=== PATIENT | female | born 1950 | race Caucasian/White ===

== ENCOUNTER 2023-12-13 11:21 | Outpatient (RCR) | payer MEDICARE, BC, SELFPAY ==
--- NOTE | 2023-12-13 11:28 | PC.NURSE ---
1100 Arrival w/c with spouse. alert oriented, assisted to bed. 1110 attempted straight cath per Ilya Rn without success.
--- NOTE | 2023-12-13 12:11 | PC.NURSE ---
1140 straight cathed per Letha RN, returned clear yellow urine. UA sent to lab as ordered, asssisted patient to clean self, redress, assisted to w/c and to car.
[2023-12-13 12:55] LABS: Bilirubin Urine NEGATIVE (NEGATIVE); Blood Urine NEGATIVE (NEGATIVE); Clarity Urine CLEAR (CLEAR); Color Urine YELLOW (YELLOW); Glucose Urine UA NEGATIVE (NEGATIVE); Ketones Urine NEGATIVE (NEGATIVE); Leukocyte Esterase Urine NEGATIVE (NEGATIVE); Nitrite Urine NEGATIVE (NEGATIVE); Protein Urine TRACE mg/dL (NEG/TRACE); Specific Gravity Urine 1.015 (1.005-1.025); Urobilinogen Urine 0.2 EU/dL (0.2-1.0); pH Urine 7.5 (5.0-9.0)
[2023-12-13 12:59] LABS: Urine Microscopic Indicated NO
== END 2024-01-01 23:59 | disposition home or self-care (01) ==
LOC: INF 11:21
PROVIDERS: PCP Family Medicine; Visit Provider Personal Emergency Response Attendant
DX: N30.00 Acute cystitis without hematuria (principal)
CPT/HCPCS: 81003

== ENCOUNTER 2024-01-05 17:30 | Outpatient (REF) | payer MEDICARE, BC, SELFPAY ==
--- OUTSIDE RECORDS SUMMARY | 2024-01-05 17:44 | XMS_ITS | CCD ---
Author Organization [facility] Team Providers Care Winter Intern Name Role Phone PHYSICIAN, DEFAULT Unavailable Unavailable PHYSICIAN, DEFAULT Unavailable Unavailable DEFDARCI, DR POLANCO Admitting Unavailable DEFRANCE, DR POLANCO Attending Unavailable DEFRANCE, DR POLANCO Primary Care Unavailable DEFRANCE, DR POLANCO Consulting Unavailable None, No PCP Unavailable Unavailable Amanda Jung Unavailable Unavailable Sherri Broderick Unavailable Demond Wilhelm Unavailable Unavailable Cevasrandi, Dr. Jerry Barrera Referring U navanaable Davie, Dr. Sherri Moreno Primary Care Diandra ilDuyen Cam Admitting Unavailable Duyen Lubin Attending Unavailable Cevasco, Dr. Jerry Barrera Referring U navailable Duyen Lubin Attending Unavailable Honda, Dr. Paris Wolf Attending Unavailabl e Duyen Lubin Referring Unavailable DefSherri bejarano MD Primary Care Provider Unavailable Primary Care Provider UnavailKANDACE Au Referring Unavailable KAVURI, SUMAN C Attending Unavailable SELF, SELF Referring Unavailable KAVURI, SUMAN C Attending Unavailable ROCIO OGDEN Referring Unavailable KAVURI, SUMAN C Attending Unavailable Sherri Broderick MD Primary Care Provider Sherri Broderick MD Primary Care Provider [phone] Sherri Broderick MD Primary Care Juan Diego Kauffman PA-C, Kandace Dorsey Attending Elva Kauffman PA-C, Kandace Dorsey Attending Sherri Lynch MD Primary Care Juan Diego Kauffman PA-C, Kandace Dorsey Attending Sherri Lynch MD Primary Care Sukhdeep Elizalde MD Admitting Unavailable Sukhdeep Dooley MD Attending Unavailable Sherri Broderick MD Primary Care Juan Diego Broderick MD, [facility] Juan Diego Tineo MD, Suman Attending Unavailable Defrance , [facility] Diandrai shari Kauffman PA-C, Kandace Dorsey Attending Unav ailable Michael FULTON, Knadace Dorsey Attending Unav ailable Defdarci BARRIOS, [facility] Juan Diego Kauffman PA-C, Kandace Dorsey Attending Unav ailable Davie BARRIOS, [facility] Pennyvai shari Kauffman PA-C, Kandace Dorsey Attending Unav ailable Davie BARRIOS, [facility] Diandrai shari Broderick MD, [facility] Juan Diego Kauffman PA-C, Kandace Dorsey Attending Unav ailable Davie BARRIOS, [facility] Juan Diego Kauffman PA-C, Kandace Dorsey Attending Elva GARNICA JR., ROCAEL Lucas Attending Unavailkeri GARNICA JR., ROCAEL Lucas Attending Unavaila MATHEW Gibson Attending Unavailable QUINN CHAVEZ Attending Unavailable MATHEW WARREN Referring Unavailable JR. ABDELRAHMAN, ROCAEL Lucas Attending Unavaila AMBER Pringle Attending Unavailable DEFSHERRI BEJARANO Referring Unavailable DEFRANCE, SHERRI Sanders Primary Care Unavailable DEFRANCESHERRI Attending Unavailable DEFRANCESHERRI Referring Unavailable DEFRANCE, SHERRI Sanders Primary Care Unavailable DEFRANCESHERRI Attending Unavailable DEFRANCESHERRI Referring Unavailable DEFRANCE, SHERRI Sanders Primary Care Unavailable DEFRANCESHERRI Attending Unavailable DEFRANCESHERRI Referring Unavailable DEFRANCE, SHERRI Sanders Primary Care Unavailable DEFRANCESHERRI Referring Unavailable DEFRANCE, SHERRI Sanders Primary Care Unavailable KATT MICHAEL Attending Unavailable DEFRANCESHERRI Referring Unavailable DEFRANCESHERRI Primary Care Unavailable DEFRANCE, SHERRI Sanders Referring Unavailable DEFRANCE, SHERRI Sanders Primary Care Unavailable MARTI GASTON Admitting Unavailable MARTI GASTON Attending Unavailable MARTI GASTON Referring Unavailable DEFRANCE, SHERRI Sanders Primary Care Unavailable MARTI GASTON Attending Unavailable MARTI GASTON Referring Unavailable DEFRANCE, SHERRI Sanders Primary Care Unavailable BASSEM MALCOLM Attending Unavailable DEFRANCE, SHERRI Sanders Primary Care Unavailable DEFRANCE, SHERRI Sanders Referring Unavailable DEFRANCE, SHERRI Sanders Primary Care Unavailable ROCAEL GARNICA JR Referring Unavailabl e DEFRANCE, SHERRI T Primary Care Unavailable DEFRANCE, SHERRI T Referring Unavailable DEFRANCE, SHERRI T Primary Care Unavailable DEFRANCE, SHERRI T Referring Unavailable DEFRANCE, SHERRI T Primary Care Unavailable DEFRANCE, SEHRRI T Referring Unavailable DEFRANCE, SHERRI T Primary Care Unavailable DEFRANCE, SHERRI T Referring Unavailable DEFRANCE, SHERRI T Primary Care Unavailable THRASHERLB RICO Attending Unavailable THRASHER, LB Freire Referring Unavailable DEFRANCE, SHERRI T Primary Care Unavailable KATT MICHAEL Attending Unavailable DEFRANCE, SHERRI T Referring Unavailable DEFRANCE, SHERRI T Primary Care Unavailable THRASHERLB RICO Admitting Unavailable THRASHERLB RICO Attending Unavailable DEFRANCE, SHERRI T Referring Unavailable DEFRANCE, SHERRI T Primary Care Unavailable DEFRANCE, SHERRI T Referring Unavailable DEFRANCE, SHERRI T Primary Care Unavailable BRIT GIBSON Attending Unavailable DEFRANCE, SHERRI T Primary Care Unavailable DEFRANCE, SHERRI T Referring Unavailable DEFRANCE, SHERRI T Primary Care Unavailable DEFRANCE, SHERRI T Referring Unavailable DEFRANCE, SHERRI T Primary Care Unavailable DEFRANCE, SHERRI T Referring Unavailable DEFRANCE, SHERRI Sanders Primary Care Unavailable ROCAEL GARNICA JR Referring Unavailabl e DEFRANCE, SHERRI Sanders Primary Care Unavailable ROCAEL GARNICA JR Referring Unavailabl e DEFRANCE, SHERRI Sanders Primary Care Unavailable ROCAEL GARNICA JR Referring Unavailabl e DEFRANCE, SHERRI Sanders Primary Care Unavailable DEFRANCE, SHERRI T Referring Unavailable DEFRANCE, SHERRI T Primary Care Unavailable MATIAS LAUREANO Attending Unavailable DEFRANCE, SHERRI T Referring Unavailable DEFRANCE, SHERRI T Primary Care Unavailable LB THRASHER Admitting Unavailable LB THRASHER Attending Unavailable DEFRANCE, SHERRI T Referring Unavailable DEFRANCE, SHERRI Sanders Primary Care Unavailable DIVINA NG Referring Unavailable DEFRANCE, SHERRI T Primary Care Unavailable DEFRANCE, SHERRI T Referring Unavailable DEFRANCE, SHERRI T Primary Care Unavailable ROCAEL GARNICA JR Referring Unavailabl e DEFRANCE, SHERRI T Primary Care Unavailable LB THRASHER Admitting Unavailable LB THRASHER Attending Unavailable DEFRANCE, SHERRI T Referring Unavailable DEFRANCE, SHERRI T Primary Care Unavailable DEFRANCE, SHERRI T Referring Unavailable DEFRANCE, SHERRI T Primary Care Unavailable DEFRANCE, SHERRI T Referring Unavailable DEFRANCE, SHERRI T Primary Care Unavailable ROCAEL GARNICA JR Admitting Unavailabl e ROCAEL GARNICA JR Attending Unavailabl e DEFRANCE, SHERRI Sanders Primary Care Unavailable [facility] nsulting Unavailable DEFRANCE, SHERRI T Referring Unavailable DEFRANCE, SHERRI T Primary Care Unavailable DIVINA NG Referring Unavailable DEFRANCE, SHERRI T Primary Care Unavailable DEFRANCE, SHERRI T Referring Unavailable DEFRANCE, SHERRI T Primary Care Unavailable KATT MICHAEL Attending Unavailable DEFRANCE, SHERRI T Referring Unavailable DEFRANCE, SHERRI T Primary Care Unavailable DEFRANCE, SHERRI T Referring Unavailable DEFRANCE, SHERRI T Primary Care Unavailable DIVINA NG Referring Unavailable DEFRANCE, SHERRI T Primary Care Unavailable FIGUEROA PERALES Attending Unavailable DEFRANCE, SHERRI T Referring Unavailable DEFRANCE, SHERRI T Primary Care Unavailable DEFRANCE, SHERRI T Referring Unavailable DEFRANCE, SHERRI T Primary Care Unavailable DEFRANCE, SHERRI T Referring Unavailable DEFRANCE, SHERRI T Primary Care Unavailable Allergies Allergy Classification Reported Allergen(s) Allergy Type Date of Onset Reaction(s) Facility (20 sources) latanoprost / netarsudil; Translations: [Rocklatan SOLN] Drug Allergy 05-19-19 23 Other (See Comments) [facility] (2 sources) No Alert Propensity to adverse reactions to drug 09-02-19 Dept[facility]at[facility] (20 sources) brimonidine / brinzolamide; Translations: [BRINZOLAMIDE-BABAK MONIDINE] Drug Allergy 09-24-19 17 Itchy Eyes, Redness, Itching, Unknown [facility] (20 sources) HYDROmorphone; Translations: [HYDROMORPHONE] Drug Allergy 12-16-19 23 Hives, Nausea and Vomiting [facility] (20 sources) Meperidine; Translations: [MEPERIDINE] Drug Allergy 05-23-19 22 Nausea and Vomiting, GI intolerance [facility] (20 sources) Morphine; Translations: [morphine] Drug Allergy 05-23-19 22 Nausea and Vomiting, GI intolerance [facility] (6 sources) Netarsudil-Latano prost; Translations: [NETARSUDIL-LATAN OPROST] Propensity to adverse reactions to drug 05-19-19 23 Itching, Redness, Angioedema (swelling), Unknown [facility] (20 sources) DULoxetine; Translations: [DULOXETINE] Drug Allergy 03-31-20 23 Nausea And Vomiting [facility] (20 sources) tiZANidine; Translations: [TIZANIDINE] Drug Allergy 03-31-20 23 Nausea And Vomiting [facility] (1 source) amLODIPine Drug Allergy 07-23-19 [address] [facility] (1 source) HYDROmorphone Drug Allergy 12-24-19 [address] [facility] (1 source) Acetaminophen / HYDROcodone; Translations: [hydrocodone-acet aminophen] Drug Allergy [facility] (1 source) brimonidine / brinzolamide; Translations: [Simbrinza] Drug Allergy [facility] (1 source) HYDROmorphone; Translations: [Dilaudid] Drug Allergy [facility] (1 source) Meperidine; Translations: [Demerol] Drug Allergy [facility] (1 source) Rocklatan; Translations: [Rocklatan] Propensity to adverse reactions to drug (disorder) [facility] (1 source) nickel; Translations: [NICKEL] Drug Allergy 12-28-19 [facility] Medications Current Medications Medication Drug Class(es) Dates Sig (Normalized) Sig (Original) 8 hr acetaminophen 650 mg extended release oral tablet (17 sources) acetaminophen (TYLENOL ARTHRITIS) 650 mg 8 hr tablet Take 1 tablet (650 mg total) by mouth. 2 tabs bid 0 Active albuterol 0.83 mg/ml inhalation solution (20 sources) beta2-Adrenergic Agonist Start: 02-15-2023 albuterol (PROVENTIL,VENTOLIN) nebulizer solution 2.5 mg Start: 08-19-2022 take 2 puff(s) by in halation every six hours as needed for wheezing albuterol (PROVENTIL HFA;VENTOLIN HFA) 90 mcg/actuation inhaler Indications: Bronchitis Inhale 2 puffs every 6 (six) hours as needed for wheezing. 18 g 1 08/19/2022 Active take 1 puff(s) by in halation every six hours as needed Albuterol 108 (90 Base) MCG/ACT Aero Soln inhaler Inhale 1 puff every 6 hours as needed for Shortness of Breath. 0 Active ascorbic acid 1000 mg oral tablet (18 sources) Vitamin C take 1 tablet by luis armando th in the morning ascorbic acid, vitamin C, (VITAMIN C) 1000 mg tablet Take 1 tablet (1,000 mg total) by mouth in the morning. 0 Active calcium carbonate 1500 mg oral tablet (19 sources) take 1 tablet by luis armando th in the morning, then take 1 tablet by mouth at mealtime calcium carbonate (OS-NETTA) 600 mg (1,500 mg) tablet Take 1 tablet (600 mg total) by mouth in the morning and 1 tablet (600 mg total) in the evening. Take with meals. 0 Active calcium carbonat e (Calcium 600) 600 MG tablet Calcium 600 0 Active carvedilol 12.5 mg oral tablet (20 sources) alpha-Adrenergic Kimo, beta-Adrenergic Kimo Start: 01-01-2023 End: 06-03-2023 take 1 tablet by mouth in the morning, then take 1 tablet by mouth at mealtime carvediloL (COREG) 12.5 mg tablet Take 1 tablet (12.5 mg total) by mouth in the morning and 1 tablet (12.5 mg total) in the evening. Take with meals. 90 tablet 3 06/03/2023 Active Carvedilol TABS Quantity: 0 Refills: 0 Ordered: 25-Aug-2022 DO Active Docusate (18 sources) take 1 capsule by mouth twice daily as needed docusate sodium (COLACE ORAL) Take 1 capsule by mouth 2 (two) times a day as needed. 0 Active dorzolamide 20 mg/ml ophthalmic solution (18 sources) Carbonic Anhydrase Inhibitor Start: 2 take 1 drop(s) into the eye(s) once daily dorzolamide (TRUSOPT) 2 % ophthalmic solution INSTILL 1 DROP IN BOTH EYES ONCE DAILY (MID-DAY) 0 08/13/2021 Active dorzolamide 20 mg/ml / timolol 5 mg/ml ophthalmic solution (20 sources) Carbonic Anhydrase Inhibitor, beta-Adrenergic Kimo Start: 7 dorzolamide-timolol (COSOPT) 22.3-6.8 mg/mL ophthalmic solution Start: 07-24-2016 take 1 drop(s) into the eye(s) twice daily dorzolamide-timolol (COSOPT) 22.3-6.8 mg/mL ophthalmic solution INSTILL 1 DROP IN BOTH EYES TWICE DAILY DIRECTED 3 07/24/2016 Active take 1 drop(s) into the eye(s) twice daily Dorzolamide HCl-Timolol Mal PF 22.3-6.8 MG/ML solution dorzolamide-timolol (PF) 2 %-0.5 % eye drops in a dropperette INSTILL 1 DROP INTO AFFECTED EYE(S) BY OPHTHALMIC ROUTE 2 TIMES PER DAY 0 Active Dorzolamide HCl- Timolol Mal 22.3-6.8 MG/ML Ophthalmic Solution Quantity: 0 Refills: 0 Ordered: 25-Aug-2022 DO Active DORZOLAMIDE HCL-TIMOLOL MAL OP (1 source) DORZOLAMIDE HCL- TIMOLOL MAL OP Dorzolamide-Timolol 0 Active fluticasone / salmeterol (19 sources) Corticosteroid, beta2-Adrenergi c Agonist Start: 01-29-20 take 1 puff(s) by mouth in the morning fluticasone propion-salmeteroL (ADVAIR) 250-50 mcg/dose DISKUS INHALE 1 PUFF BY MOUTH IN THE MORNING then INHALE 1 PUFF BY MOUTH BEFORE bedtime 60 each 5 01/28/2023 Active take 1 puff(s) by mo uth in the morning Fluticasone-Salmeterol 250-50 MCG/ACT ae rosol powder INHALE 1 PUFF BY MOUTH IN THE MORNING then INHALE 1 PUFF BY MOUTH BEFORE bedtime 0 Active furosemide 40 mg oral tablet (20 sources) Loop Diuretic Start: 05-19-2022 take 1 tablet by mouth twice daily before mealtime furosemide (LASIX) 40 mg tablet Indications: Acute on chronic diastolic congestive heart failure ([facility]) Take 1 tablet (40 mg total) by mouth 2 (two) times a day before meals. 60 tablet 11 05/19/2022 Active take 1 tablet by mouth once andres y furOSEmide 40 MG tablet Take 1 tablet by mouth daily. 0 Active glimepiride 4 mg oral tablet (20 sources) Sulfonylurea Start: 07-02-2023 take 1 tablet by mouth in the morning, then take 1 tablet by mouth before mealtime glimepiride (AMARYL) 4 mg tablet Indications: Type 2 diabetes mellitus with stage 3 chronic kidney disease, without long-term current use of insulin, unspecified whether stage 3a or 3b CKD ([facility]) Take 1 tablet (4 mg total) by mouth in the morning and 1 tablet (4 mg total) in the evening. Take before meals. 60 tablet 11 07/02/2023 Active Start: 06-23-2023 glimepiride (A MARYL) 2 mg tablet Indications: Type 2 diabetes mellitus with stage 3 chronic kidney disease, without long-term current use of insulin, unspecified whether stage 3a or 3b CKD ([facility]) Take 2 Tablets (4mg) before breakfast, and take 1 Tablet (2mg) before dinner 90 tablet 1 06/23/2023 Active Start: 05-25-2023 End: 06-23-2023 take 1 tablet by mouth once daily before breakfast glimepiride (AMARYL) 4 mg tablet TAKE 1 TABLET BY MOUTH EVERY MORNING before BREAKFAST 90 tablet 3 05/25/2023 06/23/2023 Discontinued (Dose adjustment) Start: 03-10-2023 End: 06-03-2023 glimepiride (AMARYL) 2 mg ta blet Indications: Type 2 diabetes mellitus with stage 3 chronic kidney disease, without long-term current use of insulin, unspecified whether stage 3a or 3b CKD ([facility]) Take 2 tablets (4 mg total) by mouth every morning before breakfast. 0 05/21/2023 06/03/2023 Discontinued (Duplicate Listing) Start: 08-19-2022 take 2 tablets by mo uth before mealtime glimepiride (Amaryl) 4 MG tablet Take 8 mg by mouth in the morning. Take before meals. 0 08/19/2022 Active Glimepiride TABS Quantity: 0 Refills: 0 Ordered: 25-Aug-2022 DO Active latanoprost 0.05 mg/ml / netarsudil 0.2 mg/ml ophthalmic solution (1 source) Prostaglandin Analog, Rho Kinase Inhibitor Start: 03-16-2022 take 1 drop(s) into the eye(s) at bedtime Rocklatan 0.02-0.005 % solution instill 1 (ONE) DROP IN BOTH EYES AT BEDTIME 0 03/16/2022 Active metFORMIN hydrochloride 500 mg oral tablet (20 sources) Biguanide Start: 06-16-2022 End: 07-05-2023 take 1 tablet by mouth twice daily metFORMIN (GLUCOPHAGE) 500 mg tablet TAKE 1 TABLET BY MOUTH TWICE DAILY 180 tablet 1 07/05/2023 Active take 1 tablet by luis armando th every twenty-four hours metFORMIN HCl ER 500 MG Oral Tablet Extended Release 24 Hour Quantity: 0 Refills: 0 Ordered: 25-Aug-2022 DO Active Multiple Vitamins-Minerals (Multivitamin Women 50+) tablet (1 source) Multiple Vitamins-Minerals (Multivitamin Women 50+) tablet as directed Orally 0 Active multivit-min/iron/folic /lutein (ULTIMATE WOMEN'S COMPLETE 50+ ORAL) (18 sources) take 1 tablet by mouth once in the morning multivit-min/iron/folic /lutein (ULTIMATE WOMEN'S COMPLETE 50+ ORAL) Take 1 tablet by mouth in the morning. 0 Active pantoprazole 40 mg delayed release oral tablet (17 sources) Proton Pump Inhibitor Start: 2023 take 1 tablet by mouth in the morning pantoprazole (PROTONIX) 40 mg EC tablet Take 1 tablet (40 mg total) by mouth in the morning. 30 tablet 5 05/21/2023 Active microencapsulated potassium chloride 20 meq extended release oral tablet (20 sources) Start: 2022 End: 2023 take 1 tablet by mouth in the morning potassium chloride (KLOR-CON M 20) 20 MEQ CR tablet Take 1 tablet (20 mEq total) by mouth in the morning. 30 tablet 5 07/06/2023 Active prednisoLONE acetate 10 mg/ml ophthalmic suspension (1 source) Corticosteroid take 1 drop(s) into the eye(s) three times daily prednisoLONE acetate (Pred-Forte) 1 % ophthalmic suspension prednisolone acetate 1 % eye drops,suspension INSTILL 1 DROP IN THE LEFT EYE THREE TIMES DAILY 0 Active pregabalin 100 mg oral capsule (20 sources) Start: 2023 take 1 capsule by mouth in the morning, then take 1 capsule by mouth at bedtime pregabalin (LYRICA) 100 mg capsule Indications: Spinal stenosis of lumbar region with neurogenic claudication , Lumbosacral spondylosis without myelopathy Take 1 capsule (100 mg total) by mouth in the morning and 1 capsule (100 mg total) before bedtime. 60 capsule 1 07/19/2023 Active Start: 05-28-2023 End: 07-14-2023 take 1 capsule by mouth in the morning, then take 1 capsule by mouth at bedtime pregabalin (LYRICA) 100 mg capsule Indications: Spinal stenosis of lumbar region with neurogenic claudication , Lumbosacral spondylosis without myelopathy Take 1 capsule (100 mg total) by mouth in the morning and 1 capsule (100 mg total) before bedtime. 60 capsule 1 05/28/2023 07/14/2023 Discontinued (Reorder) Start: 05-28-2023 take 1 capsule by mo uth in the morning, then take 1 capsule by mouth at bedtime pregabalin (LYRICA) 100 mg capsule Indications: Spinal stenosis of lumbar region with neurogenic claudication , Lumbosacral spondylosis without myelopathy Take 1 capsule (100 mg total) by mouth in the morning and 1 capsule (100 mg total) before bedtime. 60 capsule 1 05/28/2023 Active Start: 04-28-2023 End: 05-26-2023 take 1 capsule by mouth in the morning, then take 1 capsule by mouth at bedtime pregabalin (LYRICA) 75 mg capsule Indications: Spinal stenosis of lumbar region with neurogenic claudication , Lumbosacral spondylosis without myelopathy Take 1 capsule (75 mg total) by mouth in the morning and 1 capsule (75 mg total) before bedtime. 60 capsule 0 04/28/2023 05/26/2023 Discontinued (Reorder) Start: 04-13-2023 End: 04-28-2023 take 1 capsule by mouth in the morning, then take 1 capsule by mouth at bedtime pregabalin (LYRICA) 50 mg capsule Indications: Spinal stenosis of lumbar region with neurogenic claudication , Lumbosacral spondylosis without myelopathy Take 1 capsule (50 mg total) by mouth in the morning and 1 capsule (50 mg total) before bedtime. 60 capsule 1 04/13/2023 04/28/2023 Discontinued Start: 03-31-2023 take 1 capsule by mo uth twice daily pregabalin 25 MG capsule Take 1 capsule by mouth Twice daily. 0 03/31/2023 Active take 2 capsules by m outh in the morning pregabalin (Lyrica) 50 MG capsule Take 100 mg by mouth in the morning and 100 mg before bedtime. 0 Active rosuvastatin calcium 10 mg oral tablet (20 sources) HMG-CoA Reductase Inhibitor Start: 09-22-2022 End: 06-03-2023 take 1 tablet by mouth once daily rosuvastatin (CRESTOR) 10 mg tablet TAKE 1 TABLET BY MOUTH NIGHTLY 90 tablet 3 06/03/2023 Active Crestor 10 MG Or al Tablet Quantity: 0 Refills: 0 Ordered: 25-Aug-2022 DO Active 0.25 mg, 0.5 mg dose 1.5 ml semaglutide 1.34 mg/ml pen injector (1 source) semaglutide (Oze mpic) 2 MG/1.5ML solution pen-injector Inject 1 mg under the skin TAKES ON SUNDAYS 0 Active semaglutide (OZEMPIC) 2 mg/dose (8 mg/3 mL) pen injector (3 sources) Start: 4 semaglutide (OZEMPIC) 2 mg/dose (8 mg/3 mL) pen injector Indications: Type 2 diabetes mellitus with stage 3 chronic kidney disease, without long-term current use of insulin, unspecified whether stage 3a or 3b CKD ([facility]) Inject 2 mg under the skin once a week. 3 mL 5 07/14/2023 Active senna-docusate (Kellie-Colace) 4.3-25 mg half tablet (1 source) senna-docusate (Kellie-Colace) 4.3-25 mg half tablet Take 1 capsule by mouth 2 (two) times a day as needed. 0 Active travoprost 0.04 mg/ml ophthalmic solution (18 sources) Prostaglandin Analog Start: 7 take 0.004 drop(s) into the eye(s) once daily TRAVATAN Z 0.004 % drops Indications: open angle glaucoma Administer 1 drop to both eyes nightly Indications: wide-angle glaucoma. 3 08/28/2016 Active Completed/Discontinued Medications Medication Drug Class(es) Dates Sig (Normalized) Sig (Original) Advair Diskus 250-50 MCG/DOSE MISC (2 sources) Advair Diskus 250-50 MCG/DOSE MISC Quantity: 0 Refills: 0 Ordered: 25-Aug-2022 DO Active aspirin 81 mg chewable tablet (4 sources) Platelet Aggregation Inhibitor, Nonsteroidal Anti-inflammatory Drug Start: 12-06-2020 End: 05-21-2023 aspirin 81 mg chewable tablet Chew 1 tablet (81 mg total) and swallow nightly. 0 12/06/2020 05/21/2023 Discontinued (Alternate therapy) ASPIRIN 81 PO As pir-81 0 Active losartan potassium 100 mg oral tablet (2 sources) Angiotensin 2 Receptor Kimo Losartan Potassium 1 00 MG Oral Tablet Quantity: 0 Refills: 0 Ordered: 25-Aug-2022 DO Active semaglutide (OZEMPIC) 0.25 mg or 0.5 mg (2 mg/3 mL) pen injector (5 sources) Start: 04-06-2023 End: 05-26-2023 semaglutide (OZEMPIC) 0.25 mg or 0.5 mg (2 mg/3 mL) pen injector Indications: Type 2 diabetes mellitus with stage 3 chronic kidney disease, without long-term current use of insulin, unspecified whether stage 3a or 3b CKD ([facility] Inject 0.5 mg under the skin once a week. 9 mL 1 04/06/2023 05/26/2023 Discontinued (Dose adjustment) Start: 04-06-2023 semaglutide (O ZEMPIC) 0.25 mg or 0.5 mg (2 mg/3 mL) pen injector Indications: Type 2 diabetes mellitus with stage 3 chronic kidney disease, without long-term current use of insulin, unspecified whether stage 3a or 3b CKD ([facility]) Inject 0.5 mg under the skin once a week. 9 mL 1 04/06/2023 Active semaglutide (OZEMPIC) 1 mg/d ose (4 mg/3 mL) pen injector (12 sources) Start: 05-26-2023 End: 07-14-2023 semaglutide (OZEMPIC) 1 mg/d ose (4 mg/3 mL) pen injector Indications: Type 2 diabetes mellitus with stage 3 chronic kidney disease, without long-term current use of insulin, unspecified whether stage 3a or 3b CKD ([facility]) Inject 1 mg under the skin every 7 days. 3 mL 1 05/26/2023 07/14/2023 Discontinued (Dose adjustment) Start: 05-26-2023 semaglutide (O ZEMPIC) 1 mg/dose (4 mg/3 mL) pen injector Indications: Type 2 diabetes mellitus with stage 3 chronic kidney disease, without long-term current use of insulin, unspecified whether stage 3a or 3b CKD ([facility]) Inject 1 mg under the skin every 7 days. 3 mL 1 05/26/2023 Active Problems Active Problems Problem Classification Problem Date Documented Date Episodic/Chronic Asthma (1 source) Uncomplicated asthma; Translations: [Unspecified asthma, uncomplicated] 09-23-2022 Chronic Chronic kidney disease (20 sources) Chronic kidney disease stage 3B ; Translations: [Stage 3b chronic kidney disease] Onset: 05-19-2022 05-19-2022 Chronic Chronic kidney disease (4 sources) Chronic kidney disease; Translations: [Chronic kidney disease, stage 3 unspecified] Onset: 05-19-2022 Congestive heart failure; nonhypertensive (20 sources) Acute on chronic diastolic heart failure; Translations: [Acute on chronic diastolic (congestive) heart failure] Onset: 05-19-2022 09-21-2022 Chronic Coronary atherosclerosis and other heart disease (2 sources) Coronary arteriosclerosis; Translations: [Atherosclerotic heart disease of inupiat coronary artery without angina pectoris] Onset: 12-03-2023 06-03-2023 Chronic Deficiency and other anemia (2 sources) Other iron deficiency anemias; Translations: [Other iron deficiency anemias] Onset: 12-21-2023 Episodic Deficiency and other anemia (2 sources) Anemia, unspecified; Translations: [Anemia, unspecified] Onset: 07-02-2023 Episodic Diabetes mellitus with complications (20 sources) Type 2 diabetes mellitus; Translations: [Type 2 diabetes mellitus with diabetic chronic kidney disease] Onset: 12-20-2017 06-15-2022 Chronic Diabetes mellitus without complication (3 sources) Type 2 diabetes mellitus without complication; Translations: [Type 2 diabetes mellitus without complications] Onset: 05-12-2023 09-23-2022 Chronic Diverticulosis and diverticulitis (1 source) Diverticulosis of intestine, part unspecified, without perforation or abscess without bleeding; Translations: [Diverticulosis of intestine, part unspecified, without perforation or abscess without bleeding] Onset: 07-19-2023 Chronic Esophageal disorders (2 sources) Gastroesophageal reflux disease; Translations: [Gastro-esophageal reflux disease without esophagitis] Onset: 07-19-2023 07-02-2023 Chronic Essential hypertension (20 sources) Essential hypertension; Translations: [Essential (primary) hypertension] Onset: 03-15-2017 09-23-2022 Chronic Genitourinary symptoms and ill-defined conditions (18 sources) Urinary incontinence; Translations: [Unspecified urinary incontinence] Onset: 07-08-2021 07-08-2021 Chronic Genitourinary symptoms and ill-defined conditions (2 sources) Personal history of urinary (tract) infections; Translations: [Frequency of micturition] Onset: 12-01-2023 Episodic Glaucoma (18 sources) Glaucoma; Translations: [Unspecified glaucoma] Onset: 12-20-2017 05-05-2018 Chronic Heart valve disorders (19 sources) Non-rheumatic mitral regurgitation ; Translations: [Nonrheumatic mitral (valve) insufficiency] Onset: 04-19-2017 11-05-2020 Chronic Melanomas of skin (5 sources) Malignant melanoma of upper arm; Translations: [Malignant melanoma of skin of upper limb, including shoulder] Onset: 09-22-2022 09-07-2022 Chronic Nutritional deficiencies (2 sources) Vitamin D deficiency, unspecified; Translations: [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] Onset: 05-20-2023 Chronic Osteoarthritis (20 sources) Osteoarthritis of right knee joint; Translations: [Unilateral primary osteoarthritis, right knee] Onset: 01-21-2022 02-18-2022 Chronic Other aftercare (1 source) Long-term current use of aspirin; Translations: [skilled nursing (current) use of aspirin] 09-23-2022 Episodic Other aftercare (1 source) Long-term current use of oral hypoglycemic medication; Translations: [skilled nursing (current) use of oral hypoglycemic drugs] 09-23-2022 Episodic Other connective tissue disease (1 source) Presence of right artificial knee joint; Translations: [Presence of right artificial knee joint] Onset: 12-28-2023 Chronic Other connective tissue disease (1 source) History of lumbar fusion; Translations: [Arthrodesis status] 03-23-2023 Episodic Other connective tissue disease (2 sources) Arthrodesis status; Translations: [Arthrodesis status] Onset: 03-23-2023 Episodic Other fractures (1 source) Closed fracture of pelvis; Translations: [Fracture of unspecified parts of lumbosacral spine and pelvis, initial encounter for closed fracture] 03-23-2023 Episodic Other fractures (2 sources) Fracture of unspecified parts of lumbosacral spine and pelvis, initial encounter for closed fracture; Translations: [Fracture of unspecified parts of lumbosacral spine and pelvis, initial encounter for closed fracture] Onset: 03-23-2023 Episodic Other lower respiratory disease (1 source) Dyspnea; Translations: [Shortness of breath] 06-03-2023 Episodic Other lower respiratory disease (1 source) Cough Onset: 11-10-2023 Episodic Other non-traumatic joint disorders (1 source) Pain in elbow Onset: 11-10-2023 Episodic Other nutritional; endocrine; and metabolic disorders (1 source) Obesity; Translations: [Obesity, unspecified] 09-23-2022 Chronic Other nutritional; endocrine; and metabolic disorders (20 sources) Body mass index 30+ - obesity; Translations: [Body mass index (BMI) 39.0-39.9, adult] Onset: 11-05-2020 09-23-2022 Chronic Other nutritional; endocrine; and metabolic disorders (3 sources) Obese class II; Translations: [Obesity, unspecified] Onset: 03-23-2023 03-23-2023 Chronic Other nutritional; endocrine; and metabolic disorders (20 sources) Severe obesity; Translations: [Morbid (severe) obesity due to excess calories] Onset: 11-22-2017 Resolved: 11-05-2020 11-29-2020 Chronic Other nutritional; endocrine; and metabolic disorders (1 source) Body mass index (BMI) 40.0-44.9, adult; Translations: [Body mass index (BMI) 40.0-44.9, adult] Onset: 11-10-2023 Chronic Other nutritional; endocrine; and metabolic disorders (2 sources) Obesity, unspecified; Translations: [Obesity, unspecified] Onset: 11-05-2020 Chronic Residual codes; unclassified (2 sources) No current problems or disability; Translations: [Other specified conditions influencing health status] Onset: 09-01-2022 Episodic Residual codes; unclassified (1 source) History of operative procedure on lumbosacral spinal structure; Translations: [Other specified postprocedural states] 04-08-2023 Episodic Residual codes; unclassified (2 sources) Other specified postprocedural states; Translations: [Other specified postprocedural states] Onset: 04-07-2023 Episodic Spondylosis; intervertebral disc disorders; other back problems (20 sources) Other intervertebral disc degeneration, lumbar region; Translations: [Lumbosacral spondylosis without myelopathy] Onset: 03-29-2017 Chronic Unclassified (2 sources) CONTACT W/AND (SUSP) EXPOS COVID-19; Translations: [CONTACT W/AND (SUSP) EXPOS COVID-19] Onset: 09-09-2020 Unclassified (1 source) Low back pain, unspecified; Translations: [Low back pain, unspecified] Onset: 03-23-2023 Unclassified (2 sources) Pre-op Exam Onset: 12-03-2023 Unclassified (1 source) Routine Check up Onset: 11-10-2023 Unclassified (1 source) Outpatient Infusion Onset: 12-27-2023 Unclassified (1 source) MTM Follow-up Visit Onset: 06-23-2023 Unclassified (1 source) Med Refill Onset: 06-03-2023 Viral infection (1 source) COVID-19; Translations: [COVID-19] Onset: 09-09-2020 Past or Other Problems Problem Classification Problem Date Documented Da te Episodic/Chronic Abdominal hernia (1 source) Diaphragmatic hernia without obstruction or gangrene; Translations: [Diaphragmatic hernia without obstruction or gangrene] Onset: 07-19-2023 Episodic Acute and unspecified renal failure (19 sources) Acute injury of kidney; Translations: [Acute kidney failure, unspecified] Onset: 05-19-2022 05-19-2022 Episodic Calculus of urinary tract (18 sources) Kidney stone; Translations: [Calculus of kidney] Onset: 09-29-2016 07-21-2022 Episodic Deficiency and other anemia (3 sources) Anemia; Translations: [Anemia, unspecified] Onset: 07-19-2023 05-21-2023 Episodic Mood disorders (18 sources) Mood disorders Onset: 02-11-2023 Resolved: 05-12-2023 02-11-2023 Nonspecific chest pain (18 sources) Chest pain; Translations: [Other chest pain] Onset: 03-18-2017 03-18-2017 Episodic Other gastrointestinal disorders (1 source) Dysphagia, oropharyngeal phase; Translations: [Dysphagia, oropharyngeal phase] Onset: 05-19-2023 Episodic Other lower respiratory disease (18 sources) Dyspnea on exertion; Translations: [Shortness of breath] Onset: 03-18-2017 Resolved: 11-05-2020 11-05-2020 Episodic Other lower respiratory disease (1 source) Shortness of breath; Translations: [Shortness of breath] Onset: 06-03-2023 Episodic Other screening for suspected conditions (not mental disorders or infectious disease) (18 sources) History of adenomatous polyp of colon; Translations: [Encounter for screening for malignant neoplasm of colon] Onset: 12-26-2018 12-26-2018 Episodic Residual codes; unclassified (18 sources) Edema; Translations: [Edema, unspecified] Onset: 07-22-2020 07-22-2020 Episodic Spondylosis; intervertebral disc disorders; other back problems (20 sources) Low back pain; Translations: [Lumbar back pain] Onset: 05-19-2017 03-23-2023 Episodic Unclassified (1 source) CONTACT W/AND (SUSP) EXPOS COVID-19; Translations: [CONTACT W/AND (SUSP) EXPOS COVID-19] Onset: 09-02-2020 Unclassified (1 source) Low back pain, unspecified; Translations: [Low back pain, unspecified] Onset: 03-23-2023 Unclassified (18 sources) Onset: 12-06-2020 12-06-2020 Viral infection (18 sources) COVID-19; Translations: [Pneumonia due to other virus not elsewhere classified] Onset: 09-08-2020 09-08-2020 Episodic Results Test Name Value Interpretation Reference Range Facility BASIC METABOLIC PANLon 12-28 Anion gap [Moles/Vol] 7 mmol/L Normal 5-15 [facility] Comment on above: Performed By: #### C CYNTHIA, MARVEL, 10090-3, 2777-1, [facility], 2731-8, 18739-2 #### [facility] ([id number]) [address], [address] [place] [address] Calcium [Mass/Vol] 8.2 mg/dL Low 8.5-10.5 [facility] Comment on above: Performed By: #### C BC, BMP, 37408-9, 2777-1, [facility], 2731-8, 89073-5 #### [facility] ([id number]) [address], [address] [place] [address] Chloride [Moles/Vol] 108 mmol/L Normal 98-109 [facility] Comment on above: Performed By: #### C BC, BMP, 99869-1, 2777-1, [facility], 2731-8, 19695-3 #### [facility] ([id number]) [address], [address] [place] [address] CO2 [Moles/Vol] 25 mmol/L Normal 22-32 [facility] Comment on above: Performed By: #### C BC, BMP, 89338-3, 2777-1, UPCR, 2731-8, 78220-1 #### [facility] ([id number]) [address], [address] [place] [address] Creatinine [Mass/Vol] 1.22 mg/dL High 0.40-1.00 [facility] Comment on above: Result Comment: METH OD TRACEABLE TO IDMS STANDARD Performed By: #### C BC, BMP, 53273-0, 2777-1, UPCR, 2731-8, 60746-9 #### [facility] ([id number]) [address], [address] [place] [address] GFR/1.73 sq M.predicted among non-blacks MDRD (S/P/Bld) [Vol rate/Area] 47 mL/min/{1.73_m2} Low >59 [facility] Comment on above: Result Comment: Reported eGFR is based on the CKD-EPI 2020 equation that does not use a race coefficient. Performed By: #### C BC, BMP, 38998-4, 2777-1, UPCR, 2731-8, 45520-2 #### [facility] ([id number]) [address], [address] [place] [address] Glucose [Mass/Vol] 146 mg/dL High 65-99 [facility] Comment on above: Performed By: #### C BC, BMP, 95912-4, 2777-1, UPCR, 2731-8, 16072-8 #### [facility] ([id number]) [address], [address] [place] [address] Potassium [Moles/Vol] 4.0 mmol/L Normal 3.5-5.0 [facility] Comment on above: Performed By: #### C BC, BMP, 88247-2, 2777-1, UPCR, 2731-8, 69848-0 #### [facility] ([id number]) [address], [address] [place] [address] Sodium [Moles/Vol] 140 mmol/L Normal 134-146 [facility] Comment on above: Performed By: #### C BC, BMP, 77008-7, 2777-1, UPCR, 2731-8, 55115-7 #### [facility] ([id number]) [address], [address] [place] [address] Urea nitrogen [Mass/Vol] 21 mg/dL Normal 5-27 [facility] Comment on above: Performed By: #### C BC, BMP, 84765-2, 2777-1, UPCR, 2731-8, 15280-5 #### [facility] ([id number]) [address], [address] [place] [address] HGB AND HCTon 12-29-2023 Hematocrit (Bld) [Volume fraction] 27.2 % Low 35-47 [facility] Comment on above: Performed By: #### C BC, BMP, 56146-5, 2777-1, UPCR, 2731-8, 61726-7 #### [facility] ([id number]) [address], [address] [place] [address] Hemoglobin (Bld) [Mass/Vol] 8.7 g/dL Low 11.7-15.5 [facility] Comment on above: Performed By: #### C BC, BMP, 77791-7, 2777-1, UPCR, 2731-8, 02386-1 #### [facility] ([id number]) [address], [address] [place] [address] MAGNESIUMon 12-29-2023 Magnesium [Mass/Vol] 1.7 mg/dL Low 1.8-2.6 [facility] Comment on above: Performed By: #### C BC, BMP, 15684-2, 7-1, UPCR, 2731-8, 56114-0 #### [facility] ([id number]) [address], [address] [place] [address] Glucose Glucometer (BldC) [M ass/Vol]on 12-28-2023 Glucose [Mass/Vol] 278 mg/dL High 65-99 [facility] HGB AND HCTon 12-28-2023 Hematocrit (Bld) [Volume fraction] 33.7 % Low 35-47 [facility] Comment on above: Performed By: #### C CYNTHIA, BMP, 85326-3, 2776-1, UPCR, 2731-8, 88755-2 #### [facility] ([id number]) [address], [address] [place] [address] Hemoglobin (Bld) [Mass/Vol] 10.6 g/dL Low 11.7-15.5 [facility] Comment on above: Performed By: #### Lance MARIE, BMP, 12386-9, 7-1, UPCR, 2731-8, 24171-1 #### [facility] ([id number]) [address], [address] [place] [address] Hematocrit (Bld) [Volume fraction] 33.8 % Low 35-47 [facility] Comment on above: Performed By: #### Lance BC, BMP, 03335-5, 2776-, UPCR, 2731-8, 32846-0 #### [facility] ([id number]) [address], [address] [place] [address] Hemoglobin (Bld) [Mass/Vol] 10.8 g/dL Low 11.7-15.5 [facility] Comment on above: Performed By: #### C BC, BMP, 96818-8, 2777-1, UPCR, 2731-8, 72768-5 #### [facility] ([id number]) [address], [address] [place] [address] XR KNEE RT 1 OR 2 VWSon 12-02 XR KNEE RT 1 OR 2 VWS XR KNEE RT 1 OR 2 VWS XR KNEE RT 1 OR 2 VWS HISTORY: Knee replacement. COMPARISON: None. IMPRESSION: 1. New prosthesis without fracture or complication. Joint effusion, soft tissue gas. Finalized by Marco Ventura MD on 12/28/2023 11:45 AM Normal [facility] BASIC METABOLIC PANLon 12-20 Anion gap [Moles/Vol] 12 mmol/L Normal 5-15 [facility] Comment on above: Performed By: #### Lance MARIE, BMP, 17038-1, 7-1, UPCR, 2731-8, 93560-6 #### [facility] ([id number]) [address], [address] [place] [address] Calcium [Mass/Vol] 9.7 mg/dL Normal 8.5-10.5 [facility] Comment on above: Performed By: #### Lance MARIE, BMP, 46038-9, 7-1, UPCR, 2731-8, 36016-7 #### [facility] ([id number]) [address], [address] [place] [address] Chloride [Moles/Vol] 108 mmol/L Normal 98-109 [facility] Comment on above: Performed By: #### Lance BC, BMP, 41138-2, 2777-1, UPCR, 2731-8, 96695-5 #### [facility] ([id number]) [address], [address] [place] [address] CO2 [Moles/Vol] 23 mmol/L Normal 22-32 [facility] Comment on above: Performed By: #### C BC, BMP, 98627-7, 2777-1, UPCR, 2731-8, 54072-1 #### [facility] ([id number]) [address], [address] [place] [address] Creatinine [Mass/Vol] 1.28 mg/dL High 0.40-1.00 [facility] Comment on above: Result Comment: METH OD TRACEABLE TO IDMS STANDARD Performed By: #### C BC, BMP, 01956-5, 2777-1, UPCR, 2731-8, 43722-8 #### [facility] ([id number]) [address], [address] [place] [address] GFR/1.73 sq M.predicted among non-blacks MDRD (S/P/Bld) [Vol rate/Area] 44 mL/min/{1.73_m2} Low >59 [facility] Comment on above: Result Comment: Reported eGFR is based on the CKD-EPI 2020 equation that does not use a race coefficient. Performed By: #### C BC, BMP, 84434-6, 2777-1, UPCR, 2731-8, 91722-5 #### [facility] ([id number]) [address], [address] [place] [address] Glucose [Mass/Vol] 131 mg/dL High 65-99 [facility] Comment on above: Performed By: #### C BC, BMP, 45316-4, 2777-1, UPCR, 2731-8, 51806-8 #### [facility] ([id number]) [address], [address] [place] [address] Potassium [Moles/Vol] 4.7 mmol/L Normal 3.5-5.0 [facility] Comment on above: Performed By: #### C BC, BMP, 78598-0, 2777-1, UPCR, 2731-8, 52474-9 #### [facility] ([id number]) [address], [address] [place] [address] Sodium [Moles/Vol] 143 mmol/L Normal 134-146 [facility] Comment on above: Performed By: #### C BC, BMP, 59163-2, 2776-, UPCR, 2731-8, 05536-8 #### [facility] ([id number]) [address], [facility] [address] [place] [address] Urea nitrogen [Mass/Vol] 30 mg/dL High 5-27 [facility] Comment on above: Performed By: #### C BC, BMP, 77579-9, 2776-, UPCR, 2731-8, 07730-7 #### [facility] ([id number]) [address] [address] [place] [address] CBC AND AUTO DIFFon 12-21-19 24 Anisocytosis Ql (Bld) 2+ Abnormal NONE [facility] Comment on above: Performed By: #### C BC, BMP, , 2776-, UPCR, 273-8, 77308-1 #### [facility] ([id number]) [address] [address] [place] [address] Eosinophils (Bld) [#/Vol] 0.3 10*3/uL Normal 0.0-0.4 [facility] Comment on above: Performed By: #### Lance BC, BMP, , 2776-05, UPCR, 273-8, 97213-2 #### [facility] ([id number]) [address] [address] [place] [address] Eosinophils/100 WBC (Bld) 2.9 % Normal [facility] Comment on above: Performed By: #### C BC, BMP, 10460-6, 2776-, UPCR, 2731-8, 65859-0 #### [facility] ([id number]) [address] [address] [place] [address] Erythrocyte distribution width (RBC) [Ratio] 24.1 % High 11.5-15.0 [facility] Comment on above: Performed By: #### C BC, BMP, 22827-2, 2776-, UPCR, 2731-8, 22876-7 #### [facility] ([id number]) [address], [address] [place] [address] Hematocrit (Bld) [Volume fraction] 27.8 % Low 35-47 [facility] Comment on above: Performed By: #### C BC, BMP, 54986-3, 7-, UPCR, 2731-8, 51657-0 #### [facility] ([id number]) [address], [address] [place] [address] Hemoglobin (Bld) [Mass/Vol] 8.6 g/dL Low 11.7-15.5 [facility] Comment on above: Performed By: #### C BC, BMP, 48304-0, 2776-, UPCR, 2731-8, 87438-5 #### [facility] ([id number]) [address], [address] [place] [address] HYPOCHROMIA 1+ Abnormal NONE [facility] Comment on above: Performed By: #### C BC, BMP, 83669-4, 2776-, UPCR, 2731-8, 97015-1 #### [facility] ([id number]) [address], [address] [place] [address] Lymphocytes (Bld) [#/Vol] 0.9 10*3/uL Low 1.0-3.5 [facility] Comment on above: Performed By: #### C BC, BMP, 47634-3, 2776-, UPCR, 2731-8, 67346-9 #### [facility] ([id number]) [address], [address] [place] [address] Lymphocytes/100 WBC (Bld) 8.6 % Normal [facility] Comment on above: Performed By: #### C BC, BMP, 74521-4, 2776-, UPCR, 273-8, 81003-6 #### [facility] ([id number]) [address], [address] [place] [address] MCH (RBC) [Entitic mass] 23.4 pg Low 27-34 [facility] Comment on above: Performed By: #### C BC, BMP, 76904-2, 2776-, UPCR, 273-8, 97571-1 #### [facility] ([id number]) [address], [address] [place] [address] MCHC (RBC) [Mass/Vol] 31.1 g/dL Low 32-36 [facility] Comment on above: Performed By: #### C BC, BMP, 39199-7, 2776-, UPCR, 2730-8, 69171-1 #### [facility] ([id number]) [address], [address] [place] [address] MCV (RBC) [Entitic vol] 75 fL Low 80-100 [facility] Comment on above: Performed By: #### Lance BC, BMP, 18874-8, 2776-, UPCR, 273-8, 16772-0 #### [facility] ([id number]) [address], [address] [place] [address] Monocytes (Bld) [#/Vol] 0.8 10*3/uL Normal 0-0.9 [facility] Comment on above: Performed By: #### C BC, BMP, 93659-2, 2776-, UPCR, 273-8, 91505-8 #### [facility] ([id number]) [address], [address] [place] [address] Monocytes/100 WBC (Bld) 7.6 % Normal [facility] Comment on above: Performed By: #### C BC, BMP, 09680-9, 2777-1, UPCR, 2731-8, 13062-0 #### [facility] ([id number]) [address], [address] [place] [address] Neutrophils (Bld) [#/Vol] 8.3 10*3/uL High 1.5-6.6 [facility] Comment on above: Performed By: #### C BC, BMP, 19465-3, 2777-1, UPCR, 2731-8, 60325-2 #### [facility] ([id number]) [address], [address] [place] [address] OVALOCYTE 1+ Abnormal NONE [facility] Comment on above: Performed By: #### C BC, BMP, 44898-9, 2777-1, UPCR, 2731-8, 03141-3 #### [facility] ([id number]) [address], [address] [place] [address] Platelet mean volume (Bld) [Entitic vol] 7.6 fL Normal 7-12 [facility] Comment on above: Performed By: #### C BC, BMP, 87935-3, 2777-1, UPCR, 2731-8, 32012-7 #### [facility] ([id number]) [address], [address] [place] [address] Platelets (Bld) [#/Vol] 257 10*3/uL Normal 150-450 [facility] Comment on above: Performed By: #### C BC, BMP, 90503-1, 2777-1, UPCR, 2731-8, 08528-0 #### [facility] ([id number]) [address], [address] [place] [address] POLYCHROMASIA 1+ Abnormal NONE [facility] Comment on above: Performed By: #### C BC, BMP, 42737-5, 2777-1, UPCR, 2731-8, 32524-2 #### [facility] ([id number]) [address], [address] [place] [address] RBC COUNT 3.69 X10E12/L Low 3.80-5.20 [facility] Comment on above: Performed By: #### C BC, BMP, 76021-8, 2777-1, UPCR, 2731-8, 82484-8 #### [facility] ([id number]) [address], [address] [place] [address] SEG NEUTROPHIL 80.9 % Normal [facility] Comment on above: Performed By: #### C BC, BMP, 01502-5, 2777-1, UPCR, 2731-8, 12200-7 #### [facility] ([id number]) [address], [address] [place] [address] WBC (Bld) [#/Vol] 10.3 10*3/uL Normal 4.0-11.0 [facility] Comment on above: Performed By: #### C BC, BMP, 55608-8, 7-1, UPCR, 2731-8, 10859-0 #### [facility] ([id number]) [address], [address] [place] [address] IRON PROFILEon 12-21-2023 Iron [Mass/Vol] 27 ug/dL Low 50-170 [facility] Comment on above: Performed By: #### C BC, BMP, 40244-0, 2777-1, UPCR, 2731-8, 58649-2 #### [facility] ([id number]) [address], [address] [place] [address] IRON BINDING 483 ug/dL High 250-425 [facility] Comment on above: Performed By: #### C BC, BMP, 15453-3, 2777-1, UPCR, 2731-8, 64849-3 #### [facility] ([id number]) [address], [address] [place] [address] IRON SATURATION 6 % SATURATION Low 15-50 [facility] Comment on above: Performed By: #### C BC, BMP, 35685-6, 2776-, UPCR, 2731-8, 12595-1 #### [facility] ([id number]) [address], [address] [place] [address] MAGNESIUMon 12-21-2023 Magnesium [Mass/Vol] 2.0 mg/dL Normal 1.8-2.6 [facility] Comment on above: Performed By: #### C BC, BMP, , 2776-, UPCR, 273-8, 43937-1 #### [facility] ([id number]) [address] [address] [place] [address] PHOSPHORUSon 12-21-2023 Phosphate [Mass/Vol] 3.1 mg/dL Normal 2.4-4.9 [facility] Comment on above: Performed By: #### Lance BC, BMP, , 2776-, UPCR, 2731-8, 47612-6 #### [facility] ([id number]) [address], [address] [place] [address] PROTEIN CREAT RATIOon 2023 RANDOM URINE PROTEIN 290 mg/L High <120 [facility] Comment on above: Performed By: #### Lance BC, BMP, , 2776-, UPCR, 2731-8, 65603-9 #### [facility] ([id number]) [address], [address] [place] [address] U/PRO/COLOR ROOM ATTENDANT RATIO CALC 0.28 High <0.2 [facility] Comment on above: Result Comment: Neph rotic Syndrome is associated with ratios >3.5 Performed By: #### Lance BC, BMP, 73647-3, 2776-, UPCR, 2731-8, 64577-2 #### [facility] ([id number]) [address], [address] [place] [address] URINE CREATININE,RDM 102.80 mg/dL Normal [facility] Comment on above: Performed By: #### C BC, BMP, 77725-6, 2777-1, UPCR, 2731-8, 77391-9 #### [facility] ([id number]) [address], [address] [place] [address] PROTIME AND INRon 12-21-2023 INR Coag (PPP) [Relative time] 1.0 {INR} Normal 0.8-1.1 [facility] Comment on above: Performed By: #### C BC, BMP, 96297-7, 2777-1, UPCR, 2730-8, 27204-9 #### [facility] ([id number]) [address], [address] [place] [address] PT Coag (PPP) [Time] 11.9 s Normal 9.8-13.2 [facility] Comment on above: Performed By: #### C BC, BMP, 55800-5, 2777-1, UPCR, 273-8, 11120-6 #### [facility] ([id number]) [address], [address] [place] [address] Parathyrin.intact [Mass/Vol] on 12-21-2023 PTH INTACT 35 pg/mL Normal 12-88 [facility] Comment on above: Performed By: #### C BC, BMP, 94126-0, 2777-1, UPCR, 2731-8, 62446-8 #### [facility] ([id number]) [address], [address] [place] [address] URINALYSISon 12-21-2023 Bilirubin Ql (U) Negative Normal NEG [facility] Comment on above: Performed By: #### C BC, BMP, 91196-6, 2777-1, UPCR, 2731-8, 45257-4 #### [facility] ([id number]) [address], [address] [place] [address] BLOOD/HGB Negative Normal NEG [facility] Comment on above: Performed By: #### C BC, BMP, 05285-9, 2777-1, UPCR, 2731-8, 76310-1 #### [facility] ([id number]) [address], [address] [place] [address] Color (U) YELLOW Normal YELLOW [facility] Comment on above: Performed By: #### C BC, BMP, 91098-5, 2777-1, UPCR, 2731-8, 42850-3 #### [facility] ([id number]) [address], [address] [place] [address] Glucose Ql (U) Negative Normal NEG [facility] Comment on above: Performed By: #### C BC, BMP, 99938-2, 2777-1, UPCR, 2731-8, 64610-4 #### [facility] ([id number]) [address], [address] [place] [address] Ketones Ql (U) Negative Normal NEG [facility] Comment on above: Performed By: #### Lance BC, BMP, 81279-4, 2777-1, UPCR, 2731-8, 78480-5 #### [facility] ([id number]) [address], [address] [place] [address] Leukocyte esterase Test strip Ql (U) Large Abnormal NEG [facility] Comment on above: Performed By: #### C BC, BMP, 94898-4, 2777-1, UPCR, 2731-8, 53707-6 #### [facility] ([id number]) [address], [address] [place] [address] MUCOUS PRESENT Abnormal NONE [facility] Comment on above: Performed By: #### C BC, BMP, 20193-8, 2777-1, UPCR, 2731-8, 79308-1 #### [facility] ([id number]) [address], [address] [place] [address] Nitrite Ql (U) Negative Normal NEG [facility] Comment on above: Performed By: #### Lance BC, BMP, 20462-0, 2777-1, UPCR, 2731-8, 08669-2 #### [facility] ([id number]) [address], [address] [place] [address] pH (U) 6.0 [pH] Normal 5.0-8.5 [facility] Comment on above: Performed By: #### Lance BC, BMP, 19561-8, 2777-1, UPCR, 2731-8, 07409-9 #### [facility] ([id number]) [address], [address] [place] [address] Protein Ql (U) 30 mg/dL Abnormal NEG [facility] Comment on above: Performed By: #### Lance MARIE, BMP, 83706-3, 2777-1, UPCR, 2731-8, 11685-1 #### [facility] ([id number]) [address], [address] [place] [address] R.B.CELLS 1 /hpf Normal 0-5 [facility] Comment on above: Performed By: #### Lance BC, BMP, 74415-6, 2777-1, UPCR, 2731-8, 46096-5 #### [facility] ([id number]) [address] [address] [place] [address] Specific gravity (U) [Rel density] 1.024 Normal 1.003-1.035 [facility] Comment on above: Performed By: #### Lance BC, BMP, 95352-7, 2777-1, UPCR, 2731-8, 31816-4 #### [facility] ([id number]) [address], [address] [place] [address] SQUAMOUS EPITHELIUM 4 /hpf Normal 0-5 [facility] Comment on above: Performed By: #### C BC, BMP, 39804-7, 2777-1, UPCR, 2731-8, 74708-9 #### [facility] ([id number]) [address], [address] [place] [address] TURBIDITY CLEAR Normal CLEAR [facility] Comment on above: Performed By: #### C BC, BMP, 86522-4, 2777-1, UPCR, 2731-8, 04179-1 #### [facility] ([id number]) [address], [address] [place] [address] Urobilinogen (U) [Mass/Vol] mg/dL Normal <1.1 [facility] Comment on above: Performed By: #### C BC, BMP, 49918-3, 2777-1, UPCR, 2731-8, 27789-6 #### [facility] ([id number]) [address], [address] [place] [address] W.B.CELLS 35 /hpf High 0-5 [facility] Comment on above: Performed By: #### Lance BC, BMP, 95591-4, 2777-1, UPCR, 2731-8, 79768-3 #### [facility] ([id number]) [address], [address] [place] [address] Vitamin D+Metabolites [Mass/ Vol]on 12-21-2023 VITAMIN D 25 HYD TOT 62.5 ng/mL Normal 30-100 [facility] Comment on above: Result Comment: Vitamin D status 25 [place] Vitamin D Deficiency <20 ng/mL Insufficiency 20-29 ng/mL Sufficiency 30-100 ng/mL Toxicity >100 ng/mL NOTE: A pediatric reference range has not been established by the websphere commerce developer of this kit. The [employer] recommends a Vitamin D level of = or >20ng/mL in infants and children. Performed By: #### C MARVEL MARIE, 89563-8, 7-1, UP, 2731-8, 39321-5 #### [facility] ([id number]) [address], [address] [place] [address] XR BONE LENGTH STUDYon 12-01 XR BONE LENGTH STUDY XR BONE LENGTH STUD Y History: [Bilateral leg length study] [Radiographs of the lower extremity demonstrate that the hip joints are unremarkable for age. Degenerative changes of the medial and lateral joint compartments of both knees are present. There is a small amount of lateral translation of both tibia with respect of both femora. Degenerative changes of the tibiotalar joints are more prominent on the right. The top of the right femoral head on the standing view is 0.2 cm higher than the corresponding distance on the left. The distance from the top of the femoral head to the midportion of the tibiotalar joints is the same bilaterally. This line intersects the midportion of the right medial femoral condyle] and the medial aspect of the left medial femoral condyle. There has been L4, L5, and S1 fusion. Degenerative changes are present within the remainder of the lumbar spine that are not adequately evaluated on these lower extremity radiographs Impression: [No signal difficult limb length discrepancy on standing radiographs of lower extremities. Degenerative changes are most marked in both knees and the right tibiotalar joint.] Finalized by Jaxson Sterling MD on 12/02/2023 4:27 PM Normal [facility] URINALYSISon 12-01-2023 Bilirubin Ql (U) Negative Normal NEG [facility] Comment on above: Performed By: #### C MARVEL MARIE, 88925-6, 7-1, UP, 2731-8, 21113-6 #### [facility] ([id number]) [address], [address] [place] [address] BLOOD/HGB Negative Normal NEG [facility] Comment on above: Performed By: #### C BC, BMP, 30405-8, 2777-1, UPCR, 2731-8, 81707-6 #### [facility] ([id number]) [address], [address] [place] [address] Color (U) ORANGE Abnormal YELLOW [facility] Comment on above: Performed By: #### C BC, BMP, 63677-8, 2777-1, UPCR, 2731-8, 84570-1 #### [facility] ([id number]) [address], [address] [place] [address] Glucose Ql (U) Negative Normal NEG [facility] Comment on above: Performed By: #### C BC, BMP, 46577-0, 2777-1, UPCR, 2731-8, 94026-7 #### [facility] ([id number]) [address], [address] [place] [address] Ketones Ql (U) Negative Normal NEG [facility] Comment on above: Performed By: #### C BC, BMP, 13952-7, 2777-1, UPCR, 2731-8, 08709-8 #### [facility] ([id number]) [address], [address] [place] [address] Leukocyte esterase Test strip Ql (U) Large Abnormal NEG [facility] Comment on above: Performed By: #### C BC, BMP, 57179-2, 2777-1, UPCR, 2731-8, 41740-6 #### [facility] ([id number]) [address], [address] [place] [address] MUCOUS PRESENT Abnormal NONE [facility] Comment on above: Performed By: #### C BC, BMP, 84231-6, 2777-1, UPCR, 2731-8, 43881-2 #### [facility] ([id number]) [address], [address] [place] [address] Nitrite Ql (U) Negative Normal NEG [facility] Comment on above: Performed By: #### C CYNTHIA, BMP, 83807-3, 2777-1, UPCR, 2731-8, 45406-5 #### [facility] ([id number]) [address], [address] [place] [address] pH (U) 8.0 [pH] Normal 5.0-8.5 [facility] Comment on above: Performed By: #### Lance MARIE, BMP, 25489-3, 2777-1, UPCR, 2731-8, 42255-2 #### [facility] ([id number]) [address], [facility] [address] [place] [address] Protein Ql (U) 50 mg/dL Abnormal NEG [facility] Comment on above: Performed By: #### Lance MARIE, BMP, 67233-5, 7-1, UPCR, 2731-8, 38548-3 #### [facility] ([id number]) [address] [address] [place] [address] R.B.CELLS 2 /hpf Normal 0-5 [facility] Comment on above: Performed By: #### Lance MARIE, BMP, 78608-6, 7-1, UPCR, 2731-8, 63064-3 #### [facility] ([id number]) [address], [address] [place] [address] Specific gravity (U) [Rel density] 1.021 Normal 1.003-1.035 [facility] Comment on above: Performed By: #### Lance BC, BMP, 00987-4, 2777-1, UPCR, 2731-8, 36997-0 #### [facility] ([id number]) [address], [address] [place] [address] SQUAMOUS EPITHELIUM 14 /hpf High 0-5 [facility] Comment on above: Performed By: #### C BC, BMP, 07123-9, 2777-1, UPCR, 2731-8, 65901-1 #### [facility] ([id number]) [address], [address] [place] [address] TRANSITIONAL EPITH 3 /hpf High 0 [facility] Comment on above: Performed By: #### C BC, BMP, 59156-9, 2777-1, UPCR, 2731-8, 75571-7 #### [facility] ([id number]) [address], [address] [place] [address] TURBIDITY HAZY Abnormal CLEAR [facility] Comment on above: Performed By: #### C BC, BMP, 89311-1, 2777-1, UPCR, 2731-8, 48046-6 #### [facility] ([id number]) [address], [address] [place] [address] Urinalysis dipstick W Reflex Microscopic panel (U) URINE RECEIVED WITHOUT PRESERVATIVE-DELAYS IN TRANSPORT MAY AFFECT RESULTS.INTERPRET WITH CAUTION AND CLINICAL CORRELATION IS RECOMMENDED. Normal [facility] Comment on above: Performed By: #### C BC, BMP, 44319-9, 2777-1, UPCR, 2731-8, 94381-8 #### [facility] ([id number]) [address], [address] [place] [address] Urobilinogen (U) [Mass/Vol] mg/dL Normal <1.1 [facility] Comment on above: Performed By: #### C BC, BMP, 55831-5, 2777-1, UPCR, 2731-8, 63315-3 #### [facility] ([id number]) [address], [address] [place] [address] W.B.CELLS 417 /hpf High 0-5 [facility] Comment on above: Performed By: #### C BC, BMP, 19460-2, 2777-1, UPCR, 2731-8, 17228-9 #### [facility] ([id number]) [address], [address] [place] [address] WBC CLUMPS MANY Abnormal NONE [facility] Comment on above: Performed By: #### C CYNTHIA, BMP, 73277-7, 2777-1, UPCR, 2731-8, 54762-2 #### [facility] ([id number]) [address], [address] [place] [address] URINE CULTUREon 12-01-2023 Bacteria identified Cx Nom (U) CULTURE RESULTS >100,000 ORGANISMS/mL ESCHERICHIA COLI [ S = SUSCEPTIBLE R = RESISTANT I = INTERMEDIATE S-DO = Susceptible-dose dependent NS = Non-suscceptible NO = No Interpretation ] Organism: ESCHERICHIA COLI Antibiotic Interpretation JEREMÍAS Status AMPICILLIN R >=32 F AMP/SULBACTAM I 16/8 F CEFAZOLIN S <=4 F CEFTRIAXONE S <=0.25 F CIPROFLOXACIN S <=0.25 F GENTAMICIN R >=16 F LEVOFLOXACIN S <=0.12 F NITROFURANTOIN S <=16 F PIPERACIL/TAZOBACTAM S <=4 F TOBRAMYCIN R 8 F TRIMETH/SULFAMETHOXAZOLE R >=16/304 F Resistant [facility] Comment on above: Performed By: #### C CYNTHIA, BMP, 42831-4, 7-1, UPCR, 2731-8, 91124-9 #### [facility] ([id number]) [address], [address] [place] [address] XR CHEST 2 VWSon 12-01-2023 XR CHEST 2 VWS XR CHEST 2 VWS PA and lateral chest: HISTORY: Preoperative exam. Anesthesia clearance. 2 views of the chest are obtained. Cardiac and mediastinal contours are within normal limits. Lungs are clear. There is no vascular congestion or effusion. No pneumothorax. Osseous structures appear intact. IMPRESSION: No acute findings. Finalized by Drake Levy MD on 12/01/2023 3:45 PM Normal [facility] CBC AND AUTO DIFFon 11-15-19 24 ABSOLUTE BASOPHIL 0.1 X10E9/L Normal 0.0-0.2 [facility] Comment on above: Performed By: #### C BC, BMP, 62792-2, 7-, UPCR, 2731-8, 98168-6 #### [facility] ([id number]) [address], [address] [place] [address] ABSOLUTE NEUTROPHIL 4.7 X10E9/L Normal 1.5-6.6 [facility] Comment on above: Performed By: #### C BC, BMP, 63414-2, 2776-, UPCR, 2731-8, 45836-1 #### [facility] ([id number]) [address], [address] [place] [address] Basophils/100 WBC (Bld) 0.8 % Normal [facility] Comment on above: Performed By: #### C BC, BMP, 54677-1, 2776-, UPCR, 2730-8, 74188-2 #### [facility] ([id number]) [address], [address] [place] [address] Eosinophils (Bld) [#/Vol] 0.5 10*3/uL High 0.0-0.4 [facility] Comment on above: Performed By: #### C BC, BMP, 60105-7, 2776-, UPCR, 273-8, 34797-7 #### [facility] ([id number]) [address], [address] [place] [address] Eosinophils/100 WBC (Bld) 6.1 % Normal [facility] Comment on above: Performed By: #### C BC, BMP, 29093-7, 2776-, UPCR, 273-8, 65587-6 #### [facility] ([id number]) [address], [address] [place] [address] Erythrocyte distribution width (RBC) [Ratio] 20.3 % High 11.5-15.0 [facility] Comment on above: Performed By: #### C BC, BMP, 01067-1, 2776-, UPCR, 2731-8, 48967-8 #### [facility] ([id number]) [address], [address] [place] [address] Hematocrit (Bld) [Volume fraction] 26.2 % Low 35-47 [facility] Comment on above: Performed By: #### C BC, BMP, 30002-1, 2776-, UPCR, 2731-8, 03491-5 #### [facility] ([id number]) [address], [address] [place] [address] Hemoglobin (Bld) [Mass/Vol] 8.0 g/dL Low 11.7-15.5 [facility] Comment on above: Performed By: #### C BC, BMP, 53358-3, 2776-, UPCR, 273-, 63796-4 #### [facility] ([id number]) [address], [address] [place] [address] Lymphocytes (Bld) [#/Vol] 1.6 10*3/uL Normal 1.0-3.5 [facility] Comment on above: Performed By: #### C BC, BMP, 11501-3, 2776-, UPCR, 2731-8, 56937-0 #### [facility] ([id number]) [address], [address] [place] [address] Lymphocytes/100 WBC (Bld) 20.8 % Normal [facility] Comment on above: Performed By: #### C BC, BMP, 23523-3, 2776-, UPCR, 2731-8, 43722-3 #### [facility] ([id number]) [address], [address] [place] [address] MCH (RBC) [Entitic mass] 22.2 pg Low 27-34 [facility] Comment on above: Performed By: #### C BC, BMP, 20566-1, 2777-1, UPCR, 2731-8, 71825-0 #### [facility] ([id number]) [address], [address] [place] [address] MCHC (RBC) [Mass/Vol] 30.5 g/dL Low 32-36 [facility] Comment on above: Performed By: #### C BC, BMP, 93184-0, 2777-1, UPCR, 2731-8, 21593-2 #### [facility] ([id number]) [address], [address] [place] [address] MCV (RBC) [Entitic vol] 73 fL Low 80-100 [facility] Comment on above: Performed By: #### C BC, BMP, 42531-1, 2777-1, UPCR, 2731-8, 99084-8 #### [facility] ([id number]) [address], [address] [place] [address] Monocytes (Bld) [#/Vol] 0.7 10*3/uL Normal 0-0.9 [facility] Comment on above: Performed By: #### C BC, BMP, 61952-5, 2777-1, UPCR, 2731-8, 58701-8 #### [facility] ([id number]) [address], [address] [place] [address] Monocytes/100 WBC (Bld) 9.7 % Normal [facility] Comment on above: Performed By: #### C BC, BMP, 38079-3, 2777-1, UPCR, 2731-8, 28545-4 #### [facility] ([id number]) [address], [address] [place] [address] Neutrophils/100 WBC (Bld) 62.6 % Normal [facility] Comment on above: Performed By: #### C BC, BMP, 23553-7, 2777-1, UPCR, 2731-8, 53460-1 #### [facility] ([id number]) [address], [facility] [address] [place] [address] Platelet mean volume (Bld) [Entitic vol] 7.5 fL Normal 7-12 [facility] Comment on above: Performed By: #### C BC, BMP, 17742-6, 2777-1, UPCR, 2731-8, 35847-0 #### [facility] ([id number]) [address], [facility] [address] [place] [address] Platelets (Bld) [#/Vol] 270 10*3/uL Normal 150-450 [facility] Comment on above: Performed By: #### C BC, BMP, 18103-5, 2776-1, UPCR, 2731-8, 84313-5 #### [facility] ([id number]) [address] [address] [place] [address] RBC COUNT 3.59 X10E12/L Low 3.80-5.20 [facility] Comment on above: Performed By: #### C BC, BMP, 73439-8, 2776-1, UPCR, 2731-8, 53920-1 #### [facility] ([id number]) [address] [address] [place] [address] WBC (Bld) [#/Vol] 7.5 10*3/uL Normal 4.0-11.0 [facility] Comment on above: Performed By: #### C BC, BMP, 58595-0, 2777-1, UPCR, 2731-8, 45102-4 #### [facility] ([id number]) [address], [facility] [address] [place] [address] COMPREHENSIVE METABOLIC PANE Jagdish 11-15-2023 Albumin [Mass/Vol] 3.7 g/dL Normal 3.2-5.3 [facility] Comment on above: Performed By: #### C BC, BMP, 54366-6, 2777-1, UPCR, 2731-8, 29957-3 #### [facility] ([id number]) [address], [address] [place] [address] ALP [Catalytic activity/Vol] 78 U/L Normal 39-130 [facility] Comment on above: Performed By: #### C BC, BMP, 33427-6, 2777-1, UPCR, 2731-8, 13887-4 #### [facility] ([id number]) [address], [address] [place] [address] ALT [Catalytic activity/Vol] 15 U/L Normal 0-31 [facility] Comment on above: Performed By: #### C BC, BMP, 15556-9, 2777-1, UPCR, 2731-8, 55102-7 #### [facility] ([id number]) [address], [address] [place] [address] Anion gap [Moles/Vol] 9 mmol/L Normal 5-15 [facility] Comment on above: Performed By: #### C BC, BMP, 51970-6, 2777-1, UPCR, 2731-8, 25660-1 #### [facility] ([id number]) [address], [address] [place] [address] AST [Catalytic activity/Vol] 17 U/L Normal 0-41 [facility] Comment on above: Performed By: #### C BC, BMP, 41479-4, 2777-1, UPCR, 2731-8, 44712-2 #### [facility] ([id number]) [address], [address] [place] [address] Bilirubin [Mass/Vol] 0.3 mg/dL Normal 0.3-1.2 [facility] Comment on above: Performed By: #### C BC, BMP, 43531-5, 2777-1, UPCR, 2731-8, 17977-0 #### [facility] ([id number]) [address], [address] [place] [address] Calcium [Mass/Vol] 9.6 mg/dL Normal 8.5-10.5 [facility] Comment on above: Performed By: #### Lance BC, BMP, 02762-8, 2777-1, UPCR, 2731-8, 16177-4 #### [facility] ([id number]) [address], [address] [place] [address] Chloride [Moles/Vol] 105 mmol/L Normal 98-109 [facility] Comment on above: Performed By: #### Lance BC, BMP, 40430-8, 2777-1, UPCR, 2731-8, 69670-0 #### [facility] ([id number]) [address], [address] [place] [address] CO2 [Moles/Vol] 29 mmol/L Normal 22-32 [facility] Comment on above: Performed By: #### C BC, BMP, 07602-9, 2777-1, UPCR, 2731-8, 84795-0 #### [facility] ([id number]) [address], [address] [place] [address] Creatinine [Mass/Vol] 1.25 mg/dL High 0.40-1.00 [facility] Comment on above: Result Comment: METH OD TRACEABLE TO IDMS STANDARD Performed By: #### Lance BC, BMP, 62474-3, 2777-1, UPCR, 2731-8, 59298-2 #### [facility] ([id number]) [address] [place] [address] GFR/1.73 sq M.predicted among non-blacks MDRD (S/P/Bld) [Vol rate/Area] 45 mL/min/{1.73_m2} Low >59 [facility] Comment on above: Result Comment: Reported eGFR is based on the CKD-EPI 2020 equation that does not use a race coefficient. Performed By: #### C BC, BMP, 61328-8, 2777-1, UPCR, 2731-8, 29463-3 #### [facility] ([id number]) [address], [address] [place] [address] Glucose [Mass/Vol] 140 mg/dL High 65-99 [facility] Comment on above: Performed By: #### C BC, BMP, 91838-0, 7-1, UPCR, 2731-8, 77901-5 #### [facility] ([id number]) [address], [address] [place] [address] Potassium [Moles/Vol] 4.3 mmol/L Normal 3.5-5.0 [facility] Comment on above: Performed By: #### C BC, BMP, 48864-0, 7-1, UPCR, 2731-8, 49004-0 #### [facility] ([id number]) [address], [address] [place] [address] Protein [Mass/Vol] 6.2 g/dL Normal 6.0-8.0 [facility] Comment on above: Performed By: #### C BC, BMP, 45742-0, 2776-1, UPCR, 2731-8, 80171-2 #### [facility] ([id number]) [address], [address] [place] [address] Sodium [Moles/Vol] 143 mmol/L Normal 134-146 [facility] Comment on above: Performed By: #### C BC, BMP, 74717-4, 2777-1, UPCR, 2731-8, 78979-3 #### [facility] ([id number]) [address], [address] [place] [address] Urea nitrogen [Mass/Vol] 22 mg/dL Normal 5-27 [facility] Comment on above: Performed By: #### C BC, BMP, 01768-0, 2777-1, UPCR, 2731-8, 00834-6 #### [facility] ([id number]) [address], [address] [place] [address] HGB A1C (GLYCO-HGB)on 2023 Glucose [Mass/Vol] 157 mg/dL Normal [facility] Comment on above: Performed By: #### H A1C, UPCR, CMP, 20905-6, 81651-4, 2777-1, THYR, 2731-8, 35015-5, CBCA ####[facility] ([id number])[address], [address] [place] [address] HbA1c (Bld) [Mass fraction] 7.1 % High 4.4-5.6 [facility] Comment on above: Result Comment: NOTE ADA Guidelines Result HgbA1c Normal : less than 5.7 % Prediabetes : 5.7 % to 6.4 % Diabetes : > 6.4 % Use with caution in patients with abnormal hemoglobin variants as the half-life of red blood cells and in vivo glycation rates are affected. Performed By: #### H A1C, UPCR, CMP, 27537-7, 42536-3, 2777-1, THYR, 2731-8, 27631-8, CBCA ####[facility] ([id number])[address], [address], [place] [address] Lipid 1996 panelon 4 Cholesterol [Mass/Vol] 124 mg/dL Low 150-200 [facility] Comment on above: Performed By: #### C BC, BMP, 88741-8, 2777-1, UPCR, 2731-8, 13489-9 #### [facility] ([id number]) [address], [address] [place] [address] Cholesterol in HDL [Mass/Vol] 50 mg/dL Normal >39 [facility] Comment on above: Result Comment: HDL <40 mg/dL - High Risk HDL > or = 40mg/dL- Desirable HDL >60 mg/dL - Negative Risk Performed By: ###Keya Lucas BC, BMP, 92801-9, 2777-1, UPCR, 2731-8, 85714-4 #### [facility] ([id number]) [address], [address] [place] [address] Cholesterol in LDL [Mass/Vol] 46 mg/dL Normal <130 [facility] Comment on above: Result Comment: LDL <100 mg/dL - Desirable LDL >160 mg/dL - High Risk Performed By: #### Lance BC, BMP, 53457-2, 2777-1, UPCR, 2731-8, 09457-6 #### [facility] ([id number]) [address], [address] [place] [address] Cholesterol in VLDL [Mass/Vol] 28 mg/dL Normal 0-30 [facility] Comment on above: Performed By: ###Keya Lucas BC, BMP, 10243-6, 2777-1, UPCR, 2731-8, 22006-2 #### [facility] ([id number]) [address], [address] [place] [address] CHOLESTEROL:HDL 2.5 Normal 1.0-5.0 [facility] Comment on above: Performed By: #### Lance BC, BMP, 62286-4, 2777-1, UPCR, 2731-8, 40187-0 #### [facility] ([id number]) [address], [address] [place] [address] Triglyceride [Mass/Vol] 139 mg/dL Normal 27-150 [facility] Comment on above: Performed By: #### C BC, BMP, 91592-2, 2777-1, UPCR, 2731-8, 99202-8 #### [facility] ([id number]) [address], [address] [place] [address] MAGNESIUMon 11-15-2023 Magnesium [Mass/Vol] 1.9 mg/dL Normal 1.8-2.6 [facility] Comment on above: Performed By: #### C BC, BMP, 44333-5, 2777-1, UPCR, 2731-8, 12998-8 #### [facility] ([id number]) [address], [address] [place] [address] MICROALBUMIN - ALBUMIN:CREAT ININE URINE RATIOon 11-15-2023 ALB/CREAT RATIO 130.8 mg/g creat High 0.0-30.0 [facility] Comment on above: Performed By: #### Lance BC, BMP, 35144-8, 2777-1, UPCR, 2731-8, 75589-9 #### [facility] ([id number]) [address], [address] [place] [address] Albumin DL <= 20 mg/L (U) [Mass/Vol] 11.0 mg/dL High 0.0-1.9 [facility] Comment on above: Performed By: #### Lance BC, BMP, 20078-1, 2777-1, UPCR, 2731-8, 83218-6 #### [facility] ([id number]) [address], [address] [place] [address] URINE CREAT 84.13 mg/dL Normal [facility] Comment on above: Performed By: #### Lance BC, BMP, 59283-7, 2777-1, UPCR, 2731-8, 71984-5 #### [facility] ([id number]) [address], [address] [place] [address] PHOSPHORUSon 11-15-2023 Phosphate [Mass/Vol] 3.2 mg/dL Normal 2.4-4.9 [facility] Comment on above: Performed By: #### C BC, BMP, 50508-6, 2777-1, UPCR, 2731-8, 69316-1 #### [facility] ([id number]) [address], [address] [place] [address] PROTEIN CREAT RATIOon 2023 RANDOM URINE PROTEIN 510 mg/L High <120 [facility] Comment on above: Performed By: #### C BC, BMP, 74189-4, 2777-1, UPCR, 2731-8, 98597-3 #### [facility] ([id number]) [address], [address] [place] [address] U/PRO/COLOR ROOM ATTENDANT RATIO CALC 0.61 High <0.2 [facility] Comment on above: Result Comment: Neph rotic Syndrome is associated with ratios >3.5 Performed By: #### C BC, BMP, 31114-3, 2777-1, UPCR, 2731-8, 89064-4 #### [facility] ([id number]) [address], [address] [place] [address] URINE CREATININE,RDM 82.94 mg/dL Normal [facility] Comment on above: Performed By: #### C BC, BMP, 44761-9, 2777-1, UPCR, 2731-8, 81013-4 #### [facility] ([id number]) [address], [address] [place] [address] Parathyrin.intact [Mass/Vol] on 11-15-2023 PTH INTACT 47 pg/mL Normal 12-88 [facility] Comment on above: Performed By: #### C BC, BMP, 29040-6, 2777-1, UPCR, 2731-8, 14046-5 #### [facility] ([id number]) [address], [address] [place] [address] THYROID PROFILEon 11-15-2023 Free T4 [Mass/Vol] 0.87 ng/dL Normal 0.61-1.60 [facility] Comment on above: Performed By: #### C BC, BMP, 42757-0, 2777-1, UPCR, 2731-8, 36310-3 #### [facility] ([id number]) [address], [address] [place] [address] TSH 4.22 uIU/mL Normal 0.49-4.67 [facility] Comment on above: Performed By: #### C BC, BMP, 03835-7, 2777-1, UPCR, 2731-8, 11682-2 #### [facility] ([id number]) [address], [address] [place] [address] URINALYSISon 11-15-2023 Bilirubin Ql (U) Negative Normal NEG [facility] Comment on above: Performed By: #### Lance BC, BMP, 78169-0, 2777-1, UPCR, 2731-8, 95764-6 #### [facility] ([id number]) [address], [address] [place] [address] BLOOD/HGB Negative Normal NEG [facility] Comment on above: Performed By: #### Lance BC, BMP, 60014-6, 2777-1, UPCR, 2731-8, 20981-9 #### [facility] ([id number]) [address], [address] [place] [address] Color (U) YELLOW Normal YELLOW [facility] Comment on above: Performed By: #### C BC, BMP, 52775-6, 2777-1, UPCR, 2731-8, 67747-5 #### [facility] ([id number]) [address], [address] [place] [address] Glucose Ql (U) Negative Normal NEG [facility] Comment on above: Performed By: #### C BC, BMP, 05345-9, 2777-1, UPCR, 2731-8, 74282-2 #### [facility] ([id number]) [address], [address] [place] [address] Ketones Ql (U) Negative Normal NEG [facility] Comment on above: Performed By: #### C BC, BMP, 01203-8, 2777-1, UPCR, 2731-8, 13738-1 #### [facility] ([id number]) [address], [address] [place] [address] Leukocyte esterase Test strip Ql (U) Large Abnormal NEG [facility] Comment on above: Performed By: #### C BC, BMP, 66974-3, 2777-1, UPCR, 2731-8, 34909-3 #### [facility] ([id number]) [address], [address] [place] [address] Nitrite Ql (U) Negative Normal NEG [facility] Comment on above: Performed By: #### C BC, BMP, 90990-3, 2777-1, UPCR, 2731-8, 07043-0 #### [facility] ([id number]) [address], [address] [place] [address] pH (U) 8.0 [pH] Normal 5.0-8.5 [facility] Comment on above: Performed By: #### C BC, BMP, 73178-5, 2777-1, UPCR, 2731-8, 77121-3 #### [facility] ([id number]) [address], [address] [place] [address] Protein Ql (U) 50 mg/dL Abnormal NEG [facility] Comment on above: Performed By: #### C BC, BMP, 84546-6, 2777-1, UPCR, 2731-8, 46991-8 #### [facility] ([id number]) [address] [address] [place] [address] R.B.CELLS 6 /hpf High 0-5 [facility] Comment on above: Performed By: #### C BC, BMP, 36361-3, 2777-1, UPCR, 2731-8, 75972-0 #### [facility] ([id number]) [address], [address] [place] [address] Specific gravity (U) [Rel density] 1.020 Normal 1.003-1.035 [facility] Comment on above: Performed By: #### Lance BC, BMP, 10412-6, 7-1, UPCR, 2731-8, 93909-3 #### [facility] ([id number]) [address] [address] [place] [address] SQUAMOUS EPITHELIUM 8 /hpf High 0-5 [facility] Comment on above: Performed By: #### Lance BC, BMP, 26372-0, 7-1, UPCR, 2731-8, 68744-9 #### [facility] ([id number]) [address] [address] [place] [address] TURBIDITY HAZY Abnormal CLEAR [facility] Comment on above: Performed By: #### Lance BC, BMP, 30615-8, 7-1, UPCR, 2731-8, 60320-4 #### [facility] ([id number]) [address] [address] [place] [address] Urobilinogen (U) [Mass/Vol] mg/dL Normal <1.1 [facility] Comment on above: Performed By: #### Lance BC, BMP, 13485-6, 2777-1, UPCR, 2731-8, 60680-4 #### [facility] ([id number]) [address] [address] [place] [address] W.B.CELLS 597 /hpf High 0-5 [facility] Comment on above: Performed By: #### C BC, BMP, , 2776-, [facility], 2731-8, 77226-3 #### [facility] ([id number]) [address], [address] [place] [address] WBC CLUMPS FEW Abnormal NONE [facility] Comment on above: Performed By: #### C BC, [facility], , 2776-, [facility], 2731-8, 09794-2 #### [facility] ([id number]) [address], [address] [place] [address] Vitamin D+Metabolites [Mass/ Vol]on 11-15-2023 VITAMIN D 25 HYD TOT 60.4 ng/mL Normal 30-100 [facility] Comment on above: Result Comment: Vitamin D status 25 [place] Vitamin D Deficiency <20 ng/mL Insufficiency 20-29 ng/mL Sufficiency 30-100 ng/mL Toxicity >100 ng/mL NOTE: A pediatric reference range has not been established by the websphere commerce developer of this kit. The [place] [employer] recommends a Vitamin D level of = or >20ng/mL in infants and children. Performed By: #### C BC, [facility], , 2776-05, [facility], 2730-8, 99471-8 #### [facility] ([id number]) [address], [address] [place] [address] HGB A1C (GLYCO-HGB)on 2023 Glucose [Mass/Vol] 163 mg/dL Normal [facility] HbA1c (Bld) [Mass fraction] 7.3 % High 4.4-5.6 [facility] Comment on above: Result Comment: NOTE ADA Guidelines Result HgbA1c Normal : less than 5.7 % Prediabetes : 5.7 % to 6.4 % Diabetes : > 6.4 % Use with caution in patients with abnormal hemoglobin variants as the half-life of red blood cells and in vivo glycation rates are affected. H PYLORI SCREENon 07-19-2023 H. pylori Org specific cx Ql (Edin fld) Negative Normal NEG [facility] Comment on above: Performed By: #### 4 4015-6 ####[facility] ([id number])[address] [place] [address], [address] [place] [address] Surgical Pathologyon [address] [facility] Comment on above: Result Comment: [facility] [address] [place] [address] Surgical Pathology Consultation Patient Name:TESSA SYED:1950 (Age: 73)Gender:FTaken:07/19/2023eported:07/22/2023hysician(s):Marti Gaston D.O. ([phone])Copy To: Rec. #:[id number]: #[id number] Final Pathologic Diagnosis 1. Antrum BX : Gastric mucosa with no significant pathologic findings. Comment: There is no morphologic evidence of Helicobacter pylori on H&E sections. 2. 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 Comment: There is no evidence of dysplasia. Report Electronically Signed Out pss/07/22/2023jeff Kirk MD Interpretation performed at [facility], [address] [place] [address], License number: [id number]. Clinical History Anemia. Gross Description 1. Received in formalin labeledYAHAIRA antrum BX are 2 pale-conklin delicate soft tissue bits, 0.3 and 0.4 cm in greatest dimension. The specimens are filtered and submitted in a single cassette. (1, ns, [id number], m7) TB 2. Received in formalin labeled, YAHAIRA, proximal esophagus BX are 5 pale-conklin delicate, focally edematous soft tissue fragments, 0.2 to 0.3 cm in greatest dimension. The specimens are filtered and submitted in a single cassette. (1, ns, [id number], m7) TB tgb/07/19/2023O Specimen(s) Received 1: Antrum biopsy 2: Proximal esophageal biopsy Fee Codes(s): 1; 11863 2; 29728 Neurosurgery Office/Clinic N oteon 07-09-2023 Neurosurgery Office/Clinic Note Chief Complaint 3 month back follow up History of Present Illness Patient is a pleasant 73-year-old female with a history of type 2 diabetes with neuropathy (HgbA1c 8.1 05/2023), HTN, renal disease, near morbid obesity (BMI: 39), osteopenia (DEXA 08/2022 with T score -1.8), coexisting advanced bilateral knee arthropathy (following with orthopedics: Dr. Garnica in [place]), L4-S1 instrumented posterior spinal fusion performed 08/[address] Cruz, and coexisting sacroiliac dysfunction that has up to this point, been managed with conservative treatment, who presents to the outpatient neurosurgical clinic today accompanied by her , for follow up and clinical monitoring on behalf of complaints of exacerbated low back pain. Patient is status post L4-S1 instrumented posterior spinal fusion performed 08/[address] Cruz secondary to an acute cauda equina syndrome attributed to advanced degenerative disease with an unstable spondylolisthesis at L4-5. Patient's postoperative course was complicated by sacral insufficiency fractures. Despite this, patient did well postoperatively with resolution in her preoperative pain syndrome and no significant or chronic ongoing complaints. She returned to a moderate geriatric lifestyle without significant difficulty. Patient states that she continued to do well until the onset of her pain complaints approximately 18 months ago following a trip over a bag that did not result in a fall, but brian her low back. She also experienced another exacerbation in pain beginning of December 2022 after a second mechanical ground level fall which resulted in inpatient stay at [facility] for control of intractable pain. Patient has described diffuse midline and bilateral lumbosacral pain that spreads into the bilateral sacroiliac and gluteal regions diffusely. She states her pain is constant, but that it is predictably worsened with standing/walking and mechanical use with components of improvement when seated at rest. Patient denies radicular pain into the inguinal folds or lower extremities. She denies numbness or paresthesias in the lower extremities. Patient denies motor weakness in the lower extremities, bowel/bladder incontinence, or saddle paresthesias. Patient denies significant thoracic pain. She denies radicular pain into the chest wall/thorax. She denies numbness or paresthesias in the chest wall/thorax. Work up includes: MRIs thoracic and lumbosacral spine 12/01/22: L4-1 instrumented posterior spinal fusion with good surgical decompression; prominently exaggerated lumbar lordosis; end-stage degenerative changes at the thoracolumbar junction with a suggestion of at least partial ankylosing at T 12 L1; retrolisthesis at L2-3; multisegmental adjacent segment disease with overall moderate L3-4 central stenosis and moderate bilateral L3-[address] thoracolumbar spine 12/01/2022: Solid L4-S1 arthrodesis with suggestion of spontaneous ankylosing at T11-12 and T12-L1; advanced degenerative changes including vacuum disc/vacuum facet phenomenon from L1-L4; degenerative changes noted throughout the sacroiliac joints bilaterally Flexion/extension films lumbosacral spine 11/26/2021: Fishmouthing L2-3 in extension with stable retrolisthesis L1 2 X-ray sacroiliac joint 11/26/2021: Moderate degenerative changes of the SI joints bilaterally Scoliosis x-ray 11/26/2021: Minimal disruption in sagittal balance MRI pelvis 04/01/2023: No fractures; suggestion of possible partial tear right gluteus medius tendon insertion and partial tear bilateral hamstring insertion along with bilateral trochanteric bursitis DEXA [place] [facility] 08/2022 osteopenia with T score -1.8 Based on symptoms and imaging work up, there has been felt to be no immediate operative requirement. It has been theorized that a significant portion of her pain may be attributed to SI dysfunction and/or lumbar facet mediated pain and that ultimately, if additional surgical requirement was required, it would demand consideration of thoracolumbar arthrodesis with pelvic fixation via tertiary level center such as [facility]. A trial of conservative management has been recommended. Given the refractory nature of her pain, since time of last office visit, patient has obtained a consult at [facility] with Dr. Tineo/team. Formal consult notes from 03/23/2023 and 04/07/2023 are reviewed with formal recommendations for continuation of conservative management such as repeat L3-4 MAGED's while participating in modalities to promote weight loss and improve BMI prior to any surgical intervention. Patient's pain has been refractory to ongoing physical therapy modalities performed through [facility]. She has established with pain management and underwent bilateral SI injections 04/03/2022 followed by L3-4 MAGED 04/17/2022. Patient reports the SI injections provided no benefit even transiently. She does report an estimated 50% improvement in pain for a period of several weeks following the L3-4 MAGED with subsequent sym (more content not included)... Normal [facility] Provider Letteron 07-09-2023 Provider Letter (Inserted Image. Penny ble to display) Sherri Broderick MD [address] [place] [address] Re: Tessa Syed Date of Visit: 07/09/2023 Dear Sherri Broderick, Thank you for allowing me to contribute to the care of your patient, Tessa Syed. Attached is my office note and you will find my assessment and recommendations from our encounter today. Please do not hesitate to contact me with any questions or concerns. Sincerely, Kandace Kauffman PA-C [facility] [address] [address] The following document(s) were included in the letter: July 09, 2023 09:40:52 EST - (07/09/2023) Neurosurgery Office Visit Note Normal [facility] POCT EKGon 06-03-2023 [facility] FECAL OCCULT BLOODon 024 Hemoglobin.gastrointe stinal Ql (Stl) Negative Normal NEG [facility] Comment on above: Performed By: #### 2 335-8 ####[facility] ([id number])[address] [place] [address], [address] [place] [address] Cobalamin (Vitamin B12) [Mas s/Vol]on 05-27-2023 [facility] Erythropoietin (EPO) Qnon ERYTHROPOIETIN EPO 85.5 mIU/mL High 2.6-18.5 [facility] Comment on above: Result Comment: NOTE Test analyzed by the [employer] DxI method. Test Performed By: [facility] [address] [place] [address] Supervisor Quality Control: El Leos III, M.D. CLIA #[id number] Performed By: #### 1 5061-5 ####[facility] ([id number])[address] [place] [address] Folateon 05-27-2023 Folate [Mass/Vol] ng/mL 5.8 - PINF ng/mL [facility] Comment on above: NEW REFERENCE RANGE Folate [Mass/Vol]on 05-27-19 [facility] FOLIC ACID >25.0 Normal >5.8 [facility] Comment on above: Result Comment: NEW REFERENCE RANGE Performed By: #### F EPR, 2283-12, 2132-01 ####[facility] ([id number])[address], [address] [place] [address] IRON PROFILEon 05-27-2023 Iron [Mass/Vol] 32 ug/dL Low 50-170 [facility] Comment on above: Performed By: #### F EPR, 2283-12, 2132-01 ####[facility] ([id number])[address], [place] [address] IRON BINDING 511 ug/dL High 250-425 [facility] Comment on above: Performed By: #### F EPR, 2283-12, 2132-01 ####[facility] ([id number])[address], [address] [place] [address] IRON SATURATION 6 % SATURATION Low 15-50 [facility] Comment on above: Performed By: #### F EPR, 2283-12, 2132-01 ####[facility] ([id number])[address], [place] [address] Iron and TIBCon 05-27-2023 Interpretation and review of laboratory results Abnormal [facility] Iron [Mass/Vol] 32 ug/dL Low 50 - 170 ug/dL [facility] Iron binding capacity [Mass/Vol] 511 ug/dL High 250 - 425 ug/dL [facility] Iron saturation [Mass fraction] 6 Low [facility] VITAMIN B12on 05-27-2023 Cobalamin (Vitamin B12) [Mass/Vol] 293 pg/mL Normal 180-914 [facility] Comment on above: Performed By: #### F EPR, 4-8, 2132-01 ####[facility] ([id number])[address], [place] [address] Vitamin B12on 05-27-2023 Cobalamin (Vitamin B12) [Mass/Vol] 293 pg/mL 180 - 914 pg/mL [facility] BASIC METABOLIC PANLon 05-20 Anion gap [Moles/Vol] 9 mmol/L Normal 5-15 [facility] Comment on above: Performed By: #### C BC, BMP, , 2776-, UPCR, 2731-8, 84586-2 #### [facility] ([id number]) [address], [address] [place] [address] Calcium [Mass/Vol] 9.7 mg/dL Normal 8.5-10.5 [facility] Comment on above: Performed By: #### C BC, BMP, , 2776-, UPCR, 2731-8, 54411-6 #### [facility] ([id number]) [address], [address] [place] [address] Chloride [Moles/Vol] 110 mmol/L High 98-109 [facility] Comment on above: Performed By: #### C BC, BMP, , 2776-, U[facility], 2731-8, 93632-1 #### [facility] ([id number]) [address] [place] [address] CO2 [Moles/Vol] 25 mmol/L Normal 22-32 [facility] Comment on above: Performed By: #### C BC, BMP, 93152-8, 2777-1, UPCR, 2731-8, 78740-5 #### [facility] ([id number]) [address], [address] [place] [address] Creatinine [Mass/Vol] 1.15 mg/dL High 0.40-1.00 [facility] Comment on above: Result Comment: METH OD TRACEABLE TO IDMS STANDARD Performed By: #### C BC, BMP, 52583-2, 2777-1, UPCR, 2731-8, 04746-5 #### [facility] ([id number]) [address], [address] [place] [address] GFR/1.73 sq M.predicted among non-blacks MDRD (S/P/Bld) [Vol rate/Area] 50 mL/min/{1.73_m2} Low >59 [facility] Comment on above: Result Comment: Reported eGFR is based on the CKD-EPI 2020 equation that does not use a race coefficient. Performed By: #### C BC, BMP, 65238-5, 2777-1, UPCR, 2731-8, 28118-7 #### [facility] ([id number]) [address] [place] [address] Glucose [Mass/Vol] 114 mg/dL High 65-99 [facility] Comment on above: Performed By: #### C BC, BMP, 51357-5, 2777-1, UPCR, 2731-8, 67964-2 #### [facility] ([id number]) [address] [place] [address] Potassium [Moles/Vol] 4.4 mmol/L Normal 3.5-5.0 [facility] Comment on above: Performed By: #### C BC, BMP, 93824-4, 2777-1, UPCR, 2731-8, 14377-6 #### [facility] ([id number]) [address], [address] [place] [address] Sodium [Moles/Vol] 144 mmol/L Normal 134-146 [facility] Comment on above: Performed By: #### C BC, BMP, 11519-5, 2777-1, UPCR, 2731-8, 46188-6 #### [facility] ([id number]) [address], [address] [place] [address] Urea nitrogen [Mass/Vol] 25 mg/dL Normal 5-27 [facility] Comment on above: Performed By: #### C BC, BMP, 62345-4, 2777-1, UPCR, 2731-8, 97521-6 #### [facility] ([id number]) [address], [address] [place] [address] COMPLETE BLOOD COUNTon 05-20 Erythrocyte distribution width (RBC) [Ratio] 17.3 % High 11.5-15.0 [facility] Comment on above: Performed By: #### C BC, BMP, 08012-2, 2777-1, UPCR, 2731-8, 64449-3 #### [facility] ([id number]) [address], [address] [place] [address] Hematocrit (Bld) [Volume fraction] 26.1 % Low 35-47 [facility] Comment on above: Performed By: #### C BC, BMP, 95849-4, 2777-1, UPCR, 2731-8, 42321-3 #### [facility] ([id number]) [address], [address] [place] [address] Hemoglobin (Bld) [Mass/Vol] 8.0 g/dL Low 11.7-15.5 [facility] Comment on above: Performed By: #### C BC, BMP, 42955-4, 2776-1, UPCR, 2731-8, 05284-5 #### [facility] ([id number]) [address], [address] [place] [address] MCH (RBC) [Entitic mass] 26.0 pg Low 27-34 [facility] Comment on above: Performed By: #### C BC, BMP, 60364-4, 2776-, UPCR, 2731-8, 56014-8 #### [facility] ([id number]) [address], [address] [place] [address] MCHC (RBC) [Mass/Vol] 30.8 g/dL Low 32-36 [facility] Comment on above: Performed By: #### C BC, BMP, 37650-0, 2776-1, UPCR, 273-8, 89744-0 #### [facility] ([id number]) [address], [address] [place] [address] MCV (RBC) [Entitic vol] 85 fL Normal 80-100 [facility] Comment on above: Performed By: #### C BC, BMP, 37414-6, 2776-, UPCR, 2731-8, 64751-4 #### [facility] ([id number]) [address], [address] [place] [address] Platelet mean volume (Bld) [Entitic vol] 7.1 fL Normal 7-12 [facility] Comment on above: Performed By: #### C BC, BMP, 05911-9, 7-, UPCR, 2731-8, 26676-5 #### [facility] ([id number]) [address], [address] [place] [address] Platelets (Bld) [#/Vol] 293 10*3/uL Normal 150-450 [facility] Comment on above: Performed By: #### C BC, BMP, 47283-6, 7-1, UPCR, 2731-8, 31422-7 #### [facility] ([id number]) [address] [address] [place] [address] RBC COUNT 3.08 X10E12/L Low 3.80-5.20 [facility] Comment on above: Performed By: #### C BC, BMP, 56985-2, 7-1, UPCR, 2731-8, 27906-0 #### [facility] ([id number]) [address], [facility] [address] [place] [address] WBC (Bld) [#/Vol] 8.1 10*3/uL Normal 4.0-11.0 [facility] Comment on above: Performed By: #### C BC, BMP, 76457-8, 7-1, UPCR, 2731-8, 66741-2 #### [facility] ([id number]) [address], [facility] [address] [place] [address] HGB A1C (GLYCO-HGB)on 2023 Glucose [Mass/Vol] 186 mg/dL Normal [facility] Comment on above: Performed By: #### C BC, BMP, 73485-2, 2776-1, UPCR, 2731-8, 34428-8 #### [facility] ([id number]) [address] [address] HbA1c (Bld) [Mass fraction] 8.1 % High 4.4-5.6 [facility] Comment on above: Result Comment: NOTE ADA Guidelines Result HgbA1c Normal : less than 5.7 % Prediabetes : 5.7 % to 6.4 % Diabetes : > 6.4 % Use with caution in patients with abnormal hemoglobin variants as the half-life of red blood cells and in vivo glycation rates are affected. Performed By: #### C BC, BMP, 99812-2, 2777-1, UPCR, 2731-8, 99373-7 #### [facility] ([id number]) [address], [address] [place] [address] MAGNESIUMon 05-20-2023 Magnesium [Mass/Vol] 2.0 mg/dL Normal 1.8-2.6 [facility] Comment on above: Performed By: #### C BC, BMP, 41684-5, 2777-1, UPCR, 2731-8, 97928-2 #### [facility] ([id number]) [address], [address] [place] [address] PHOSPHORUSon 05-20-2023 Phosphate [Mass/Vol] 4.4 mg/dL Normal 2.4-4.9 [facility] Comment on above: Performed By: #### C BC, BMP, 33248-1, 7-1, UPCR, 273-8, 41249-5 #### [facility] ([id number]) [address], [address] [place] [address] PROTEIN CREAT RATIOon 2023 RANDOM URINE PROTEIN 380 mg/L High <120 [facility] Comment on above: Performed By: #### C BC, BMP, 16187-8, 7-1, UPCR, 2731-8, 89921-5 #### [facility] ([id number]) [address], [address] [place] [address] U/PRO/COLOR ROOM ATTENDANT RATIO CALC 0.41 High <0.2 [facility] Comment on above: Result Comment: Neph rotic Syndrome is associated with ratios >3.5 Performed By: #### C BC, BMP, 92329-4, 2777-1, UPCR, 2731-8, 15292-8 #### [facility] ([id number]) [address], [address] [place] [address] URINE CREATININE,RDM 92.20 mg/dL Normal [facility] Comment on above: Performed By: #### C BC, BMP, 46992-6, 2777-1, UPCR, 2731-8, 84149-5 #### [facility] ([id number]) [address] [facility] [address], [address] [place] [address] Parathyrin.intact [Mass/Vol] on 05-20-2023 PTH INTACT 25 pg/mL Normal 12-88 [facility] Comment on above: Performed By: #### C BC, BMP, 39737-5, 2777-1, UPCR, 2731-8, 96627-1 #### [facility] ([id number]) [address], [address] [place] [address] URINALYSISon 05-20-2023 Bilirubin Ql (U) Negative Normal NEG [facility] BLOOD/HGB Negative Normal NEG [facility] Color (U) YELLOW Normal YELLOW [facility] Glucose Ql (U) Negative Normal NEG [facility] Ketones Ql (U) Negative Normal NEG [facility] Leukocyte esterase Test strip Ql (U) Large Abnormal NEG [facility] MUCOUS PRESENT Abnormal NONE [facility] Nitrite Ql (U) Positive Abnormal NEG [facility] pH (U) 7.0 [pH] Normal 5.0-8.5 [facility] Protein Ql (U) 30 mg/dL Abnormal NEG [facility] R.B.CELLS 5 /hpf Normal 0-5 [facility] Specific gravity (U) [Rel density] 1.018 Normal 1.003-1.035 [facility] SQUAMOUS EPITHELIUM 2 /hpf Normal 0-5 [facility] TURBIDITY HAZY Abnormal CLEAR [facility] Urobilinogen (U) [Mass/Vol] mg/dL Normal <1.1 [facility] W.B.CELLS 124 /hpf High 0-5 [facility] Vitamin D+Metabolites [Mass/ Vol]on 05-20-2023 VITAMIN D 25 HYD TOT 52.0 ng/mL Normal 30-100 [facility] Comment on above: Result Comment: Vitamin D status 25 [place] Vitamin D Deficiency <20 ng/mL Insufficiency 20-29 ng/mL Sufficiency 30-100 ng/mL Toxicity >100 ng/mL NOTE: A pediatric reference range has not been established by the websphere commerce developer of this kit. The [employer] [employer] recommends a Vitamin D level of = or >20ng/mL in infants and children. Performed By: #### C , [facility], 96509-8, 2777-1, UPCR, 2731-8, 30762-1 #### [facility] ([id number]) [address] [place] [address] [address] [place] [address] FL SWALLOW MOTILITY FUNCTION on 05-19-2023 FL SWALLOW MOTILITY FUNCTION FL SWALLOW MOTILITY FUNCTION CLINICAL INFORMATION: Difficulty swallowing. Oropharyngeal dysphagia TECHNIQUE/PROCEDURE: Speech pathologist was present for the duration of the procedure. Various consistencies of barium containing substances were provided with lateral view. Reference air kerma: 1.7 mGy IMPRESSION: 1. No evidence of aspiration. Single episode of trace penetration with thin consistency. 2. For further details and diet recommendations please refer to speech pathology report. Finalized by Dennis Azul MD on 05/19/2023 10:02 AM Normal [facility] Glucose Glucometer (BldC) [M ass/Vol]on 05-07-2023 Glucose [Mass/Vol] 190 mg/dL High 65-99 [facility] Neurosurgery Office/Clinic N oteon 04-09-2023 Neurosurgery Office/Clinic Note Chief Complaint 3 mth follow up-PT MRI History of Present Illness Patient is a pleasant 72-year-old female with a history of type 2 diabetes with neuropathy (HgbA1c 9.7 12/01/22), HTN, renal disease, near morbid obesity (BMI: 38), osteopenia (DEXA 08/2022 with T score -1.8), coexisting advanced bilateral knee arthropathy (following with orthopedics: Dr. Garnica in [place]), L4-S1 instrumented posterior spinal fusion performed 08/[address] Cruz, and coexisting sacroiliac dysfunction that has up to this point, been managed with conservative treatment, who presents to the outpatient neurosurgical clinic today accompanied by her , for follow up on behalf of complaints of exacerbated low back pain. Patient is status post L4-S1 instrumented posterior spinal fusion performed 08/[address] Cruz secondary to an acute cauda equina syndrome attributed to advanced degenerative disease with an unstable spondylolisthesis at L4-5. Patient's postoperative course was complicated by sacral insufficiency fractures. Despite this, patient did well postoperatively with resolution in her preoperative pain syndrome and no significant or chronic ongoing complaints. She returned to a moderate geriatric lifestyle without significant difficulty. Patient states that she continued to do well until the onset of her pain complaints approximately 15 months ago following a trip over a bag that did not result in a fall, but brian her low back. She also experienced another exacerbation in pain beginning of December 2022 after a second mechanical ground level fall which resulted in inpatient stay at [facility] for control of intractable pain. Patient has described diffuse midline and bilateral lumbosacral pain that spreads into the bilateral sacroiliac and gluteal regions diffusely. She states her pain is constant, but that it is predictably worsened with standing/walking and mechanical use with components of improvement when seated at rest. Patient denies radicular pain into the inguinal folds or lower extremities. She denies numbness or paresthesias in the lower extremities. Patient denies motor weakness in the lower extremities, bowel/bladder incontinence, or saddle paresthesias. Patient denies significant thoracic pain. She denies radicular pain into the chest wall/thorax. She denies numbness or paresthesias in the chest wall/thorax. Work up includes: MRIs thoracic and lumbosacral spine 12/01/22: L4-1 instrumented posterior spinal fusion with good surgical decompression; prominently exaggerated lumbar lordosis; end-stage degenerative changes at the thoracolumbar junction with a suggestion of at least partial ankylosing at T 12 L1; retrolisthesis at L2-3; multisegmental adjacent segment disease with overall moderate L3-4 central stenosis and moderate bilateral L3-[address] thoracolumbar spine 12/01/2022: Solid L4-S1 arthrodesis with suggestion of spontaneous ankylosing at T11-12 and T12-L1; advanced degenerative changes including vacuum disc/vacuum facet phenomenon from L1-L4; degenerative changes noted throughout the sacroiliac joints bilaterally Flexion/extension films lumbosacral spine 11/26/2021: Fishmouthing L2-3 in extension with stable retrolisthesis L1 2 X-ray sacroiliac joint 11/26/2021: Moderate degenerative changes of the SI joints bilaterally Scoliosis x-ray 11/26/2021: Minimal disruption in sagittal balance MRI pelvis 04/01/2023: No fractures; suggestion of possible partial tear right gluteus medius tendon insertion and partial tear bilateral hamstring insertion along with bilateral trochanteric bursitis DEXA [place] [facility] 08/2022 osteopenia with T score -1.8 Based on symptoms and imaging work up, there has been felt to be no immediate operative requirement. It has been theorized that a significant portion of her pain may be attributed to SI dysfunction and/or lumbar facet mediated pain and that ultimately, if additional surgical requirement was required, it would demand consideration of thoracolumbar arthrodesis with pelvic fixation via tertiary level center such as [facility]. A trial of conservative management has been recommended. Given the refractory nature of her pain, since time of last office visit, patient has obtained a consult at [facility] with Dr. Tineo/team. Formal consult notes from 03/23/2023 and 04/07/2023 are reviewed with formal recommendations for continuation of conservative management such as repeat L3-4 MAGED's while participating in modalities to promote weight loss and improve BMI prior to any surgical intervention. Patient's pain has been refractory to ongoing physical therapy modalities performed through [facility]. She has established with pain management and underwent bilateral SI injections 04/03/2022 followed by L3-4 MAGED 04/17/2022. Patient reports the SI injections provided no benefit even transiently. She does report an estimated 50% improvement in pain for a period of several weeks following the L3-4 MAGED with subsequent symptom return. Recently, (more content not included)... Normal [facility] Provider Letteron 04-09-2023 Provider Letter (Inserted Image. Penny ble to display) Sherri Broderick MD [address] [place] [address] Re: Tessa Syed Date of Visit: 04/09/2023 Dear Sherri Broderick, Thank you for allowing me to contribute to the care of your patient, Tessa Syed. Attached is my office note and you will find my assessment and recommendations from our encounter today. Please do not hesitate to contact me with any questions or concerns. Sincerely, Kandace Kauffman PA-C [facility] [address] [place] [address] The following document(s) were included in the letter: April 09, 2023 09:50:20 EST - (04/09/2023) Neurosurgery Office Visit Note Normal [facility] MRI Pelvis w/o Contraston MRI Pelvis w/o Contrast EXAM: MRI Pelvis w/o Contrast HISTORY: The patient is a 72-year-old female. Fracture of unspecified parts of lumbosacral spine and pelvis, initial encounter for closed fracture COMPARISON: CT scan of the pelvis from 02/16/2023. TECHNIQUE: Coronal T1, STIR; axial T1, STIR; sagittal STIR. FINDINGS: No abnormal bone marrow signal or edema is seen within either proximal femur or elsewhere throughout the bony pelvis to indicate the presence of a fracture, stress fracture, bone contusion, or avascular necrosis. There is focal edema within the left pectineus muscle, at its origin at the left pubic body, seen on coronal image 6 and axial image 36. The appearance is that of a focal strain of the origin of the pectineus muscle. There is not a complete rupture or retraction of the pectineus muscle. There is a partial tear of the right gluteus medius tendon at its insertion into the superoposterior facet of the right greater trochanter, seen on sagittal image 5. There is not a complete rupture or retraction of the gluteus muscle or tendon. There are partial tears of the origin of the hamstring tendons bilaterally, seen on coronal image 20 and axial image 44. There is not a complete rupture or retraction of the hamstring muscles or tendons. There are thin focal fluid collections within the soft tissues lateral to both greater trochanters, slightly larger on the right, consistent with bilateral greater trochanteric bursitis. There is a physiologic amount of fluid within both hip joints. No other abnormal fluid collections are seen. IMPRESSION: 1. No fractures or bone marrow edema. 2. Strain of the origin of the left pectineus muscle. 3. Partial tear of the insertion of the right gluteus medius tendon. 4. Partial tears of the origin of the hamstring tendons bilaterally. 5. Bilateral greater trochanteric bursitis. Final Dictated by: Donald Danielson MD Dictated DT/TM: 04/04/2023 0:48 am Signed by: Donald Danielson MD Signed (Electronic Signature): 04/04/2023 0:58 am (If Report Is Signed, Electronically Signed in Other Vendor System) Normal [facility] Comment on above: Order Comment: lawrence JOY, to get order to us XR SPINE LUMBOSACRAL 5 VIEWS on 03-23-2023 XR SPINE LUMBOSACRAL 5 VIEWS EXAM: 4 view lumbar spine with flexion-extension VIEWS, 03/23/2023 13:34 PM COMPARISON: No priors available for comparison. CLINICAL INDICATIONS: PAIN RELEVANT CLINICAL HISTORY: M54.50:Lumbar back pain AP,LAT,FLEX,EXT 4 VIEWS; FINDINGS: 4 images obtained. There are 5 lumbar vertebral bodies identified. There has been a prior posterior fusion from L4 to S1 with paired spinal rods and interpedicular screws in place. A disc spacer is noted at L4-5. No compression deformities. There is multilevel disc disease, osteophyte formation and facet disease. There is retrolisthesis of L1 on L2 and L2 on L3 stable in flexion and extension On the lateral view there is an accentuated lordotic curve. IMPRESSION: Prior posterior fusion from L4 to S1 with intact hardware Multilevel disc disease and osteophyte formation Retrolisthesis of L1 on L2 and L2 on L3 stable in flexion and extension Normal [facility] XR Spine Lumbar and Sacrum 5 Viewson 03-23-2023 IMPRESSION: Prior posterior fusion from L4 to S1 with intact hardware Multilevel disc disease and osteophyte formation Retrolisthesis of L1 on L2 and L2 on L3 stable in flexion and extension OLOGY EXAM: 4 view lumbar spine with flexion-extension VIEWS, 03/23/2023 13:34 PM COMPARISON: No priors available for comparison. CLINICAL INDICATIONS: PAIN RELEVANT CLINICAL HISTORY: M54.50:Lumbar back pain AP,LAT,FLEX,EXT 4 VIEWS; FINDINGS: 4 images obtained. There are 5 lumbar vertebral bodies identified. There has been a prior posterior fusion from L4 to S1 with paired spinal rods and interpedicular screws in place. A disc spacer is noted at L4-5. No compression deformities. There is multilevel disc disease, osteophyte formation and facet disease. There is retrolisthesis of L1 on L2 and L2 on L3 stable in flexion and extension On the lateral view there is an accentuated lordotic curve. RADIOLOGY Imelda Mercado D O - 03/23/2023 EXAM: 4 view lumbar spine with flexion-extension VIEWS, 03/23/2023 13:34 PM COMPARISON: No priors available for comparison. CLINICAL INDICATIONS: PAIN RELEVANT CLINICAL HISTORY: M54.50:Lumbar back pain AP,LAT,FLEX,EXT 4 VIEWS; FINDINGS: 4 images obtained. There are 5 lumbar vertebral bodies identified. There has been a prior posterior fusion from L4 to S1 with paired spinal rods and interpedicular screws in place. A disc spacer is noted at L4-5. No compression deformities. There is multilevel disc disease, osteophyte formation and facet disease. There is retrolisthesis of L1 on L2 and L2 on L3 stable in flexion and extension On the lateral view there is an accentuated lordotic curve. IMPRESSION IMPRESSION: Prior posterior fusion from L4 to S1 with intact hardware Multilevel disc disease and osteophyte formation Retrolisthesis of L1 on L2 and L2 on L3 stable in flexion and extension [facility] Radiology Study observation (narrative) [facility] XR Spine Lumbar and Sacrum 5 ViewsOrdered By: Imelda Mercado on 03-23-2023 [facility] Work Phone: XR Sacrum/Coccyx Minimum 2 V iewson 02-16-2023 XR Sacrum/Coccyx Minimum 2 Views EXAM: XR Sacrum/Coccyx Minimum 2 Views HISTORY: Other (please specify), sacral pain COMPARISON: 11/26/2021 TECHNIQUE: 5 views FINDINGS: There is stable partial ankylosis of the right sacroiliac joint. There is no erosive change. There is degenerative change of both sacroiliac joints There is no sacral or coccygeal fracture. There is no presacral soft tissue mass. There are postoperative changes related to lower lumbosacral fusion. 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 Final Dictated by: America Wilson MD Dictated DT/TM: 02/16/2023 4:22 pm Signed by: America Wilson MD Signed (Electronic Signature): 02/16/2023 4:26 pm (If Report Is Signed, Electronically Signed in Other Vendor System) [facility] Comment on above: Order Comment: good elect orderpmanns 02/13/23 Neurosurgery Office/Clinic N dandy 01-08-2023 Neurosurgery Office/Clinic Note Chief Complaint follow up back History of Present Illness Patient is a pleasant 72-year-old female with a history of type 2 diabetes with neuropathy (HgbA1c 9.7 12/01/22), HTN, renal disease, near morbid obesity (BMI: 39), osteopenia (DEXA 08/2022 with T score -1.8), coexisting advanced bilateral knee arthropathy (following with orthopedics: Dr. Garnica in [place]), L4-S1 instrumented posterior spinal fusion performed 08/[address] Cruz, and coexisting sacroiliac dysfunction that has up to this point, been managed with conservative treatment, who presents to the outpatient neurosurgical clinic today accompanied by her , for follow up on behalf of complaints of exacerbated low back pain. Patient is status post L4-S1 instrumented posterior spinal fusion performed 08/[address] Cruz secondary to an acute cauda equina syndrome attributed to advanced degenerative disease with an unstable spondylolisthesis at L4-5. Patient's postoperative course was complicated by sacral insufficiency fractures. Despite this, patient did well postoperatively with resolution in her preoperative pain syndrome and no significant or chronic ongoing complaints. She returned to a moderate geriatric lifestyle without significant difficulty. Patient states that she continued to do well until the onset of her pain complaints approximately 15 months ago following a trip over a bag that did not result in a fall, but brian her low back. She also experienced another exacerbation in pain beginning of December 2022 after a second mechanical ground level fall which resulted in inpatient stay at [facility] for control of intractable pain. Patient has described diffuse midline and bilateral lumbosacral pain that spreads into the bilateral sacroiliac and gluteal regions diffusely. She states her pain is constant, but that it is predictably worsened with standing/walking and mechanical use with components of improvement when seated at rest. Patient denies radicular pain into the inguinal folds or lower extremities. She denies numbness or paresthesias in the lower extremities. Patient denies motor weakness in the lower extremities, bowel/bladder incontinence, or saddle paresthesias. Patient denies significant thoracic pain. She denies radicular pain into the chest wall/thorax. She denies numbness or paresthesias in the chest wall/thorax. Work up includes: MRIs thoracic and lumbosacral spine 12/01/22: L4-1 instrumented posterior spinal fusion with good surgical decompression; prominently exaggerated lumbar lordosis; end-stage degenerative changes at the thoracolumbar junction with a suggestion of at least partial ankylosing at T 12 L1; retrolisthesis at L2-3; multisegmental adjacent segment disease with overall moderate L3-4 central stenosis and moderate bilateral L3-[address] thoracolumbar spine 12/01/2022: Solid L4-S1 arthrodesis with suggestion of spontaneous ankylosing at T11-12 and T12-L1; advanced degenerative changes including vacuum disc/vacuum facet phenomenon from L1-L4; degenerative changes noted throughout the sacroiliac joints bilaterally Flexion/extension films lumbosacral spine 11/26/2021: Fishmouthing L2-3 in extension with stable retrolisthesis L1 2 X-ray sacroiliac joint 11/26/2021: Moderate degenerative changes of the SI joints bilaterally Scoliosis x-ray 11/26/2021: Minimal disruption in sagittal balance DEXA [place] [facility] 08/2022 osteopenia with T score -1.8 Based on symptoms and imaging work up, there has been felt to be no immediate operative requirement. It has been theorized that a significant portion of her pain may be attributed to SI dysfunction and/or lumbar facet mediated pain and that ultimately, if additional surgical requirement was required, it would demand consideration of thoracolumbar arthrodesis with pelvic fixation via tertiary level center such as [facility]. A trial of conservative management has been recommended. Patient's pain was refractory to a course of physical therapy which seem to aggravate symptoms. She has established with pain management and underwent bilateral SI injections 04/03/2022 followed by L3-4 MAGED 04/17/2022. Patient reports the SI injections provided no benefit even transiently. She does report an estimated 50% improvement in pain for a period of several weeks following the L3-4 MAGED with subsequent symptom return. Since time of last office visit, patient underwent mid lumbar RFAs 10/2022. Patient reports that initially following the RFA's, she experienced dramatic improvement in pain. Unfortunately, following her more recent fall, she has had components of exacerbated pain that has yet to resolve, but she does feel is slowly improving. Patient is participating in a course of physical therapy through [facility] with some benefit. Patient currently rates her pain at mid to high VAS range on a standard pain scale. She states it interrupts her sleep periodically, as well as activity level and function. Physical Exam Vitals & Measurement (more content not included)... Normal [facility] Provider Letteron 01-08-2023 Provider Letter (Inserted Image. Penny ble to display) Sherri Broderick MD [address] [place] [address] Re: eTssa Syed Date of Visit: 01/08/2023 Dear Sherri Broderick, Thank you for allowing me to contribute to the care of your patient, Tessa Syed. Attached is my office note and you will find my assessment and recommendations from our encounter today. Please do not hesitate to contact me with any questions or concerns. Sincerely, Kandace Kauffman PA-C [facility] [address] [address] The following document(s) were included in the letter: January 08, 2023 08:32:32 EDT - (01/08/2023) Neurosurgery Office Visit Note Normal [facility] .eGFRon 12-04-2022 Estimated GFR 40 mL/min/1.73m? Low >=60 [facility] Comment on above: Result Comment: [facility] have implemented the eGFR calculation approach that does not have a coefficient for race and that conforms to the NKF-ASN Task Force Recommendations. Stages of Chronic Kidney Disease GFR Stage 3a Mild to moderate loss of kidney function 59 to 45 Stage 3b Moderate to severe loss of kidney function 44 to 33 Stage 4 Severe loss of kidney function 29 to 15 Stage 5 Kidney failure Less than 15 GFR calculated using the CKD-Epi Creatinine Equation (2020): eGFR = 142 X min(SCr/?, 1)? X max(SCr /?, 1)-1.200 X 0.9938Age X 1.012 [if female] Abbreviations/Units: eGFR (estimated glomerular filtration rate) = mL/min/1.73 m2 SCr (standardized serum creatinine) = mg/dL ? = 0.7 (females) or 0.9 (males) ? = -0.241 (females) or -0.302 (males) min = indicates the minimum of SCr/? or 1 max = indicates the maximum of SCr/? or 1 Age = years Performed By: #### E GFR #### [address] [address] Basic Metabolic Profileon Anion gap [Moles/Vol] 9 mmol/L Normal 7-17 [facility] Comment on above: Performed By: #### C [id number] #### [address] [address] Calcium [Mass/Vol] 8.5 mg/dL Normal 8.5-10.3 [facility] Comment on above: Performed By: #### C [id number] #### [address] [address] Chloride [Moles/Vol] 108 mmol/L Normal 98-110 [facility] Comment on above: Performed By: #### C [id number] #### [address] [address] CO2 [Moles/Vol] 26 mmol/L Normal 22-32 [facility] Comment on above: Performed By: #### C [id number] #### [address] [address] Creatinine [Mass/Vol] 1.40 mg/dL High 0.44-1.03 [facility] Comment on above: Performed By: #### C [id number] #### [address] [address] Glucose [Mass/Vol] 183 mg/dL High 70-99 [facility] Comment on above: Performed By: #### C [id number] #### [address] [address] Potassium [Moles/Vol] 3.7 mmol/L Normal 3.4-4.8 [facility] Comment on above: Performed By: #### C [id number] #### [address] [address] Sodium [Moles/Vol] 139 mmol/L Normal 133-142 [facility] Comment on above: Performed By: #### C [id number] #### [address] [address] Urea nitrogen [Mass/Vol] 39 mg/dL High 8-26 [facility] Comment on above: Performed By: #### C [id number] #### [address] [address] Urea nitrogen/Creatinine [Mass ratio] 27.9 mg/mg High 10.0-20.0 [facility] Comment on above: Performed By: #### C [id number] #### [address] [address] C Urineon 12-04-2022 C Urine Order added by Jillian michaud rule. Final >100,000 cfu/ml Enterobacter aerogenes isolated and 50-100,000 cfu/ml Proteus mirabilis isolated ORGANISM Entaer Promir SUSCEPTIBILITY ORGANISM ID: 1 ANTIBIOTIC INTERPRETATION JEREMÍAS STATUS POS Enterobacter aerogenes Amikacin S <=2 V Cefazolin R V Ciprofloxacin S <=0.25 V Ceftriaxone S <=1 V Nitrofurantoin S 32 V Cefepime S <=1 V Cefoxitin R V Gentamicin S <=1 V Meropenem S <=0.25 V Levofloxacin S <=0.12 V Tobramycin S <=1 V Trimethoprim/Sulfa S <=20 V Ceftazidime S <=1 V SUSCEPTIBILITY ORGANISM ID: 2 ANTIBIOTIC INTERPRETATION JEREMÍAS STATUS POS Proteus mirabilis Amikacin S <=2 V Ampicillin S <=2 V Ampicillin/Sulbactam S <=2 V Cefazolin S <=4 V Ciprofloxacin S <=0.25 V Ceftriaxone S <=1 V Nitrofurantoin R V Cefepime S <=1 V Cefoxitin S <=4 V Gentamicin S <=1 V Meropenem S <=0.25 V Levofloxacin S <=0.12 V Tobramycin S <=1 V Piperacillin/Tazobactam S <=4 V Trimethoprim/Sulfa S <=20 V Ceftazidime S <=1 V Normal [facility] Comment on above: Performed By: #### C [id number] #### [place] [address] CBC w/ Diffon 12-04-2022 Erythrocyte distribution width (RBC) [Ratio] 17.7 % High 11.6-14.8 [facility] Comment on above: Performed By: #### C [id number] #### [place] [id number] Hematocrit (Bld) [Volume fraction] 28.5 % Low 36.0-46.0 [facility] Comment on above: Performed By: #### C [id number] #### [place] [id number] Hemoglobin (Bld) [Mass/Vol] 9.4 g/dL Low 12.0-16.0 [facility] Comment on above: Performed By: #### C [id number] #### [address] [address] MCH (RBC) [Entitic mass] 28.2 pg Normal 27.0-35.0 [facility] Comment on above: Performed By: #### C [id number] #### [place] [address] MCHC 33.1 % Normal 31.0-37.0 [facility] Comment on above: Performed By: #### C [id number] #### [place] [id number] MCV (RBC) [Entitic vol] 85.2 fL Normal 80.0-100.0 [facility] Comment on above: Performed By: #### C [id number] #### [place] [id number] Platelet 244 x10*3/mcL Normal 150-450 [facility] Comment on above: Performed By: #### C [id number] #### [address] [address] Platelet mean volume (Bld) [Entitic vol] 6.7 fL Normal 6.7-10.6 [facility] Comment on above: Performed By: #### C [id number] #### [address] [address] RBC 3.34 x10*6/mcL Low 3.80-5.20 [facility] Comment on above: Performed By: #### C D:[id number] #### [address] [address] WBC 7.5 x10*3/mcL Normal 4.5-11.0 [facility] Comment on above: Performed By: #### C [id number] #### [address] [address] COV19 Rapidon 12-04-2022 LAB ONLY Result Called? No Normal [facility] Comment on above: Performed By: #### E GFR #### [place] [address] [place] [address] Reason for Rapid Test Dischrg to LTC Normal [facility] Comment on above: Performed By: #### E GFR #### [address] [address] SARS-CoV-2 (COVID-19) RNA YNES+probe Ql (Unsp spec) Negative Normal Negative [facility] Comment on above: Result Comment: The 2019 novel coronavirus SARS-CoV-2 target nucleic acids are not detected. This test is for the detection of SARS-CoV-2 RNA. Positive results are indicative of active infection with SARS-CoV-2. Positive results do not rule out bacterial infection or co-infection with other viruses. Negative results should be treated as presumptive and, if inconsistent with clinical signs and symptoms or necessary for patient management, should be tested with an alternative molecular assay.Negative results do not preclude SARS-CoV-2 infection and should not be used as the sole basis for treatment or other patient management decisions. Clinical correlation with patient history and other diagnostic information is necessary to determine patient infection status. ADDITIONAL INFORMATION: Testing was performed using the ID NOW COVID-19 test by [employer], which has received Emergency Use Authorization (EUA) by the U.S. Food and Drug Administration. The [place] ID NOW COVID-19 test performs best when patients are tested within the first 7 days of symptom onset. Results should be interpreted with caution for asymptomatic patients or those tested outside the 7 day target. Refer to CDC guidelines for further testing algorithms. Fact sheets for this Emergency Use Authorization (EUA) assay can be found at the following links: Fact Sheet for HealthCare Providers: https://www.fda.gov/media/119012/download Fact Sheet for Patients: https://www.fda.gov/media/966632/download Performed By: #### E GFR #### [address] [address] Diff Autoon 12-04-2022 Baso Absolute 0.0 x10*3/mcL Normal 0.0-0.2 [facility] Comment on above: Performed By: #### C [id number] #### [address] [address] Basophils/100 WBC (Bld) 0.5 % Normal 0.0-1.5 [facility] Comment on above: Performed By: #### C D:[id number] #### [address] [address] Eos Absolute 0.1 x10*3/mcL Normal 0.0-0.4 [facility] Comment on above: Performed By: #### C [id number] #### [address] [address] Eosinophils/100 WBC (Bld) 1.9 % Normal 0.0-5.4 [facility] Comment on above: Performed By: #### C [id number] #### [address] [address] Lymph Absolute 1.7 x10*3/mcL Normal 1.0-4.8 [facility] Comment on above: Performed By: #### C [id number] #### [address] [address] Lymphocytes/100 WBC (Bld) 22.7 % Low 27.2-40.8 [facility] Comment on above: Performed By: #### C [id number] #### [address] [address] Cuming Absolute 0.6 x10*3/mcL Normal 0.1-1.1 [facility] Comment on above: Performed By: #### C D:[id number] #### [address] [address] Monocytes/100 WBC (Bld) 8.3 % Normal 3.7-11.9 [facility] Comment on above: Performed By: #### C [id number] #### [place] [id number] Neutro Absolute 5.0 x10*3/mcL Normal 1.8-7.7 [facility] Comment on above: Performed By: #### C D:[id number] #### [place] [id number] Neutro Auto 66.6 % Normal 47.2-70.8 [facility] Comment on above: Performed By: #### C [id number] #### [address] [address] Inpatient Clinical Summaryon 12-04-2022 Inpatient Clinical Summary [address] [address] [place] [address] Clinical Summary Person Information Name: Tessa Syed Age: 72 Years : 1950 Sex: Female PCP: Sherri Broderick MD Marital Status: PCP: [id number] Race: White Ethnicity: Not or Language: Salvadorean Visit Id: Visit Reason: Back pain; fall Speciality: Acuity: 3 Enc Type: Inpatient Med Service: Emergency Medicine Arrival: 12/01/2022 11:21:22 Discharge: Dispo Type: Address: [address] [place], [place] [address] [address] Diagnosis: 1:Fall; 2:Lumbar pain; 3:Intractable pain; 5:Asthma; 6:Diabetes; 7:HTN - Hypertension; 8:Obesity (BMI 30.0-34.9); 9:Syncope Discharged To: Home Treatments: Devices/Equipment: Professional Skilled Services: Special Services and Community Resources: Mode of Discharge Transportation: Discharge Orders Allergies Simbrinza (Itching) Dilaudid (Hives) Rocklatan (Itching) morphine (Vomiting) Demerol (Vomiting) hydrocodone-acetaminophen (Vomiting) Functional Status: Sensory Deficits: None History of Falls: None Mobility Assistance Prior to Admission: ADLs: Moderate assistance Gait: Unable to assess Ambulation Assist: Assistive Device: Gait belt, Walker Special Orthopedic Devices: Current Level of Assistance for Self-Care/Mobility: Cognitive Status: Orientation: Orientation Assessment Oriented x 4 Level of Consciousness: Alert Characteristics of Speech: Clear Aspiration Risk: None Affect/Behavior: Calm, Cooperative Laboratory or Other Results This Visit (last charted value for your 12/01/2022 visit) Hematology 12/04/2022 5:40 AM WBC: 7.5 x10 RBC: 3.34 x10 Neutro Auto: 66.6 % -- Normal range between ( 47.2 and 70.8 ) Lymph Auto: 22.7 % -- Normal range between ( 27.2 and 40.8 ) Cuming Auto: 8.3 % -- Normal range between ( 3.7 and 11.9 ) Eos Auto: 1.9 % -- Normal range between ( 0.0 and 5.4 ) Basophil Auto: 0.5 % -- Normal range between ( 0.0 and 1.5 ) Baso Absolute: 0.0 x10 MCV: 85.2 fL -- Normal range between ( 80.0 and 100.0 ) MCHC: 33.1 % -- Normal range between ( 31.0 and 37.0 ) Lymph Absolute: 1.7 x10 Hct: 28.5 % -- Normal range between ( 36.0 and 46.0 ) Cuming Absolute: 0.6 x10 MCH: 28.2 pg -- Normal range between ( 27.0 and 35.0 ) Neutro Absolute: 5.0 x10 Hgb: 9.4 g/dL -- Normal range between ( 12.0 and 16.0 ) Mean Platelet Volume: 6.7 fL -- Normal range between ( 6.7 and 10.6 ) Platelet: 244 x10 Eos Absolute: 0.1 x10 RDW: 17.7 % -- Normal range between ( 11.6 and 14.8 ) Urinalysis 12/02/2022 1:14 AM UA Color: Light-Yellow UA Urobilinogen: Normal mg/dL UA Bili: Negative UA Ketones: 20 mg/dL UA Leukocyte Esterase: 250 UA Nitrite: 2+ UA Glucose: >1000 mg/dL UA Bacteria: Present /HPF UA Protein: 20 mg/dL UA Blood: Negative UA Spec Grav: 1.021 -- Normal range between ( 1.003 and 1.035 ) UA pH: 6.0 UA Clarity: Clear UA Source: Catheter UA Mucus: Present /LPF UA WBC Quant: 100 /HPF -- Normal range between ( 0 and 5 ) UA RBC Quant: 1 /HPF -- Normal range between ( 0 and 5 ) UA Squepi Cells Quant: 1 /HPF -- Normal range between ( 0 and 29 ) Chemistry 12/04/2022 5:40 AM Creatinine Lvl: 1.40 mg/dL -- Normal range between ( 0.44 and 1.03 ) BUN: 39 mg/dL -- Normal range between ( 8 and 26 ) Glucose Lvl: 183 mg/dL -- Normal range between ( 70 and 99 ) Potassium Lvl: 3.7 mmol/L -- Normal range between ( 3.4 and 4.8 ) Sodium Lvl: 139 mmol/L -- Normal range between ( 133 and 142 ) Calcium Lvl: 8.5 mg/dL -- Normal range between ( 8.5 and 10.3 ) Chloride: 108 mmol/L -- Normal range between ( 98 and 110 ) CO2: 26 mmol/L -- Normal range between ( 22 and 32 ) Anion Gap: 9 -- Normal range between ( 7 and 17 ) Estimated GFR: 40 mL/min/1.73m? BUN Crea Ratio: 27.9 -- Normal range between ( 10.0 and 20.0 ) 12/01/2022 7:02 PM AST: 22 IU/L -- Normal range between ( 15 and 41 ) ALT: 25 IU/L -- Normal range between ( 14 and 54 ) Hgb A1c: 9.7 % A1c -- Normal range between ( 4.0 and 5.6 ) Albumin Lvl: 3.6 g/dL -- Normal range between ( 3.2 and 4.9 ) Total Protein: 6.7 g/dL -- Normal range between ( 6.5 and 8.1 ) Magnesium Lvl: 2.1 mg/dL -- Normal range between ( 1.7 and 2.4 ) Bili Total: 0.9 mg/dL -- Normal range between ( 0.3 and 1.2 ) Alk Phos: 59 IU/L -- Normal range between ( 32 and 91 ) eAvg Glucose: 232 mg/dL -- Normal range between ( 68 and 114 ) AG Ratio: 1.2 -- Normal range between ( 1.1 and 2.2 ) Microbiology 12/02/2022 1:14 AM Culture Urine: POS Molecular 12/04/2022 11:20 AM SARS-CoV-2 RNA Detection: Negative POC Testing 12/04/2022 7:24 AM POC Gluc Random: 164 mg/dL -- Normal range between ( 70 and 99 ) Computed Tomography 12/01/2022 12:[address] Spine Thoracic Lumbar w/o Contrast: CT Spine Thoracic Lumbar w/o Contrast Diagnostic Rad (more content not included)... Normal [facility] POC Glucose Randomon 023 Glucose [Mass/Vol] 329 mg/dL High 70-99 [facility] Comment on above: Performed By: #### C [id number] #### [address] [address] Glucose [Mass/Vol] 164 mg/dL High 70-99 [facility] Comment on above: Performed By: #### E GFR #### [address] [address] Glucose [Mass/Vol] 179 mg/dL High 70-99 [facility] Comment on above: Performed By: #### C [id number] #### [address] [address] Glucose [Mass/Vol] 261 mg/dL High 70-99 [facility] Comment on above: Performed By: #### C D:[id number] #### [address] [address] .eGFRon 12-03-2022 Estimated GFR 30 mL/min/1.73m? Low >=60 [facility] Comment on above: Order Comment: Order added by Discern rule Result Comment: [facility] have implemented the eGFR calculation approach that does not have a coefficient for race and that conforms to the NKF-ASN Task Force Recommendations. Stages of Chronic Kidney Disease GFR Stage 3a Mild to moderate loss of kidney function 59 to 45 Stage 3b Moderate to severe loss of kidney function 44 to 33 Stage 4 Severe loss of kidney function 29 to 15 Stage 5 Kidney failure Less than 15 GFR calculated using the CKD-Epi Creatinine Equation (2020): eGFR = 142 X min(SCr/?, 1)? X max(SCr /?, 1)-1.200 X 0.9938Age X 1.012 [if female] Abbreviations/Units: eGFR (estimated glomerular filtration rate) = mL/min/1.73 m2 SCr (standardized serum creatinine) = mg/dL ? = 0.7 (females) or 0.9 (males) ? = -0.241 (females) or -0.302 (males) min = indicates the minimum of SCr/? or 1 max = indicates the maximum of SCr/? or 1 Age = years Performed By: #### E GFR #### [address] [address] Basic Metabolic Profileon Anion gap [Moles/Vol] 15 mmol/L Normal 7-17 [facility] Comment on above: Performed By: #### E GFR #### [address] [address] Calcium [Mass/Vol] 8.6 mg/dL Normal 8.5-10.3 [facility] Comment on above: Performed By: #### E GFR #### [address] [address] Chloride [Moles/Vol] 102 mmol/L Normal 98-110 [facility] Comment on above: Performed By: #### E GFR #### [address] [address] CO2 [Moles/Vol] 23 mmol/L Normal 22-32 [facility] Comment on above: Performed By: #### E GFR #### [address] [address] Creatinine [Mass/Vol] 1.79 mg/dL High 0.44-1.03 [facility] Comment on above: Performed By: #### E GFR #### [address] [address] Glucose [Mass/Vol] 403 mg/dL Critically abnormal 70-99 [facility] Comment on above: Result Comment: Test completion time: 1312 Called date and time: 12/03/2022 13:13:52 EDT Result called to and read back by: Chino Liu RN, 6th (First, Last, Title, Location) Performed By: #### E GFR #### [address] [address] Potassium [Moles/Vol] 3.7 mmol/L Normal 3.4-4.8 [facility] Comment on above: Performed By: #### E GFR #### [address] [address] Sodium [Moles/Vol] 136 mmol/L Normal 133-142 [facility] Comment on above: Performed By: #### E GFR #### [address] [address] Urea nitrogen [Mass/Vol] 40 mg/dL High 8- [facility] Comment on above: Performed By: #### E GFR #### [address] [address] Urea nitrogen/Creatinine [Mass ratio] 22.3 mg/mg High 10.0-20.0 [facility] Comment on above: Performed By: #### E GFR #### [address] [address] CBC w/ Diffon 12-03-2022 Erythrocyte distribution width (RBC) [Ratio] 17.8 % High 11.6-14.8 [facility] Comment on above: Performed By: #### C BC #### [address] [address] Hematocrit (Bld) [Volume fraction] 30.6 % Low 36.0-46.0 [facility] Comment on above: Performed By: #### C BC #### [address] [address] Hemoglobin (Bld) [Mass/Vol] 10.1 g/dL Low 12.0-16.0 [facility] Comment on above: Performed By: #### C BC #### [address] [address] MCH (RBC) [Entitic mass] 28.0 pg Normal 27.0-35.0 [facility] Comment on above: Performed By: #### C BC #### [address] [address] MCHC 32.9 % Normal 31.0-37.0 [facility] Comment on above: Performed By: #### C BC #### [address] [address] MCV (RBC) [Entitic vol] 85.0 fL Normal 80.0-100.0 [facility] Comment on above: Performed By: #### C BC #### [address] [address] Platelet 283 x10*3/mcL Normal 150-450 [facility] Comment on above: Performed By: #### C BC #### [address] [address] Platelet mean volume (Bld) [Entitic vol] 6.7 fL Normal 6.7-10.6 [facility] Comment on above: Performed By: #### C BC #### [address] [address] RBC 3.60 x10*6/mcL Low 3.80-5.20 [facility] Comment on above: Performed By: #### C BC #### [address] [address] WBC 9.9 x10*3/mcL Normal 4.5-11.0 [facility] Comment on above: Performed By: #### C BC #### [address] [address] Diff Autoon 12-03-2022 Baso Absolute 0.1 x10*3/mcL Normal 0.0-0.2 [facility] Comment on above: Performed By: #### E GFR #### [address] [address] Basophils/100 WBC (Bld) 0.8 % Normal 0.0-1.5 [facility] Comment on above: Performed By: #### E GFR #### [address] [address] Eos Absolute 0.1 x10*3/mcL Normal 0.0-0.4 [facility] Comment on above: Performed By: #### E GFR #### [address] [address] Eosinophils/100 WBC (Bld) 0.5 % Normal 0.0-5.4 [facility] Comment on above: Performed By: #### E GFR #### [address] [address] Lymph Absolute 1.6 x10*3/mcL Normal 1.0-4.8 [facility] Comment on above: Performed By: #### E GFR #### [address] [address] Lymphocytes/100 WBC (Bld) 15.8 % Low 27.2-40.8 [facility] Comment on above: Performed By: #### E GFR #### [address] [address] Cuming Absolute 0.5 x10*3/mcL Normal 0.1-1.1 [facility] Comment on above: Performed By: #### E GFR #### [address] [address] Monocytes/100 WBC (Bld) 4.7 % Normal 3.7-11.9 [facility] Comment on above: Performed By: #### E GFR #### [address] [address] Neutro Absolute 7.8 x10*3/mcL High 1.8-7.7 [facility] Comment on above: Performed By: #### E GFR #### [address] [address] Neutro Auto 78.2 % High 47.2-70.8 [facility] Comment on above: Performed By: #### E GFR #### [address] [place] [address] POC Glucose Randomon 023 Glucose [Mass/Vol] 380 mg/dL High 70-99 [facility] Comment on above: Performed By: #### E GFR #### [address] [place] [address] Glucose [Mass/Vol] 146 mg/dL High 70-99 [facility] Comment on above: Performed By: #### C [id number] #### [address] [place] [address] Glucose [Mass/Vol] 360 mg/dL High 70-99 [facility] Comment on above: Performed By: #### C [id number] #### [address] [place] [address] Glucose [Mass/Vol] 159 mg/dL High 70-99 [facility] Comment on above: Performed By: #### C [id number] #### [address] [place] [address] Glucose [Mass/Vol] 97 mg/dL Normal 70-99 [facility] Comment on above: Performed By: #### C OMP #### [address] [place] [address] Glucose [Mass/Vol] 76 mg/dL Normal 70-99 [facility] Comment on above: Performed By: #### C [id number] #### [address] [place] [address] Glucose [Mass/Vol] 180 mg/dL High 70-99 [facility] Comment on above: Performed By: #### C OMP #### [address] [place] [address] Glucose [Mass/Vol] 323 mg/dL High 70-99 [facility] Comment on above: Result Comment: Prov ider notified Performed By: #### E GFR #### [address] [address] .UA Microscp Aon 12-02-2022 UA Bacteria Present Abnormal Absent [facility] Comment on above: Performed By: #### . Urinalysis Microscopic Auto #### [address] [address] UA Mucus Present Abnormal Absent [facility] Comment on above: Performed By: #### . Urinalysis Microscopic Auto #### [place] [id number] UA RBC Quant 1 /HPF Normal 0-5 [facility] Comment on above: Performed By: #### . Urinalysis Microscopic Auto #### [place] [id number] UA Squepi Cells Quant 1 /HPF Normal 0-29 [facility] Comment on above: Performed By: #### . Urinalysis Microscopic Auto #### [place] [id number] UA WBC Quant 100 /HPF High 0-5 [facility] Comment on above: Performed By: #### . Urinalysis Microscopic Auto #### [place] [id number] Hgb A1con 12-02-2022 Glucose [Mass/Vol] 232 mg/dL High 68-114 [facility] Comment on above: Result Comment: Math ematical Calc approx. The mean gluc equivalency of A1c Performed By: #### E GFR #### [place] [address] Hgb A1c 9.7 % A1c High 4.0-5.6 [facility] Comment on above: Result Comment: Refe rence Range: 4.0 - 5.6 % Normal 5.7 - 6.4 % Pre-Diabetes > 6.5 % Diabetes Performed By: #### E GFR #### [place] [address] Magnesiumon 12-02-2022 Magnesium [Mass/Vol] 2.1 mg/dL Normal 1.7-2.4 [facility] Comment on above: Performed By: #### C OMP #### [facility] [address] [place] [address] Neurosurgery Progress Noteon 12-02-2022 Neurosurgery Progress Note Objective Vitals & Measurements T: 36.5 ?C (Oral) HR: 66 (Peripheral) RR: 16 BP: 143/72 SpO2: 97% HT: 155 cm WT: 77.7 kg BMI: 32.05 Additional Vitals No qualifying data available. Lab Results Labs (Last four charted values) WBC H 12.6 (DEC 01) Hgb L 10.2 (DEC 01) Hct L 31.5 (DEC 01) Plt 298 (DEC 01) Na 139 (DEC 01) K 4.2 (DEC 01) CO2 24 (DEC 01) Cl 104 (DEC 01) Cr H 1.41 (DEC 01) BUN H 33 (DEC 01) Mg 2.1 (DEC 01) Microbiology - Current Encounter No qualifying data available. Diagnostic Results Diagnostic Radiology XR Hip 2 Views Bilateral w/Pelvis 12/01/22 19:09:16 IMPRESSION: No radiographically evident fractures. Mild degenerative changes of both hips. Lower lumbar spine fusion hardware. Pelvic and bilateral hip radiograph is otherwise unremarkable. Signed By: Jayesh Burns MD Computed Tomography CT Spine Thoracic Lumbar w/o Contrast 12/01/22 13:38:51 IMPRESSION: No definite acute fracture is seen. Fusion changes seen in the lower lumbar spine. Multilevel degenerative disc disease. Marked demineralization. Degenerative disc disease noted in the upper lumbar spine overall similar. No definite thoracic spine fracture. If there is persistent severe pain, consider further evaluation with MRI to evaluate for subtle marrow edema given limitations due to osteopenia Signed By: Rebel Pedroza MD Magnetic Resonance Imaging MRI Spine Lumbar w/o Contrast 12/01/22 18:10:53 IMPRESSION: No acute process in the lumbar spine. Laminectomies and lumbar fusion at L4-L5 and L5-S1. At the adjacent L3-L4, severe central spinal stenosis secondary to posterior discovertebral complex, severe bilateral facet hypertrophy and ligamentum flavum thickening is unchanged. Signed By: Alexys Darnell MD MRI Spine Thoracic w/o Contrast 12/01/22 18:18:38 IMPRESSION: No acute fracture in the thoracic spine. Mild edema in the posterior paraspinal muscles in the upper thoracic spine is likely sequela of recent injury. Signed By: Alexys Darnell MD Medications Inpatient Advair Diskus 250 mcg-50 mcg inhalation powder, 1 puffs, Inhale, BID albuterol 90 mcg/inh inhalation aerosol, 180 mcg= 2 puffs, Inhale, q6hr, PRN aspirin, 81 mg, Oral, Daily Benadryl, 25 mg= 0.5 mL, IV Push, t1wd-Oigwzzti Times, PRN carvedilol, 25 mg, Oral, BID Colace, 100 mg, Oral, Daily, PRN Dextrose 10% in Water IV Piggyback, 125 mL, IV Piggyback, As Indicated, PRN dorzolamide 2% ophthalmic solution, 1 drops, Eye-Both, Daily dorzolamide-timolol 2.23%-0.68% ophthalmic solution, 1 drops, Eye-Both, BID furosemide, 20 mg, Oral, BID glucagon, 1 mg, Subcutaneous, As Indicated, PRN hydrocodone-acetaminophen 5 mg-325 mg oral tablet, 1 tabs, Oral, q4hr, PRN insulin aspart, see comments, Subcutaneous, ACHS Keflex, 250 mg, Oral, q8hr Lidoderm 5% topical film, 1 patches, Topical, Daily Lovenox, 30 mg= 0.3 mL, Subcutaneous, q24hr MiraLax, 17 g= 1 EA, Oral, Daily, PRN morphine, 2 mg= 1 mL, IV Push, q2hr, PRN Muscle Rub, 1 abdifatah, Topical, QID naloxone, 0.4 mg= 1 mL, IV Push, q2min, PRN Normal Saline Flush 0.9% injectable solution, 10 mL, IV Push, As Indicated, PRN Normal Saline Flush 0.9% injectable solution, 10 mL, IV Push, BID ondansetron, 4 mg= 2 mL, IV Push, q4hr, PRN rosuvastatin, 10 mg, Oral, qPM Tylenol, 650 mg, Oral, a3bg-Thdoyvsg Times Xalatan 0.005% ophthalmic solution, 1 drops, Eye-Both, HS (at bedtime) Assessment/Plan 1. Fall 2. Lumbar pain 3. Intractable pain 4. Back pain (Complaint of) 5. Asthma 6. Diabetes 7. HTN - Hypertension 8. Obesity (BMI 30.0-34.9) 9. Syncope Subjective: 72-year-old female known to this surgeon as he conducted L4-S1 arthrodesis with instrumentation 5 years ago for cauda equina syndrome. This was complicated by sacral insufficiency fracture treated conservatively. 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 She recently underwent bilateral lumbar radiofrequency ablations of medial branch and had significant benefit. The patient was well until yesterday morning when she sat up at bedside in preparation of mobilizing and upon standing, became profoundly dizzy and then suffered what sounds like syncopal episode. She awoke to find her walker on top of her and severe low back pain. She subsequently was brought to [facility] emergency room and had imaging of her spine including CT scan of thoracic and lumbar spine as well as MRI of thoracic and lumbar spine. Patient's predominant complaint Is that of low back pain from the lower thoracic region to the sacrum. No radiation of pain into the lower extremity. Denies any bowel or bladder incontinence or saddle paresthesias. No radiation of pain into the lower extremities. Denies any paresthesias or numbness in upper or lower extremities. No headache. Had nausea and vomiting after receipt of Dilaudid as well as hives. The patient notes comfort (more content not included)... Normal [facility] POC Glucose Randomon 023 Glucose [Mass/Vol] 275 mg/dL High 70-99 [facility] Comment on above: Performed By: #### C [id number] #### [facility] [address] [place] [address] Glucose [Mass/Vol] 302 mg/dL High 70-99 [facility] Comment on above: Performed By: #### E GFR #### [address] [address] Provider Letteron 12-02-2022 Provider Letter (Inserted Image. Penny ble to display) Sherri Broderick MD [address] [place] [address] Re: Tessa Yahaira Date of Visit: 12/01/2022 Dear Sherri Broderick MD, Let me know if you have any questions or concerns. Sincerely, PAULO Rosas MD Providers: The following document(s) were included in the letter: December 02, 2022 13:11:37 EDT - (12/02/2022) Neurosurgery Progress Note Normal [facility] UA w Culture if Indon 2022 Color (U) Light-Yellow Normal [facility] Comment on above: Performed By: #### C [id number] #### [address] [address] Glucose (U) [Mass/Vol] mg/dL Abnormal Negative [facility] Comment on above: Performed By: #### C [id number] #### [address] [address] Ketones Ql (U) 20 mg/dL Abnormal Negative [facility] Comment on above: Performed By: #### C [id number] #### [address] [address] UA Blood Negative Normal Negative [facility] Comment on above: Performed By: #### C [id number] #### [address] [address] UA Clarity Clear Normal [facility] Comment on above: Performed By: #### C [id number] #### [address] [address] UA Leukocyte Esterase 250 Abnormal Negative [facility] Comment on above: Performed By: #### C [id number] #### [address] [address] UA Nitrite 2+ Abnormal Negative [facility] Comment on above: Performed By: #### C [id number] #### [address] [address] UA pH 6.0 Normal 4.5 - 7.8 [facility] Comment on above: Performed By: #### C [id number] #### [address] [address] UA Protein 20 mg/dL Normal Negative [facility] Comment on above: Performed By: #### C [id number] #### [address] [address] UA Source Catheter Normal [facility] Comment on above: Performed By: #### C [id number] #### [address] [address] UA Spec Grav 1.021 Normal 1.003-1.035 [facility] Comment on above: Performed By: #### C [id number] #### [address] [address] UA Urobilinogen Normal Normal 0.2 - 1.0 [facility] Comment on above: Performed By: #### C [id number] #### [address] [address] Urobilinogen (U) [Mass/Vol] Negative Normal Negative [facility] Comment on above: Performed By: #### C [id number] #### [address] [address] VL Carotid Duplex Bilateralo n 12-02-2022 VL Carotid Duplex Bilateral Preliminary Technologist Report A bilateral carotid duplex exam was performed. Please see below for information. The left ICA was noted to be tortuous. Stamping Machine Operator: José Miguel Wadsworth RVT Radiologist Report BILATERAL CAROTID DUPLEX ULTRASOUND STUDY CLINICAL INFORMATION: Syncope. COMPARISON: No relevant prior. TECHNIQUE: Color flow and padilla-scale imaging of the carotid and vertebral arteries with doppler spectral analysis. Brachial systolic pressures were not obtained. FINDINGS: LEFT CAROTID AND VERTEBRAL: CCA 79.43 cm/s BULB 61.17 cm/s ECA 116.13 cm/s ICA Prox 145.44 cm/s Dist 111.57 cm/s VERT 52.54 cm/s Antegrade Estimated Stenosis by Velocity Criteria in the ICA = <50% ICA/CCA Ratio = 1.8 RIGHT CAROTID AND VERTEBRAL: CCA 79.72 cm/s BULB 73.64 cm/s ECA 123.72 cm/s ICA Prox 77.11 cm/s Dist 69.37 cm/s VERT 44.63 cm/s Antegrade Estimated Stenosis by Velocity Criteria in the ICA = <50% ICA/CCA Ratio = 1.0 Impression: 1. No evidence of hemodynamically significant stenosis by velocity criteria. 2. Antegrade flow in the vertebral arteries. Final Signed by: Chacorta Nova MD Signed (Electronic Signature): 12.02.2022 3:38 pm Transcribed by: José Miguel Wadsworth Transcribed DT/TM: 12.02.2022 3:04 (If Report is Signed, Electronically Signed in Other Vendor System) Normal [facility] .eGFRon 12-01-2022 Estimated GFR 39 mL/min/1.73m? Low >=60 [facility] Comment on above: Result Comment: [facility] have implemented the eGFR calculation approach that does not have a coefficient for race and that conforms to the NKF-ASN Task Force Recommendations. Stages of Chronic Kidney Disease GFR Stage 3a Mild to moderate loss of kidney function 59 to 45 Stage 3b Moderate to severe loss of kidney function 44 to 33 Stage 4 Severe loss of kidney function 29 to 15 Stage 5 Kidney failure Less than 15 GFR calculated using the CKD-Epi Creatinine Equation (2020): eGFR = 142 X min(SCr/?, 1)? X max(SCr /?, 1)-1.200 X 0.9938Age X 1.012 [if female] Abbreviations/Units: eGFR (estimated glomerular filtration rate) = mL/min/1.73 m2 SCr (standardized serum creatinine) = mg/dL ? = 0.7 (females) or 0.9 (males) ? = -0.241 (females) or -0.302 (males) min = indicates the minimum of SCr/? or 1 max = indicates the maximum of SCr/? or 1 Age = years Performed By: #### C [id number] #### [address] [address] CBC w/ Diffon 12-01-2022 Erythrocyte distribution width (RBC) [Ratio] 17.3 % High 11.6-14.8 [facility] Comment on above: Performed By: #### C BC #### [address] [address] Hematocrit (Bld) [Volume fraction] 31.5 % Low 36.0-46.0 [facility] Comment on above: Performed By: #### C BC #### [address] [address] Hemoglobin (Bld) [Mass/Vol] 10.2 g/dL Low 12.0-16.0 [facility] Comment on above: Performed By: #### C BC #### [address] [address] MCH (RBC) [Entitic mass] 27.4 pg Normal 27.0-35.0 [facility] Comment on above: Performed By: #### C BC #### [address] [address] MCHC 32.3 % Normal 31.0-37.0 [facility] Comment on above: Performed By: #### C BC #### [address] [address] MCV (RBC) [Entitic vol] 84.7 fL Normal 80.0-100.0 [facility] Comment on above: Performed By: #### C BC #### [address] [address] Platelet 298 x10*3/mcL Normal 150-450 [facility] Comment on above: Performed By: #### C BC #### [address] [address] Platelet mean volume (Bld) [Entitic vol] 6.6 fL Low 6.7-10.6 [facility] Comment on above: Performed By: #### C BC #### [address] [place] [address] RBC 3.72 x10*6/mcL Low 3.80-5.20 [facility] Comment on above: Performed By: #### C BC #### [address] [place] [address] WBC 12.6 x10*3/mcL High 4.5-11.0 [facility] Comment on above: Performed By: #### C BC #### [address] [address] CMPon 12-01-2022 Albumin [Mass/Vol] 3.6 g/dL Normal 3.2-4.9 [facility] Comment on above: Performed By: #### C OMP #### [address] [address] Albumin/Globulin [Mass ratio] 1.2 {ratio} Normal 1.1-2.2 [facility] Comment on above: Performed By: #### C OMP #### [address] [place] [address] Alk Phos 59 IU/L Normal 32-91 [facility] Comment on above: Performed By: #### C OMP #### [address] [place] [address] ALT [Catalytic activity/Vol] 25 U/L Normal 14-54 [facility] Comment on above: Performed By: #### C OMP #### [address] [place] [address] Anion gap [Moles/Vol] 15 mmol/L Normal 7-17 [facility] Comment on above: Performed By: #### C OMP #### [address] [address] AST [Catalytic activity/Vol] 22 U/L Normal 15-41 [facility] Comment on above: Performed By: #### C OMP #### [address] [address] Bili Total 0.9 mg/dL Normal 0.3-1.2 [facility] Comment on above: Performed By: #### C OMP #### [address] [address] Calcium [Mass/Vol] 10.2 mg/dL Normal 8.5-10.3 [facility] Comment on above: Performed By: #### C OMP #### [address] [address] Chloride [Moles/Vol] 104 mmol/L Normal 98-110 [facility] Comment on above: Performed By: #### C OMP #### [address] [address] CO2 [Moles/Vol] 24 mmol/L Normal 22-32 [facility] Comment on above: Performed By: #### C OMP #### [address] [address] Creatinine [Mass/Vol] 1.41 mg/dL High 0.44-1.03 [facility] Comment on above: Performed By: #### C OMP #### [address] [address] Glucose [Mass/Vol] 233 mg/dL High 70-99 [facility] Comment on above: Performed By: #### C OMP #### [address] [address] Potassium [Moles/Vol] 4.2 mmol/L Normal 3.4-4.8 [facility] Comment on above: Performed By: #### C OMP #### [address] [address] Protein [Mass/Vol] 6.7 g/dL Normal 6.5-8.1 [facility] Comment on above: Performed By: #### C OMP #### [address] [address] Sodium [Moles/Vol] 139 mmol/L Normal 133-142 [facility] Comment on above: Performed By: #### C OMP #### [address] [place] [address] Urea nitrogen [Mass/Vol] 33 mg/dL High 8-26 [facility] Comment on above: Performed By: #### C OMP #### [facility] [address] [place] [address] Urea nitrogen/Creatinine [Mass ratio] 23.4 mg/mg High 10.0-20.0 [facility] Comment on above: Performed By: #### C OMP #### [facility] [address] [place] [address] CT Spine Thoracic Lumbar w/o Contraston 12-01-2022 CT Spine Thoracic Lumbar w/o Contrast EXAMINATION: CT Spine Thoracic Lumbar w/o Contrast HISTORY: Other (please specify), Low back pain, trauma COMPARISON: 07/11/2022 TECHNIQUE: Dose reduction techniques were achieved by using automated exposure control and/or adjustment of mA and/or kV according to patient size and/or use of iterative reconstruction technique. FINDINGS: Imaging of the thoracic and lumbar spine shows fusion of L4-S1 with intact instrumentation. Marked demineralization is seen Evaluation of the retroperitoneum shows robust vascular calcification. Stable right renal cyst. Stable left renal cyst also stable but not well interrogated. Diffuse idiopathic skeletal hyperostosis is seen. No compression deformity seen in the thoracic spine. Please note demineralization does limit sensitivity for subtle compression deformities. Enlarged main pulmonary artery compatible with pulmonary hypertension. Mild bibasilar atelectasis. Robust degenerative changes seen at L1-L2 and L2-L3. IMPRESSION: No definite acute fracture is seen. Fusion changes seen in the lower lumbar spine. Multilevel degenerative disc disease. Marked demineralization. Degenerative disc disease noted in the upper lumbar spine overall similar. No definite thoracic spine fracture. If there is persistent severe pain, consider further evaluation with MRI to evaluate for subtle marrow edema given limitations due to osteopenia Radiation Dose Estimate: CTDI(mGy):0.742156 / / / kVp:120.040305 / mAs:0.817570 / / / DLP(mGy-cm):5.357137Tmij Part: CTDI(mGy):0.789236 / / / kVp:120.390868 / mAs:0.632301 / / / DLP(mGy-cm):6.692809Nfej Part: CTDI(mGy):28.665490 / / / kVp:120.509787 / mAs:294.045057 / / / DLP(mGy-cm):785.288336Bdb y Part: CTDI(mGy):31.101492 / / / kVp:140.360586 / mAs:218.408416 / / / DLP(mGy-cm):817.459845Jav y Part: Final Dictated by: Rebel Pedroza MD Dictated DT/TM: 12.01.2022 1:14 pm Signed by: Rebel Pedroza MD Signed (Electronic Signature): 12.01.2022 1:38 pm (If Report Is Signed, Electronically Signed in Other Vendor System) Normal [facility] Diff Autoon 12-01-2022 Baso Absolute 0.0 x10*3/mcL Normal 0.0-0.2 [facility] Comment on above: Performed By: #### E GFR #### [address] [address] Basophils/100 WBC (Bld) 0.2 % Normal 0.0-1.5 [facility] Comment on above: Performed By: #### E GFR #### [address] [address] Eos Absolute 0.0 x10*3/mcL Normal 0.0-0.4 [facility] Comment on above: Performed By: #### E GFR #### [address] [address] Eosinophils/100 WBC (Bld) 0.2 % Normal 0.0-5.4 [facility] Comment on above: Performed By: #### E GFR #### [address] [address] Lymph Absolute 0.9 x10*3/mcL Low 1.0-4.8 [facility] Comment on above: Performed By: #### E GFR #### [address] [address] Lymphocytes/100 WBC (Bld) 7.2 % Low 27.2-40.8 [facility] Comment on above: Performed By: #### E GFR #### [address] [address] Cuming Absolute 0.1 x10*3/mcL Normal 0.1-1.1 [facility] Comment on above: Performed By: #### E GFR #### [address] [address] Monocytes/100 WBC (Bld) 1.0 % Low 3.7-11.9 [facility] Comment on above: Performed By: #### E GFR #### [address] [address] Neutro Absolute 11.5 x10*3/mcL High 1.8-7.7 [facility] Comment on above: Performed By: #### E GFR #### [address] [address] Neutro Auto 91.4 % High 47.2-70.8 [facility] Comment on above: Performed By: #### E GFR #### [address] [address] ED Clinical Summaryon 2022 ED Clinical Summary (Inserted Image. Penny ble to display) [address] [address] ED Clinical Summary Person Information Name: Tessa Syed [facility] Age: 72 Years : 1950 Sex: Female PCP: Sherri Broderick MD Marital Status: Race: White Ethnicity: Not or Language: Salvadorean Visit Reason: Back pain; fall Acuity: 3 Enc Type: Observation Med Service: Emergency Medicine Arrival: 12/01/2022 11:21:22 Discharge: LOS: 000 09:58 Checkin: 12/01/2022 11:21:22 Checkout: 12/01/2022 21:19:44 Dispo Type: Address: [address] [place] [address] [facility] [address] Provider Notes: History of Present Illness Patient is a 72-year-old female presenting to the emergency department for low back pain after an injury.? Patient states she fell on her back this morning when getting out of bed. ?She went to sit up and felt dizzy, she said the next thing she knew she was lying on the ground on her back with her walker on top of her. ?It was a witnessed event. ?Patient did not lose consciousness. ?She states she did not hit her head. ?She is in 20 out of 10 pain?in her mid to low back.? She is a patient of Dr. Boyds?she had?lumbar?spinal fusion performed in 2018.? She now follows with pain management and recently had?nerve ablations done within the last 2 weeks.? Patient has not lost any bowel or bladder function.? Patient is not experiencing any headache, fevers, shortness of breath, chest pain, nausea, vomiting, abdominal pain, urinary stool changes. Review of Systems As reviewed in the HPI. All other systems reviewed are negative or normal. Physical Exam CONSTITUTIONAL: [well appearing in no acute distress] SKIN: [Warm, dry, and intact without rash] EYES: [extraocular movements are grossly intact, clear conjunctiva] HENT: [Normocephalic, atraumatic, moist mucus membranes] NECK: [no obvious swelling, normal range of motion] PULMONARY: [normal chest rise and fall, no respiratory distress or stridor] CARDIOVASCULAR: [regular rate, distal extremities are warm and well perfused] GASTROINSTESTINAL: [nondistended, non-tender] GENITOURINARY: [deferred] NEUROLOGIC: [normal speech, moves all extremities] MUSCULOSKELETAL: [ tenderness over the?spinous process.? She does have an old scar that appears to be well-healed. ?There is no weakness of the bilateral lower extremities, her strength is full. ?She is neurovascular intact distally bilaterally. ?No red flags. ] PSYCHIATRIC: [normal mood and affect] Diagnosis: 1:Fall; 2:Lumbar pain; 3:Intractable pain; 5:Asthma; 6:Diabetes; 7:HTN - Hypertension; 8:Obesity (BMI 30.0-34.9) Problems No Problems Documented Smoking Status: Smoking Status Never (less than 100 in lifetime) Functional Status: Sensory Deficits: History of Falls: Mobility Assistance Prior to Admission: ADLs: Current Level of Assistance for Self-Care/Mobility: Cognitive Status: Allergies Simbrinza (Itching) Dilaudid (Hives) Laboratory or Other Results This Visit (last charted value for your 12/01/2022 visit) Hematology 12/01/2022 7:02 PM WBC: 12.6 x10 RBC: 3.72 x10 Neutro Auto: 91.4 % -- Normal range between ( 47.2 and 70.8 ) Lymph Auto: 7.2 % -- Normal range between ( 27.2 and 40.8 ) Cuming Auto: 1.0 % -- Normal range between ( 3.7 and 11.9 ) Eos Auto: 0.2 % -- Normal range between ( 0.0 and 5.4 ) Basophil Auto: 0.2 % -- Normal range between ( 0.0 and 1.5 ) Baso Absolute: 0.0 x10 MCV: 84.7 fL -- Normal range between ( 80.0 and 100.0 ) MCHC: 32.3 % -- Normal range between ( 31.0 and 37.0 ) Lymph Absolute: 0.9 x10 Hct: 31.5 % -- Normal range between ( 36.0 and 46.0 ) Cuming Absolute: 0.1 x10 MCH: 27.4 pg -- Normal range between ( 27.0 and 35.0 ) Neutro Absolute: 11.5 x10 Hgb: 10.2 g/dL -- Normal range between ( 12.0 and 16.0 ) Mean Platelet Volume: 6.6 fL -- Normal range between ( 6.7 and 10.6 ) Platelet: 298 x10 Eos Absolute: 0.0 x10 RDW: 17.3 % -- Normal range between ( 11.6 and 14.8 ) Chemistry 12/01/2022 7:02 PM Creatinine Lvl: 1.41 mg/dL -- Normal range between ( 0.44 and 1.03 ) BUN: 33 mg/dL -- Normal range between ( 8 and 26 ) Glucose Lvl: 233 mg/dL -- Normal range between ( 70 and 99 ) Potassium Lvl: 4.2 mmol/L -- Normal range between ( 3.4 and 4.8 ) AST: 22 IU/L -- Normal range between ( 15 and 41 ) ALT: 25 IU/L -- Normal range between ( 14 and 54 ) Sodium Lvl: 139 mmol/L -- Normal range between ( 133 and 142 ) Calcium Lvl: 10.2 mg/dL -- Normal range between ( 8.5 and 10.3 ) Albumin Lvl: 3.6 g/dL -- Normal range between ( 3.2 and 4.9 ) Total Protein: 6.7 g/dL -- Normal range between ( 6.5 and 8.1 ) Bili Total: 0.9 mg/dL -- Normal range between ( 0.3 and 1.2 ) Alk Phos: 59 IU/L -- Normal range between ( 32 and 91 ) Chloride: 104 mmol/L -- Normal range between ( 98 and 110 ) CO2: 24 mmol/L -- Normal range between ( 22 and 32 ) Anion Gap: (more content not included)... Normal [facility] ED Note-Nursingon 12-01-2022 ED Note-Nursing this RN went into pt room to administer zofran. pt had new hive like rash on chest. pt's reported that it appeared after pt received Dilaudid. This RN updated [place] CASANOVA regarding pt change. see new orders. Electronically signed by Mirza Messina 12/01/22 13:20 EDT Normal [facility] ED Note-Physicianon 12-02-19 ED Note-Physician Chief Complaint patient presents to ED after a fall at 0600 this morning; patient landed on back and is having 10/10 pain; did not hit head; no LOC; is on a baby aspirin; pt of dr cruz History of Present Illness Patient is a 72-year-old female presenting to the emergency department for low back pain after an injury. Patient states she fell on her back this morning when getting out of bed. She went to sit up and felt dizzy, she said the next thing she knew she was lying on the ground on her back with her walker on top of her. It was a witnessed event. Patient did not lose consciousness. She states she did not hit her head. She is in 20 out of 10 pain in her mid to low back. She is a patient of Dr. Cruz's she had lumbar spinal fusion performed in 2018. She now follows with pain management and recently had nerve ablations done within the last 2 weeks. Patient has not lost any bowel or bladder function. Patient is not experiencing any headache, fevers, shortness of breath, chest pain, nausea, vomiting, abdominal pain, urinary stool changes. Review of Systems As reviewed in the HPI. All other systems reviewed are negative or normal. Physical Exam CONSTITUTIONAL: [well appearing in no acute distress] SKIN: [Warm, dry, and intact without rash] EYES: [extraocular movements are grossly intact, clear conjunctiva] HENT: [Normocephalic, atraumatic, moist mucus membranes] NECK: [no obvious swelling, normal range of motion] PULMONARY: [normal chest rise and fall, no respiratory distress or stridor] CARDIOVASCULAR: [regular rate, distal extremities are warm and well perfused] GASTROINSTESTINAL: [nondistended, non-tender] GENITOURINARY: [deferred] NEUROLOGIC: [normal speech, moves all extremities] MUSCULOSKELETAL: [tenderness over the spinous process. She does have an old scar that appears to be well-healed. There is no weakness of the bilateral lower extremities, her strength is full. She is neurovascular intact distally bilaterally. No red flags.] PSYCHIATRIC: [normal mood and affect] Vitals & Measurements T: 36.4 ?C (Oral) HR: 75 (Peripheral) RR: 16 BP: 182/95 SpO2: 97% WT: 80 kg (Dosing) Additional Vitals No qualifying data available. Procedure No qualifying data available. ASA Documentation Medical Decision Making This report has been created using voice recognition software. It may contain minor errors which are inherent in voice recognition technology. Patient Presentation: Patient is a 72-year-old female presenting to the emergency department for low back pain after an injury. Patient states she fell on her back this morning when getting out of bed. She went to sit up and felt dizzy, she said the next thing she knew she was lying on the ground on her back with her walker on top of her. It was a witnessed event. Patient did not lose consciousness. She states she did not hit her head. She is in 20 out of 10 pain in her mid to low back. She is a patient of Dr. Cruz's she had lumbar spinal fusion performed in 2018. She now follows with pain management and recently had nerve ablations done within the last 2 weeks. Patient has not lost any bowel or bladder function. Patient is not experiencing any headache, fevers, shortness of breath, chest pain, nausea, vomiting, abdominal pain, urinary stool changes Initial MDM: Patient is a 72-year-old female presenting to the emergency department for low back pain after an injury. Patient is crying on initial examination, she is rolling around the bed. She is mildly hypertensive. Patient states she is having mid to low back pain that she rates at 10 out of 10 sharp constant stabbing. There is tenderness over the spinous process. She does have an old scar that appears to be well-healed. There is no weakness of the bilateral lower extremities, her strength is full. She is neurovascular intact distally bilaterally. No red flags. Given the patient's symptoms and previous surgical history, a CT of the thoracic and lumbar spine will be obtained to rule out any abnormalities. Differential Diagnosis: Sprain, strain, fracture, contusion, spondylolisthesis Data and analysis: ? Patients chart reviewed historically as needed ? Independent Historian: present and providing some history. ? CT: No definite acute fracture is seen. Fusion changes seen in the lower lumbar spine. Multilevel degenerative disc disease. Marked demineralization. Degenerative disc disease noted in the upper lumbar spine overall similar. No definite thoracic spine fracture. If there is persistent severe pain, consider further evaluation with MRI to evaluate for subtle marrow edema given limitations due to osteopenia ? US: ? MRI: No acute fracture in the thoracic spine.Mild edema in the posterior paraspinal muscles in the upper thoracic spine is likely sequela of recent injury. No acute process in the lumbar spine. Laminectomies and lumbar fusion at L4-L5 and L5-S1. At the adjacent L3-L4, severe central spinal stenosis secondary to p (more content not included)... Normal [facility] MRI Spine Lumbar w/o Contras ton 12-01-2022 MRI Spine Lumbar w/o Contrast EXAM: MRI Spine Lumbar w/o Contrast HISTORY: Patient fell with back pain. COMPARISON: 12/29/2021 MRI of the lumbar spine and CT lumbar spine on 07/11/2022. TECHNIQUE: Multiplanar multisequence images of the lumbar spine were obtained without contrast demonstration. FINDINGS: Fusion of T12 and L1 vertebral bodies without instrumentation is unchanged. Mild posterior endplate spur at T12-L1. At L1-L2, mild posterior discovertebral complex and mild bilateral facet hypertrophy are unchanged. At L2-L3, mild posterior discovertebral complex and and mild bilateral facet arthropathy are unchanged. Mild to moderate stenosis of the left neural foramen secondary to posterior discovertebral complex and facet hypertrophy is unchanged. At L3-L4, posterior disc discovertebral complex, severe bilateral facet hypertrophy and ligamentum flavum thickening result in severe central spinal stenosis without interval change. The AP dimension of thecal sac measures about 6 mm. Interbody fusion at L4-L5 with placement of a disc spacer, laminectomies at L4-L5 and L5-S1 and posterolateral fusion from L4 to S1 with bilateral pedicle screws and connecting rods are again demonstrated. No central spinal stenosis or neural foraminal stenosis at the fusion levels. A small fluid collection in the laminectomy defect without mass effect on the thecal sac is unchanged. No evidence of an acute fracture in the lumbar spine. No malignant neoplastic infiltration. The conus medullaris has normal morphology. Atrophy of the posterior paraspinal muscles caudal to L4-L5 is again demonstrated. The visualized retroperitoneum shows no adenopathy. IMPRESSION: No acute process in the lumbar spine. Laminectomies and lumbar fusion at L4-L5 and L5-S1. At the adjacent L3-L4, severe central spinal stenosis secondary to posterior discovertebral complex, severe bilateral facet hypertrophy and ligamentum flavum thickening is unchanged. Final Dictated by: Alexys Darnell MD Dictated DT/TM: 12/01/2022 5:56 pm Signed by: Alexys Darnell MD Signed (Electronic Signature): 12/01/2022 6:10 pm (If Report Is Signed, Electronically Signed in Other Vendor System) Normal [facility] MRI Spine Thoracic w/o Contr keith 12-01-2022 MRI Spine Thoracic w/o Contrast EXAM: MRI Spine Thoracic w/o Contrast HISTORY: Patient fell with mid and low back pain. COMPARISON: CT of the thoracic spine on 12/01/2022. TECHNIQUE: Multiplanar multisequence images of the thoracic spine were obtained without contrast demonstration. FINDINGS: Decreased disc height and mild posterior discovertebral complexes without central spinal stenosis throughout the thoracic spine. No evidence of an acute fracture. Type I endplate marrow signal changes at T2-T3.. Fusion of T12 and L1 vertebral bodies without instrumentation is present. No malignant neoplastic infiltration. The spinal cord has normal morphology and signal intensity. Mild edema in the posterior paraspinal muscles in the upper thoracic spine. IMPRESSION: No acute fracture in the thoracic spine. Mild edema in the posterior paraspinal muscles in the upper thoracic spine is likely sequela of recent injury. Final Dictated by: Alexys Darnell MD Dictated DT/TM: 12/01/2022 6:10 pm Signed by: Alexys Darnell MD Signed (Electronic Signature): 12/01/2022 6:18 pm (If Report Is Signed, Electronically Signed in Other Vendor System) Normal [facility] POC Glucose Randomon 023 Glucose [Mass/Vol] 321 mg/dL High 70-99 [facility] Comment on above: Performed By: #### C OMP #### [place] [address] XR Hip 2 Views Bilateral w/P elvison 12-01-2022 XR Hip 2 Views Bilateral w/Pelvis Exam: Radiographs: XR Hip 2 Views Bilateral w/Pelvis Reason for exam: Injury, Comparison: None IMPRESSION: No radiographically evident fractures. Mild degenerative changes of both hips. Lower lumbar spine fusion hardware. Pelvic and bilateral hip radiograph is otherwise unremarkable. Final Dictated by: Jayesh Burns MD Dictated DT/TM: 12/01/2022 7:08 pm Signed by: Jayesh Burns MD Signed (Electronic Signature): 12/01/2022 7:09 pm (If Report Is Signed, Electronically Signed in Other Vendor System) Normal [facility] Neurosurgery Office/Clinic N oteon 10-27-2022 Neurosurgery Office/Clinic Note Chief Complaint Patient is being seen for a back follow up. History of Present Illness Patient is a pleasant 72-year-old female with a history of type 2 diabetes with neuropathy, HTN, renal disease, near morbid obesity (BMI: 39), osteopenia (DEXA 08/2022 with T score -1.8), coexisting advanced bilateral knee arthropathy (following with orthopedics: Dr. Garnica in [place]), L4-S1 instrumented posterior spinal fusion performed 08/[address] Cruz, and coexisting sacroiliac dysfunction that has up to this point, been managed with conservative treatment, who presents to the outpatient neurosurgical clinic today accompanied by her , for follow up on behalf of complaints of exacerbated low back pain. Patient is status post L4-S1 instrumented posterior spinal fusion performed 08/[address] Cruz secondary to an acute cauda equina syndrome attributed to advanced degenerative disease with an unstable spondylolisthesis at L4-5. Patient's postoperative course was complicated by sacral insufficiency fractures. Despite this, patient did well postoperatively with resolution in her preoperative pain syndrome and no significant or chronic ongoing complaints. She returned to a moderate geriatric lifestyle without significant difficulty. Patient states that she continued to do well until the onset of her pain complaints approximately 1 year ago following a trip over a bag that did not result in a fall, but brian her low back. Patient has described diffuse midline and bilateral lumbosacral pain that spreads into the bilateral sacroiliac and gluteal regions diffusely. She states her pain is constant, but that it is predictably worsened with standing/walking and mechanical use with components of improvement when seated at rest. Patient denies radicular pain into the inguinal folds or lower extremities. She denies numbness or paresthesias in the lower extremities. Patient denies motor weakness in the lower extremities, bowel/bladder incontinence, or saddle paresthesias. Patient denies significant thoracic pain. She denies radicular pain into the chest wall/thorax. She denies numbness or paresthesias in the chest wall/thorax. Work up includes: MRI lumbosacral spine 12/29/2021: L4-1 instrumented posterior spinal fusion with good surgical decompression; prominently exaggerated lumbar lordosis; end-stage degenerative changes at the thoracolumbar junction with a suggestion of at least partial ankylosing at T 12 L1; retrolisthesis at L2-3; multisegmental adjacent segment disease with overall moderate L3-4 central stenosis and moderate bilateral L3-[address] lumbosacral spine 07/11/2022: Solid L4-S1 arthrodesis with suggestion of spontaneous ankylosing at T11-12 and T12-L1; advanced degenerative changes including vacuum disc/vacuum facet phenomenon from L1-L4; degenerative changes noted throughout the sacroiliac joints bilaterally Flexion/extension films lumbosacral spine 11/26/2021: Fishmouthing L2-3 in extension with stable retrolisthesis L1 2 X-ray sacroiliac joint 11/26/2021: Moderate degenerative changes of the SI joints bilaterally Scoliosis x-ray 11/26/2021: Minimal disruption in sagittal balance DEXA [place] [facility] 08/2022 osteopenia with T score -1.8 Based on symptoms and imaging work up, there has been felt to be no immediate operative requirement. It has been theorized that a significant portion of her pain may be attributed to SI dysfunction and/or lumbar facet mediated pain. A trial of conservative management has been recommended. Patient's pain was refractory to a course of physical therapy which seem to aggravate symptoms. She has established with pain management and underwent bilateral SI injections 04/03/2022 followed by L3-4 MAGED 04/17/2022. Patient reports the SI injections provided no benefit even transiently. She does report an estimated 50% improvement in pain for a period of several weeks following the L3-4 MAGED with subsequent symptom return. Since time of last office visit, patient underwent mid lumbar DMR's 06/19/2022 and 08/14/22 following which she reports dramatic improvement in pain such that she was highly satisfied with her status for approximately 6 weeks with each set of DMRs. She has experienced subsequent symptom return and is scheduled for follow up with pain management to proceed with RFAs. Patient currently rates her pain at 8/10 on a standard pain scale. She states it interrupts her sleep periodically, as well as activity level and function. Physical Exam Vitals & Measurements HR: 90 (Peripheral) BP: 156/80 HT: 143 cm WT: 80.7 kg WT: 80.7 kg (Dosing) BMI: 39.46 Additional Vitals BP Position/Location: Sitting, Right arm General: [Alert and oriented, well nourished, no acute distress]. Eye: [normal conjunctiva, no scleral icterus]. HENT: [normocephalic, atraumatic, oral mucosa pink and moist, dentition intact]. Neck: [Supple]. Pulmonary: [non-labored respiration]. Cardiovascular: [no edema, strong pulses with rapid capilla (more content not included)... Normal [facility] Provider Letteron 10-27-2022 Provider Letter (Inserted Image. Penny ble to display) Sherri Broderick MD [address] [place] [address] Re: Tessa Syed Date of Visit: 10/27/2022 Dear Sherri Broderick, Thank you for allowing me to contribute to the care of your patient, Tessa Syed. Attached is my office note and you will find my assessment and recommendations from our encounter today. Please do not hesitate to contact me with any questions or concerns. Sincerely, Kandaec Kauffman PA-C [facility] [address] [address] The following document(s) were included in the letter: October 27, 2022 14:20:21 EDT - (10/27/2022) Neurosurgery Office Visit Note Normal [facility] Clinic Note - Intakeon 09-22 Clinic Note - Intake Patient Visit Information: Visit TypeFollow Up Visit Source of Informationpatient Accompanied byspouse Admission Information: Admission Since Last VisitNo Vital Signs: Temp (degrees C)36.6 degrees C Temperatureskin Heart Rate (beats/min)71 beats per minute Respiration (breaths/min)18 breath per minute BP Systolic (mm Hg)129 mmHg BP Diastolic (mm Hg)81 mmHg BP Mean (mm Hg)97 mmHg Height in cm144.6 centimeter(s) Heightstanding Weight in kg80.4 kilogram(s) Weightstanding BMI (kg/m2)38.4 kg/M2 BSA (m2)1.79 M2 SpO2 (%)94 % SpO2 Patient Onroom air Pain Screening: Patient States Painno (0) Health Screening: Colonoscopy [id number] Mammography Resultsseptember 2021 Allergies: Rocklatan: Drug, Itching, Active Simbrinza: Drug, Itching, Active Outpatient Medication Profile: * Patient Currently Takes Medications as of 07-Sep-2022 10:14 documented in Structured Notes traMADol 50 mg oral tablet: 1 tab(s) orally every 8 hours as needed for severe pain only, Start Date: 07-Sep-2022 dorzolamide ophthalmic: 1 drop(s) to each affected eye once a day both eyes for glaucoma rosuvastatin 10 mg oral tablet: 1 tab(s) orally once a day carvedilol 25 mg oral tablet: 1 tab(s) orally 2 times a day - aware to take on day of procedure glimepiride 4 mg oral tablet: 2 tab(s) orally once a day = 8mg metFORMIN 500 mg oral tablet: 1 tab(s) orally 2 times a day Advair Diskus 250 mcg-50 mcg inhalation powder: 1 puff(s) inhaled 2 times a day furosemide 40 mg oral tablet: 1 tab(s) orally 2 times a day potassium chloride 20 mEq oral tablet, extended release: 1 tab(s) orally once a day Aspir 81 oral delayed release tablet: 1 tab(s) orally once a day Multiple Vitamins oral tablet: 1 tab(s) orally once a day albuterol 90 mcg/inh inhalation aerosol: 2 puff(s) inhaled every 6 hours, As Needed dorzolamide-timolol 2%-0.5% ophthalmic solution: 1 drop(s) to each eye 2 times a day Travatan Z 0.004% ophthalmic solution: 1 drop(s) to each affected eye once a day (in the evening) Notification: NotificationsAnnual Screens Due Dates Advanced Directives: Aug 28, 2023 Family Violence: Aug 28, 2023 Depression (Due every 6 months for ONC only; all others use Annual date): Feb 24, 2023 Substance Use - Alcohol: Aug 28, 2023 Substance Use - Drugs: Aug 28, 2023 Nutrition: Aug 28, 2023 Learning: Aug 28, 2023 Travel History: COVID-19 Screening Completedno exposure or symptoms Travel or ExposureNO travel to International locations in the past 30 days Falls: Have you fallen in the last 6 monthsno Do you have a fear of fallingno Do you feel you need assistanceno Is the patient using an assistive deviceno Not a falls riskimplement environmental risk factors interventions Spiritual/Procedural: Spiritual/cultural/religi ous practices important for us to knowno Alcohol, prescription or recreational drugs taken this AM for non medical reasonsno Oncology Nutrition: Intake past month, compared to normal intake(0) unchanged Problems keeping me from eating past 2 weeks (0) no problem eating In the past month, my activity/functioning rating is(0) normal with no limitations Score 6 or > notify clinician0 Electronic Signatures: Brenda Lees (PCNA) (Signed 22-Sep-2022 10:23) Authored: Patient Visit Information, Vital Signs, Health Screening, Allergies, Outpatient Medication Profile, Notification, Travel History, Falls, Spiritual/Procedural, Oncology Nutrition Last Updated: 22-Sep-2022 10:23 by Brenda Lees (PCNA) Normal [facility] DERMATOPATHOLOGY RESULTSon 0 09-22-2022 Pathology Report Name TESSA SYED Pathologist: PARIS JANG MD Date of Procedure: 09/07/2022 Date Received: 09/08/2022 Date Reported 09/22/2022 Submitting Physician: DUYEN LUBIN MD Location: [facility] Other External # FINAL DIAGNOSIS A. NODE, LEFT AXILLARY LYMPH NODE #1 - 129, BIOPSY: BENIGN LYMPH NODE. B. SKIN, WIDE EXCISION POSTERIOR LEFT UPPER ARM, EXCISION: CHANGES CONSISTENT WITH PREVIOUS PROCEDURE, INKED MARGINS FREE IN PLANES OF SECTIONS EXAMINED WITHOUT RESIDUAL ATYPICAL MELANOCYTIC NEOPLASM SEEN. C. NODE, LEFT AXILLARY LYMPH NODE #2 - 29, BIOPSY: BENIGN LYMPH NODE. D. NODE, LEFT AXILLARY LYMPH NODE #3, BIOPSY: BENIGN LYMPH NODE. E. NODE, LEFT AXILLARY LYMPH NODE #4 - 113, BIOPSY BENIGN LYMPH NODE. Electronically Signed Out by PARIS JANG M.D. Note One or more of the reagents used to perform assays on this specimen MAY have contained components considered to be analyte specific reagents (ASR's). ASR's have not been cleared or approved by the U.S. Food and Drug Administration. These assays were developed and their performance characteristics determined by the Department of Pathology at [facility]. The FDA does not require this test to go through premarket FDA review. This test is used for clinical purposes. It should not be regarded as investigational or for research. This laboratory is certified under the Clinical Laboratory Improvement Amendments (CLIA) as qualified to perform high complexity clinical laboratory testing. The assays were performed with appropriate positive and negative controls which stained appropriately. Electronically Signed Out By PARIS JANG MD/KSH By the signature on this report, the individual or group listed as making the Final Interpretation/Diagnosis certifies that they have reviewed this case. Diagnostic interpretation performed at [facility] [address] [id number], [facility] [place] [address] Microscopic Description: A. Microscopic examination reveals a lymph node with normal architecture. No melanoma is seen on H and E staining. Melan-A, SOX-10, and HMB45 stains are unremarkable. All control slides stain appropriately. B. Microscopic examination reveals a specimen that extends into the subcutaneous fat. An area with horizontally oriented collagen and vertically oriented vessels is present. A step section was performed. C. Microscopic examination reveals a lymph node with normal architecture. No melanoma is seen on H and E staining. Melan-A, SOX-10, and HMB45 stains are unremarkable. All control slides stain appropriately. D. Microscopic examination reveals a lymph node with normal architecture. No melanoma is seen on H and E staining. Melan-A, SOX-10, and HMB45 stains are unremarkable. All control slides stain appropriately. E. Microscopic examination reveals a lymph node with normal architecture. No melanoma is seen on H and E staining. Melan-A, SOX-10, and HMB45 stains are unremarkable. All control slides stain appropriately. Clinical History: A: Lymph node #1. 124 Out -1105 in formalin 1117. Biopsy. B: Short stitch superior, long stitch lateral out 1151 in formalin 1156. Excision. C: Lymph node #2. 29 out 1113, formalin 1120. Biopsy. D: Lymph node #3. out 1124 in formalin 1127. Biopsy. E: Lymph node #4. 113 out 1131 in formalin 1135. Biopsy. (Hospital Outpatient) Specimens Submitted As: A: NODE, LEFT AXILLARY LYMPH NODE #1 - 129 B: SKIN, WIDE EXCISION POSTERIOR LEFT UPPER ARM C: NODE, LEFT AXILLARY LYMPH NODE #2 - 29 D: NODE, LEFT AXILLARY LYMPH NODE #3 E: NODE, LEFT AXILLARY LYMPH NODE #4 - 113 Gross Description: A: Received in formalin is a conklin-yellow irregular shaped piece of tissue measuring [id number]. The specimen is embedded in toto in two blocks. B: Received in formalin is a conklin ellipse of skin measuring [id number], oriented by the surgeon with short stitch on the superior margin (arbitrarily defined as 12 o'clock for the purpose of gross description) and a long stitch on the lateral margin at 9 o'clock. The specimen is inked black along the margin from 6 to 12 o'clock and blue along the 12 to 6 o'clock margin. The skin is serially sectioned and submitted in toto in blocks 1-12. Block 1 is at 12 o'clock. C: Received in (more content not included)... [facility] Electrocardiogram 12 LeadOrd ered By: Marti Garcia on 09-08-2022 Atrial Rate 70 BPM [facility] Work Phone: P Villard 24 degrees [facility] Work Phone: [phone] P Offset 195 ms [facility] Work Phone: [phone] P Onset 140 ms [facility] Work Phone: [phone] Interval 166 ms [facility] Work Phone: [phone] Q Onset 223 ms [facility] Work Phone: [phone] QRS Count 12 beats [facility] Work Phone: [phone] QRS Duration 138 ms [facility] Work Phone: [phone] QT Interval 448 ms [facility] Work Phone: [phone] QTC Calculation(Bazett) 483 [facility] Work Phone: [phone] QTC Fredericia 471 [facility] Work Phone: [phone] R Villard -10 degrees [facility] Work Phone: [phone] T Villard -2 degrees [facility] Work Phone: [phone] T Offset 447 ms [facility] Work Phone: [phone] Ventricular Rate 70 BPM [facility] Work Phone: [phone] [facility] Work Phone: [phone] Electrocardiogram 12 [place] 09-08-2022 Sinus rhythm with premature atrial complexes Right bundle branch block Minimal voltage criteria for LVH, may be normal variant Abnormal ECG No previous ECGs available Confirmed by Marti Garcia ([id number]) on 09/08/2022 7:24:25 AM Marti Almendarez D O - 09/08/2022 Sinus rhythm with premature atrial complexes Right bundle branch block Minimal voltage criteria for LVH, may be normal variant Abnormal ECG No previous ECGs available Confirmed by Marti Garcia ([id number]) on 09/08/2022 7:24:25 AM [facility] Work Phone: Dermatopathologyon 3 Dermatopathology Name TESSA SYED Pathologist: PARIS JANG MD Date of Procedure: 09/07/2022 Date Received: 09/08/2022 Date Reported 09/22/2022 Submitting Physician: DUYEN LUBIN MD Location: [facility] Other External # FINAL DIAGNOSIS A. NODE, LEFT AXILLARY LYMPH NODE #1 - 129, BIOPSY: BENIGN LYMPH NODE. B. SKIN, WIDE EXCISION POSTERIOR LEFT UPPER ARM, EXCISION: CHANGES CONSISTENT WITH PREVIOUS PROCEDURE, INKED MARGINS FREE IN PLANES OF SECTIONS EXAMINED WITHOUT RESIDUAL ATYPICAL MELANOCYTIC NEOPLASM SEEN. C. NODE, LEFT AXILLARY LYMPH NODE #2 - 29, BIOPSY: BENIGN LYMPH NODE. D. NODE, LEFT AXILLARY LYMPH NODE #3, BIOPSY: BENIGN LYMPH NODE. E. NODE, LEFT AXILLARY LYMPH NODE #4 - 113, BIOPSY BENIGN LYMPH NODE. Electronically Signed Out by PARIS JANG M.D. Note One or more of the reagents used to perform assays on this specimen MAY have contained components considered to be analyte specific reagents (ASR's). ASR's have not been cleared or approved by the U.S. Food and Drug Administration. These assays were developed and their performance characteristics determined by the Department of Pathology at [facility]. The FDA does not require this test to go through premarket FDA review. This test is used for clinical purposes. It should not be regarded as investigational or for research. This laboratory is certified under the Clinical Laboratory Improvement Amendments (CLIA) as qualified to perform high complexity clinical laboratory testing. The assays were performed with appropriate positive and negative controls which stained appropriately. Electronically Signed Out By PARIS JANG MD/[facility] By the signature on this report, the individual or group listed as making the Final Interpretation/Diagnosis certifies that they have reviewed this case. Diagnostic interpretation performed at [facility] [id number] [place], [place] [address], [place] [id number] Microscopic Description: A. Microscopic examination reveals a lymph node with normal architecture. No melanoma is seen on H and E staining. Melan-A, SOX-10, and HMB45 stains are unremarkable. All control slides stain appropriately. B. Microscopic examination reveals a specimen that extends into the subcutaneous fat. An area with horizontally oriented collagen and vertically oriented vessels is present. A step section was performed. C. Microscopic examination reveals a lymph node with normal architecture. No melanoma is seen on H and E staining. Melan-A, SOX-10, and HMB45 stains are unremarkable. All control slides stain appropriately. D. Microscopic examination reveals a lymph node with normal architecture. No melanoma is seen on H and E staining. Melan-A, SOX-10, and HMB45 stains are unremarkable. All control slides stain appropriately. E. Microscopic examination reveals a lymph node with normal architecture. No melanoma is seen on H and E staining. Melan-A, SOX-10, and HMB45 stains are unremarkable. All control slides stain appropriately. Clinical History: A: Lymph node #1. 124 Out -1105 in formalin 1117. Biopsy. B: Short stitch superior, long stitch lateral out 1151 in formalin 1156. Excision. C: Lymph node #2. 29 out 1113, formalin 1120. Biopsy. D: Lymph node #3. out 1124 in formalin 1127. Biopsy. E: Lymph node #4. 113 out 1131 in formalin 1135. Biopsy. (Hospital Outpatient) Specimens Submitted As: A: NODE, LEFT AXILLARY LYMPH NODE #1 - 129 B: SKIN, WIDE EXCISION POSTERIOR LEFT UPPER ARM C: NODE, LEFT AXILLARY LYMPH NODE #2 - 29 D: NODE, LEFT AXILLARY LYMPH NODE #3 E: NODE, LEFT AXILLARY LYMPH NODE #4 - 113 Gross Description: A: Received in formalin is a conklin-yellow irregular shaped piece of tissue measuring [id number]. The specimen is embedded in toto in two blocks. B: Received in formalin is a conklin ellipse of skin measuring [id number], oriented by the surgeon with short stitch on the superior margin (arbitrarily defined as 12 o'clock for the purpose of gross description) and a long stitch on the lateral margin at 9 o'clock. The specimen is inked black along the margin from 6 to 12 o'clock and blue along the 12 to 6 o'clock margin. The skin is serially sectioned and submitted in toto in blocks 1-12. Block 1 is at 12 o'clock. C: Received in formalin is a conklin-yellow irregular shaped piece of tissue measuring [id number]. The specimen is embedded in toto in two blocks. D: Received in formalin is a conklin-yellow irregular shaped piece of tissue measuring [id number]. The specimen is embedded in toto. E: Received in formalin is a conklin-yellow irregular shaped piece of tissue measuring 4b0y8zy. The specimen is embedded in toto. ink/09/08/2022 [facility] Dermatopathology Laboratory [place] [id number] [place] [address] 310 Normal [facility] Comment on above: Performed By: #### D #### Dermatopathology Electrocardiogram 12 Leadon 09-07-2022 Electrocardiogram 12 Lead Ventricular Rate 70 Atrial Rate 70 P-R Interval 166 QRS Duration 138 Q-T Interval 448 QTC Calculation(Bazett) 483 P Villard 24 R Villard -10 T Villard -2 QRS Count 12 Q Onset 223 P Onset 140 P Offset 195 T Offset 447 QTC Fredericia 471 Diagnosis Class Abnormal Diagnosis Sinus rhythm with premature atrial complexes Right bundle branch block Minimal voltage criteria for LVH, may be normal variant Abnormal ECG No previous ECGs available Confirmed by Marti Garcia ([id number]) on 09/08/2022 7:24:25 AM Normal [facility] Glucose Test strip manual (B ld) [Mass/Vol]on 09-07-2022 Glucose [Mass/Vol] 201 mg/dL High 74 - 99 mg/dL [facility] Interpretation and review of laboratory results Abnormal [facility] - Chemistry and C hemistry - challengeon 09-07-2022 Glucose [Mass/Vol] 201 mg/dL above high threshold 74 - 99 QZ-Pgqektn-T [facility] Work Phone: NM Lymph Glandon 09-07-2022 NM Lymph node Views Normal MG-Ellis rgery-S [facility] Work Phone: NM Lymphatic vessels Views W radionuclide intra lymphaticon 09-07-2022 1. No definite evide nce of sentinel lymph node activity was observed after 2 hours. 2. Radiotracer deposition in the left elbow are the injection sites. I personally reviewed the images/study and I agree with the findings as stated. This study was interpreted at [place], [place]. [facility] Interpreted By: RIGO REAL MD and GABBY CHAUDHARI MD Patient Name: TESSA SYED STUDY: LYMPH GLAND; 09/07/2022 9:44 am INDICATION: Melanoma C43.62: Malignant melanoma of left upper arm. COMPARISON: None. ACCESSION NUMBER(S): [id number] ORDERING CLINICIAN: DUYEN LUBIN TECHNIQUE: DIVISION OF NUCLEAR MEDICINE RADIONUCLIDE SENTINEL LYMPH NODE LYMPHOSCINTIGRAPHY A total of 1.12 millicuries of Tc-99m tilmanocept (Lymphoseek) was injected intradermally in a circumferential pattern surrounding the patient's left upper arm melanoma biopsy site. Immediate dynamic images were obtained followed by multiple static images in multiple projections. FINDINGS: Immediate dynamic images reveal tracer deposition in the left elbow. No definite evidence of sentinel lymph node activity was observed after 2 hours. [facility] Rigo Real MD - 09/07/2022 Interpreted By: RIGO REAL MD and GABBY CHAUDHARI MD Patient Name: TESSA SYED STUDY: LYMPH GLAND; 09/07/2022 9:44 am INDICATION: Melanoma C43.62: Malignant melanoma of left upper arm. COMPARISON: None. ACCESSION NUMBER(S): [id number] ORDERING CLINICIAN: DUYEN LUBIN TECHNIQUE: DIVISION OF NUCLEAR MEDICINE RADIONUCLIDE SENTINEL LYMPH NODE LYMPHOSCINTIGRAPHY A total of 1.12 millicuries of Tc-99m tilmanocept (Lymphoseek) was injected intradermally in a circumferential pattern surrounding the patient's left upper arm melanoma biopsy site. Immediate dynamic images were obtained followed by multiple static images in multiple projections. FINDINGS: Immediate dynamic images reveal tracer deposition in the left elbow. No definite evidence of sentinel lymph node activity was observed after 2 hours. IMPRESSION: 1. No definite evidence of sentinel lymph node activity was observed after 2 hours. 2. Radiotracer deposition in the left elbow are the injection sites. I personally reviewed the images/study and I agree with the findings as stated. This study was interpreted at [facility], [place], [place]. [facility] Work Phone: Radiology Study observation (narrative) [facility] Work Phone: NM Lymphatic vessels Views W radionuclide intra lymphaticOrdered By: Rigo Real on 09-07-2022 [facility] Work Phone: No Panel Informationon 09-07 [email or web address] ?[email or web address]&Date =12-05-2022&Time=06%3a42% 3a55%3a00&TestType=ECG&Si te=11&OutputType=PDF&Ext= PDF EY-Hplwoel-T [facility] Work Phone: [phone] Sinus rhythm with premature atrial complexes EI-Hjmtebo-Q [facility] Work Phone: 1 51 Abnormal LT-Dtujspe-J [facility] Work Phone: [phone] NY-Sgomrja-D [facility] Work Phone: [phone] US-Lpsxbdb-O [facility] Work Phone: [phone] 1 HN-Xcttioq-A [facility] Work Phone: [phone] 1 GH-Cjhrrny-F [facility] Work Phone: [phone] 1 UN-Tvjbpma-E [facility] Work Phone: [phone] 1 ZP-Pekdbzr-N [facility] Work Phone: 1 51 -2 1 QI-Rpnomqo-B [facility] Work Phone: 1 51 -10 1 KE-Qwykzju-M [facility] Work Phone: 1 [phone] 1 AP-Ldokluw-U [facility] Work Phone: [phone] SI-Gecypdv-Y [facility] Work Phone: [phone] 1 IX-Vvipajt-Z [facility] Work Phone: [phone] 1 BL-Uuhfdyo-F [facility] Work Phone: [phone] 1 PU-Gprhyqv-R [facility] Work Phone: [phone] 1 YT-Toeagyu-L [facility] Work Phone: Office Visiton 08-25-2022 Follow-up visit Diagnoses/Problems Malignant melanoma of left upper arm (172.6) (C43.62) Patient Discussion/Summary Mrs Syed is a 72 yoF with a newly diagnosed 1.5mm melanoma of her posterior left upper arm. It is perhaps a touch thicker with a focally positive deep margin but WLE with 1cm margin should be sufficient. We discussed WLE with [facility] and she understands and would like to proceed. We will look for the soonest OR time at [place] and contact her sales solutions representative at [facility] for preop clearance. Greater than 60 minutes were spent reviewing this case with the patient and other providers. Duyen Lubin MD non emergency services ambulance driver Division of Surgical Oncology [email or web address] Chief Complaint melanoma History of Present IllnessTessa is a 72 yoF who presents to our [facility] clinic today with her , referred by Dorian Stearns for melanoma. The patient had a lesion she noted on her posterior left upper arm and sought a biopsy that came back as 1.5mm melanoma without ulceration with a focally positive deep margin. All other systems have been reviewed and are negative except as noted in the HPI. PMH is significant for DM not on insulin, asthma, HLD, HTN. PSH is significant for spine surgeries, knee issues. I personally reviewed all necessary laboratory results, pathology reports, and radiologic images for this patient. Allergies latan VERONICA Recorded By: Rose Nation; 08/25/2022 11:48:41 AM Current Meds Medication NameInstruction Advair Diskus 250-50 MCG/DOSE MISC Carvedilol TABS Crestor 10 MG Oral Tablet Dorzolamide HCl-Timolol Mal 22.3-6.8 MG/ML Ophthalmic Solution Glimepiride TABS Losartan Potassium 100 MG Oral Tablet metFORMIN HCl ER 500 MG Oral Tablet Extended Release 24 Hour Vitals Vital Signs Recorded: 25Aug2022 11:48AM Zecpnuplfjx57.5 F Heart Rate73 Pvharuuegxo25 Kfkhjyqk508 Lmsvopzbv24 Height4 ft 8 in Loafta033 lb BMI Rrkcwskgna57.01 kg/m2 BSA Calculated1.67 Tobacco Useb) No Falls Screening (Age 18+)a) No falls within the last year O2 Wyanadilyk94 Physical Exam General: no acute distress, well-nourished, wheelchair Eyes: intact EOM, no scleral icterus ENT: hearing intact, no drainage Respiratory: symmetric chest rise, no cough Cardiovascular: intact distal pulses, no pitting edema Abdominal: soft, nontender, nondistended Musculoskeletal: no deformities, intact strength Integumentary: warm, dry, no lymphadenopathy, healing biopsy site Neuro: no focal deficits, sensation intact Psych: normal mood and affect Results/Data Mvubfumwrnbqrzuh39Avu9019 12:00Duyen Mckenzie Test NameResultFlagReference Dermatopathology(Report) Name: YAHAIRA TESSA NunezNadir Pathologist: REMEDIOS MARTINEZ MD Date of Procedure: 08/17/2022 Date Received: 08/17/2022 Date Reported 08/20/2022 Submitting Physician: DUYEN LUBIN MD Location: [facility] Copy To/Referring/Attending: MD REMEDIOS ELDRIDGE FINAL DIAGNOSIS 4 SLIDES, [facility], #[id number] (BX: 07/30/2022): SKIN, LEFT PROXIMAL POSTERIOR UPPER ARM, SHAVE BIOPSY: SEVERELY ATYPICAL COMPOUND MELANOCYTIC PROLIFERATION, CONCERNING FOR NEVOID MALIGNANT MELANOMA, EXTENDING TO A DEPTH OF AT LEAST 1.5 MM, (SEE COMMENT): Comment: The quadrisected shave biopsy specimen reveals a broad atypical compound melanocytic proliferation. The junctional component is poorly nested, with areas of increased single-unit melanocytes and pagetoid scatter of melanocytes. The dermal component is in sheets and small nests composed of mild to moderately atypical melanocytes that show some tendency to disperse, however there are areas with minimal maturation towards the base. There is minimal underlying solar elastosis. The received immunostains for p16, PRAME, and SOX-10 were reviewed. P16 appears to be predominantly retained in a cytoplasmic pattern, with minimal nuclear retention of the dermal component. PRAME is diffusely positive in the junctional and dermal components. SOX-10 is diffusely positive and highlights pagetoid scatter. The depth is significantly increased on the immunostained slides as a more significant dermal component is cut into on those slides, and the Breslow thickness will be measured on the SOX-10 slide. The specimen is focally transected at the deep margin. See synoptic summary below. Electronically Signed Out by REMEDIOS MARTINEZ MD. CANCER SUMMARY REPORT A. 4 SLIDES, [facility], #[id number] (BX: 07/30/2022): SPECIMEN Procedure: Biopsy, shave Specimen Laterality: Left TUMOR Tumor Site: Skin of upper limb and shoulder: Left proximal posterior upper arm Histologic Type: Nevoid melanoma Maximum Tumor (Breslow) Thickness (Millimeters): At least: 1.5 mm Focally transected on the deep margin. Ulceration: Not identified Anatomic (Paco) Level: IV (melanoma invades reticular dermis) Mitotic Rate: None identified Microsatellite(s): Cannot be determined: Sha (more content not included)... Normal [employer] Tobacco Screening.on 023 Fall risk assessment a) [facility] the [facility] use status [facility] b) No [facility] Work Phone: Dermatopathologyon 3 Dermatopathology Name: TESSA SYEDNadir Pathologist: REMEDIOS MARTINEZ MD Date of Procedure: 08/17/2022 Date Received: 08/17/2022 Date Reported 08/20/2022 Submitting Physician: DUYEN LUBIN MD Location: [facility] Copy To/Referring/Attending: MD REMEDIOS ELDRIDGE FINAL DIAGNOSIS 4 SLIDES, [facility], #[id number] (BX: 07/30/2022): SKIN, LEFT PROXIMAL POSTERIOR UPPER ARM, SHAVE BIOPSY: SEVERELY ATYPICAL COMPOUND MELANOCYTIC PROLIFERATION, CONCERNING FOR NEVOID MALIGNANT MELANOMA, EXTENDING TO A DEPTH OF AT LEAST 1.5 MM, (SEE COMMENT): Comment: The quadrisected shave biopsy specimen reveals a broad atypical compound melanocytic proliferation. The junctional component is poorly nested, with areas of increased single-unit melanocytes and pagetoid scatter of melanocytes. The dermal component is in sheets and small nests composed of mild to moderately atypical melanocytes that show some tendency to disperse, however there are areas with minimal maturation towards the base. There is minimal underlying solar elastosis. The received immunostains for p16, PRAME, and SOX-10 were reviewed. P16 appears to be predominantly retained in a cytoplasmic pattern, with minimal nuclear retention of the dermal component. PRAME is diffusely positive in the junctional and dermal components. SOX-10 is diffusely positive and highlights pagetoid scatter. The depth is significantly increased on the immunostained slides as a more significant dermal component is cut into on those slides, and the Breslow thickness will be measured on the SOX-10 slide. The specimen is focally transected at the deep margin. See synoptic summary below. Electronically Signed Out by REMEDIOS MARTINZE MD. CANCER SUMMARY REPORT A. 4 SLIDES, [facility], #[id number] (BX: 07/30/2022): SPECIMEN Procedure: Biopsy, shave Specimen Laterality: Left TUMOR Tumor Site: Skin of upper limb and shoulder: Left proximal posterior upper arm Histologic Type: Nevoid melanoma Maximum Tumor (Breslow) Thickness (Millimeters): At least: 1.5 mm Focally transected on the deep margin. Ulceration: Not identified Anatomic (Paco) Level: IV (melanoma invades reticular dermis) Mitotic Rate: None identified Microsatellite(s): Cannot be determined: Shave specimen Lymphovascular Invasion: Not identified Neurotropism: Not identified Tumor-Infiltrating Lymphocytes: Not identified Tumor Regression: Not identified MARGINS Margin Status for Invasive Melanoma: Invasive melanoma present at margin Margin(s) Involved by Invasive Melanoma: Deep: Focally extends to deep margin. Margin Status for Melanoma in situ: All margins negative for melanoma in situ Distance from Melanoma in Situ to Closest Peripheral Margin: Less than: 0.3 mm PATHOLOGIC STAGE CLASSIFICATION (pTNM, AJCC 8th Edition) Reporting of pT categories is based on information available to the pathologist at the time the report is issued. As per the AJCC (Chapter 1, 8th Ed.) it is the managing physician?s responsibility to establish the final pathologic stage based upon all pertinent information, including but potentially not limited to this pathology report. pT Category: pT2a ADDITIONAL TESTING Vp Of Product Blocks: Tumor Block: Dermatopathology Laboratory [facility], Original case [id number]. Electronically Signed Out By REMEDIOS MARTINEZ MD/RENANR Diagnostic interpretation performed at [facility] Dermatopath Lab [id number], [facility] [place] [address] Microscopic Description: Microscopic examination performed. 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 Slide/Block Description 4 SLIDES, [id number]. Keep Slides: N Slides Returned: N Personal Consult: N Normal [facility] Comment on above: Performed By: #### D #### Dermatopathology No Panel Informationon 08-17 [facility] Work Phone: Neurosurgery Office/Clinic N oteon 08-04-2022 Neurosurgery Office/Clinic Note Chief Complaint Patient is being seen for a back follow up. History of Present Illness Patient is a pleasant 72-year-old female with a history of type 2 diabetes with neuropathy, HTN, renal disease, near morbid obesity (BMI: 38), coexisting advanced bilateral knee arthropathy (following with orthopedics: Dr. Garnica in [place]), L4-S1 instrumented posterior spinal fusion performed 08/[address] Cruz, and coexisting sacroiliac dysfunction that has up to this point, been managed with conservative treatment, who presents to the outpatient neurosurgical clinic today accompanied by her , for follow up and imaging review on behalf of complaints of exacerbated low back pain. Patient is status post L4-S1 instrumented posterior spinal fusion performed 08/[address] Cruz secondary to an acute cauda equina syndrome attributed to advanced degenerative disease with an unstable spondylolisthesis at L4-5. Patient's postoperative course was complicated by sacral insufficiency fractures. Despite this, patient did well postoperatively with resolution in her preoperative pain syndrome and no significant or chronic ongoing complaints. She returned to a moderate geriatric lifestyle without significant difficulty. Patient states that she continued to do well until the onset of her pain complaints approximately 8-9 months ago following a trip over a bag that did not result in a fall, but brian her low back. Patient has described diffuse midline and bilateral lumbosacral pain that spreads into the bilateral sacroiliac and gluteal regions diffusely. She states her pain is constant, but that it is predictably worsened with standing/walking and mechanical use with components of improvement when seated at rest. Patient denies radicular pain into the inguinal folds or lower extremities. She denies numbness or paresthesias in the lower extremities. Patient denies motor weakness in the lower extremities, bowel/bladder incontinence, or saddle paresthesias. Patient denies significant thoracic pain. She denies radicular pain into the chest wall/thorax. She denies numbness or paresthesias in the chest wall/thorax. Work up includes: MRI lumbosacral spine 12/29/2021: L4-1 instrumented posterior spinal fusion with good surgical decompression; prominently exaggerated lumbar lordosis; end-stage degenerative changes at the thoracolumbar junction with a suggestion of at least partial ankylosing at T 12 L1; retrolisthesis at L2-3; multisegmental adjacent segment disease with overall moderate L3-4 central stenosis and moderate bilateral L3-[address] lumbosacral spine 07/11/2022: Solid L4-S1 arthrodesis with suggestion of spontaneous ankylosing at T11-12 and T12-L1; advanced degenerative changes including vacuum disc/vacuum facet phenomenon from L1-L4; degenerative changes noted throughout the sacroiliac joints bilaterally Flexion/extension films lumbosacral spine 11/26/2021: Fishmouthing L2-3 in extension with stable retrolisthesis L1 2 X-ray sacroiliac joint 11/26/2021: Moderate degenerative changes of the SI joints bilaterally Scoliosis x-ray 11/26/2021: Minimal disruption in sagittal balance Based on symptoms and imaging work up, there has been felt to be no immediate operative requirement. It has been theorized that a significant portion of her pain may be attributed to SI dysfunction and/or lumbar facet mediated pain. A trial of conservative management has been recommended. Patient's pain was refractory to a course of physical therapy which seem to aggravate symptoms. She has established with pain management and underwent bilateral SI injections 04/03/2022 followed by L3-4 MAGED 04/17/2022. Patient reports the SI injections provided no benefit even transiently. She does report an estimated 50% improvement in pain for a period of several weeks following the L3-4 MAGED with subsequent symptom return. Since time of last office visit, patient underwent mid lumbar DMR's 06/19/2022 following which she reports dramatic improvement in pain such that she was highly satisfied with her status for approximately 6 weeks. She has experienced subsequent symptom return and is scheduled for a second series of DMR's 08/14/22. Patient currently rates her pain at 8/10 on a standard pain scale. She states it interrupts her sleep periodically, as well as activity level and function. Physical Exam Vitals & Measurements HR: 82 (Peripheral) BP: 120/60 HT: 142 cm WT: 77.6 kg WT: 77.6 kg (Dosing) BMI: 38.48 Additional Vitals BP Position/Location: Sitting, Right arm General: [Alert and oriented, well nourished, no acute distress]. Eye: [normal conjunctiva, no scleral icterus]. HENT: [normocephalic, atraumatic, oral mucosa pink and moist, dentition intact]. Neck: [Supple]. Pulmonary: [non-labored respiration]. Cardiovascular: [no edema, strong pulses with rapid capillary refill]. Skin: [Normal temperature and texture; no rashes; no digit clubbing or cyanosis]. Psychiatric: [Appropriate judgment an (more content not included)... Normal [facility] Provider Letteron 08-04-2022 Provider Letter (Inserted Image. Penny ble to display) Sherri Broderick MD [address] [place] [address] Re: Tessa Syed Date of Visit: 08/04/2022 Dear Sherri Broderick, Thank you for allowing me to contribute to the care of your patient, Tessa Syed. Attached is my office note and you will find my assessment and recommendations from our encounter today. Please do not hesitate to contact me with any questions or concerns. Sincerely, Kandace Kauffman PA-C [facility] [address] [address] The following document(s) were included in the letter: August 04, 2022 13:34:13 EDT - (08/04/2022) Neurosurgery Office Visit Note Normal [facility] CT Spine Lumbar w/o Contrast on 07-12-2022 CT Spine Lumbar w/o Contrast EXAM TYPE: CT Spine Lumbar w/o Contrast EXAM DATE AND TIME: 07/11/2022 9:49 AM EST INDICATION: 72 years old Female with back pain, prior surgery COMPARISON: 12/29/2021 TECHNIQUE: CT imaging of the lumbar spine was obtained without contrast. Dose reduction techniques were achieved by using automated exposure control and/or adjustment of mA and/or kV according to patient size and/or use of iterative reconstruction technique. FINDINGS: Unchanged alignment of the lumbar spine with exaggeration. There are postsurgical changes from L4-S1 fusion. Hardware appears intact. No acute displaced fracture identified. Moderate to severe degenerative disc and facet arthropathy the nonsurgical levels. Moderate to severe spinal canal stenosis at the L3-L4 level. The visualized bony pelvis is congruent. Limited evaluation of the abdominopelvic viscera is unremarkable. Simple appearing left renal cyst identified. IMPRESSION: Postsurgical and degenerative changes without acute osseous abnormality. Radiation Dose Estimate: CTDI(mGy):0.068285 / / / kVp:120.204784 / mAs:0.747847 / / / DLP(mGy-cm):2.194290Zsdr Part: CTDI(mGy):0.500778 / / / kVp:140.932507 / mAs:0.786626 / / / DLP(mGy-cm):9.196909Pqiq Part: CTDI(mGy):33.858829 / / / kVp:140.893836 / mAs:231.048252 / / / DLP(mGy-cm):813.777045Wdq y Part: Final Dictated by: Dwain Rob MD Dictated DT/TM: 07.12.2022 1:58 pm Signed by: Dwain Rob MD Signed (Electronic Signature): 07.12.2022 1:59 pm (If Report Is Signed, Electronically Signed in Other Vendor System) Normal [facility] Covid-19 PCR (CVDTBH)on Sample Type Test performed using RT-PCR from a nasopharyngeal collected specimen. Normal [facility] Comment on above: Performed By: #### [facility] #### [facility] [address], [place] [address] Domenic Baptiste SARS-CoV-2 (COVID-19) RNA YNES+probe Ql (Unsp spec) Detected Abnormal NOT DETECTED [facility] Comment on above: Result Comment: This test is not yet approved or cleared by the [place] FDA. When there are no FDA-approved or cleared tests available, and other criteria are met, FDA can make tests available under an emergency access mechanism called an Emergency Use Authorization (EUA). The EUA for this test is supported by the [place] of Health and Human Service's (HHS's) declaration that circumstances exist to justify the emergency use of in vitro diagnostics for the detection and/or diagnosis of the virus that causes COVID-19. This EUA will remain in effect (meaning this test can be used) for the duration of the COVID-19 declaration justifying emergency of IVDs, unless it is terminated or revoked by FDA (after which the test may no longer be used). Performed By: #### [facility] #### [facility] [address], [place] [address] Domenic Baptiste Vital Signs Date Time Vital Sign Value Performing Clinician Facility 07-14-2023 13:06-0400 Diastolic blood pressure 78 mm[Hg] Katt Verhoff PA-C Work Phone: [facility] 07-14-2023 13:06-0400 Heart rate 92 /min Katt Verhoff PA-C Work Phone: [facility] 07-14-2023 13:06-0400 Respiratory rate 20 /min Katt Verhoff PA-C Work Phone: [facility] 07-14-2023 13:06-0400 SaO2% (BldA) [Mass fraction] 96 % Katt Verhoff PA-C Work Phone: [facility] 07-14-2023 13:06-0400 Systolic blood pressure 142 mm[Hg] Katt Verhoff PA-C Work Phone: [facility] [employer] [facility] 07-13-2023 14:07-0400 Body height 142.2 cm Pmh 1 [facility] 07-13-2023 14:07-0400 Body mass index (BMI) [Ratio] 39.23 kg/m2 Pmh 1 [facility] 07-13-2023 14:07-0400 Body weight 79.38 kg Pmh 1 [facility] 07-02-2023 13:02-0500 Body height 142.2 cm Amber Wild DIE PRESSER-FOLLOW UP CLERK Work Phone: [facility] 07-02-2023 13:02-0500 Body mass index (BMI) [Ratio] 39.23 kg/m2 Amber Wild DIE PRESSER-FOLLOW UP CLERK Work Phone: [facility] 07-02-2023 13:02-0500 Body weight 79.38 kg Amber Wild DIE PRESSER-FOLLOW UP CLERK Work Phone: [facility] 07-02-2023 13:02-0500 Diastolic blood pressure 63 mm[Hg] Amber Wild DIE PRESSER-FOLLOW UP CLERK Work Phone: [facility] 07-02-2023 13:02-0500 Systolic blood pressure 132 mm[Hg] Amber Wild DIE PRESSER-FOLLOW UP CLERK Work Phone: [facility] 06-23-2023 13:17-0500 Diastolic blood pressure 68 mm[Hg] Pm 2 [facility] 06-23-2023 13:17-0500 Heart rate 89 /min Pm 2 [facility] 06-23-2023 13:17-0500 Systolic blood pressure 121 mm[Hg] Pm 2 [facility] 06-03-2023 11:27-0500 Body height 142.2 cm Figueroa Perales MD Work Phone: [facility] 06-03-2023 11:27-0500 Body mass index (BMI) [Ratio] 39.91 kg/m2 Figueroa Perales MD Work Phone: [facility] 06-03-2023 11:27-0500 Body weight 80.74 kg Figueroa Perales MD Work Phone: [facility] 06-03-2023 11:27-0500 Diastolic blood pressure 70 mm[Hg] Figueroa Perales MD Work Phone: [facility] [employer] [facility] 06-03-2023 11:27-0500 Heart rate 83 /min Figueroa Perales MD Work Phone: [facility] [employer] [facility] 06-03-2023 11:27-0500 SaO2% (BldA) [Mass fraction] 96 % Figueroa Perales MD Work Phone: [facility] [employer] [facility] 06-03-2023 11:27-0500 Systolic blood pressure 142 mm[Hg] Figueroa Perales MD Work Phone: [facility] [employer] [facility] 05-27-2023 14:33-0500 Body mass index (BMI) [Ratio] 39.68 kg/m2 Divina Ng MD Work Phone: [facility] [employer] 05-27-2023 14:33-0500 Body weight 80.29 kg Divina Ng MD Work Phone: [facility] [employer] [facility] 05-27-2023 14:33-0500 Diastolic blood pressure 68 mm[Hg] Divina Ng MD Work Phone: [facility] [employer] [facility] 05-27-2023 14:33-0500 Heart rate 82 /min Divina Ng MD Work Phone: [facility] [employer] [facility] 05-27-2023 14:33-0500 SaO2% (BldA) [Mass fraction] 94 % Divina Ng MD Work Phone: [facility] [employer] [facility] 05-27-2023 14:33-0500 Systolic blood pressure 150 mm[Hg] Divina Ng MD Work Phone: [facility] [employer] [facility] 05-26-2023 14:29-0500 Diastolic blood pressure 67 mm[Hg] [facility]-C [facility] 05-26-2023 14:29-0500 Heart rate 78 /min Katt Verhoff PA-C [facility] 05-26-2023 14:29-0500 Respiratory rate 16 /min Katt Verhoff PA-C [facility] 05-26-2023 14:29-0500 SaO2% (BldA) [Mass fraction] 99 % Katt Verhoff PA-C [facility] 05-26-2023 14:29-0500 Systolic blood pressure 133 mm[Hg] Katt Verhoff PA-C [facility] 05-12-2023 11:10-0500 Body height 142.2 cm Sherri Broderick MD [facility] 05-12-2023 11:10-0500 Body mass index (BMI) [Ratio] 38.56 kg/m2 Sherri Broderick MD [facility] 05-12-2023 11:10-0500 Body weight 78.02 kg Sherri Broderick MD [facility] 05-12-2023 11:10-0500 Diastolic blood pressure 74 mm[Hg] Sherri Broderick MD [facility] 05-12-2023 11:10-0500 Heart rate 72 /min Sherri Broderick MD [facility] 05-12-2023 11:10-0500 Respiratory rate 16 /min Sherri Broderick MD [facility] 05-12-2023 11:10-0500 Systolic blood pressure 130 mm[Hg] Sherri Broderick MD Work Phone: [facility] [employer] [facility] 03-23-2023 13:53-0500 Body height 142.2 cm Suman Tineo MD Work Phone: [facility] 03-23-2023 13:53-0500 Body mass index (BMI) [Ratio] 36.77 kg/m2 Suman Tineo MD Work Phone: [facility] 03-23-2023 13:53-0500 Body weight 74.39 kg Suman Tineo MD Work Phone: [facility] Comment on above: patient reports 08-25-2022 11:48-0400 Body height 142.24 cm No [facility] [facility] Work Phone: 08-25-2022 11:48-0400 Body mass index (BMI) [Ratio] 39.01 kg/m2 No PCP None [facility] [facility] Work Phone: 08-25-2022 11:48-0400 Body surface area Derived from formula 1.67 m2 No PCP None [facility] [facility] Work Phone: 08-25-2022 11:48-0400 Body temperature 97.5 [degF] No PCP None [facility] [facility] Work Phone: 08-25-2022 11:48-0400 Body weight 78.93 kg No PCP [facility] [facility] Work Phone: 08-25-2022 11:48-0400 Diastolic blood pressure 82 mm[Hg] No PCP None [facility] [facility] Work Phone: 08-25-2022 11:48-0400 Heart rate 73 /min No PCP [facility] [facility] Work Phone: 08-25-2022 11:48-0400 Respiratory rate 16 /min No PCP None [facility] [facility] Work Phone: 08-25-2022 11:48-0400 SaO2% (BldA) [Mass fraction] 94 % No PCP None [facility] [facility] Work Phone: 08-25-2022 11:48-0400 Systolic blood pressure 143 mm[Hg] No PCP None [facility] 100 Work Phone: 1949 23:00-0500 >na< Amanda Jung Dept. of Dermatology Encounters Encounter Date Encounter Type Care Provider Facility Start: 01-14-2024 ambulatory Kandace Meza PA-C Facility:[facility] Start: 12-28-2023 Encounter for other preprocedural examination [facility] Start: 12-28-2023 End: 12-29-2023 ambulatory [facility] Start: 12-27-2023 End: 12-27-2023 ambulatory [facility] Start: 12-26-2023 End: 12-26-2023 ambulatory [facility] Start: 12-24-2023 End: 12-24-2023 ambulatory [facility] Start: 12-24-2023 End: 12-26-2023 ambulatory [facility] Start: 12-22-2023 End: 12-22-2023 ambulatory [facility] Start: 12-22-2023 End: 12-22-2023 ambulatory [facility] Start: 12-21-2023 End: 12-21-2023 ambulatory DIVINA NG [facility] Start: 12-20-2023 End: 12-20-2023 ambulatory QUINN CHAVEZ Not Available Start: 12-16-2023 End: 01-02-2024 ambulatory [facility] Start: 12-10-2023 End: 12-10-2023 ambulatory [facility] Start: 12-03-2023 Encounter for preprocedural cardiovascular examination [facility] Start: 12-03-2023 End: 12-03-2023 ambulatory [facility] Start: 12-01-2023 End: 12-01-2023 ambulatory [facility] Start: 12-01-2023 End: 12-01-2023 ambulatory MATHEW WARREN Not Available Start: 11-22-2023 End: 11-22-2023 ambulatory [facility] Start: 11-17-2023 End: 11-17-2023 ambulatory ROCAEL DEL ANGEL Not Available Start: 11-15-2023 End: 11-15-2023 ambulatory [facility] Start: 11-10-2023 End: 11-10-2023 ambulatory [facility] Start: 10-18-2023 End: 10-18-2023 ambulatory [facility] Start: 10-13-2023 End: 10-13-2023 ambulatory KATT [facility]tero [facility]ABEL [facility] Start: 10-13-2023 End: 11-01-2023 ambulatory [facility] Start: 09-21-2023 End: 09-21-2023 ambulatory [facility] Start: 09-09-2023 End: 09-09-2023 ambulatory [facility] Start: 08-23-2023 End: 08-23-2023 ambulatory [facility] Start: 08-19-2023 End: 08-19-2023 ambulatory ROCAEL GARNICA JR [facility] Start: 07-22-2023 Telephone encounter Lara Christopher [facility] General Surgery Start: 07-20-2023 End: 07-20-2023 Evaluation and management of inpatient BASSEM Kera GOLD [facility] Start: 07-19-2023 End: 07-20-2023 Evaluation and management of inpatient MARTI GASTON [facility] Start: 07-14-2023 End: 07-14-2023 Clinical Support [facility] Medication Therapy Management Comment on above: Type 2 diabetes funmi itus with stage 3 chronic kidney disease, without long-term current use of insulin, unspecified whether stage 3a or 3b CKD ([facility]) (Primary Dx) Start: 07-14-2023 End: 07-14-2023 Office outpatient visit 25 minutes Katt Michael PA-C Work Phone: [facility] Comment on above: Spinal stenosis of l umbar region with neurogenic claudication (Primary Dx); Disorder of sacrum; Lumbosacral spondylosis without myelopathy Start: 07-13-2023 End: 08-02-2023 ambulatory [facility] Pat Phone Call Provider 1 [facility] Start: 07-09-2023 End: 07-10-2023 ambulatory Kandace Kauffman PA-C Facility:[facility] Start: 07-06-2023 Refill Brayan Wray CMA PHN [facility] Start: 07-02-2023 Refill Sherri riddle MD Work Phone: [facility] Start: 07-02-2023 End: 07-02-2023 Office outpatient new 30 minutes [facility] DIE PRESSER-FOLLOW UP CLERK Work Phone: [facility] General Surgery Comment on above: Anemia, unspecified type (Primary Dx); Gastroesophageal reflux disease, unspecified whether esophagitis present Start: 07-02-2023 End: 07-02-2023 ambulatory [facility] Start: 06-23-2023 End: 06-24-2023 Clinical Support [facility] Med[facility] Therapy Management Comment on above: Type 2 diabetes funmi itus with stage 3 chronic kidney disease, without long-term current use of insulin, unspecified whether stage 3a or 3b CKD ([facility]) (Primary Dx) Start: 06-03-2023 End: 06-03-2023 Office outpatient visit 15 minutes Jordon Julien MD Work Phone: [facility] Comment on above: Coronary artery dise ase involving inupiat coronary artery of inupiat heart without angina pectoris (Primary Dx); SOB (shortness of breath); Acute on chronic diastolic congestive heart failure ([facility]); Obesity (BMI 35.0-39.9 without comorbidity); Primary hypertension; Stage 3b chronic kidney disease ([facility]) Start: 06-03-2023 End: 06-03-2023 ambulatory FIGUEROA PERALES [facility] Start: 06-02-2023 Orders Only Rocael leach DO Work Phone: [facility] Comment on above: Other specified diab etes mellitus with other specified complication ([facility]) Start: 06-02-2023 Telephone encounter Brenda cerda [facility] Start: 06-02-2023 End: 06-02-2023 Office outpatient visit 25 minutes Jr. Rocael Garnica DO Work Phone: [facility] Comment on above: Primary osteoarthrit is of right knee (Primary Dx); Other specified diabetes mellitus with other specified complication, unspecified whether halfway insulin use ([facility]) Start: 06-02-2023 End: 06-02-2023 ambulatory ROCAEL DEL ANGEL Not Available Start: 06-01-2023 End: 06-01-2023 ambulatory DIVINA NG [facility] Start: 05-27-2023 End: 05-27-2023 ambulatory SHERRI BRODERICK [facility] Start: 05-27-2023 End: 05-27-2023 Office outpatient visit 25 minutes Divina Ng MD Work Phone: [facility] Comment on above: Stage 3a chronic kid raul disease (CKD) ([facility]) (Primary Dx) Start: 05-26-2023 End: 05-26-2023 Office outpatient visit 25 minutes Katt Michael PA-C Work Phone: [facility] Comment on above: Spinal stenosis of l umbar region with neurogenic claudication; Lumbosacral spondylosis without myelopathy Start: 05-26-2023 End: 05-26-2023 Clinical Support [facility] 2 [facility] Med[facility] Therapy Management Comment on above: Type 2 diabetes funmi itus with stage 3 chronic kidney disease, without long-term current use of insulin, unspecified whether stage 3a or 3b CKD ([facility]) (Primary Dx) Start: 05-21-2023 Telephone encounter Saima Lucas MA [facility] Start: 05-20-2023 End: 05-20-2023 ambulatory DIVINA NG [facility] Start: 05-19-2023 End: 05-19-2023 ambulatory [facility] Start: 05-12-2023 End: 05-12-2023 Office outpatient visit 25 minutes Sherri Broderick MD Work Phone: [facility] Comment on above: Diabetes mellitus wi thout complication ([facility]) (Primary Dx); Primary hypertension; Obesity (BMI 35.0-39.9 without comorbidity) Start: 05-12-2023 End: 05-12-2023 ambulatory [facility] Start: 05-08-2023 End: 05-08-2023 ambulatory BRIT GIBSON [facility] Start: 05-07-2023 End: 05-07-2023 ambulatory LB THRASHER [facility] Start: 04-15-2023 Telephone encounter Bernie Benito RN [facility] Start: 04-14-2023 End: 04-14-2023 ambulatory ROCAEL DEL ANGEL Not Available Start: 04-09-2023 End: 04-10-2023 ambulatory Sherri Broderick MD Facility:[facility] Start: 04-07-2023 ambulatory SELF SELF Facility:[facility] Start: 04-07-2023 End: 04-07-2023 Office outpatient visit 25 minutes Suman Tineo MD Work Phone: [facility] Comment on above: Spinal stenosis of l umbar region with neurogenic claudication (Primary Dx); H/O lumbosacral spine surgery Start: 04-07-2023 End: 05-03-2023 ambulatory SHERRI Sanders [facility] Start: 04-01-2023 End: 04-02-2023 ambulatory Sherri Broderick MD Facility:[facility] Start: 03-23-2023 ambulatory ROCIO OGDEN Facility:[facility] Start: 03-23-2023 End: 03-23-2023 Office consultation new/estab patient 60 min Suman Tineo MD Work Phone: [facility] Comment on above: Closed nondisplaced fracture of pelvis, unspecified part of pelvis, initial encounter (Primary Dx); S/P lumbar fusion Start: 03-23-2023 End: 03-23-2023 Subsequent hospital visit by physician Suman Tineo MD Work Phone: [facility] Comment on above: Arrived Start: 02-23-2023 ambulatory KANDACE KAUFFMAN [facility] Start: 02-16-2023 End: 02-17-2023 ambulatory Sherri Broderick MD Facility:[facility] Start: 01-08-2023 End: 01-09-2023 ambulatory Sherri Broderick MD Facility:[facility] Start: 12-02-2022 ambulatory Sherri Broderick MD Facility:[facility] Start: 12-01-2022 End: 12-04-2022 Evaluation and management of inpatient Sukhdeep Dooley MD Facility:[facility] Start: 10-27-2022 End: 10-28-2022 ambulatory Kandace Kauffman PA-C Facility:[facility] Start: 10-20-2022 Demond Wilhelm Dept. of D ermatology Start: 09-22-[address] Jerry Barrera [place] Facility: Start: 09-08-2022 Chart Update Sherri riddle Work Phone: [facility] Work Phone: Start: 09-07-2022 End: 09-07-2022 Subsequent hospital visit by physician Duyen Lubin MD Work Phone: [facility] Comment on above: Malignant melanoma o f left upper limb, including shoulder (CMS/HCC); Essential (primary) hypertension; Type 2 diabetes mellitus without complications (CMS/HCC); Unspecified asthma, uncomplicated; Obesity, unspecified; Body mass index (BMI) 39.0-39.9, adult; keno terminal operator (current) use of aspirin; skilled nursing (current) use of oral hypoglycemic drugs Start: 09-01-2022 Amanda Jung Dept. of ermatology Start: 08-25-2022 Office outpatient ne w 45 minutes No PCP None [facility] 100 Work Phone: Start: 08-25-[address] Jerry Stearns Facility: Start: 08-17-[address] Paris Jang Facility:24 Start: 08-04-2022 End: 08-05-2022 ambulatory Kandace Kauffman PA-C Facility:[facility] Start: 07-11-2022 End: 07-12-2022 ambulatory Kandace CASANOVA-C Facility:[facility] Start: 09-02-2020 End: 09-03-[address] SHERRI BRODERICK Facility: Start: 12-17-2017 Patient encounter DEFAULT PHYSICIAN Facility:[facility] Procedures Date Procedure Procedure Detail Performing Clinician Start: 07-19-2023 Colonoscopy Katt reed PA-C Work Phone: Start: 07-02-2023 Colonoscopy Colonoscopy AMBERALFREDO WILD Start: 06-03-2023 Ecg routine ecg w/le ast 12 lds w/i&r Figueroa Perales MD Work Phone: Start: 06-03-2023 Follow-up visit Follow-up FIGUEROA PERALES Start: 05-12-2023 Adult depression scr eening assessment Sherri Broderick MD Work Phone: Start: 03-23-2023 Radex spine lumbosac ral minimum 4 views Rocio Ogden PAC Work Phone: Start: 02-11-2023 Adult depression scr eening assessment Bernie Benito RN Start: 01-25-2023 Mammography Jr. Juan cordero DO Work Phone: Start: 01-12-2023 Microalbumin [Mass/v olume] in Urine by Test strip Bernie Benito RN Start: 10-20-2022 Demond Jossy le Start: 09-07-2022 Lymphatics & lymph n odes imaging Duyen Luibn MD Work Phone: Start: 09-07-2022 Glucose [Mass/volume ] in Serum or Plasma Duyen Lubin MD Work Phone: Start: 09-07-2022 ELECTROCARDIOGRAM 12 LEAD Duyen Lubin MD Work Phone: Start: 09-07-2022 DERMATOPATHOLOGY RESULTS Duyen Lubin MD Work Phone: Start: 09-01-2022 Amanda montero Start: 07-29-2020 Diabetic retinal eye exam Bernie Benito RN Start: 01-16-2019 Colonoscopy Bernie hodges RN Start: 05-03-2008 Colonoscopy Jr. Juan cordero DO Work Phone: Plan of Treatment Date Care Activity Detail Author Start: 04-05-2033 DTaP,Tdap and Td Vaccines (2 - Td or Tdap) DTaP,Tdap and Td Vaccines (2 - Td or Tdap) [facility] Start: 04-05-2033 Tetanus vaccination TETANUS [facility] Start: 07-18-2028 Screening for malignant neoplasm of colon Colonoscopy [facility] Start: 07-18-2024 Adult BMI Screening Adult BMI Screening [facility] Start: 07-18-2024 Tobacco Screening Tobacco Screening [facility] Start: 07-18-2024 End: 07-18-2024 Patient encounter procedure 07/18/2024 1:15 PM EDT Off ice Visit [facility] [address] [place] [address] [facility] [place] [address] Benny Ayala MD [address] [place] [address] [facility] Start: 07-13-2024 Tobacco Screening Tobacco Screening [facility] Start: 07-12-2024 Adult BMI Screening Adult BMI Screening [facility] Start: 07-04-2024 Tobacco Screening Tobacco Screening [facility] Start: 07-01-2024 Adult BMI Screening Adult BMI Screening [facility] Start: 07-01-2024 Tobacco Screening Tobacco Screening [facility] Start: 06-03-2024 Adult BMI Screening Adult BMI Screening [facility] Start: 06-03-2024 Tobacco Screening Tobacco Screening [facility] Start: 05-27-2024 Adult BMI Screening Adult BMI Screening [facility] Start: 05-26-2024 Tobacco Screening Tobacco Screening [facility] Start: 05-12-2024 Adult BMI Screening Adult BMI Screening [facility] Start: 05-12-2024 Depression Screening Depression Screening [facility] Start: 05-12-2024 Fall Risk Screening Fall Risk Screening [facility] Start: 05-12-2024 Tobacco Screening Tobacco Screening [facility] Start: 05-07-2024 Tobacco Screening Tobacco Screening [facility] Start: 02-25-2024 Adult BMI Screening Adult BMI Screening [facility] Start: 02-16-2024 End: 02-16-2024 Patient encounter procedure 02/16/2024 11:00 AM EDT Of fice Visit [facility] [address] [place] [phone] Chantal Camacho, DIE PRESSER-FOLLOW UP CLERK [address] [place] [address], [place] [id number] [facility] Start: 02-15-2024 End: 02-15-2024 Patient encounter procedure 02/15/2024 11:00 AM EDT Of fice Visit [facility] [address] [place] [phone] Sherri Broderick MD [address] [place] [address] [facility] Start: 02-12-2024 Depression Screening Depression Screening [facility] Start: 02-12-2024 Fall Risk Screening [facility] Start: 02-12-2024 Medicare Annual Wellness Visit Medicare Annual Wellness Visi t [facility] Start: 01-26-2024 Screening for malignant neoplasm of breast Mammogram [facility] Start: 01-17-2024 Screening for malignant neoplasm of colon [facility] Start: 01-13-2024 Urine screening for protein Urine Microalbumin [facility] Start: 11-10-2023 End: 11-10-2023 Patient encounter procedure 11/10/2023 11:15 AM EDT Of fice Visit [facility] [address] [place] [address] Sherri Broderick MD [address] [place] [address] [facility] Start: 10-17-2023 End: 05-26-2024 Basic metabolic 2000 panel - Serum or Plasma Basic Metabolic Panel Lab Routine Stage 3a chronic kidney disease (CKD) ([facility] Expected: 10/17/2023 (Approximate), Expires: 05/26/2024 [facility] Work Phone: Comment on above: Expected: 10/17/2023 (Approximate), Expi res: 05/26/2024 Start: 10-17-2023 End: 05-26-2024 CBC panel - Blood by Automated count CBC without diff Lab Routine Stage 3a chronic kidney disease (CKD) ([facility]) Expected: 10/17/2023, Expires: 05/26/2024 [facility] [employer] [facility] Comment on above: Expected: 10/17/2023, Expires: Start: 10-17-2023 End: 05-26-2024 Magnesium [Mass/volume] in Serum or Plasma Magnesium Lab Routine Stage 3a chronic kidney disease (CKD) ([facility]) Expected: 10/17/2023, Expires: 05/26/2024 [facility] Comment on above: Expected: 10/17/2023, Expires: Start: 10-17-2023 End: 05-26-2024 Parathyroid Hormone, intact Parathyroid Hormone, intac t Lab Routine Stage 3a chronic kidney disease (CKD) ([facility]) Expected: 10/17/2023, Expires: 05/26/2024 [facility] Comment on above: Expected: 10/17/2023, Expires: Start: 10-17-2023 End: 05-26-2024 Phosphate [Mass/volume] in Serum or Plasma Phosphorus Lab Routine Stage 3a chronic kidney disease (CKD) ([facility]) Expected: 10/17/2023, Expires: 05/26/2024 [facility] Comment on above: Expected: 10/17/2023, Expires: Start: 10-17-2023 End: 05-26-2024 Protein creat ratio Protein creat ratio Lab Routine Stage 3a chronic kidney disease (CKD) ([facility]) Expected: 10/17/2023, Expires: 05/26/2024 [facility] [employer] [facility] Comment on above: Expected: 10/17/2023, Expires: Start: 10-17-2023 End: 05-26-2024 Vitamin D 25 hydroxy Vitamin D 25 hydroxy Lab Routine Stage 3a chronic kidney disease (CKD) ([facility]) Expected: 10/17/2023, Expires: 05/26/2024 [facility] Comment on above: Expected: 10/17/2023, Expires: Start: 08-23-2023 End: 08-23-2023 Clinical Support 08/23/2023 1:00 PM EDT Clinical Support [facility] Therapy Management [address] [place] [address] [facility] Start: 08-20-2023 End: 08-20-2023 Patient encounter procedure 08/20/2023 1:00 PM EDT Off ice Visit [facility] [address] [place] [phone] Jr. Rocael Garnica, DO [address] [place] [address] [facility] Start: 07-19-2023 End: 07-19-2023 Admission to same day surgery center 07/19/2023 10:00 AM EDT - 07/19/2023 10:45 AM EDT Surgery [facility] [address] [place] [phone] Marti Gaston, DO [address] [place], [place] [phone] ESOPHAGOGASTRODUODENOSCOPY DIAGNOSTIC [65382 (CPT )] [facility] Comment on above: ESOPHAGOGASTRODUODENOSCOPY DIAGNOSTIC [4 3235 (CPT )] Start: 07-19-2023 End: 07-19-2023 Anesthesia consultation 07/19/2023 10:00 AM EDT Anesthesia Event [facility] [address] [place] [phone] Bassem Malcolm, DO [address] [facility], [place] [phone] [facility] Start: 07-19-2023 End: 07-19-2023 Colonoscopy flx dx w/collj spec when pfrmd [facility] Start: 07-19-2023 End: 07-19-2023 Esophagogastroduodenoscopy transoral diagnostic [facility] Start: 07-19-2023 Subsequent hospital visit by physician 07/19/2023 10:00 AM EDT Hospital Encounter [facility] [address] [place] [address] Marti Gaston, DO [address] [place], [place] [phone] [facility] Start: 07-14-2023 End: 07-14-2023 Patient encounter procedure [facility] Start: 07-13-2023 End: 07-13-2023 ambulatory 07/13/2023 2:40 PM EDT Suppo rt Visit [facility] Admit [address] [place] [address] [facility] Start: 07-02-2023 End: 07-02-2023 Patient encounter procedure 07/02/2023 1:00 PM EST Off [facility] Visit [facility] [address] [place] [address] Amber Wild, DIE PRESSER-FOLLOW UP CLERK [address] [place] [address] [facility] Start: 06-23-2023 End: 06-23-2023 Clinical Support 06/23/2023 1:00 PM EST Clinical Support [facility] [address] [place] [address] [facility] Start: 06-03-2023 End: 05-27-2024 Erythropoietin Erythropoietin Lab Routine Stage 3a chronic kidney disease (CKD) ([facility]) Expected: 06/03/2023 (Approximate), Expires: 05/27/2024 [facility] Comment on above: Expected: 06/03/2023 (Approximate), Expi res: 05/27/2024 Start: 06-03-2023 End: 05-27-2024 Occult blood x 1, stool Occult blood x 1, stool Lab Routine Stage 3a chronic kidney disease (CKD) ([facility]) Expected: 06/03/2023 (Approximate), Expires: 05/27/2024 [facility] [employer] [facility] Comment on above: Expected: 06/03/2023 (Approximate), Expi res: 05/27/2024 Start: 06-03-2023 End: 06-03-2023 Patient encounter procedure 06/03/2023 11:30 AM EST [facility] [address] [place] [phone] Jordon Julien MD [address] [place] [address] Figueroa Perales MD [address] [place] [address] [facility] Start: 06-02-2023 End: 06-02-2024 Hemoglobin A1c measurement Hemoglobin A1c Lab Routine Other specified diabetes mellitus with other specified complication, unspecified whether halfway insulin use ([facility]) Expected: 06/02/2023 (Approximate), Expires: 06/02/2024 [facility] [employer] Work Phone: Comment on above: Expected: 06/02/2023 (Approximate), Expi res: 06/02/2024 Start: 06-02-2023 End: 06-02-2024 Hemoglobin A1c/Hemoglobin.total in Blood Hemoglobin A1c Lab Routine Other specified diabetes mellitus with other specified complication ([facility]) Expected: 06/02/2023, Expires: 06/02/2024 [facility] Work Phone: Comment on above: Expected: 06/02/2023, Expires: Start: 05-27-2023 End: 05-27-2023 Patient encounter procedure 05/27/2023 2:30 PM EST Off ice Visit [facility] [address] [place] [phone] Divina Ng MD [address] [place] [phone] [facility] Start: 05-26-2023 End: 05-26-2023 Patient encounter procedure 05/26/2023 2:45 PM EST Off ice Visit [facility] [address] [place] [address] Katt Michael PA-C [address] [place] [address] [facility] Start: 05-26-2023 End: 05-26-2023 Clinical Support 05/26/2023 1:30 PM EST Clinical Support [facility] [address] [place] [address] [facility] Start: 05-21-2023 End: 05-20-2024 CBC W Auto Differential panel - Blood CBC auto differential Lab Routine Anemia, unspecified type Expected: 05/21/2023, Expires: 05/20/2024 [facility] Work Phone: Comment on above: Expected: 05/21/2023, Expires: Start: 05-19-2023 End: 05-19-2023 Patient encounter procedure 05/19/2023 9:30 AM EST Appointment [facility] [address] [place] [phone] [facility] Start: 05-12-2023 End: 05-12-2023 Patient encounter procedure 05/12/2023 12:30 PM EST Of fice Visit [facility] [address] [place] [phone] Katt Michael PA-C [address] [place], [place] [phone] [facility] Start: 05-12-2023 End: 05-12-2023 Patient encounter procedure 05/12/2023 11:15 AM EST Of fice Visit [facility] [address] [place] [phone] Sherri Broderick MD [address] [place], [place] [phone] [facility] Start: 03-23-2023 End: 03-23-2024 MR Pelvis WO contrast MRI PELVIS WITHOUT CONTRAST Imaging Routine Closed nondisplaced fracture of pelvis, unspecified part of pelvis, initial encounter Expected: 03/23/2023, Expires: 03/23/2024 [facility] Comment on above: Expected: 03/23/2023, Expires: Start: 01-01-2023 COVID-19 VACCINE () COVID-19 VACCINE () [facility] Start: 01-01-2023 Influenza vaccination Influenza Vaccine (#1) [facility] Start: 12-08-2022 Diabetic foot examination Diabetic Foot Exam [facility] Start: 09-22-2022 FUVCANCER, Provider: Duyen Lubin, Status: Pen, Time: 10:20 AM FUVCANCER, Provider: Duyen Lubin, Status: Pen, Time: 10:20 AM [id number] [facility] Work Phone: Start: 07-29-2021 Glaucoma screening Diabetic Ophthalmology Exam [facility] Start: 05-03-2018 Screening for malignant neoplasm of colon [facility] Start: 1999 Zoster Vaccines (1 of 2) Zoster Vaccines (1 of 2) [facility] Start: 1994 Screening for malignant neoplasm of colon COLORECTAL CANCER SCREENING DISCUSSION [facility] Start: 1989 Lipid panel LIPID SCREENING [facility] Start: 1989 Screening for malignant neoplasm of breast [facility] Start: 1971 DTaP/Tdap/Td Vaccines (1 - Tdap) DTaP/Tdap/Td Vaccines (1 - Tdap) [facility] Start: 1970 Screening for malignant neoplasm of cervix CERVICAL CANCER SCREENING DISCUSSION [facility] Start: 1968 Third diphtheria, tetanus and acellular pertussis (DTaP) vaccination TDAP (ADULT) [facility] Start: 1968 Urine screening for protein Diabetes: Urine Protein Screening [facility] Start: 1967 Adult BMI Follow Up Plan Adult BMI Follow Up Plan [employer] Start: 1967 Hepatitis C screening Hepatitis C Screening [facility] Start: 1959 Diabetic foot examination Diabetes: Foot Exam [facility] Start: 1959 Glaucoma screening Diabetes: Retinopathy Screening [facility] Start: 1955 Pneumococcal Vaccine: 65+ Years (1 - PCV) Pneumococcal Vaccine: 65+ Years (1 - PCV) [facility] Start: 1949 COVID-19 Vaccine (#1) COVID-19 Vaccine (#1) [facility] Start: 1949 Examination of skin Derm Melanoma Skin Check [facility] Start: 1949 Hemoglobin A1c measurement Diabetes: Hemoglobin A1C [facility] Start: 1949 Hepatitis C screening HEPATITIS C VIRUS SCREENING [facility] Start: 1949 Lipid panel Lipid Panel [facility] Start: 1949 Potassium [Moles/volume] in Serum or Plasma POTASSIUM [facility] Start: 1949 Screening for malignant neoplasm of colon [facility] Start: 1949 Screening for osteoporosis [facility] Start: 1949 Tetanus vaccination TETANUS [facility] Start: 1949 Yearly Adult Physical Yearly Adult Physical [facility] End: 07-01-2024 EGD / Colonoscopy EGD / Colonoscopy GI Routine Anemia, unspecified type 1 Occurrences starting 07/02/2023 until 07/01/2024 [employer] Work Phone: Comment on above: 1 Occurrences starting 07/02/2023 until 07/01/2024 Erythropoietin (EPO) [Units/volume] in Serum or Plasma Erythropoietin Lab Routine Stage 3a chronic kidney disease (CKD) ([facility]) 05/27/2023 3:14 PM EST [employer] [facility] Work Phone: End: 05-26-2024 Urinalysis Urinalysis Lab Routine Stage 3a chronic kidney disease (CKD) ([facility]) 1 Occurrences starting 05/27/2023 until 05/26/2024 [facility] Comment on above: 1 Occurrences starting 05/27/2023 until 05/26/2024 End: 07-13-2024 XR Thoracic spine 3 Views X-ray spine thoracic 3 views Imaging Routine Spinal 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 of sacrum Lumbosacral spondylosis without myelopathy 1 Occurrences starting 07/14/2023 until 07/13/2024 [facility] Work Phone: Comment on above: 1 Occurrences starting 07/14/2023 until 07/13/2024 Immunizations Immunization Date Immunization Notes Care Provider [facility] 04-05-2023 Influenza, High-dose , Quadrivalent Sherri Broderick MD Work Phone: [facility] 04-05-2023 tetanus toxoid, reduced diphtheria toxoid, and acellular pertussis vaccine, adsorbed Sherri Broderick MD Work Phone: [facility] 01-13-2023 Pneumococcal Conjuga te 20-valent Bernie Benito RN [facility] 03-02-2022 Influenza, High-dose , Quadrivalent Bernie Benito RN [facility] 03-02-2022 influenza virus vaccine, unspecified formulation Suman Tineo MD Work Phone: [facility] 02-17-2021 Influenza, High-dose , Quadrivalent Bernie Benito RN [facility] 02-06-2020 Influenza, High-dose , Quadrivalent Bernie Benito RN [facility] 02-06-2019 influenza, high dose seasonal, preservative-free Bernie Benito RN [facility] 02-06-2019 influenza, injectabl e, quadrivalent, preservative free Bernie Benito RN [facility] 05-17-2018 zoster vaccine recombinant Bernie Benito RN [facility] 02-16-2018 zoster vaccine recombinant Bernie Benito RN [facility] 01-25-2018 influenza, high dose seasonal, preservative-free Bernie Benito RN [facility] 01-31-2017 influenza, seasonal, injectable, preservative free Bernie Benito RN [facility] 03-01-2015 pneumococcal conjuga te vaccine, 13 valent Bernie Benito RN [facility] 1949 pneumococcal conjuga te vaccine, 7 valent Amanda [facility] Payers Date Payer Category Payer Unknown 2014 Medicare [id number] 1959 Medicare [id number] 1959 Unknown [id number] 1949 Unknown [id number] 2.16.84 0.1.140461.3.579.2.593 1949 Unknown [id number] 2.16. 840.1.015715.3.579.2.356 1949 Unknown [id number] 2.16. 840.1.561583.3.579.2.356 1949 Unknown [id number] 2.16. 840.1.251076.3.579.2.356 1949 Unknown [id number] 2.16. 840.1.376108.3.579.2.594 1949 Unknown [id number] 2.16. 840.1.811431.3.579.2.594 1949 Unknown [id number] 2.16. 840.1.476104.3.579.2.594 1949 Unknown [id number] 2.16. 840.1.451077.3.579.2.594 1949 Unknown [id number] 2.16. 840.1.433951.3.579.2.594 1949 Unknown [id number] 2.16. 840.1.899173.3.579.2.196 1949 Unknown [id number] 2.16. 840.1.212913.3.579.2.196 1949 Unknown [id number] 2.16. 840.1.713238.3.579.2.196 1949 Unknown [id number] 2.16. 840.1.085362.3.579.2.196 1949 Unknown [id number] 2.16. 840.1.892761.3.579.2.196 1949 Unknown [id number] 2.16. 840.1.927519.3.579.2.196 1949 Unknown [id number] 2.16. 840.1.854345.3.579.2.196 1949 Unknown [id number] 2.16. 840.1.651368.3.579.2.196 1949 Unknown [id number] 2.16. 840.1.691380.3.579.2.196 1949 Unknown [id number] 2.16. 840.1.052294.3.579.2.196 1949 Unknown [id number] 2.16. 840.1.251284.3.579.2.196 1949 Unknown [id number] 2.16.84 0.1.530106.3.579.2.1259 1949 Unknown [id number] 2.16.84 0.1.011654.3.579.2.1259 1949 Unknown [id number] 2.16.84 0.1.845691.3.579.2.1259 1949 Unknown [id number] 2.16.84 0.1.689475.3.579.2.1259 1949 Unknown [id number] 2.16.840 .1.904211.3.579.2.1259 1949 Unknown [id number] 2.16.8 40.1.578002.3.579.2.1286 1949 Unknown [id number] 2.16.8 40.1.969627.3.579.2.1286 1949 Unknown [id number] 2.16.8 40.1.803594.3.579.2.1286 1949 Unknown [id number] 2.16.84 0.1.867896.3.579.2.1285 1949 Unknown [id number] 2.16.8 40.1.345557.3.579.2.1285 1949 Unknown [id number] 2.16.8 40.1.312978.3.579.2.1285 1949 Unknown [id number] 2.16.8 40.1.609916.3.579.2.6 1949 Unknown [id number] 2.16.8 40.1.976002.3.579.2.1285 1949 Unknown [id number] 2.16.8 40.1.747520.3.579.2.1286 1949 Unknown [id number] 2.16.8 40.1.025128.3.579.2.1285 1949 Unknown [id number] 2.16.8 40.1.994001.3.579.2.6 1949 Unknown [id number] 2.16.8 40.1.463213.3.579.2.1285 1949 Unknown [id number] 2.16.8 40.1.246263.3.579.2.1286 1949 Unknown [id number] 2.16.8 40.1.113325.3.579.2.1285 1949 Unknown [id number] 2.16.8 40.1.429562.3.579.2.1285 1949 Unknown [id number] 2.16.8 40.1.198785.3.579.2.1285 1949 Unknown [id number] 2.16.8 40.1.473863.3.579.2.6 1949 Unknown [id number] 2.16.8 40.1.908752.3.579.2.1286 1949 Unknown [id number] 2.16.8 40.1.232133.3.579.2.1285 1949 Unknown [id number] 2.16.8 40.1.734739.3.579.2.128 1949 Unknown [id number] 2.16.8 40.1.610840.3.579.2.1285 1949 Unknown [id number] 2.16.8 40.1.405368.3.579.2.1285 1949 Unknown [id number] 2.16.8 40.1.271567.3.579.2.1285 1949 Unknown [id number] 2.16.8 40.1.129547.3.579.2.128 1949 Unknown [id number] 2.16.8 40.1.922333.3.579.2.1285 1949 Unknown [id number] 2.16.8 40.1.967045.3.579.2.6 1949 Unknown [id number] 2.16.8 40.1.370980.3.579.2.1285 1949 Unknown [id number] 2.16.8 40.1.296809.3.579.2.1286 1949 Unknown [id number] 2.16.8 40.1.683239.3.579.2.128 1949 Unknown [id number] 2.16.8 40.1.542337.3.579.2.1285 1949 Unknown [id number] 2.16.8 40.1.040037.3.579.2.128 1949 Unknown [id number] 2.16.8 40.1.851770.3.579.2.1286 1949 Unknown [id number] 2.16.8 40.1.964961.3.579.2.1286 1949 Unknown [id number] 2.16.8 40.1.751314.3.579.2.1286 1949 Unknown [id number] 2.16.8 40.1.065779.3.579.2.1286 1949 Unknown [id number] 2.16.8 40.1.844613.3.579.2.1286 1949 Unknown [id number] 2.16.8 40.1.766266.3.579.2.1286 1949 Unknown [id number] 2.16.8 40.1.211075.3.579.2.1286 1949 Unknown [id number] 2.16.8 40.1.240456.3.579.2.1286 1949 Unknown [id number] 2.16.8 40.1.809567.3.579.2.1286 1949 Unknown [id number] 2.16.8 40.1.275995.3.579.2.1286 1949 Unknown [id number] 2.16.8 40.1.845706.3.579.2.1286 1949 Unknown [id number] 2.16.84 0.1.017337.3.579.2.1286 1949 Unknown [id number] 2.16.84 0.1.323518.3.579.2.1286 1949 Unknown [id number] 2.16.84 0.1.503274.3.579.2.1286 1949 Unknown [id number] 2.16.84 0.1.414420.3.579.2.128 1949 Unknown [id number] 2.16.84 0.1.572681.3.579.2.1286 1949 Unknown [id number] 2.16.84 0.1.612800.3.579.2.1286 1949 Unknown [id number] 2.16.84 [id number] Social History Date Type Detail Facility Start: 09-01-2022 Dept. of D ermatology Start: 1950 Sex Assigned At Female D ept. of Dermatology Start: 1950 Sex Assigned At Not on file [facility] Work Phone: Start: 05-05-2018 End: 05-20-2020 Gender identity Not on file [facility] Work Phone: Start: 03-04-2022 End: 12-23-2022 Tobacco smoking status NHIS Never smoked tobacco [facility] Start: 03-04-2022 End: 12-23-2022 Tobacco use and exposure Smokeless tobacco non-user [facility] Start: 04-13-2023 End: 06-03-2023 Alcohol intake Ex-drinker (finding) [facility] Start: 05-05-2018 End: 05-20-2020 History of Social function [facility] Frequency of Alcohol Consumption Monthly or less [facility] Start: 06-16-2021 Alcohol Comment rarely/less th an 1 per month [facility] Start: 07-02-2023 End: 07-14-2023 Alcohol intake Current drinker of alcohol (finding) [facility] Medical Equipment Procedure Code Equipment Code Equipment Origin al Text Equipment Identifier Dates 6x22 Ureteral Stent ([id number] Start: 06-30-2021 Comment on above: Description: string adhered to left leg use to test bloo d sugar EVERY MORNING [id number] Start: 09-13-2020 use to test BLOO D SUGAR EVERY MORNING [id number] Start: 09-13-2020 Goals Date Patient Goal Desired Activity /State Personal health goal Comment on above: Formatting of this n ote might be different from the original. Evaluation of progress towards goal: feeling some better, coughing a lot, on O2 Clinical Notes 09-07-2022 to 07-22-2023 Telephone Encounter - Lara Christopher CMA - 07/22/2023 10:43 AM EDTTelephone Encounter - Lara Christopher CMA - 07/22/2023 10:43 AM EDTTelephone Encounter - Lara Christopher CMA - 07/22/2023 10:43 AM EDT Note Date & Type Note Facility 07-22-2023 Miscellaneous Notes Formattin g of this note might be different from the original. 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 She should be on a proton pump inhibitor if not let me know and I will prescribe 1. Dr. Usman Clark Spoke with patient regarding pathology results. Patient verbally understood with no further questions. Recall will be put into chart and information will be mailed to patient. 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 She should be on a proton pump inhibitor if not let me know and I will prescribe 1. Dr. Usman Clark [facility] 07-22-2023 Telephone encount er Note Spoke with patient regarding pathology results. Patient verbally understood with no further questions. Recall will be put into chart and information will be mailed to patient. [facility] 07-15-2023 Evaluation note Diagnosis Type 2 diabetes mellitus with stage 3 chronic kidney disease, without long-term current use of insulin, unspecified whether stage 3a or 3b CKD ([facility])- Primary documented in this encounter [facility]03-13-2024 Miscellaneous Notes* Telephone Encounter - Bernie Benito RN - 07/14/2023 3:14 PM EDT Call placed to patient to inform her that a thoracic spine x- ray has been ordered. No answer. Message left that patient can have x-ray done anytime but will need to be completed prior to follow up appointment. Patient to call if she has any questions. [facility] Telephone encounter Note* Telephone Encounter - Bernie Benito RN - 07/14/2023 3:14 PM EDT Call placed to patient to inform her that a thoracic spine x- ray has been ordered. No answer. Message left that patient can have x-ray done anytime but will need to be completed prior to follow up appointment. Patient to call if she has any questions. [facility]03-13-2024 History of Present illness Narrative* Katelin Noe, [facility] - 07/14/2023 1:[address] [facility] [address] [facility] [id number] Subjective SUBJECTIVE: Referring Provider: Sherri Broderick MD [facility] Referring Provider: Yes Consult Agreement: Yes Employee Program:No Tessa Syed is a 73 y.o. (White or [1]) female who presents for an initial MTM visitof Type 2 Diabetes Mellitus. Tessa Syed is accompanied by her . At last PharmD visit, glimepiride was increased. After last visit, glimepiride was further increased to 4 mg BID with meals. Patient reports tolerating her medications without concern. She has no symptoms of hyper or hypoglycemia. She will be holding Ozempic for procedure this coming week, and will need A1C checked prior to her orthopedic surgery visit to assess if low enough to proceed with surgery. Pertinent current medications include: Glimepiride 4 mg PO BID with meals Metformin 500 mg BID Ozempic 1mg SQ Weekly Pertinent previous medications include: Metformin dose >1000 mg/day d/t GI side effects PERTINENT PAST MEDICAL HISTORY: Chronic Kidney Disease: Yes Atherosclerotic Cardiovascular Disease (ASCVD): No Heart Failure with Reduced/Preserved Ejection Fraction: Yes Pancreatitis/Gastroparesis: No Medullary Thyroid Carcinoma: No Bariatric Surgery: No Genitourinary Fungal Infections: Yes; chronic asymptomatic bacteruria; not a candidate for SGLT2i DIET - Implementing positive choices Discussed diet cranberry and Trop50 for juice alternatives with lower carbohydrates Discussed balancing fruit with a protein EXERCISE: Has back pain, been challenging to exercise TESTING Home blood glucose: Patient checks blood glucose once daily. Blood Glucose Device Brand: [employer] Diabetic Supplier: Retail Date FBG AC [facility] 07/13 148 07/12 84 07/11 134 257 07/10 209 /9 149 3/8 148 3/7 100 Objective OBJECTIVE: Vitals: There were no vitals taken for this visit. Wt Readings from Last 3 Encounters: 07/13/23 79.4 kg (175 lb) 07/02/23 79.4 kg (175 lb) 06/03/23 80.7 kg (178 lb) BMI: There is no height or weight on file to calculate BMI. A1c: Lab Results Component Value Date HGBA1C 8.1 (H) 05/20/2023 HGBA1C 7.4 (H) 02/15/2023 HGBA1C 8.9 (H) 01/12/2023 HGBA1C 9.8 (H) 12/10/2022 HGBA1C 10.5 (H) 08/13/2022 No results found for: [id number] @RESUDAST(POCA1C:5)@ No results found for: GRIIIRZ0K SCr: Lab Results Component Value Date CREATININE 1.15 (H) 05/20/2023 GFR: GFR MDRD Af Amer Date Value Ref Range Status 12/03/2021 55 (L) >59 ml/min/1.73sq.m Final GFR MDRD Non Af Amer Date Value Ref Range Status 12/03/2021 45 (L) >59 ml/min/1.73sq.m Final UACR: Alb/creat ratio Date/Time Value Ref Range Status 01/12/2023 10:04 AM 39.9 (H) 0.0 - 30.0 mg/g creat Final 08/13/2022 10:53 AM 76.7 (H) 0.0 - 30.0 mg/g creat Final No results found for: EXTPOCALB No results found for: EXTUMICOR No components found for: PROTCREATRA U/Pro/Corrections Caseworker Ratio Calc Date/Time Value Ref Range Status 05/20/2023 10:09 AM 0.41 (H) <0.2 Final Comment: Nephrotic Syndrome is associated with ratios >3.5 09/15/2022 09:39 AM 0.91 (H) <0.2 Final Comment: Nephrotic Syndrome is associated with ratios >3.5 Vitamin B12 Level: Lab Results Component Value Date [id number] 293 05/27/2023 Lipid Management: Lab Results Component Value Date CHOL 120 (L) 01/12/2023 CHOL 139 (L) 08/13/2022 No results found for: EXTCHOL No results found for: EXTPOCCHO Lab Results Component Value Date HDL 44 01/12/2023 HDL 51 08/13/2022 No results found for: EXTCHOHDL No results found for: EXTPOCHDL Lab Results Component Value Date LDLCALC 40 01/12/2023 LDLCALC 45 08/13/2022 No results found for: EXTLDL No results found for: EXTPOCLDL Lab Results Component Value Date TRIG 178 (H) 01/12/2023 TRIG 217 (H) 08/13/2022 No results found for: EXTRIG No results found for: EXTPOCTRIG The ASCVD Risk score (Roc LEMUS, et al., 2019) failed to calculate for the following reasons: The valid total cholesterol range is 130 to 320 mg/dL ADA Diabetes Quality Measures: Comments: - A1c: Up to date 02/15/23 7.4% - Kidney Screening: - SCr: Up to date 01/12/23 ; eGFR improved to 50 - UACR: Up to date 01/12/23 ; Improved to 39.9 - Lipid Screening: Up to date 01/12/23 TG 178 - Eye Exam: Up to date 2-3 times per year - Foot Exam: Up to date PCP checks - Dental Exam: Up to date every 6 months - Tobacco User: No - On Aspirin: Yes - On SERENITY/ARB: No - On Statin: Yes - Immunizations: Influenza Complete: Yes Pneumonia Complete: Yes Hepatitis B Complete: Shingles Complete: Yes Tdap Complete: Yes Covid Complete: Yes Immunization History Administered Date(s) Administered COVID-19, mRNA, LNP-S, PF, 30mcg/0.3mL Dose 12/13/2020, 01/10/2021 Influenza (IM) Preservative Free 01/31/2017 Influenza High Dose Preservative Free IM 01/25/2018, 02/06/2019 Influenza, High-dose, Quadrivalent 02/06/2020, 02/17/2021, 03/02/2022, 04/05/2023 Influenza, Injectable, quadrivalent (PF) 02/06/2019 Pneumococcal Conjugate 13-Valent 03/01/2015 Pneumococcal Conjugate 20-valent 01/13/2023 Tdap 04/05/2023 Zoster Vaccine Recombinant 02/16/2018, 05/17/2018 ASSESSMENT/PLAN: ASSESSMENT: Type 2 Diabetes Mellitus: uncontrolled as evidenced by hemoglobin A1c of 8.1% on 24 . And FBS are elevated 140s-160s. High carb food choices, and lack of activity are tamayo reasons for elevated BG Tolerating medications without concern. We will titrate Ozempic to optimize GLP- 1 mechanism. Discussed further substitutions to lower carb intake, patient agreeable to trying these EDUCATION / ADA MEASURES: Reviewed general diabetes pathophysiology and management Reviewed A1C and blood glucose goals Reviewed signs and symptoms of hyperglycemia/hypoglycemia and how to treat Reviewed diabetes medication dosing, route, frequency, and side effects Requested to bring in blood sugar readings to next visit MEDICATION PLAN: Increase Ozempic to 2 mg weekly Glucose logs indicate PPG remains above goal. Fasting readings vary with some controlled and other uncontrolled readings. Patient is tolerating Ozempic without concern, therefore we will increase dosing to optimize GLP-1 mechanism Current diabetes medications: Glimepiride to 4 mg BID with meals Metformin 500 mg BID Ozempic 2 mg weekly Refills needed on pertinent current medications/supplies: No Patient Assistance, Graphic Design Manager Coupon, or Prior Authorization: No MONITORING: CGM: No Glucometer Testing: Daily (alternating fasting and post-prandial) FOLLOW UP: Next PCP visit: 11.10.23 Next Pharmacist visit: 08/23/23 Signature: Katelin Noe PharmD ,[facility] 30 minute [id number] follow-up appointment. Katelin Noe RPH 07/15/23 1256 [facility] History of Present illness Narrative* Katt Michael PA-C - 07/14/2023 12:45 PM EDT [facility] [address] [place] [address] Patient: Tessa Syed Sex: female : 1950 Age: 73 y.o. PCP: Sherri Broderick MD 07/14/2023 Tessa Syed is here for a(n) follow up. She reports her pain is worse. Lyrica helps but only makes her pain 5-6/10. Chief Complaint Patient presents with Back Pain HPI: Knee: 02/06/22 Rt Gen NB w/100% relief for 2 weeks 03/13/2022 Right genicular RFA w/ 0% relief 05/12/2022 Right knee injection in clinic with 85% relief x 6 weeks Rt Knee Synvisc Series w/0% relief Back: 04/03/2022 bilateral SIJ injections with 75 % relief x 2 days. 02/18/2022 Left knee in office injection w/ 100% relief that continues. 04/17/22 L 3/4 MAGED with 50% relief only for 2 weeks then baseline. 06/19/2022 Bilateral L2/3, 3/4 MBB with 70% relief continuing 08/14/2022 Bilat L 2/3 2/4 MBB with 50% relief 11/13/2022 Right L 2/3 3/4 RFA 90% relief until fall on 12/01/2022 11/27/2022 Left L 2/3 3/4 RFA 90% relief until fall on 12/01/2022 05/07/2023 L 3,4 epidural steroid injection with no relief Physical Therapy 12/04/2022 - 12/11/2022 Inpatient therapy at [facility] facility 12/11/2022 Outpatient therapy 2x week for 3 months Back Pain This is a chronic problem. Episode onset: Had back surgery august 12, 2017 had pain years before that. The problem occurs constantly. The problem has been gradually worsening since onset. The pain is present in the lumbar spine and sacro-iliac (across the back, right SI joint). The quality of the pain is described as stabbing and shooting (shooting with transitioning). The pain does not radiate. Pain scale: 6-7/10 currently and periodically gets stabbing pain 10/10 with transitioning. The pain is severe. The pain is Worse during the day (worse with transitioning). Exacerbated by: standing, walking, stairs, bending, lifting, twisting, pushing/pulling, transitioning. Stiffness is present: varies, off and on. Associated symptoms include weakness (BLE, wheelchair). Pertinent negatives include no abdominal pain, bladder incontinence, bowel incontinence, chest pain, fever, leg pain, numbness or tingling. Risk factors include obesity. Treatments tried: tylenol arthritis, mobic, ice, salonpas patches with no relief; motrin 600-800, heat with min relief. PT/aqua therapy (October 2021) but causedworsening pain, TENS unit. The treatment provided no relief. The effect of pain on patient's ADLS: Moderate Impairment. Past Medical History: Diagnosis Date Anemia Arthritis Asthma Reactive airway Bladder prolapse, female, acquired Cataract Chronic kidney disease, stage 3b (CMS-HCC) COVID-19 08/2020 5 days ICU Degenerative arthritis of thoracic spine Degenerative disc disease at L5-S1 level Diabetes mellitus type 2, controlled ([facility]) 2010 GERD (gastroesophageal reflux disease) Glaucoma Hyperlipidemia Hypertension Kidney stone Melanoma ([facility]) Obesity Pneumonia 08/2020 PONV (postoperative nausea and vomiting) Shortness of breath Urinary frequency Visual impairment Glasses Past Surgical History: Procedure Laterality Date BACK SURGERY 08/12/2017 Posterior spinal fusion L4,L5,S1 with instrumentation BREAST BIOPSY Left 1989 Benign excisional COLONOSCOPY 06/29/2008 Dr. Rodriguez COLONOSCOPY 06/03/2012 Dr. Rodriguez COLONOSCOPY N/A 01/16/2019 Performed by Honorio Rodriguez MD at [facility] COLONOSCOPY W/ POLYPECTOMY CYSTOSCOPY INSERTION STENT URETER Right 06/30/2021 Performed by Benny Ayala MD at [facility] CYSTOSCOPY RETROGRADE PYELOGRAM Left 06/30/2021 Performed by Benny Ayala MD at [facility] CYSTOSCOPY URETEROSCOPY; Retrograde; Basket Left 10/08/2016 Performed by Benny Ayala MD at [facility] EXPLORATORY LAPAROTOMY 06/22/1986 Left salpingo-Oophorectomy, resection of right ovarian nodule EYE SURGERY Left 11/28/2014 [facility] EYE SURGERY Right 12/03/2014 [facility] HERNIA REPAIR 05/30/2008 Umbilical with mesh repair INJECTION BLOCK EPIDURAL STEROID LUMBAR/SACRAL L 3/4 MAGED N/A 05/07/2023 Performed by Lb Thrasher MD at [facility] INJECTION BLOCK EPIDURAL STEROID LUMBAR/SACRAL L 3/4 MAGED N/A 04/17/2022 Performed by Lb Thrasher MD at [facility] INJECTION BLOCK NERVE KNEE Right Genicular Right 02/06/2022 Performed by Lb Thrasher MD at [facility] INJECTION BLOCK NERVE MEDIAL BRANCH Bilat L 2/3, 3/4 Bilateral 08/14/2022 Performed by Lb Thrasher MD at [facility] INJECTION BLOCK NERVE MEDIAL BRANCH Bilat L 2/3,3/4 Bilateral 06/19/2022 Performed by Lb Thrasher MD at [facility] INJECTION BLOCK SACROILIAC JOINT Bilateral 04/03/2022 Performed by Lb Thrasher MD at [facility] INJECTION MEDIAL BRANCH NERVE BLOCK Left L3/4, 4/5, 5/1 MBB 2 of 2 Left 04/02/2017 Performed by Lb Thrasher MD at [facility] INJECTION MEDIAL BRANCH NERVE BLOCK Left L3/4, 4/5, 5/1BB 2 of 2 Left 04/16/2017 Performed by Lb Thrasher MD at [facility] LAPAROSCOPIC OVARIAN CYSTECTOMY Left 10/08/2016 Right wedge resection LASER HOLMIUM URETEROSCOPY RENAL STONES < OR=1CM, right ureteral dilation Right 06/30/2021 Performed by Benny Ayala MD at [facility] SURGERY RADIOFREQUENCY ABLATION GENICULAR Right 03/13/2022 Performed by Lb Thrasher MD at [facility] RADIOFREQUENCY ABLATION SPINAL Left L 2/3, 3/4 Left 11/27/2022 Performed by Lb Thrasher MD at [facility] RADIOFREQUENCY ABLATION SPINAL Right L 2/3, 3/4 Right 11/13/2022 Performed by Lb Thrasher MD at [facility] SKIN CANCER EXCISION Left left arm melanoma TONSILLECTOMY 1955 TONSILLECTOMY ADENOIDECTOMY 06/1955 VAGINAL DELIVERY 1972, 1973, 1978 Allergies Allergen Reactions Demerol [Meperidine] Nausea And Vomiting Morphine Nausea And Vomiting Cymbalta [Duloxetine] Nausea And Vomiting Dilaudid [Hydromorphone] Hives Nausea, vomiting, bright red hives across her chest Rocklatan [Netarsudil-Latanoprost] Other (See Comments) Make eyes burn Tizanidine Nausea And Vomiting Simbrinza [Brinzolamide-Brimonidine] Itching Red eyes Family History Problem Relation Age of Onset Heart disease Mother Hypertension Mother Hyperlipidemia Mother Early Mother Asthma Mother Arthritis Mother Diabetes Father Heart disease Father Hyperlipidemia Father Hypertension Father Breast cancer Paternal Aunt Hypertension Maternal Grandmother Arthritis Maternal Grandmother Asthma Maternal Grandmother Hypertension Paternal Grandmother Hyperlipidemia Paternal Grandmother Coronary artery disease Paternal Grandmother Arthritis Paternal Grandmother Diabetes Paternal Grandfather Hyperlipidemia Paternal Grandfather Coronary artery disease Paternal Grandfather Heart failure Paternal Grandfather Heart disease Paternal Grandfather Social History Socioeconomic History Marital status: Spouse name: Not on file Number of children: Not on file Years of education: Not on file Highest education level: Not on file Occupational History Not on file Tobacco Use Smoking status: Never Smokeless tobacco: Never Vaping Use Vaping Use: Never used Substance and Sexual Activity Alcohol use: Yes Comment: rarely/less than 1 per month Drug use: No Sexual activity: Defer Partners: Male Other Topics Concern Caffeine Use Yes Social History Narrative Not on file Social Determinants of Health Financial Resource Strain: Not on file Food Insecurity: No Food Insecurity (07/14/2023) Hunger Screening Food Insecurity - Worry: Never True Food Insecurity - Inability: Never True Transportation Needs: Not on file Physical Activity: Not on file Stress: Not on file Social Connections: Not on file Interpersonal Safety: Not on file Housing Instability: Not on file Review of Systems Constitutional: Negative. Negative for fever. HENT: Negative. Eyes: Negative. Respiratory: Negative for cough and shortness of breath. Cardiovascular: Negative for chest pain. Gastrointestinal: Negative for abdominal pain, bowel incontinence, constipation and diarrhea. Genitourinary: Negative for bladder incontinence, difficulty urinating and frequency. Musculoskeletal: Positive for back pain. Neurological: Positive for weakness (BLE, wheelchair). Negative for tingling and numbness. Psychiatric/Behavioral: Negative. Vital Signs: BP 142/78 (BP Site: Right Arm, BP Postition: Sitting) Pulse 92 Resp 20 SpO2 96% Physical Exam: GENERAL - Healthy patient that appears stated age. HEENT - Normocephalic / Atraumatic, Extraoccular movements intact, trachea midline, thyroid within normal limits. CV - pulse regular, Warm extremities with appropriate color of nailbeds. RESP - No obvious wheezing, No Shortness of Breath, No overexertion response to exam maneuvers. COORDINATION - remains intact. PSYCH - Alert and Oriented x4, Attentive and appropriate, constitutionally normal, displays normal mood and affect per situation, answered questions appropriately during examination, demonstrated appropriate attention during discussion, demonstrated appropriate cognitive reasoning and understandingof the medical condition by asking appropriate questions regarding the diagnosis and risks/benefits/alternatives of treatment modalities. No obvious deficits in memory, reasoning, or intellect. Lumbar: SKIN - No rashes or bruising in the area of the patient s pain. LYMPH NODES - demonstrate no obvious enlargement. EXTREMITIES - Lower extremities are warm, with minimal edema and palpable pulses. Tenderness to palpation noted in the lumbar spine and paraspinal musculature. Pain is elicited withflexion, extension, and lateral rotation of the lumbar spine. Range of motion is diminished with these motions due to pain. Facet palpation is noted to be somewhat tender and facet loading maneuvers are mildly positive, but not concordant with the patient s normal pain complaints. STRENGTH - noted to be 5 out of 5 all muscle groups bilateral lower extremities including muscles involving hip flexion and abduction, knee flexion and extension, as well as foot dorsiflexion and plantarflexion. No notable atrophy, fasciculations or spasm. SENSORY - No notable sensory deficits in the bilateral lower extremities to touch or pinprick in all dermatomal distributions. Straight Leg Raise is negative. Gait is antalgic and assisted with ambulatory aid(s): W/C. Assessment/Treatment Plan: Tessa was seen today for back pain. Diagnoses and all orders for this visit: Spinal stenosis of lumbar region with neurogenic claudication - X-ray spine thoracic 3 views; Future Disorder of sacrum - X-ray spine thoracic 3 views; Future Lumbosacral spondylosis without myelopathy - X-ray spine thoracic 3 views; Future Refill Lyrica 100 mg Thoracic spine xray Imaging/Diagnostic Testing - It is felt that additional diagnostic testing is necessary to further evaluate the patients currentpain pathology. For this reason, we will order additional imaging/diagnostic testing noted above. It is hopeful that this study will identify a significant pain generator that will be amenable to therapy. It is felt that this modality is necessary due to the severity and chronicity of symptoms and physical exam findings combined with the lack of recent imaging/diagnostic testing of the area. Referral - [facility] SCS trial protocol It is felt that due to the severity of the patient s symptoms and lack of response to conservative treatment, non-medication options need to be reviewed at this time. Hopefully this will provide moredefinitive treatment strategies for these symptoms. Spinal Cord Stimulator educational DVD Patient was given a Spinal Cord Stimulator educational DVD which explains the entire process involved in SCS placement. SCS placement is a safe effective drug free tool to treat chronic pain which fails to respond to conservative treatment and interventional procedures. Follow up after Psych consult The medications I have prescribed have been reviewed for medication interactions/contraindications and/or for upcoming procedures: continue current medication regimen without any changes. DISCUSSION: Treatment options discussed with patient and all questions answered to patient's satisfaction. Discussed the rules and regulations surrounding prescription of opioids and compliance at length. Failure to follow the rules and regulation will result in tapering and discontinuation of medications if applicable. The patient has been instructed as to the type of medication prescribed alongwith directions for use. Potential side effects have been discussed, along with risks and benefits of taking this medication. (S)he was instructed as to what to do if (s)he experiences side effects, including when to discontinue the medication. (S)he was advised to call this office in this event. Also discussed at length safety and security of RX and medications. Due to the high risk nature of this patient's pain medication regimen, frequent office visit refill appointments (every 1-3 months) are medically necessary to monitor for an addiction disorder. Prescribed medication that requires intensive monitoring for toxicity Lyrica. OARRS was reviewed, discussed and appropriate for medications prescribed. Lyrica was refilled at today's office visit. Treatment plans discussed but not opted for at this time: SCS trial. Patient would like to proceed with the current outlined treatment plan before moving forward with any other options. The spine model was demonstrated and MRI was reviewed and used to explain the condition. Chronic conditions not treated during this visit that affected my overall medical decision making: Obesity and Diabetes OARRS: Reviewed. Scribe Statement: Scribed for and in the presence of KATT MICHAEL PA-C by Alexandra Belcher CNA. Provider Statement: I, KATT MICHAEL PA-C, personally performed the services described in the documentation, as scribed by Alexandra Belcher CNA in my presence, and it is both accurate and complete. Alexandra Belcher CNA 07/14/23 1434 Katt Michael PA-C 07/19/23 1022 documented in this encounterPrem[facility] Miscellaneous Notes* Perioperative Nursing Note - Flores Zimmerman RN - 07/13/2023 2:40 PM EDT Preoperative Education Checklist- General Surgery date: 07/19/23 Surgery time: 1000 Arrival time: 0800 1. Bring a photo ID and your insurance card with you the day of surgery. You will check in at the main lobby of the [facility]- registration desk is straight ahead as soon as you walk in. Tell them you are here for surgery. 2. If you have a Living Will/Durable Power of Physician Obstetrician for Health Care that is not on file here, please bring a copy the day of surgery. 3. Please shower/bathe the night before surgery with the provided soap or wipes. Do not shower the morning of surgery- you will do use wipes when you arrive here at the hospital before getting into your surgical gown. Do not shave the area of your procedure for 2 days prior to your surgery. 4. NO powder, lotion, perfume/cologne, aftershave, make-up, deodorant, or hair products after you have bathed. 5. NO nail monegasque/acrylic on at least one finger. If you are having a hand, wrist or foot surgery then all nail monegasque and artificial/acrylic nails must be removed from that hand or foot. 6. Avoid ALL Aspirin and non-steroidal anti-inflammatory drugs and certain vitamins (Ibuprofen, Advil, Aleve, Excedrin, Meloxicam, Celebrex, fish/krill oil, etc.) for 7 days prior to surgery as instructed by your surgeon and/or your prescribing doctor. Tylenol IS ALLOWED. If you are on Ticlid, Xarelto, Eliquis, Pradaxa, Plavix or Coumadin, please check with your prescribing doctor for instructions for when to stop them. 7. If you use an inhaler, continue to use it routinely. 8. Nothing to eat or drink (not even water, gum, mints, or hard candy!) AFTER midnight prior to your surgery. 9. Take only medications that you are instructed to on the morning of surgery with a TINY SIP OF WATER. 10. Choose a responsible adult that will be able to drive you home when you are discharged from your hospital stay for your surgery and can stay with you in your home for 24 hours after your procedure. You must NOT drive any vehicle or operate any machinery for 24 hours after surgery. 11. When you dress for your appointment, please wear loose fitting clothing that is appropriate to accommodate your surgical area procedure. BRING WITH YOU ANY DEVICES YOU MAY NEED: SUAD hose, ice machine, sling/swath, brace or special shoe, oversized zip-up or button up shirt, CPAP machine if staying overnight. 12. Do NOT wear jewelry, watches, or any piercings or metal for surgery- leave these valuables and money at home. 13. Do NOT wear contact lenses for surgery- glasses are okay if needed. 14. The anesthesiologist will talk with you the day of surgery and will ask you to sign a Consent Form. 15. Refrain from smoking or any type of tobacco use for at least 8 hours and marijuana for 24 hoursprior to arrival for your surgery. 16. If a GREEN BLOOD band is given to you, please bring it with you for the day of surgery. 17. Notify your surgeon if you develop any illness before your surgery. 18. If you are staying overnight, please DO NOT BRING your home medications with you. 19. If you have any questions prior to surgery, please call the Preadmission Testing office at [phone], Mon.-Fri. 7 a.m.-3 p.m. Leave a voicemail if needed. Pre-Surgery Instructions: Medication Instructions acetaminophen (TYLENOL ARTHRITIS) 650 mg 8 hr tablet Stop taking 0 days prior to procedure albuterol (PROVENTIL HFA;VENTOLIN HFA) 90 mcg/actuation inhaler Stop taking 0 days prior to procedure ascorbic acid, vitamin C, (VITAMIN C) 1000 mg tablet Stop taking 0 days prior to procedure calcium carbonate (OS-NETTA) 600 mg (1,500 mg) tablet Stop taking 0 days prior to procedure carvediloL (COREG) 12.5 mg tablet Take morning of procedure docusate sodium (COLACE ORAL) Stop taking 0 days prior to procedure dorzolamide (TRUSOPT) 2 % ophthalmic solution Stop taking 0 days prior to procedure dorzolamide-timolol (COSOPT) 22.3-6.8 mg/mL ophthalmic solution Stop taking 0 days prior to procedure fluticasone propion-salmeteroL (ADVAIR) 250-50 mcg/dose DISKUS Take morning of procedure furosemide (LASIX) 40 mg tablet Stop taking 0 days prior to procedure glimepiride (AMARYL) 4 mg tablet Stop taking 0 days prior to procedure lancets (ONETOUCH DELICA PLUS LANCET) 30 gauge misc Stop taking 0 days prior to procedure metFORMIN (GLUCOPHAGE) 500 mg tablet Stop taking 0 days prior to procedure multivit-min/iron/folic/lutein (ULTIMATE WOMEN'S COMPLETE 50+ ORAL) Stop taking 0 days prior to procedure ONETOUCH ULTRA BLUE TEST STRIP strip Stop taking 0 days prior to procedure pantoprazole (PROTONIX) 40 mg EC tablet Stop taking 0 days prior to procedure potassium chloride (KLOR-CON M 20) 20 MEQ CR tablet Stop taking 0 days prior to procedure pregabalin (LYRICA) 100 mg capsule Stop taking 0 days prior to procedure rosuvastatin (CRESTOR) 10 mg tablet Stop taking 0 days prior to procedure semaglutide (OZEMPIC) 1 mg/dose (4 mg/3 mL) pen injector Stop taking 1 week prior to procedure TRAVATAN Z 0.004 % drops Stop taking 0 days prior to procedure documented in this encounterPrem[facility]03-12-[facility] Nurse Note* Perioperative Nursing Note - Flores Zimmerman RN - 07/13/2023 2:40 PM EDT Preoperative Education Checklist- General Surgery date: 07/19/23 Surgery time: 1000 Arrival time: 0800 1. Bring a photo ID and your insurance card with you the day of surgery. You will check in at the main lobby of the [facility]- registration desk is straight ahead as soon as you walk in. Tell them you are here for surgery. 2. If you have a Living Will/Durable Power of Physician Obstetrician for Health Care that is not on file here, please bring a copy the day of surgery. 3. Please shower/bathe the night before surgery with the provided soap or wipes. Do not shower the morning of surgery- you will do use wipes when you arrive here at the hospital before getting into your surgical gown. Do not shave the area of your procedure for 2 days prior to your surgery. 4. NO powder, lotion, perfume/cologne, aftershave, make-up, deodorant, or hair products after you have bathed. 5. NO nail monegasque/acrylic on at least one finger. If you are having a hand, wrist or foot surgery then all nail monegasque and artificial/acrylic nails must be removed from that hand or foot. 6. Avoid ALL Aspirin and non-steroidal anti-inflammatory drugs and certain vitamins (Ibuprofen, Advil, Aleve, Excedrin, Meloxicam, Celebrex, fish/krill oil, etc.) for 7 days prior to surgery as instructed by your surgeon and/or your prescribing doctor. Tylenol IS ALLOWED. If you are on Ticlid, Xarelto, Eliquis, Pradaxa, Plavix or Coumadin, please check with your prescribing doctor for instructions for when to stop them. 7. If you use an inhaler, continue to use it routinely. 8. Nothing to eat or drink (not even water, gum, mints, or hard candy!) AFTER midnight prior to your surgery. 9. Take only medications that you are instructed to on the morning of surgery with a TINY SIP OF WATER. 10. Choose a responsible adult that will be able to drive you home when you are discharged from your hospital stay for your surgery and can stay with you in your home for 24 hours after your procedure. You must NOT drive any vehicle or operate any machinery for 24 hours after surgery. 11. When you dress for your appointment, please wear loose fitting clothing that is appropriate to accommodate your surgical area procedure. BRING WITH YOU ANY DEVICES YOU MAY NEED: SUAD hose, ice machine, sling/swath, brace or special shoe, oversized zip-up or button up shirt, CPAP machine if staying overnight. 12. Do NOT wear jewelry, watches, or any piercings or metal for surgery- leave these valuables and money at home. 13. Do NOT wear contact lenses for surgery- glasses are okay if needed. 14. The anesthesiologist will talk with you the day of surgery and will ask you to sign a Consent Form. 15. Refrain from smoking or any type of tobacco use for at least 8 hours and marijuana for 24 hoursprior to arrival for your surgery. 16. If a GREEN BLOOD band is given to you, please bring it with you for the day of surgery. 17. Notify your surgeon if you develop any illness before your surgery. 18. If you are staying overnight, please DO NOT BRING your home medications with you. 19. If you have any questions prior to surgery, please call the Preadmission Testing office at [phone], Mon.-Fri. 7 a.m.-3 p.m. Leave a voicemail if needed. Pre-Surgery Instructions: Medication Instructions acetaminophen (TYLENOL ARTHRITIS) 650 mg 8 hr tablet Stop taking 0 days prior to procedure albuterol (PROVENTIL HFA;VENTOLIN HFA) 90 mcg/actuation inhaler Stop taking 0 days prior to procedure ascorbic acid, vitamin C, (VITAMIN C) 1000 mg tablet Stop taking 0 days prior to procedure calcium carbonate (OS-NETTA) 600 mg (1,500 mg) tablet Stop taking 0 days prior to procedure carvediloL (COREG) 12.5 mg tablet Take morning of procedure docusate sodium (COLACE ORAL) Stop taking 0 days prior to procedure dorzolamide (TRUSOPT) 2 % ophthalmic solution Stop taking 0 days prior to procedure dorzolamide-timolol (COSOPT) 22.3-6.8 mg/mL ophthalmic solution Stop taking 0 days prior to procedure fluticasone propion-salmeteroL (ADVAIR) 250-50 mcg/dose DISKUS Take morning of procedure furosemide (LASIX) 40 mg tablet Stop taking 0 days prior to procedure glimepiride (AMARYL) 4 mg tablet Stop taking 0 days prior to procedure lancets (ONETOUCH DELICA PLUS LANCET) 30 gauge misc Stop taking 0 days prior to procedure metFORMIN (GLUCOPHAGE) 500 mg tablet Stop taking 0 days prior to procedure multivit-min/iron/folic/lutein (ULTIMATE WOMEN'S COMPLETE 50+ ORAL) Stop taking 0 days prior to procedure ONETOUCH ULTRA BLUE TEST STRIP strip Stop taking 0 days prior to procedure pantoprazole (PROTONIX) 40 mg EC tablet Stop taking 0 days prior to procedure potassium chloride (KLOR-CON M 20) 20 MEQ CR tablet Stop taking 0 days prior to procedure pregabalin (LYRICA) 100 mg capsule Stop taking 0 days prior to procedure rosuvastatin (CRESTOR) 10 mg tablet Stop taking 0 days prior to procedure semaglutide (OZEMPIC) 1 mg/dose (4 mg/3 mL) pen injector Stop taking 1 week prior to procedure TRAVATAN Z 0.004 % drops Stop taking 0 days prior to procedure [facility] Miscellaneous Notes* Telephone Encounter - Brayan Wray - 07/06/2023 10:42 AM EST Pharmacy called into office stated that patient would need a new script for med that has been marked in med list. * Telephone Encounter - Ly Cooper LPN - 07/06/2023 10:42 AM EST Rx sent documented in this encounterPrem[facility]03-[facility]24 Telephone encounter Note* Telephone Encounter - Brayan Wray - 07/06/2023 10:42 AM EST Pharmacy called into office stated that patient would need a new script for med that has been marked in med list. [facility]03-05-2024 Telephone encounter Note* Telephone Encounter - Ly Cooper LPN - 07/06/2023 10:42 AM EST Rx sent [facility]03-01-2024 History of Present illness Narrative* Amber Wild, DIE PRESSER-FOLLOW UP CLERK - 07/02/2023 1:00 PM EST Images from the original note were not included. Chief Complaint: Anemia History of Present Illness Tessa Syed is a 73 y.o. female who presents to the office for anemia. Her most recent hemoglobin on 05/20/2023 was 8.0. Her last colonoscopy was in [address] Rodriguez and was normal except fordiverticulosis. She denies any changes in her bowels including diarrhea, constipation, abdominal pain, weight loss, bright red blood per rectum. She reports heartburn and acid reflux. She was recently started on Protonix which seems to be helping. Review of Systems Constitutional: Negative for fever and unexpected weight change. HENT: Negative for trouble swallowing. Respiratory: Negative for shortness of breath. Cardiovascular: Negative for chest pain. Gastrointestinal: Negative for nausea, vomiting, abdominal pain, diarrhea, constipation, blood in stool and black tarry stool. Genitourinary: Negative for dysuria and difficulty urinating. Musculoskeletal: Negative for gait problem. Skin: Negative for rash and wound. Neurological: Negative for dizziness, weakness and light-headedness. Hematological: Does not bruise/bleed easily. Psychiatric/Behavioral: Negative for confusion. Past Medical History: Diagnosis Date Anemia Arthritis Asthma Reactive airway Bladder prolapse, female, acquired Cataract Chronic kidney disease, stage 3b [place] COVID-19 08/2020 5 days ICU Degenerative arthritis of thoracic spine Degenerative disc disease at L5-S1 level Diabetes mellitus type 2, controlled ([facility]) 2010 GERD (gastroesophageal reflux disease) Glaucoma Hyperlipidemia Hypertension Kidney stone Melanoma ([facility]) Obesity Pneumonia 08/2020 PONV (postoperative nausea and vomiting) Shortness of breath Urinary frequency Visual impairment Glasses Past Surgical History: Procedure Laterality Date BACK SURGERY 08/12/2017 Posterior spinal fusion L4,L5,S1 with instrumentation BREAST BIOPSY Left 1989 Benign excisional COLONOSCOPY 06/29/2008 Dr. Rodriguez COLONOSCOPY 06/03/2012 Dr. Rodriguez COLONOSCOPY N/A 01/16/2019 Performed by Honorio Rodriguez MD at [facility] COLONOSCOPY W/ POLYPECTOMY CYSTOSCOPY INSERTION STENT URETER Right 06/30/2021 Performed by Bneny Ayala MD at [facility] CYSTOSCOPY RETROGRADE PYELOGRAM Left 06/30/2021 Performed by Benny Ayala MD at [facility] CYSTOSCOPY URETEROSCOPY; Retrograde; Basket Left 10/08/2016 Performed by Benny Ayala MD at [facility] EXPLORATORY LAPAROTOMY 06/22/1986 Left salpingo-Oophorectomy, resection of right ovarian nodule EYE SURGERY Left 11/28/2014 [facility] EYE SURGERY Right 12/03/2014 [facility] HERNIA REPAIR 05/30/2008 Umbilical with mesh repair INJECTION BLOCK EPIDURAL STEROID LUMBAR/SACRAL L 3/4 MAGED N/A 05/07/2023 Performed by Lb Thrasher MD at [facility] INJECTION BLOCK EPIDURAL STEROID LUMBAR/SACRAL L 3/4 MAGED N/A 04/17/2022 Performed by Lb Thrasher MD at [facility] INJECTION BLOCK NERVE KNEE Right Genicular Right 02/06/2022 Performed by Lb Thrasher MD at [facility] INJECTION BLOCK NERVE MEDIAL BRANCH Bilat L 2/3, 3/4 Bilateral 08/14/2022 Performed by Lb Thrasher MD at [facility] INJECTION BLOCK NERVE MEDIAL BRANCH Bilat L 2/3,3/4 Bilateral 06/19/2022 Performed by Lb Thrasher MD at [facility] INJECTION BLOCK SACROILIAC JOINT Bilateral 04/03/2022 Performed by Lb Thrasher MD at [facility] INJECTION MEDIAL BRANCH NERVE BLOCK Left L3/4, 4/5, 5/1 MBB 2 of 2 Left 04/02/2017 Performed by Lb Thrasher MD at [facility] INJECTION MEDIAL BRANCH NERVE BLOCK Left L3/4, 4/5, 5/1BB 2 of 2 Left 04/16/2017 Performed by Lb Thrasher MD at [facility] LAPAROSCOPIC OVARIAN CYSTECTOMY Left 10/08/2016 Right wedge resection LASER HOLMIUM URETEROSCOPY RENAL STONES < OR=1CM, right ureteral dilation Right 06/30/2021 Performed by Benny Ayala MD at [facility] SURGERY RADIOFREQUENCY ABLATION GENICULAR Right 03/13/2022 Performed by Lb Thrasher MD at [facility] RADIOFREQUENCY ABLATION SPINAL Left L 2/3, 3/4 Left 11/27/2022 Performed by Lb Thrasher MD at [facility] RADIOFREQUENCY ABLATION SPINAL Right L 2/3, 3/4 Right 11/13/2022 Performed by Lb Thrasher MD at [facility] SKIN CANCER EXCISION Left left arm melanoma TONSILLECTOMY 1955 TONSILLECTOMY ADENOIDECTOMY 06/1955 VAGINAL DELIVERY 1972, 1973, 1978 Allergies Allergen Reactions Demerol [Meperidine] Nausea And Vomiting Morphine Nausea And Vomiting Cymbalta [Duloxetine] Nausea And Vomiting Dilaudid [Hydromorphone] Hives Nausea, vomiting, bright red hives across her chest Rocklatan [Netarsudil-Latanoprost] Other (See Comments) Make eyes burn Tizanidine Nausea And Vomiting Simbrinza [Brinzolamide-Brimonidine] Itching Red eyes Current Outpatient Medications: acetaminophen (TYLENOL ARTHRITIS) 650 mg 8 hr tablet, Take 1 tablet (650 mg total) by mouth. 2 tabsbid, Disp: , Rfl: albuterol (PROVENTIL HFA;VENTOLIN HFA) 90 mcg/actuation inhaler, Inhale 2 puffs every 6 (six) hoursas needed for wheezing., Disp: 18 g, Rfl: 1 ascorbic acid, vitamin C, (VITAMIN C) 1000 mg tablet, Take 1 tablet (1,000 mg total) by mouth in the morning., Disp: , Rfl: calcium carbonate (OS-NETTA) 600 mg (1,500 mg) tablet, Take 1 tablet (600 mg total) by mouth in the morning and 1 tablet (600 mg total) in the evening. Take with meals., Disp: , Rfl: carvediloL (COREG) 12.5 mg tablet, Take 1 tablet (12.5 mg total) by mouth in the morning and 1 tablet (12.5 mg total) in the evening. Take with meals., Disp: 90 tablet, Rfl: 3 docusate sodium (COLACE ORAL), Take 1 capsule by mouth 2 (two) times a day as needed. , Disp: , Rfl: dorzolamide (TRUSOPT) 2 % ophthalmic solution, INSTILL 1 DROP IN BOTH EYES ONCE DAILY (MID-DAY), Disp: , Rfl: dorzolamide-timolol (COSOPT) 22.3-6.8 mg/mL ophthalmic solution, , Disp: , Rfl: 3 fluticasone propion-salmeteroL (ADVAIR) 250-50 mcg/dose DISKUS, INHALE 1 PUFF BY MOUTH IN THE MORNING then INHALE 1 PUFF BY MOUTH BEFORE bedtime, Disp: 60 each, Rfl: 5 furosemide (LASIX) 40 mg tablet, Take 1 tablet (40 mg total) by mouth 2 (two) times a day before meals., Disp: 60 tablet, Rfl: 11 glimepiride (AMARYL) 4 mg tablet, Take 1 tablet (4 mg total) by mouth in the morning and 1 tablet (4 mg total) in the evening. Take before meals., Disp: 60 tablet, Rfl: 11 lancets (ONETOUCH DELICA PLUS LANCET) 30 gauge misc, use to test blood sugar EVERY MORNING, Disp: 100 each, Rfl: 3 metFORMIN (GLUCOPHAGE) 500 mg tablet, TAKE 1 TABLET BY MOUTH TWICE DAILY, Disp: 180 tablet, Rfl: 1 multivit-min/iron/folic/lutein (ULTIMATE WOMEN'S COMPLETE 50+ ORAL), Take 1 tablet by mouth in the morning., Disp: , Rfl: ONETOUCH ULTRA BLUE TEST STRIP strip, use to test BLOOD SUGAR EVERY MORNING, Disp: 100 strip, Rfl: 3 pantoprazole (PROTONIX) 40 mg EC tablet, Take 1 tablet (40 mg total) by mouth in the morning., Disp: 30 tablet, Rfl: 5 potassium chloride (KLOR-CON M 20) 20 MEQ CR tablet, Take 1 tablet (20 mEq total) by mouth in the morning., Disp: 31 tablet, Rfl: 11 pregabalin (LYRICA) 100 mg capsule, Take 1 capsule (100 mg total) by mouth in the morning and 1 capsule (100 mg total) before bedtime., Disp: 60 capsule, Rfl: 1 rosuvastatin (CRESTOR) 10 mg tablet, TAKE 1 TABLET BY MOUTH NIGHTLY, Disp: 90 tablet, Rfl: 3 semaglutide (OZEMPIC) 1 mg/dose (4 mg/3 mL) pen injector, Inject 1 mg under the skin every 7 days. (Patient taking differently: Inject 4 mg under the skin every 7 days.), Disp: 3 mL, Rfl: 1 TRAVATAN Z 0.004 % drops, Administer 1 drop to both eyes nightly Indications: wide-angle glaucoma.,Disp: , Rfl: 3 Current Facility-Administered Medications: albuterol (PROVENTIL,VENTOLIN) nebulizer solution 2.5 mg, 2.5 mg, nebulization, PRN, Chantal Bonnie Camacho, DIE PRESSER-FOLLOW UP CLERK Social History Socioeconomic History Marital status: Spouse name: Not on file Number of children: Not on file Years of education: Not on file Highest education level: Not on file Occupational History Not on file Tobacco Use Smoking status: Never Smokeless tobacco: Never Vaping Use Vaping Use: Never used Substance and Sexual Activity Alcohol use: Yes Comment: rarely/less than 1 per month Drug use: No Sexual activity: Defer Other Topics Concern Caffeine Use Yes Social History Narrative Not on file Social Determinants of Health Financial Resource Strain: Not on file Food Insecurity: No Food Insecurity (06/03/2023) Hunger Screening Food Insecurity - Worry: Never True Food Insecurity - Inability: Never True Transportation Needs: Not on file Physical Activity: Not on file Stress: Not on file Social Connections: Not on file Interpersonal Safety: Not on file Housing Instability: Not on file Family History Problem Relation Age of Onset Heart disease Mother Hypertension Mother Hyperlipidemia Mother Early Mother Asthma Mother Arthritis Mother Diabetes Father Heart disease Father Hyperlipidemia Father Hypertension Father Breast cancer Paternal Aunt Hypertension Maternal Grandmother Arthritis Maternal Grandmother Asthma Maternal Grandmother Hypertension Paternal Grandmother Hyperlipidemia Paternal Grandmother Coronary artery disease Paternal Grandmother Arthritis Paternal Grandmother Diabetes Paternal Grandfather Hyperlipidemia Paternal Grandfather Coronary artery disease Paternal Grandfather Heart failure Paternal Grandfather Heart disease Paternal Grandfather Objective Physical Exam Constitutional: General: She is not in acute distress. Appearance: Normal appearance. She is obese. She is not ill-appearing. HENT: Head: Normocephalic and atraumatic. Mouth/Throat: Mouth: Mucous membranes are moist. Eyes: Pupils: Pupils are equal, round, and reactive to light. Cardiovascular: Rate and Rhythm: Normal rate and regular rhythm. Pulmonary: Effort: Pulmonary effort is normal. No respiratory distress. Abdominal: General: Bowel sounds are normal. There is no distension. Palpations: Abdomen is soft. Tenderness: There is no abdominal tenderness. Musculoskeletal: General: Normal range of motion. Skin: General: Skin is warm and dry. Neurological: Mental Status: She is alert and oriented to person, place, and time. Mental status is at baseline. Vital Signs: Blood pressure 132/63, height 142.2 cm (4' 8 ), weight 79.4 kg (175 lb), not currentlybreastfeeding. Respiratory Source: No data recorded Admission Weight: Weight: 79.4 kg (175 lb) Labs Lab Results Component Value Date WBC 8.1 05/20/2023 HGB 8.0 (L) 05/20/2023 HCT 26.1 (L) 05/20/2023 MCV 85 05/20/2023 PLT 293 05/20/2023 Lab Results Component Value Date GLU 114 (H) 05/20/2023 CALCIUM 9.7 05/20/2023 K 4.4 05/20/2023 CO2 25 05/20/2023 CL 110 (H) 05/20/2023 BUN 25 05/20/2023 CREATININE 1.15 (H) 05/20/2023 No results found for: AMYLASE Lab Results Component Value Date LIPASE 30 09/23/2016 Lab Results Component Value Date ALT 19 01/12/2023 AST 20 01/12/2023 ALKPHOS 53 01/12/2023 Lab Results Component Value Date INR 1.1 09/08/2020 PROTIME 12.2 09/08/2020 Assessment Tessa Syed is a 73 y.o.female with anemia. Plan EGD and colonoscopy with possible biopsy and/or polypectomy. Risks, benefits, and alternatives discussed with patient. Educated on bowel evacuation preparation. Patient verbalizes understanding and wishes to proceed. Requesting MiraLax prep. Evaluation included: Preparing to see the patient (e.g., review of tests) Obtaining and/or reviewing separately obtained history Performing a medically appropriate examination and/or evaluation Counseling and educating the patient/family/caregiver Referring and communicating with other health senior care provider Anemia, unspecified type [D64.9] SLY OLIVER [facility] General Surgery [place] This note was created with the assistance of a speech recognition program. While intending to generate a timely document that accurately reflects the content of the visit, no guarantee can be provided that every grammatical or spelling mistake has been or will be identified or corrected. Thank you for your understanding. SLY Oliver 07/02/23 1413 documented in this encounterPremier Health [facility]03-01-2024 Miscellaneous Notes* Telephone Encounter - Yuly Eden CMA - 07/02/2023 11:45 AM EST Refill request documented in this encounterPremier Health [facility]03-01-2024 Telephone encounter Note* Telephone Encounter - Yuly Eden CMA - 07/02/2023 11:45 AM EST Refill request [facility]02-21-2024 History of Present illness Narrative* Eliezer Lira, [facility] - 06/23/2023 1:[address] [facility] MEDICATION THERAPY MANAGEMENT [address] [id number] Subjective SUBJECTIVE: Referring Provider: Sherri Broderick [employer] Referring Provider: Yes Consult Agreement: Yes Employee Program:No Tessa Syed is a 73 y.o. (White or [1]) female who presents for an initial MTM visitof Type 2 Diabetes Mellitus. Tessa Syed is accompanied by her . INTERIM HX: AT LAST APPT, 05.26.23: A1c was 8.1% on 05.20.23, up from 7.4% in Jan 2023. Increase likely d/t Steroid injection, had to hold Ozempic for 1 week for procedure, and holiday eating. We also identified from pt's log that she did typically eat fairly carb centric foods, ie: flavored oatmeal + fruit + juice, a night of chineselead to FBS of 200, granola bars, etc. In response to A1c increase on 05.20.23, PCP increased glimep to 4mg QD. This helped decrease FBS, ie: 105, 109, 113, 104, 110 over the previous week - Improved from 151, 137, 119, 110, 128, 124, 150,97, 115, 129, 113 at prior appt - But post meal were still commonly 200+, Indicating it's pt's postmeal BG levels that have been keeping A1c above goal for so long. Therefore at last appt we increased pt's Ozempic back up to 1mg to help increase post prandial insulin secretion and to help decreasept's appetite - *At last appt, pt did not recall having any tolerability issues with the 1mg dose of Ozempic, so she was willing to take the 1mg again *Future Thought: If optimize Ozempic to 2mg, and if A1c still then above goal, pt does have a h/o elevated uACR, so could +SGLT2 TODAY: Pt has given 3x Ozempic 1mg doses since we last met. Pt reports no GI upset since the increase - therefore we may be able to tolerate optimizing to 2mg in the future. Pt reports the dose increase hasonly decreased appetite some Pt presents BG log that indicates FBS have been typically running 140s-160s, therefore today we will add a dose of Glimeperide for pt to take before supper, so increasing from Glimepiride 4 mg PO QAMto 4mg QAM + 2mg QPM before supper - pt knows to look for hypoglycemia symptoms after this dose increase - we will assess BG levels in 3 weeks to determine if can/need to increase to 4mg BID Pt has not made switch from flavored oatmeal to original yet, but pt will soon she says. And pt's log still indicates some carb heavy food choices Pertinent current medications include: Glimepiride 4 mg PO QAM before breakfast Metformin 500 mg BID Ozempic 1mg SQ Weekly Pertinent previous medications include: Metformin dose >1000 mg/day d/t GI side effects PERTINENT PAST MEDICAL HISTORY: Chronic Kidney Disease: Yes Atherosclerotic Cardiovascular Disease (ASCVD): No Heart Failure with Reduced/Preserved Ejection Fraction: Yes Pancreatitis/Gastroparesis: No Medullary Thyroid Carcinoma: No Bariatric Surgery: No Genitourinary Fungal Infections: Yes DIET - Implementing positive choices Pt's log does indicate high-carb related foods,ie: Cereal/flavored oatmeal with fruit and a glass of almond milk or orange juice or cranberry juice, and coffee with half and half. Pt declined meeting with a dietitian. At last appt Gave pt a handout on lower carb food choices to look over and choose from At last appt Specifically set goal for pt to change flavored oatmeal to plan, change regular almondmilk to UNSWEETENED, and to flavor with cinnamon instead - pt has not made these changes yet, but will soon - per pt EXERCISE: Has back pain, been challenging to exercise TESTING Home blood glucose: Patient checks blood glucose once daily. Blood Glucose Device Brand: [employer] Diabetic Supplier: Retail *Pt keeps log of BG and food log Objective OBJECTIVE: Vitals: BP 121/68 Pulse 89 Wt Readings from Last 3 Encounters: 06/03/23 80.7 kg (178 lb) 05/27/23 80.3 kg (177 lb) 05/12/23 78 kg (172 lb) BMI: There is no height or weight on file to calculate BMI. A1c: Lab Results Component Value Date HGBA1C 8.1 (H) 05/20/2023 HGBA1C 7.4 (H) 02/15/2023 HGBA1C 8.9 (H) 01/12/2023 HGBA1C 9.8 (H) 12/10/2022 HGBA1C 10.5 (H) 08/13/2022 No results found for: [id number] @RESUDAST(POCA1C:5)@ No results found for: [id number] SCr: Lab Results Component Value Date CREATININE 1.15 (H) 05/20/2023 GFR: GFR MDRD Af Amer Date Value Ref Range Status 12/03/2021 55 (L) >59 ml/min/1.73sq.m Final GFR MDRD Non Af Amer Date Value Ref Range Status 12/03/2021 45 (L) >59 ml/min/1.73sq.m Final UACR: Alb/creat ratio Date/Time Value Ref Range Status 01/12/2023 10:04 AM 39.9 (H) 0.0 - 30.0 mg/g creat Final 08/13/2022 10:53 AM 76.7 (H) 0.0 - 30.0 mg/g creat Final No results found for: EXTPOCALB No results found for: EXTUMICOR No components found for: PROTCREATRA U/Pro/Corrections Caseworker Ratio Calc Date/Time Value Ref Range Status 05/20/2023 10:09 AM 0.41 (H) <0.2 Final Comment: Nephrotic Syndrome is associated with ratios >3.5 09/15/2022 09:39 AM 0.91 (H) <0.2 Final Comment: Nephrotic Syndrome is associated with ratios >3.5 Vitamin B12 Level: Lab Results Component Value Date [id number] 05/27/2023 Lipid Management: Lab Results Component Value Date CHOL 120 (L) 01/12/2023 CHOL 139 (L) 08/13/2022 No results found for: EXTCHOL No results found for: EXTPOCCHO Lab Results Component Value Date HDL 44 01/12/2023 HDL 51 08/13/2022 No results found for: EXTCHOHDL No results found for: EXTPOCHDL Lab Results Component Value Date LDLCALC 40 01/12/2023 LDLCALC 45 08/13/2022 No results found for: EXTLDL No results found for: EXTPOCLDL Lab Results Component Value Date TRIG 178 (H) 01/12/2023 TRIG 217 (H) 08/13/2022 No results found for: EXTRIG No results found for: EXTPOCTRIG The ASCVD Risk score (Cordova DK, et al., 2019) failed to calculate for the following reasons: The valid total cholesterol range is 130 to 320 mg/dL ADA Diabetes Quality Measures: Comments: - A1c: Up to date 02/15/23 7.4% - Kidney Screening: - SCr: Up to date 01/12/23 ; eGFR improved to 50 - UACR: Up to date 01/12/23 ; Improved to 39.9 - Lipid Screening: Up to date 01/12/23 TG 178 - Eye Exam: Up to date 2-3 times per year - Foot Exam: Up to date PCP checks - Dental Exam: Up to date every 6 months - Tobacco User: No - On Aspirin: Yes - On SERENITY/ARB: No - On Statin: Yes - Immunizations: Influenza Complete: Yes Pneumonia Complete: Yes Hepatitis B Complete: Shingles Complete: Yes Tdap Complete: Yes Covid Complete: Yes Immunization History Administered Date(s) Administered COVID-19, mRNA, LNP-S, PF, 30mcg/0.3mL Dose 12/13/2020, 01/10/2021 Influenza (IM) Preservative Free 01/31/2017 Influenza High Dose Preservative Free IM 01/25/2018, 02/06/2019 Influenza, High-dose, Quadrivalent 02/06/2020, 02/17/2021, 03/02/2022, 04/05/2023 Influenza, Injectable, quadrivalent (PF) 02/06/2019 Pneumococcal Conjugate 13-Valent 03/01/2015 Pneumococcal Conjugate 20-valent 01/13/2023 Tdap 04/05/2023 Zoster Vaccine Recombinant 02/16/2018, 05/17/2018 ASSESSMENT/PLAN: ASSESSMENT: Type 2 Diabetes Mellitus: uncontrolled as evidenced by hemoglobin A1c of 8.1% on 05.20.23 . And FBS are elevated 140s-160s. High carb food choices, and lack of activity are tamayo reasons for elevated BG Pt looking to have surgery, but needs A1c to be at a certain goal - so pt is very willing to meet regularly for gradual but consistent med adjustements EDUCATION / ADA MEASURES: Reviewed general diabetes pathophysiology and management Reviewed A1C and blood glucose goals Reviewed signs and symptoms of hyperglycemia/hypoglycemia and how to treat Reviewed diabetes medication dosing, route, frequency, and side effects Requested to bring in blood sugar readings to next visit Pt look at handout on lower carb food choices to choose from Specifically set goal for pt to change flavored oatmeal to plan, change regular almond milk to UNSWEETENED, and to flavor with cinnamon instead MEDICATION PLAN: INCREASE glimepiride to 4 mg AM + 2mg Before Supper, will rx 2mg tabs per pt request Continue metformin 500 mg BID Continue Ozempic 1mg Qweekly At next appt will consider increasing Glimeperide further to 4mg BID, then appt after that increaseOzempic to 2mg Refills needed on pertinent current medications/supplies: Yes, rx for Ozempic 1mg sent Patient Assistance, Graphic Design Manager Coupon, or Prior Authorization: No MONITORING: CGM: No Glucometer Testing: Daily (alternating fasting and post-prandial) FOLLOW UP: Next PCP visit: 11.10.23 Next Pharmacist visit: 07.14.23 - Eliezer Lira RPH 06/23/23 1:18 PM 15 [id number] follow-up appointment. Eliezer Lira RPH 06/23/23 1331 documented in this encounterPremier Health [facility]02-01-2024 History of Present illness Narrative* Figueroa Perales MD - 06/03/2023 11:30 AM EST Tessa Choudhurysamy Syed Date of visit: 06/03/2023 Date of : 1950 Age: 73 y.o. Patient Active Problem List Diagnosis Nephrolithiasis Primary hypertension Other chest pain Lumbosacral spondylosis without myelopathy Non-rheumatic mitral regurgitation Spinal stenosis of lumbar region with neurogenic claudication Glaucoma Type 2 diabetes mellitus with diabetic chronic kidney disease ([facility]) Encounter for colonoscopy due to history of adenomatous colonic polyps Edema Pneumonia due to COVID-19 virus Obesity (BMI 35.0-39.9 without comorbidity) Severe obesity (BMI 35.0-39.9) with comorbidity ([facility]) Urinary incontinence Primary osteoarthritis of right knee Primary osteoarthritis of left knee Disorder of sacrum Acute on chronic diastolic congestive heart failure ([facility]) Stage 3b chronic kidney disease ([facility]) Acute kidney injury ([facility]) Allergies Allergen Reactions Demerol [Meperidine] Nausea And Vomiting Morphine Nausea And Vomiting Cymbalta [Duloxetine] Nausea And Vomiting Dilaudid [Hydromorphone] Hives Nausea, vomiting, bright red hives across her chest Rocklatan [Netarsudil-Latanoprost] Other (See Comments) Make eyes burn Tizanidine Nausea And Vomiting Simbrinza [Brinzolamide-Brimonidine] Itching Red eyes Current Outpatient Medications Medication Sig Dispense Refill acetaminophen (TYLENOL ARTHRITIS) 650 mg 8 hr tablet Take 1 tablet (650 mg total) by mouth. 2 tabs bid albuterol (PROVENTIL HFA;VENTOLIN HFA) 90 mcg/actuation inhaler Inhale 2 puffs every 6 (six) hours as needed for wheezing. 18 g 1 ascorbic acid, vitamin C, (VITAMIN C) 1000 mg tablet Take 1 tablet (1,000 mg total) by mouth in themorning. calcium carbonate (OS-NETTA) 600 mg (1,500 mg) tablet Take 1 tablet (600 mg total) by mouth in the morning and 1 tablet (600 mg total) in the evening. Take with meals. carvediloL (COREG) 12.5 mg tablet Take 1 tablet (12.5 mg total) by mouth in the morning and 1 tablet (12.5 mg total) in the evening. Take with meals. docusate sodium (COLACE ORAL) Take 1 capsule by mouth 2 (two) times a day as needed. dorzolamide (TRUSOPT) 2 % ophthalmic solution INSTILL 1 DROP IN BOTH EYES ONCE DAILY (MID-DAY) dorzolamide-timolol (COSOPT) 22.3-6.8 mg/mL ophthalmic solution 3 fluticasone propion-salmeteroL (ADVAIR) 250-50 mcg/dose DISKUS INHALE 1 PUFF BY MOUTH IN THE MORNING then INHALE 1 PUFF BY MOUTH BEFORE bedtime 60 each 5 furosemide (LASIX) 40 mg tablet Take 1 tablet (40 mg total) by mouth 2 (two) times a day before meals. 60 tablet 11 glimepiride (AMARYL) 4 mg tablet TAKE 1 TABLET BY MOUTH EVERY MORNING before BREAKFAST 90 tablet 3 lancets (ONETOUCH DELICA PLUS LANCET) 30 gauge misc use to test blood sugar EVERY MORNING 100 each 3 metFORMIN (GLUCOPHAGE) 500 mg tablet TAKE 1 TABLET BY MOUTH TWICE DAILY 180 tablet 1 multivit-min/iron/folic/lutein (ULTIMATE WOMEN'S COMPLETE 50+ ORAL) Take 1 tablet by mouth in the morning. ONETOUCH ULTRA BLUE TEST STRIP strip use to test BLOOD SUGAR EVERY MORNING 100 strip 3 pantoprazole (PROTONIX) 40 mg EC tablet Take 1 tablet (40 mg total) by mouth in the morning. 30 tablet 5 potassium chloride (KLOR-CON M 20) 20 MEQ CR tablet Take 1 tablet (20 mEq total) by mouth in the morning. 31 tablet 11 pregabalin (LYRICA) 100 mg capsule Take 1 capsule (100 mg total) by mouth in the morning and 1 capsule (100 mg total) before bedtime. 60 capsule 1 rosuvastatin (CRESTOR) 10 mg tablet TAKE 1 TABLET BY MOUTH NIGHTLY 90 tablet 3 semaglutide (OZEMPIC) 1 mg/dose (4 mg/3 mL) pen injector Inject 1 mg under the skin every 7 days. (Patient taking differently: Inject 4 mg under the skin every 7 days.) 3 mL 1 TRAVATAN Z 0.004 % drops Administer 1 drop to both eyes nightly Indications: wide-angle glaucoma. 3 glimepiride (AMARYL) 2 mg tablet Take 2 tablets (4 mg total) by mouth every morning before breakfast. 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 She is past medical history of hypertension, chronic kidney disease follows up with Nephrology hyperlipidemia and diabetes mellitus with complications. She reports exertional shortness of breath her most recent hemoglobin is in 8. She is being evaluated recently send a stool sample and PCP planning a colonoscopy. Most recent BMP showed creatinine of1.1 electrolytes were normal. Reports no chest pain palpitations last year echo showed preserved ejection fraction with no significant valvular disease. She is chronic lower extremity edema 1+ and jenny Lasix 40 q.12h per Nephrology. Shortness of breath is at baseline. Reports no palpitations. Past Medical History: Diagnosis Date Anemia Arthritis Asthma Reactive airway Bladder prolapse, female, acquired Cataract Chronic kidney disease, stage 3b ([facility]) COVID-19 08/2020 5 days ICU Degenerative arthritis of thoracic spine Degenerative disc disease at L5-S1 level Diabetes mellitus type 2, controlled ([facility]) 2010 GERD (gastroesophageal reflux disease) Glaucoma Hyperlipidemia Hypertension Kidney stone Melanoma ([facility]) Melanoma Obesity Pneumonia 08/2020 PONV (postoperative nausea and vomiting) Shortness of breath Urinary frequency Visual impairment Glasses No data recorded No data recorded No data recorded Past Surgical History: Procedure Laterality Date ARM SURGERY 08/2022 Left arm, melanoma BACK SURGERY 08/12/2017 Posterior spinal fusion L4,L5,S1 with instrumentation BREAST BIOPSY Left 1989 Benign excisional COLONOSCOPY 06/29/2008 Dr. Rodriguez COLONOSCOPY 06/03/2012 Dr. Rodriguez COLONOSCOPY N/A 01/16/2019 Performed by Honorio Rodriguez MD at [facility] COLONOSCOPY W/ POLYPECTOMY CYSTOSCOPY INSERTION STENT URETER Right 06/30/2021 Performed by Benny Aayla MD at [facility] CYSTOSCOPY RETROGRADE PYELOGRAM Left 06/30/2021 Performed by Benny Ayala MD at [facility] CYSTOSCOPY URETEROSCOPY; Retrograde; Basket Left 10/08/2016 Performed by Benny Ayala MD at [facility] EXPLORATORY LAPAROTOMY 06/22/1986 Left salpingo-Oophorectomy, resection of right ovarian nodule EYE SURGERY Left 11/28/2014 [facility] EYE SURGERY Right 12/03/2014 [facility] HERNIA REPAIR 05/30/2008 Umbilical with mesh repair INJECTION BLOCK EPIDURAL STEROID LUMBAR/SACRAL L 3/4 MAGED N/A 05/07/2023 Performed by Lb Thrasher MD at [facility] INJECTION BLOCK EPIDURAL STEROID LUMBAR/SACRAL L 3/4 MAGED N/A 04/17/2022 Performed by Lb Thrasher MD at [facility] INJECTION BLOCK NERVE KNEE Right Genicular Right 02/06/2022 Performed by Lb Thrasher MD at [facility] INJECTION BLOCK NERVE MEDIAL BRANCH Bilat L 2/3, 3/4 Bilateral 08/14/2022 Performed by Lb Thrasher MD at [facility] INJECTION BLOCK NERVE MEDIAL BRANCH Bilat L 2/3,3/4 Bilateral 06/19/2022 Performed by Lb Thrasher MD at [facility] INJECTION BLOCK SACROILIAC JOINT Bilateral 04/03/2022 Performed by Lb Thrasher MD at [facility] INJECTION MEDIAL BRANCH NERVE BLOCK Left L3/4, 4/5, 5/1 MBB 2 of 2 Left 04/02/2017 Performed by Lb Thrasher MD at [facility] INJECTION MEDIAL BRANCH NERVE BLOCK Left L3/4, 4/5, 5/1BB 2 of 2 Left 04/16/2017 Performed by Lb Thrasher MD at [facility] LAPAROSCOPIC OVARIAN CYSTECTOMY Left 10/08/2016 Right wedge resection LASER HOLMIUM URETEROSCOPY RENAL STONES < OR=1CM, right ureteral dilation Right 06/30/2021 Performed by Benny Ayala MD at [facility] SURGERY RADIOFREQUENCY ABLATION GENICULAR Right 03/13/2022 Performed by Lb Thrasher MD at [facility] RADIOFREQUENCY ABLATION SPINAL Left L 2/3, 3/4 Left 11/27/2022 Performed by Lb Thrasher MD at [facility] RADIOFREQUENCY ABLATION SPINAL Right L 2/3, 3/4 Right 11/13/2022 Performed by Lb Thrasher MD at [facility] TONSILLECTOMY 1955 TONSILLECTOMY ADENOIDECTOMY 06/1955 VAGINAL DELIVERY 1972, 1973, 1978 Family History Problem Relation Age of Onset Heart disease Mother Hypertension Mother Hyperlipidemia Mother Early Mother Asthma Mother Arthritis Mother Diabetes Father Heart disease Father Hyperlipidemia Father Hypertension Father Hypertension Maternal Grandmother Arthritis Maternal Grandmother Asthma Maternal Grandmother Hypertension Paternal Grandmother Hyperlipidemia Paternal Grandmother Coronary artery disease Paternal Grandmother Arthritis Paternal Grandmother Diabetes Paternal Grandfather Hyperlipidemia Paternal Grandfather Coronary artery disease Paternal Grandfather Heart failure Paternal Grandfather Heart disease Paternal Grandfather Breast cancer Paternal Aunt unk age Anesthesia problems Neg Hx Social History Socioeconomic History Marital status: Spouse name: Not on file Number of children: Not on file Years of education: Not on file Highest education level: Not on file Occupational History Not on file Tobacco Use Smoking status: Never Smokeless tobacco: Never Vaping Use Vaping Use: Never used Substance and Sexual Activity Alcohol use: Not Currently Comment: rarely/less than 1 per month Drug use: No Sexual activity: Defer control/protection: Post-menopausal Other Topics Concern Caffeine Use Yes Social History Narrative Not on file Social Determinants of Health Financial Resource Strain: Not on file Food Insecurity: No Food Insecurity (06/03/2023) Hunger Screening Food Insecurity - Worry: Never True Food Insecurity - Inability: Never True Transportation Needs: Not on file Physical Activity: Not on file Stress: Not on file Social Connections: Not on file Interpersonal Safety: Not on file Housing Instability: Not on file Review of Systems Review of Systems Musculoskeletal: Positive for back pain. Allergic/Immunologic: Positive for environmental allergies. CARDIOVASCULAR: Please review HPI. Physical Examination General appearance: Alert, oriented and cooperative. In no acute distress. Skin: Warm and dry to touch. Head: Normocephalic, without obvious abnormality, atraumatic. Ears, Nose, Mouth, Throat: Throat clear without erythema or exudate. Dentition intact. Eyes: Conjunctivae unremarkable, EOM intact. Neck: No JVD, No carotid bruit. Neck supple, trachea midline. Respiratory: Clear to auscultation bilaterally, no use of accessory muscles. Cardiovascular: RRR with normal S1 and S2 with no murmurs. Gastrointestinal: Soft, non-tender. Bowel sounds normal. Musculoskeletal: 1+ pitting peripheral edema. Neurologic: Oriented to time, person and place, affect appropriate. No focal/major motor defects noted. Psychiatric: Appropriate mood, memory and judgement. VITAL SIGNS: Ht 142.2 cm (4' 8 ) Wt 80.7 kg (178 lb) BMI 39.91 kg/m No orders of the defined types were placed in this encounter. There are no discontinued medications. IMPRESSIONS/PLAN Chronic heart failure with preserved ejection fraction Stable with underlying CKD continue Coreg diuretics Nephrology managing diuretics Most recent creatinine 1.1 Stable weight. Anemia needs to be treated 2. Hypertension Controlled on medications. Refilled Coreg 3. Hyperlipidemia On Crestor 4. Anemia Managed by PCP Continue current medications. Follow-up in 6 months TODAYS ORDERS Orders Placed This Encounter Procedures POCT EKG FOLLOW UP No follow-ups on file. PCP: Sherri Broderick MD Referring Physician: Sherri Broderick MD [address] [place] [id number] documented in this encounterPremier Health [facility]01-31-[facility] History of Present illness Narrative* Jr. Rocael Garnica, - 06/02/2023 1:15 PM EST Images from the original note were not included. HISTORY OF PRESENT ILLNESS: EST PT Tessa Syed is an 73 y.o. @ female. EST PT RECHECK (R) KNEE ; HERE TO DISCUSS SURGERY- S/P Lumbar Epidural Steroid Injection at L3/4 under fluoroscopic guidance PER DR THRASHER 05/07/23; DENIES RELIEF - PT DID HAVE A F/U AND PAIN MANAGEMENTINCREASED LYRICA TO 100MG- PT WAS DISCHARGED FROM PHYSICAL THERAPY BECAUSE IT WAS NOT HELPING A1C 05/20/23- 8.[address] TX BY DR TINEO @ [facility]- LAST RECOMMENDATION WAS INJ BY PAIN MANAGEMENT PT PREVIOUSLY WORKED WITH DR GARNICA AT XRAY RT KNEE 10/06/22 CHANGE XRAY SACRUM/COCCYX [facility] 02/16/23 (NOT AVAILABLE) B/L HIPS @ [facility] 12/01/22 [facility] (NOT AVAILABLE) [facility] B/L LE 01/18/23 MT (DR PATEL) NO MRI RT KNEE NO MDP / PREDNISONE S/P STEROID INJECTION 12/31/21 - DR THRASHER S/P VISCO - DR THRASHER (DATE?) NERVE BURN RT KNEE 03/13/22- DR THRASHER NO PHYSICAL THERAPY PAIN MGMT - DR THRASHER- lumbar Epidural Steroid Injection at L3/4 COMPRESSION STOCKINGS ORTHOSTATIC BLOOD PRESSURE PER DR PATEL CONTINUES TO HAVE BACK PAIN- SYMPTOMS WORSE IN THE AM- INTERMITTENT CALF CRAMPING- +TYLENOL/LYRICA-USES WALKER TO AMBULATE - NOTES GRADUAL INCREASE RT KNEE PAIN- +INSTABILITY - +GRINDING BUD: PT SCHEDULED FOR RT TKA 01/05/23 - PT HAD A FALL AT HOME; PT STATES SHE PASSED OUT 12/01/22 -WENT TO [facility] ER TX; CT/MRI LUMBAR SPINE- PT WAS ADMITTED TO [facility] AND THEN DISCHARGED TO [facility] IN [place] PREVIOUS INJ PAIN MANAGEMENT (DR THRASHER) Knee: 02/06/22 Rt Gen NB w/100% relief for 2 weeks 03/13/2022 Right genicular RFA w/ 0% relief 05/12/2022 Right knee injection in clinic with 85% relief x 6 weeks Rt Knee Synvisc Series w/0% relief ALLERGIES: Allergies Allergen Reactions Meperidine GI intolerance Morphine GI intolerance Dilaudid [Hydromorphone Hcl] Hives Netarsudil-Latanoprost Unknown Make eyes burn Amlodipine Swelling Edema Brinzolamide-Brimonidine Itching and Unknown Red eyes HOME MEDICATIONS: Current Outpatient Medications Medication Instructions ASPIRIN 81 PO Aspir-81 calcium carbonate (Calcium 600) 600 MG tablet Calcium 600 DORZOLAMIDE HCL-TIMOLOL MAL OP Dorzolamide-Timolol Dorzolamide HCl-Timolol Mal PF 22.3-6.8 MG/ML solution dorzolamide-timolol (PF) 2 %-0.5 % eye dropsin a dropperette INSTILL 1 DROP INTO AFFECTED EYE(S) BY OPHTHALMIC ROUTE 2 TIMES PER DAY Fluticasone-Salmeterol 250-50 MCG/ACT aerosol powder INHALE 1 PUFF BY MOUTH IN THE MORNING then INHALE 1 PUFF BY MOUTH BEFORE bedtime furosemide (LASIX) 40 mg, Oral, 2 times daily before meals glimepiride (AMARYL) 8 mg, Oral, Daily before breakfast glimepiride (AMARYL) 2 mg, Oral, Daily before breakfast metFORMIN (Glucophage) 500 MG tablet metformin 500 mg tablet TAKE 1 TABLET BY MOUTH TWICE DAILY Multiple Vitamins-Minerals (Multivitamin Women 50+) tablet as directed Orally pantoprazole (PROTONIX) 40 mg, Oral, Daily before breakfast, Do not crush, chew, or split. potassium chloride CR (Klor-Con M20) 20 MEQ ER tablet 20 mEq, Oral, Daily RT prednisoLONE acetate (Pred-Forte) 1 % ophthalmic suspension prednisolone acetate 1 % eye drops,suspension INSTILL 1 DROP IN THE LEFT EYE THREE TIMES DAILY pregabalin (LYRICA) 100 mg, Oral, 2 times daily Rocklatan 0.02-0.005 % solution instill 1 (ONE) DROP IN BOTH EYES AT BEDTIME rosuvastatin (Crestor) 10 MG tablet 1 tablet, Oral, Nightly semaglutide (OZEMPIC) 1 mg, Subcutaneous, TAKES ON SUNDAYS senna-docusate (Kellie-Colace) 4.3-25 mg half tablet 1 capsule, Oral, 2 times daily PRN PHYSICAL EXAM: Knee Musculoskeletal Exam Gait Antalgic: right Limp: right Assistive device: walker Gait additional comments: Purposeful walk secondary lumbar spine Inspection Leg length disparity: no discrepancy Right Erythema: none Effusion: moderate Edema: mild Ecchymosis: none Deformity: mild Alignment: varus Previous incision: no previous incision Palpation Right Increased warmth: none Masses: none Crepitus: patellofemoral and medial Tenderness: present Medial joint line: moderate Patella: mild Range of Motion Right Active extension: 5 Active flexion: 115 Strength Right Extension: 5/5. Flexion: 5/5. Instability Right Instability signs: none - stable Varus stress grade: normal Valgus stress grade: normal Pivot shift: normal Anterior drawer: normal Posterior drawer: normal Dial test: normal Quad active test: normal Medial Hood test: negative Lateral Hood test: negative Devon: negative Neurovascular Right Right knee neurovascular exam is normal. Patella reflex: 2/4 Pulses - DP: normal Dorsalis pedis: 2+ Pulses - PT: normal Posterior tibial: 2+ Capillary refill: brisk Special Signs Right Patellar compression: moderate Patellar apprehension: none Vitals: There is no height or weight on file to calculate BMI. Tobacco Use: Low Risk (06/02/2023) Patient History Smoking Tobacco Use: Never Smokeless Tobacco Use: Never Passive Exposure: Not on file Alcohol Use: Not on file IMAGING: Procedures Orders Placed This Encounter Procedures Hemoglobin A1c Have completed on or after 08/19/2023 Standing Status: Future Number of Occurrences: 1 Standing Expiration Date: 06/02/2024 Order Specific Question: Print requisition? Answer: No ASSESSMENT: ICD-10-CM 1. Primary osteoarthritis of right knee M17.11 2. Other specified diabetes mellitus with other specified complication, unspecified whether intermediate teacher insulin use ([facility]) E13.69 Hemoglobin A1c Hemoglobin A1c PLAN: We have answered all the patients questions and explained the patients condition, decision making and plan including the risks and benefits associated with said plan in layman''s terms in a language the patient could understand easily. If patient''s symptoms significantly worsen and they cannot get a hold of us or their family physician, we have recommended that the patient proceed to the nearest emergency department (room). Dr. Garnica obtained history and examined the patient, I am acting as scribe for Dr. Garnica/chapito, PLAN: We have reviewed prior (R) knee xrays. Patient's most recent A1C was 8.1 (05/20/2023) ; she isunderstanding that we are unable to entertain the thought of a (R) TKA until her A1C is at or below7.0 secondary to increased risk of infection. She is understanding that we are recommending that she follow a strict diabetic diet. She denies relief with tx on her back ; she's that she feels she is out of options for her LBP symptoms and would like to proceed with the thought of a (R) TKA. We have discussed her HEP and restrictions and will see her back after 08/18 to discuss her most recent A1c results, pending results and examination of right knee we may recommend proceeding with a (R) TKA. Amber Carranza MA documented in this encounterMercy Hospital St. [id number] Miscellaneous Notes* Telephone Encounter - Brenda Banegas CMA - 06/02/2023 11:38 AM EST Left message for patient to remind them to bring their most current medication list with them to their appointment. [facility] Telephone encounter Note* Telephone Encounter - Brenda Banegas CMA - 06/02/2023 11:38 AM EST Left message for patient to remind them to bring their most current medication list with them to their appointment. [facility]01[facility] History of Present illness Narrative* Divina Ng MD - 05/27/2023 2:30 PM EST Images from the original note were not included. Date of Service: 05/27/23 PCP: Sherri Broderick MD History of Present Illness Tessa Syed is a 73 y.o. female, who is following with us for for history of stage III to stage 4 chronic kidney disease due to diabetic nephropathy with a history of acute kidney injury due to the use of meloxicam, returning for nephrologic follow-up. When I last saw her in July of 2022 laboratories of June 22, 2022 showed a BUN of 45 creatinine 1.83 an EGFR of 29 mL/min. At the time of her last visit I added potassium chloride 20 mEq p.o. daily and recommended the use of compression hose to manage her lower extremity edema. Repeat laboratories of 05/20/2023 show further renal recovery. Her sodium was 144 potassium 4.4 chloride 110 total CO2 25 BUN 97 creatinine 1.15 EGFR 50 mL/min. A urine protein creatinine ratio was down to 0.41 gram/gram. Twenty-five hydroxy vitamin-D was normal at 52 NG per mL. She continues to suffer from low back pain and has intermittent epidural steroid injections. She also needs to have a right total knee arthroplasty. She is to see Dr. Garnica later on June 02, 2023. She is concerned about her anemia. Laboratories of May 20, 2023 show hemoglobin of 8 [id number] MCV was 26.1 MCH 85 MCHC 26. She is due this year for her 10 year colonoscopy. There was no report of hematemesis hematochezia or melena. Problem List Acute on stage IIIA chronic kidney disease. Her chronic kidney disease is likely related to diabetic nephropathy: She had an episode of acute kidney injury due to an adverse effect of meloxicam last year. Nephrologic investigations included renal ultrasound from May 2021 which revealed right kidney of 10.1 cm left of 10.6 cm with no evidence of hydronephrosis with 2 nonobstructing renal calcul i in the right kidney and benign type cyst in the left kidney. Urine protein creatinine ratio was 0.87 grams/gram. A serum protein electrophoresis with immunofixation revealed no evidence of monoclonal protein disorder. Anti proteinase 3 and anti myeloperoxidase antibody titers were negative. HIV an tibody titers were nonreactive. Hepatitis-B and hepatitis-C antibody titers were nonreactive. Anti-glomerular basement membrane Was negative. Complement C3 and C4 were normal at 164 in 48 mg/dL, respectively. MT screen was negative. Hypertension Diabetes mellitus type 2 Hyperlipidemia GERD Glaucoma Degenerative joint disease L4-L5 and S1 fusion with chronic back pain with multiple epidural steroid injections Asthma History of bladder prolapse Nephrolithiasis COVID-19 pneumonia in August of 2020 Obesity Colonic polypectomy Bilateral eye SLT surgery Ovarian mass status post exploratory laparotomy and left salpingo-oophorectomy in June of 1986 Cystoscopy with bilateral retrograde pyelogram in June of 2021 for nephrolithiasis Umbilical hernia repair with mesh Tonsillectomy and adenectomy Right-sided geniculate IR radiofrequency ablation Echocardiogram from August 2020 revealed ejection fraction of 60-65%, grade 2 diastolic dysfunction,trace to mild aortic regurgitation, [id number] mitral regurgitation, mild tricuspid regurgitation with RVSP of 31 mm of mercury. Surgical, Family & Social History Surgical History: Past Surgical History: Procedure Laterality Date ARM SURGERY 08/2022 Left arm, melanoma BACK SURGERY 08/12/2017 Posterior spinal fusion L4,L5,S1 with instrumentation BREAST BIOPSY Left 1989 Benign excisional COLONOSCOPY 06/29/2008 Dr. Rodriguez COLONOSCOPY 06/03/2012 Dr. Rodriguez COLONOSCOPY N/A 01/16/2019 Performed by Honorio Rodriguez MD at [facility] COLONOSCOPY W/ POLYPECTOMY CYSTOSCOPY INSERTION STENT URETER Right 06/30/2021 Performed by Benny Ayala MD at [facility] CYSTOSCOPY RETROGRADE PYELOGRAM Left 06/30/2021 Performed by Benny Ayala MD at [facility] CYSTOSCOPY URETEROSCOPY; Retrograde; Basket Left 10/08/2016 Performed by Benny Ayala MD at [facility] EXPLORATORY LAPAROTOMY 06/22/1986 Left salpingo-Oophorectomy, resection of right ovarian nodule EYE SURGERY Left 11/28/2014 SLT EYE SURGERY Right 12/03/2014 SLT HERNIA REPAIR 05/30/2008 Umbilical with mesh repair INJECTION BLOCK EPIDURAL STEROID LUMBAR/SACRAL L 3/4 MAGED N/A 05/07/2023 Performed by Lb Thrasher MD at [facility] INJECTION BLOCK EPIDURAL STEROID LUMBAR/SACRAL L 3/4 MAGED N/A 04/17/2022 Performed by Lb Thrasher MD at [facility] INJECTION BLOCK NERVE KNEE Right Genicular Right 02/06/2022 Performed by Lb Thrasher MD at [facility] INJECTION BLOCK NERVE MEDIAL BRANCH Bilat L 2/3, 3/4 Bilateral 08/14/2022 Performed by Lb Thrasher MD at [facility] INJECTION BLOCK NERVE MEDIAL BRANCH Bilat L 2/3,3/4 Bilateral 06/19/2022 Performed by Lb Thrasher MD at [facility] INJECTION BLOCK SACROILIAC JOINT Bilateral 04/03/2022 Performed by Lb Thrasher MD at [facility] INJECTION MEDIAL BRANCH NERVE BLOCK Left L3/4, 4/5, 5/1 MBB 2 of 2 Left 04/02/2017 Performed by Lb Thrasher MD at [facility] INJECTION MEDIAL BRANCH NERVE BLOCK Left L3/4, 4/5, 5/1BB 2 of 2 Left 04/16/2017 Performed by Lb Thrasher MD at [facility] LAPAROSCOPIC OVARIAN CYSTECTOMY Left 10/08/2016 Right wedge resection LASER HOLMIUM URETEROSCOPY RENAL STONES < OR=1CM, right ureteral dilation Right 06/30/2021 Performed by Benny Ayala MD at [facility] RADIOFREQUENCY ABLATION GENICULAR Right 03/13/2022 Performed by Lb Thrasher MD at [facility] RADIOFREQUENCY ABLATION SPINAL Left L 2/3, 3/4 Left 11/27/2022 Performed by Lb Thrasher MD at [facility] RADIOFREQUENCY ABLATION SPINAL Right L 2/3, 3/4 Right 11/13/2022 Performed by Lb Thrasher MD at [facility] TONSILLECTOMY 1955 TONSILLECTOMY ADENOIDECTOMY 06/1955 VAGINAL DELIVERY 1972, 1973, 1978 Social History: Social History Socioeconomic History Marital status: Spouse name: Not on file Number of children: Not on file Years of education: Not on file Highest education level: Not on file Occupational History Not on file Tobacco Use Smoking status: Never Smokeless tobacco: Never Vaping Use Vaping Use: Never used Substance and Sexual Activity Alcohol use: Not Currently Comment: rarely/less than 1 per month Drug use: No Sexual activity: Defer control/protection: Post-menopausal Other Topics Concern Caffeine Use Yes Social History Narrative Not on file Social Determinants of Health Financial Resource Strain: Not on file Food Insecurity: No Food Insecurity (05/12/2023) Hunger Screening Food Insecurity - Worry: Never True Food Insecurity - Inability: Never True Transportation Needs: Not on file Physical Activity: Not on file Stress: Not on file Social Connections: Not on file Interpersonal Safety: Not on file Housing Instability: Not on file Family History: Family History Problem Relation Age of Onset Heart disease Mother Hypertension Mother Hyperlipidemia Mother Early Mother Asthma Mother Arthritis Mother Diabetes Father Heart disease Father Hyperlipidemia Father Hypertension Father Hypertension Maternal Grandmother Arthritis Maternal Grandmother Asthma Maternal Grandmother Hypertension Paternal Grandmother Hyperlipidemia Paternal Grandmother Coronary artery disease Paternal Grandmother Arthritis Paternal Grandmother Diabetes Paternal Grandfather Hyperlipidemia Paternal Grandfather Coronary artery disease Paternal Grandfather Heart failure Paternal Grandfather Heart disease Paternal Grandfather Breast cancer Paternal Aunt unk age Anesthesia problems Neg Hx Allergies & Medications Allergies: Allergies Allergen Reactions Demerol [Meperidine] Nausea And Vomiting Morphine Nausea And Vomiting Cymbalta [Duloxetine] Nausea And Vomiting Dilaudid [Hydromorphone] Hives Nausea, vomiting, bright red hives across her chest Rocklatan [Netarsudil-Latanoprost] Other (See Comments) Make eyes burn Tizanidine Nausea And Vomiting Simbrinza [Brinzolamide-Brimonidine] Itching Red eyes Current Meds: Current Outpatient Medications Medication Sig Dispense Refill acetaminophen (TYLENOL ARTHRITIS) 650 mg 8 hr tablet Take 1 tablet (650 mg total) by mouth. 2 tabs bid albuterol (PROVENTIL HFA;VENTOLIN HFA) 90 mcg/actuation inhaler Inhale 2 puffs every 6 (six) hours as needed for wheezing. 18 g 1 ascorbic acid, vitamin C, (VITAMIN C) 1000 mg tablet Take 1 tablet (1,000 mg total) by mouth in themorning. calcium carbonate (OS-NETTA) 600 mg (1,500 mg) tablet Take 1 tablet (600 mg total) by mouth in the morning and 1 tablet (600 mg total) in the evening. Take with meals. carvediloL (COREG) 12.5 mg tablet Take 1 tablet (12.5 mg total) by mouth in the morning and 1 tablet (12.5 mg total) in the evening. Take with meals. docusate sodium (COLACE ORAL) Take 1 capsule by mouth 2 (two) times a day as needed. dorzolamide (TRUSOPT) 2 % ophthalmic solution INSTILL 1 DROP IN BOTH EYES ONCE DAILY (MID-DAY) dorzolamide-timolol (COSOPT) 22.3-6.8 mg/mL ophthalmic solution 3 fluticasone propion-salmeteroL (ADVAIR) 250-50 mcg/dose DISKUS INHALE 1 PUFF BY MOUTH IN THE MORNING then INHALE 1 PUFF BY MOUTH BEFORE bedtime 60 each 5 furosemide (LASIX) 40 mg tablet Take 1 tablet (40 mg total) by mouth 2 (two) times a day before meals. 60 tablet 11 glimepiride (AMARYL) 2 mg tablet Take 2 tablets (4 mg total) by mouth every morning before breakfast. glimepiride (AMARYL) 4 mg tablet TAKE 1 TABLET BY MOUTH EVERY MORNING before BREAKFAST 90 tablet 3 lancets (LimonetikTOUCH DELICA PLUS LANCET) [facility] to [facility] blood sugar EVERY MORNING 100 each 3 metFORMIN (GLUCOPHAGE) 500 mg tablet TAKE 1 TABLET BY MOUTH TWICE DAILY 180 tablet 1 multivit-min/iron/folic/lutein (ULTIMATE WOMEN'S COMPLETE 50+ ORAL) Take 1 tablet by mouth in the morning. LimonetikTOUCH ULTRA BLUE TEST STRIP strip use to test BLOOD SUGAR EVERY MORNING 100 strip 3 pantoprazole (PROTONIX) 40 mg EC tablet Take 1 tablet (40 mg total) by mouth in the morning. 30 tablet 5 potassium chloride (KLOR-CON M 20) 20 MEQ CR tablet Take 1 tablet (20 mEq total) by mouth in the morning. 31 tablet 11 [START ON 05/28/2023] pregabalin (LYRICA) 100 mg capsule Take 1 capsule (100 mg total) by mouth in the morning and 1 capsule (100 mg total) before bedtime. 60 capsule 1 rosuvastatin (CRESTOR) 10 mg tablet TAKE 1 TABLET BY MOUTH NIGHTLY 90 tablet 3 semaglutide (OZEMPIC) 1 mg/dose (4 mg/3 mL) pen injector Inject 1 mg under the skin every 7 days. (Patient taking differently: Inject 4 mg under the skin every 7 days.) 3 mL 1 TRAVATAN Z 0.004 % drops Administer 1 drop to both eyes nightly Indications: wide-angle glaucoma. 3 Current Facility-Administered Medications Medication Dose Route Frequency Provider Last Rate Last Admin albuterol (PROVENTIL,VENTOLIN) nebulizer solution 2.5 mg 2.5 mg nebulization PRN Chantal Camacho APRN-FOLLOW UP CLERK Review of Systems Review of Systems Constitutional: Negative for chills, diaphoresis, fatigue and fever. HENT: Negative for congestion, ear discharge, ear pain, facial swelling and hearing loss. Eyes: Negative for pain, discharge, redness and itching. Respiratory: Negative for cough, shortness of breath and wheezing. Cardiovascular: Negative for chest pain, palpitations and leg swelling. Gastrointestinal: Negative for abdominal pain, constipation, diarrhea, nausea and vomiting. Endocrine: Negative for polydipsia, polyphagia and polyuria. Genitourinary: Negative for decreased urine volume, difficulty urinating, dysuria, enuresis, flank pain, frequency, hematuria and urgency. Musculoskeletal: Negative for arthralgias, joint swelling and myalgias. Skin: Negative for rash and wound. Neurological: Negative for dizziness, tremors, weakness, light-headedness and numbness. Hematological: Negative for adenopathy. Does not bruise/bleed easily. Physical Exam Vital Signs: Vitals: 05/27/23 1433 BP: 150/68 BP Site: Left Arm BP Postition: Sitting BP CUFF SIZE: L (13-17 inches) Pulse: 82 SpO2: 94% Weight: 80.3 kg (177 lb) BMI: Body mass index is 39.68 kg/m . General appearance: alert in no apparent distress. Psychiatric: Oriented to place, time and person HEENT: atraumatic, supple, moist oral mucosa, no JVD Cardiovascular: normal S1-S2 Respiratory: No respiratory distress with no use of accessory muscles. Clear to auscultation bilaterally with no wheezes or crackles Abdomen: soft, no tenderness, no guarding, positive bowel sounds and no hepato or splenomegaly Vascular: adequate pulses and no carotid bruits. Musculoskeletal: no joint swelling or tenderness. Neurologic: No focal deficit in upper or lower extremities Lymphatic: no cervical or axillary lymphadenopathy. Edema: Laboratory Studies Chemistry: Lab Results Component Value Date SODIUM 144 05/20/2023 SODIUM 140 01/12/2023 SODIUM 141 12/09/2022 SODIUM 141 09/15/2022 SODIUM 139 08/13/2022 K 4.4 05/20/2023 K 4.1 01/12/2023 K 4.4 12/09/2022 K 3.5 09/15/2022 K 3.9 08/13/2022 CL 110 (H) 05/20/2023 CL 103 01/12/2023 CL 109 12/09/2022 CL 98 09/15/2022 CL 99 08/13/2022 CO2 25 05/20/2023 CO2 24 01/12/2023 CO2 27 12/09/2022 CO2 30 09/15/2022 CO2 26 08/13/2022 ANIONGAP 9 05/20/2023 ANIONGAP 13 01/12/2023 ANIONGAP 5 12/09/2022 ANIONGAP 13 09/15/2022 ANIONGAP 14 08/13/2022 BUN 25 05/20/2023 BUN 20 01/12/2023 BUN 26 12/09/2022 BUN 24 09/15/2022 BUN 28 (H) 08/13/2022 CREATININE 1.15 (H) 05/20/2023 CREATININE 1.16 (H) 01/12/2023 CREATININE 1.22 (H) 12/09/2022 CREATININE 1.38 (H) 09/15/2022 CREATININE 1.35 (H) 08/13/2022 EGFR 50 (L) 05/20/2023 EGFR 50 (L) 01/12/2023 EGFR 47 (L) 12/09/2022 EGFR 40 (L) 09/15/2022 EGFR 41 (L) 08/13/2022 CALCIUM 9.7 05/20/2023 CALCIUM 9.7 01/12/2023 CALCIUM 9.1 12/09/2022 CALCIUM 9.5 09/15/2022 CALCIUM 9.7 08/13/2022 MG 2.0 05/20/2023 MG 1.9 09/15/2022 MG 1.9 06/22/2022 MG 1.8 05/25/2022 PHOSPHORUS 4.4 05/20/2023 PHOSPHORUS 3.0 09/15/2022 PHOSPHORUS 2.1 (L) 06/22/2022 PHOSPHORUS 3.9 05/25/2022 Lab Results Component Value Date TOTALPROTEI 6.2 01/12/2023 TOTALPROTEI 5.5 (L) 12/09/2022 ALBUMIN 3.5 01/12/2023 ALBUMIN 2.9 (L) 12/09/2022 AST 20 01/12/2023 AST 22 12/09/2022 ALT 19 01/12/2023 ALT 27 12/09/2022 BILIRUBIN Negative 05/20/2023 BILIRUBIN 0.4 01/12/2023 ALKPHOS 53 01/12/2023 ALKPHOS 51 12/09/2022 Hematology: Lab Results Component Value Date WBC 8.1 05/20/2023 WBC 7.7 01/12/2023 HGB 8.0 (L) 05/20/2023 HGB 9.9 (L) 01/12/2023 HCT 26.1 (L) 05/20/2023 HCT 31.1 (L) 01/12/2023 PLT 293 05/20/2023 PLT 293 01/12/2023 Anemia Studies: Lab Results Component Value Date IRONSAT 10 (L) 09/15/2022 FERRITIN 4 (L) 09/15/2022 Mineral and Bone Labs: Lab Results Component Value Date CALCIUM 9.7 05/20/2023 CALCIUM 9.7 01/12/2023 PHOSPHORUS 4.4 05/20/2023 PHOSPHORUS 3.0 09/15/2022 VITD25 52.0 05/20/2023 VITD25 81.8 06/22/2022 PTH 25 05/20/2023 PTH 52 09/15/2022 Urine Studies: Lab Results Component Value Date COLOR YELLOW 05/20/2023 TURBIDITY HAZY (A) 05/20/2023 SPECIFICGRA 1.018 05/20/2023 NITRITE Positive (A) 05/20/2023 PHURINE 7.0 05/20/2023 LEUKOCYTE Large (A) 05/20/2023 PROTEIN 30 (A) 05/20/2023 KETONES Negative 05/20/2023 UROBILINOGEN <1.1 05/20/2023 BLOODHGB Negative 05/20/2023 Lab Results Component Value Date UPROCRTRAT 0.41 (H) 05/20/2023 UPROCRTRAT 0.91 (H) 09/15/2022 UPROCRTRAT 0.87 (H) 06/22/2022 UPROCRTRAT 0.42 (H) 05/25/2022 MICROALBUR 5.9 (H) 01/12/2023 MICROALBUR 2.1 (H) 08/13/2022 MICROALBUR 2.8 (H) 12/03/2021 MICROALBUR 4.2 (H) 12/02/2020 MICROALBUR 4.2 (H) 12/02/2019 Immunology Profile Lab Results Component Value Date PROTELECTR 05/25/2022 Unremarkable protein distribution, no monoclonal bands. ANASCREEN Negative 05/25/2022 C3 164 05/25/2022 C4 48 (H) 05/25/2022 MYELOP <0.2 05/25/2022 PROTEINASE3 <0.2 05/25/2022 ANTIGLOMERU <0.2 05/25/2022 Lab Results Component Value Date HEPBCAB Negative 05/25/2022 Imaging Echocardiogram: Echo complete W/ contrast Result Date: 05/28/2022 Left Ventricle: Systolic function is normal with an ejection fraction of 55-60%. Tricuspid Valve: The right ventricular systolic pressure normal. RVSP calculated at 22 mmHg. RVSP is based on RA pressure of 3 mmHg. IMPRESSION 1. Stage IIIA chronic kidney disease: Her renal function continues to improve off meloxicam. Her creatinine has declined from 2.82 on May 25, 2019 3-1.15 on May 20, 2023. Her urinalysis showsa further improvement in her protein excretion 2.Anemia:will check iron, TIBC, % Sat,Ferritin, folate, B12, stools for OB today. Giving her microcytic hypochromic red blood cell indices I am concerned about gastrointestinal blood loss. Her chronic kidney disease is not sufficiently advanced to cause this degree of anemia. PLAN 1. Continue to target hemoglobin A1c to 7% or less. 2. Target systolic blood pressure to less than 130 mm of mercury 3. Anemia evaluation which will include iron, TIBC,% sat, ferritin, folate, B12, erythropoietin andstools for occult blood. 4. Return to this office in 5 months time for repeat evaluation. A CKD panel will be obtained then. Thank you Sherri Broderick MD for the opportunity to participate in the care of your patients! Please contact me at [phone] (Office) or [phone] (Answering service) with any questions. DIVINA NG MD [facility] This note was created with the assistance of a speech-recognition program. Although the intention is to generate a document that actually reflects the content of the visit, no guarantees can be provided that every mistake has been identified and corrected by editing. [facility] in [facility] Evaluation note* Diagnosis Stage 3a chronic kidney disease (CKD) ([facility])- Primary documented in this encounter [facility]01[facility] History of Present illness Narrative* Katt Michael PA-C - 05/26/2023 2:45 PM EST [facility] [address] [place] [address] Patient: Tessa Syed Sex: female : 1950 Age: 73 y.o. PCP: Sherri Broderick MD 05/26/2023 Tessa Syed is here for a(n) post procedure follow up 05/07/2023 L 3,4 epidural steroid injection with no relief . She does report the most relief with Lyrica 50 mg BID. Chief Complaint Patient presents with Back Pain HPI: Knee: 02/06/22 Rt Gen NB w/100% relief for 2 weeks 03/13/2022 Right genicular RFA w/ 0% relief 05/12/2022 Right knee injection in clinic with 85% relief x 6 weeks Rt Knee Synvisc Series w/0% relief Back: 04/03/2022 bilateral SIJ injections with 75 % relief x 2 days. 02/18/2022 Left knee in office injection w/ 100% relief that continues. 04/17/22 L 3/4 MAGED with 50% relief only for 2 weeks then baseline. 06/19/2022 Bilateral L2/3, 3/4 MBB with 70% relief continuing 08/14/2022 Bilat L 2/3 2/4 MBB with 50% relief 11/13/2022 Right L 2/3 3/4 RFA 90% relief until fall on 12/01/2022 11/27/2022 Left L 2/3 3/4 RFA 90% relief until fall on 12/01/2022 05/07/2023 L 3,4 epidural steroid injection with no relief Physical Therapy 12/04/2022 - 12/11/20[address] [facility] 12/11/2022 Outpatient therapy 2x week for 3 months Back Pain This is a chronic problem. Episode onset: Had back surgery august 12, 2017 had pain years before that. The problem occurs constantly. The problem has been gradually worsening since onset. The pain is present in the lumbar spine. The quality of the pain is described as stabbing, shooting and aching (shooting with transitioning). The pain does not radiate. The pain is at a severity of 7/10 (7/10 initially in the morning. Pain decreases to 3-4/10 as day progresses). The pain is moderate. The pain is Worse during the day. Exacerbated by: standing, walking, stairs, bending, lifting, twisting, pushing/pulling, transitioning. Stiffness is present: varies, off and on. Associated symptoms include weakness (BLE, wheelchair). Pertinent negatives include no abdominal pain, bladder incontinence, bowel incontinence, chest pain, fever, leg pain, numbness or tingling. Risk factors include obesity. Treatments tried: tylenol arthritis, mobic, ice, salonpas patches with no relief; motrin 600-800, heat with min relief. PT/aqua therapy (October 2021) but caused worsening pain, TENS unit. The treatment provided no relief. The effect of pain on patient's ADLS: Moderate Impairment. Past Medical History: Diagnosis Date Anemia Arthritis Asthma Reactive airway Bladder prolapse, female, acquired Cataract Chronic kidney disease, stage 3b ([facility] COVID-19 08/2020 5 days ICU Degenerative arthritis of thoracic spine Degenerative disc disease at L5-S1 level Diabetes mellitus type 2, controlled ([facility]) 2010 GERD (gastroesophageal reflux disease) Glaucoma Hyperlipidemia Hypertension Kidney stone Melanoma ([facility]) Melanoma Obesity Pneumonia 08/2020 PONV (postoperative nausea and vomiting) Shortness of breath Urinary frequency Visual impairment Glasses Past Surgical History: Procedure Laterality Date ARM SURGERY 08/2022 Left arm, melanoma BACK SURGERY 08/12/2017 Posterior spinal fusion L4,L5,S1 with instrumentation BREAST BIOPSY Left 1989 Benign excisional COLONOSCOPY 06/29/2008 Dr. Rodriguez COLONOSCOPY 06/03/2012 Dr. Rodriguez COLONOSCOPY N/A 01/16/2019 Performed by Honorio Rodriguez MD at [facility] COLONOSCOPY W/ POLYPECTOMY CYSTOSCOPY INSERTION STENT URETER Right 06/30/2021 Performed by Benny Ayala MD at [facility] CYSTOSCOPY RETROGRADE PYELOGRAM Left 06/30/2021 Performed by Benny Ayala MD at [facility] CYSTOSCOPY URETEROSCOPY; Retrograde; Basket Left 10/08/2016 Performed by Benny Ayala MD at [facility] EXPLORATORY LAPAROTOMY 06/22/1986 Left salpingo-Oophorectomy, resection of right ovarian nodule EYE SURGERY Left 11/28/2014 [facility] EYE SURGERY Right 12/03/2014 [facility] HERNIA REPAIR 05/30/2008 Umbilical with mesh repair INJECTION BLOCK EPIDURAL STEROID LUMBAR/SACRAL L 3/4 MAGED N/A 05/07/2023 Performed by Lb Thrasher MD at [facility] INJECTION BLOCK EPIDURAL STEROID LUMBAR/SACRAL L 3/4 MAGED N/A 04/17/2022 Performed by Lb Thrasher MD at [facility] INJECTION BLOCK NERVE KNEE Right Genicular Right 02/06/2022 Performed by Lb Thrasher MD at [facility] INJECTION BLOCK NERVE MEDIAL BRANCH Bilat L 2/3, 3/4 Bilateral 08/14/2022 Performed by Lb Thrasher MD at [facility] INJECTION BLOCK NERVE MEDIAL BRANCH Bilat L 2/3,3/4 Bilateral 06/19/2022 Performed by Lb Thrasher MD at [facility] INJECTION BLOCK SACROILIAC JOINT Bilateral 04/03/2022 Performed by Lb Thrasher MD at [facility] INJECTION MEDIAL BRANCH NERVE BLOCK Left L3/4, 4/5, 5/1 MBB 2 of 2 Left 04/02/2017 Performed by Lb Thrasher MD at [facility] INJECTION MEDIAL BRANCH NERVE BLOCK Left L3/4, 4/5, 5/1BB 2 of 2 Left 04/16/2017 Performed by Lb Thrasher MD at [facility] LAPAROSCOPIC OVARIAN CYSTECTOMY Left 10/08/2016 Right wedge resection LASER HOLMIUM URETEROSCOPY RENAL STONES < OR=1CM, right ureteral dilation Right 06/30/2021 Performed by Benny Ayala MD at [facility] RADIOFREQUENCY ABLATION GENICULAR Right 03/13/2022 Performed by Lb Thrasher MD at [facility] RADIOFREQUENCY ABLATION SPINAL Left L 2/3, 3/4 Left 11/27/2022 Performed by Lb Thrasher MD at [facility] RADIOFREQUENCY ABLATION SPINAL Right L 2/3, 3/4 Right 11/13/2022 Performed by Lb Thrasher MD at [facility] TONSILLECTOMY 1955 TONSILLECTOMY ADENOIDECTOMY 06/1955 VAGINAL DELIVERY 1972, 1973, 1978 Allergies Allergen Reactions Demerol [Meperidine] Nausea And Vomiting Morphine Nausea And Vomiting Cymbalta [Duloxetine] Nausea And Vomiting Dilaudid [Hydromorphone] Hives Nausea, vomiting, bright red hives across her chest Rocklatan [Netarsudil-Latanoprost] Other (See Comments) Make eyes burn Tizanidine Nausea And Vomiting Simbrinza [Brinzolamide-Brimonidine] Itching Red eyes Family History Problem Relation Age of Onset Heart disease Mother Hypertension Mother Hyperlipidemia Mother Early Mother Asthma Mother Arthritis Mother Diabetes Father Heart disease Father Hyperlipidemia Father Hypertension Father Hypertension Maternal Grandmother Arthritis Maternal Grandmother Asthma Maternal Grandmother Hypertension Paternal Grandmother Hyperlipidemia Paternal Grandmother Coronary artery disease Paternal Grandmother Arthritis Paternal Grandmother Diabetes Paternal Grandfather Hyperlipidemia Paternal Grandfather Coronary artery disease Paternal Grandfather Heart failure Paternal Grandfather Heart disease Paternal Grandfather Breast cancer Paternal Aunt unk age Anesthesia problems Neg Hx Social History Socioeconomic History Marital status: Spouse name: Not on file Number of children: Not on file Years of education: Not on file Highest education level: Not on file Occupational History Not on file Tobacco Use Smoking status: Never Smokeless tobacco: Never Vaping Use Vaping Use: Never used Substance and Sexual Activity Alcohol use: Not Currently Comment: rarely/less than 1 per month Drug use: No Sexual activity: Defer control/protection: Post-menopausal Other Topics Concern Caffeine Use Yes Social History Narrative Not on file Social Determinants of Health Financial Resource Strain: Not on file Food Insecurity: No Food Insecurity (05/12/2023) Hunger Screening Food Insecurity - Worry: Never True Food Insecurity - Inability: Never True Transportation Needs: Not on file Physical Activity: Not on file Stress: Not on file Social Connections: Not on file Interpersonal Safety: Not on file Housing Instability: Not on file Review of Systems Constitutional: Negative for fever. HENT: Negative. Respiratory: Negative for cough and shortness of breath. Cardiovascular: Negative for chest pain. Gastrointestinal: Negative for abdominal pain, bowel incontinence, constipation and diarrhea. Genitourinary: Negative for bladder incontinence, difficulty urinating and frequency. Musculoskeletal: Positive for back pain. Neurological: Positive for weakness (BLE, wheelchair). Negative for tingling and numbness. Psychiatric/Behavioral: Negative. Vital Signs: BP 133/67 Pulse 78 Resp 16 SpO2 99% Physical Exam: GENERAL - Healthy patient that appears stated age. HEENT - Normocephalic / Atraumatic, Extraoccular movements intact, trachea midline, thyroid within normal limits. CV - pulse regular, Warm extremities with appropriate color of nailbeds. RESP - No obvious wheezing, No Shortness of Breath, No overexertion response to exam maneuvers. COORDINATION - remains intact. PSYCH - Alert and Oriented x4, Attentive and appropriate, constitutionally normal, displays normal mood and affect per situation, answered questions appropriately during examination, demonstrated appropriate attention during discussion, demonstrated appropriate cognitive reasoning and understandingof the medical condition by asking appropriate questions regarding the diagnosis and risks/benefits/alternatives of treatment modalities. No obvious deficits in memory, reasoning, or intellect. Lumbar: SKIN - No rashes or bruising in the area of the patient s pain. LYMPH NODES - demonstrate no obvious enlargement. EXTREMITIES - Lower extremities are warm, with minimal edema and palpable pulses. Tenderness to palpation noted in the lumbar spine and paraspinal musculature. Pain is elicited withflexion, extension, and lateral rotation of the lumbar spine. Range of motion is diminished with these motions due to pain. Facet palpation is noted to be painful and facet loading maneuvers elicit pain that is concordant with the patient s normal pain complaints. Some muscle spasm is noted in the overlying musculature. STRENGTH - noted to be 5 out of 5 all muscle groups bilateral lower extremities including muscles involving hip flexion and abduction, knee flexion and extension, as well as foot dorsiflexion and plantarflexion. No notable atrophy, fasciculations or spasm. SENSORY - No notable sensory deficits in the bilateral lower extremities to touch or pinprick in all dermatomal distributions. Straight Leg Raise is negative bilaterally. Tenderness to palpation is noted over the Bilateral SacroIliac Joint: Fabere sign (Karsten's Test) is significantly positive, as is compression and distraction of the sacroiliac joints, which is consistent with some of the patient's normal pain. Gait is antalgic and assisted with ambulatory aid(s): W/C. Assessment/Treatment Plan: Tessa was seen today for back pain. Diagnoses and all orders for this visit: Spinal stenosis of lumbar region with neurogenic claudication - pregabalin (LYRICA) 100 mg capsule; Take 1 capsule (100 mg total) by mouth in the morning and 1 capsule (100 mg total) before bedtime. Lumbosacral spondylosis without myelopathy - pregabalin (LYRICA) 100 mg capsule; Take 1 capsule (100 mg total) by mouth in the morning and 1 capsule (100 mg total) before bedtime. Increase to Lyrica 100 mg BID With Regard to medication management, it is felt that the patient would benefit from the changes mentioned above. This should provide symptomatic pain relief as part of the comprehensive pain management strategy outlined. Risks, Benefits, Side effects, and possible interactions of these medicationswere reviewed and the medication agreement has been discussed, agreed upon, and signed. The patientunderstands compliance concerns and the requirement of pill counts and drug screens while taking medications prescribed by this clinic. Follow up 1 month The medications I have prescribed have been reviewed for medication interactions/contraindications and/or for upcoming procedures: continue current medication regimen without any changes. DISCUSSION: Treatment options discussed with patient and all questions answered to patient's satisfaction. Discussed the rules and regulations surrounding prescription of opioids and compliance at length. Failure to follow the rules and regulation will result in tapering and discontinuation of medications if applicable. The patient has been instructed as to the type of medication prescribed alongwith directions for use. Potential side effects have been discussed, along with risks and benefits of taking this medication. (S)he was instructed as to what to do if (s)he experiences side effects, including when to discontinue the medication. (S)he was advised to call this office in this event. Also discussed at length safety and security of RX and medications. Due to the high risk nature of this patient's pain medication regimen, frequent office visit refill appointments (every 1-3 months) are medically necessary to monitor for an addiction disorder. Prescribed medication that requires intensive monitoring for toxicity Lyrica. OARRS was reviewed, discussed and appropriate for medications prescribed. The spine model was demonstrated and MRI was reviewed and used to explain the condition. Chronic conditions not treated during this visit that affected my overall medical decision making: Obesity and Diabetes OARRS: Reviewed. Scribe Statement: Scribed for and in the presence of KATT MICHAEL PA-C by Alexandra Belcher CNA. Provider Statement: I, KATT MICHAEL PA-C, personally performed the services described in the documentation, as scribed by Alexandra Belcher CNA in my presence, and it is both accurate and complete. Alexandra Belcher CNA 05/26/23 1445 Alexandra Belcher CNA 05/26/23 1448 Katt Michael PA-C 05/26/23 1452 documented in this [facility]Prem[facility] History of Present illness Narrative* Eliezer Lira, [facility] - 05/26/2023 1:[address] [facility] [address] [facility] [id number] Subjective SUBJECTIVE: Referring Provider: Sherri MCDONOUGH Referring Provider: Yes Consult Agreement: Yes Employee Program:No Tessa Syed is a 73 y.o. (White or [1]) female who presents for an initial MTM visitof Type 2 Diabetes Mellitus. Tessa Syed is accompanied by her . INTERIM HX: AT LAST APPT, 04.14.23: A1c had improved from an 8.9% in January to a 7.4% in January secondary to medication optimization and lifestyle changes. However, prior to last appt, Ozempic had been decreased back to 0.5 mg weekly due to tolerability and glimepiride was resumed at 2 mg once daily to provide better glucose control. Pt felt better on the Ozempic 0.5 mg weekly, and BG levels were much better since resuming the glimepiride. Patient notes that she will be getting a lumbar epidural steroid injection and was told that her glucose will likely rise in response to this. TODAY: A1c was 8.1% on 05.20.23, up from 7.4% in Jan 2023. Increase likely d/t Steroid injection, had to hold Ozempic for 1 week for procedure, and holiday eating. We also identified from pt's log that she does typically eat fairly carb centric foods, ie: flavored oatmeal + fruit + juice, a night of [place] ir[place] lead to FBS of 200, granola bars, etc. In response to A1c increase on 05.20.23, PCP increased glimep to 4mg QD. This has helped lead to much better FBS, ie: 105, 109, 113, 104, 110 over the last week - Improved from 151, 137, 119, 110, 128, 124, 150, 97, 115, 129, 113 at last appt - But post meal still commonly 200+, Indicating it's pt'spost meal BG levels that have been keeping A1c above goal for so long. Therefore today we will increase pt's Ozempic back up to 1mg to help increase post prandial insulin secretion and to help decrease pt's appetite - *Today Pt does not recall having any tolerability issues with the 1mg dose of Ozempic, so she is willing to take the 1mg again *Future Thought: If optimize Ozempic to 2mg, and if A1c still then above goal, pt does have a h/o elevated uACR, so could +SGLT2 Pertinent current medications include: Glimepiride 4 mg PO Daily Metformin 500 mg BID Ozempic 0.5 mg SQ Weekly Pertinent previous medications include: Metformin dose >1000 mg/day d/t GI side effects PERTINENT PAST MEDICAL HISTORY: Chronic Kidney Disease: Yes Atherosclerotic Cardiovascular Disease (ASCVD): No Heart Failure with Reduced/Preserved Ejection Fraction: Yes Pancreatitis/Gastroparesis: No Medullary Thyroid Carcinoma: No Bariatric Surgery: No Genitourinary Fungal Infections: Yes DIET - Implementing positive choices Pt's log does indicate high-carb related foods,ie: Cereal/flavored oatmeal with fruit and a glass of almond milk or orange juice or cranberry juice, and coffee with half and half. Pt declined meeting with a dietitian. Gave pt a handout on lower carb food choices to look over andchoose from Specifically set goal for pt to change flavored oatmeal to plan, change regular almond milk to UNSWEETENED, and to flavor with cinnamon instead EXERCISE: Has back pain, been challenging to exercise TESTING Home blood glucose: Patient checks blood glucose once daily. Blood Glucose Device Brand: [employer] Diabetic Supplier: Retail *Pt keeps log of BG and food log Objective OBJECTIVE: Vitals: There were no vitals taken for this visit. Wt Readings from Last 3 Encounters: 05/12/23 78 kg (172 lb) 02/24/23 75.8 kg (167 lb) 02/11/23 76 kg (167 lb 8 oz) BMI: There is no height or weight on file to calculate BMI. A1c: Lab Results Component Value Date HGBA1C 8.1 (H) 05/20/2023 HGBA1C 7.4 (H) 02/15/2023 HGBA1C 8.9 (H) 01/12/2023 HGBA1C 9.8 (H) 12/10/2022 HGBA1C 10.5 (H) 08/13/2022 No results found for: CBOALLF2M @RESUDAST(POCA1C:5)@ No results found for: [id number] SCr: Lab Results Component Value Date CREATININE 1.15 (H) 05/20/2023 GFR: GFR MDRD Af Amer Date Value Ref Range Status 12/03/2021 55 (L) >59 ml/min/1.73sq.m Final GFR MDRD Non Af Amer Date Value Ref Range Status 12/03/2021 45 (L) >59 ml/min/1.73sq.m Final UACR: Alb/creat ratio Date/Time Value Ref Range Status 01/12/2023 10:04 AM 39.9 (H) 0.0 - 30.0 mg/g creat Final 08/13/2022 10:53 AM 76.7 (H) 0.0 - 30.0 mg/g creat Final No results found for: EXTPOCALB No results found for: EXTUMICOR No components found for: PROTCREATRA U/Pro/Corrections Caseworker Ratio Calc Date/Time Value Ref Range Status 05/20/2023 10:09 AM 0.41 (H) <0.2 Final Comment: Nephrotic Syndrome is associated with ratios >3.5 09/15/2022 09:39 AM 0.91 (H) <0.2 Final Comment: Nephrotic Syndrome is associated with ratios >3.5 Vitamin B12 Level: No results found for: [id number] Lipid Management: Lab Results Component Value Date CHOL 120 (L) 01/12/2023 CHOL 139 (L) 08/13/2022 No results found for: EXTCHOL No results found for: EXTPOCCHO Lab Results Component Value Date HDL 44 01/12/2023 HDL 51 08/13/2022 No results found for: EXTCHOHDL No results found for: EXTPOCHDL Lab Results Component Value Date LDLCALC 40 01/12/2023 LDLCALC 45 08/13/2022 No results found for: EXTLDL No results found for: EXTPOCLDL Lab Results Component Value Date TRIG 178 (H) 01/12/2023 TRIG 217 (H) 08/13/2022 No results found for: EXTRIG No results found for: EXTPOCTRIG The ASCVD Risk score (Roc LEMUS, et al., 2019) failed to calculate for the following reasons: The valid total cholesterol range is 130 to 320 mg/dL ADA Diabetes Quality Measures: Comments: - A1c: Up to date 02/15/23 7.4% - Kidney Screening: - SCr: Up to date 01/12/23 ; eGFR improved to 50 - UACR: Up to date 01/12/23 ; Improved to 39.9 - Lipid Screening: Up to date 01/12/23 TG 178 - Eye Exam: Up to date 2-3 times per year - Foot Exam: Up to date PCP checks - Dental Exam: Up to date every 6 months - Tobacco User: No - On Aspirin: Yes - On SERENITY/ARB: No - On Statin: Yes - Immunizations: Influenza Complete: Yes Pneumonia Complete: Yes Hepatitis B Complete: Shingles Complete: Yes Tdap Complete: Yes Covid Complete: Yes Immunization History Administered Date(s) Administered COVID-19, mRNA, LNP-S, PF, 30mcg/0.3mL Dose 12/13/2020, 01/10/2021 Influenza (IM) Preservative Free 01/31/2017 Influenza High Dose Preservative Free IM 01/25/2018, 02/06/2019 Influenza, High-dose, Quadrivalent 02/06/2020, 02/17/2021, 03/02/2022, 04/05/2023 Influenza, Injectable, quadrivalent (PF) 02/06/2019 Pneumococcal Conjugate 13-Valent 03/01/2015 Pneumococcal Conjugate 20-valent 01/13/2023 Tdap 04/05/2023 Zoster Vaccine Recombinant 02/16/2018, 05/17/2018 ASSESSMENT/PLAN: ASSESSMENT: Type 2 Diabetes Mellitus: uncontrolled as evidenced by hemoglobin A1c of 8.1% on 05.20.23 . EDUCATION / ADA MEASURES: Reviewed general diabetes pathophysiology and management Reviewed A1C and blood glucose goals Reviewed signs and symptoms of hyperglycemia/hypoglycemia and how to treat Reviewed diabetes medication dosing, route, frequency, and side effects Requested to bring in blood sugar readings to next visit Pt look at handout on lower carb food choices to choose from Specifically set goal for pt to change flavored oatmeal to plan, change regular almond milk to UNSWEETENED, and to flavor with cinnamon instead MEDICATION PLAN: INCREASE Ozempic to 1mg weekly Continue glimepiride 4 mg daily Continue metformin 500 mg BID Refills needed on pertinent current medications/supplies: Yes, rx for Ozempic 1mg sent Patient Assistance, Graphic Design Manager Coupon, or Prior Authorization: No MONITORING: CGM: No Glucometer Testing: Daily (alternating fasting and post-prandial) FOLLOW UP: Next PCP visit: 11.10.23 Next Pharmacist visit: 06.23.23 - Eliezer Lira RPH 05/26/23 3:36 PM 30 minute [id number] follow-up appointment. Eliezer Lira RPH 05/26/23 1538 documented in this [facility]01-19-2024 Miscellaneous Notes* Telephone Encounter - Saima Delacruz CMA - 05/21/2023 3:42 PM EST Patient had questions regarding her A1c that was done yesterday. Please call patient regarding result. * Telephone Encounter - Sherri Broderick MD - 05/21/2023 3:42 PM EST D/c aspirin pantoprazole 40 mg 1qd added for heart burn Amaryl 2mg increase to 2 qd Cbc repet in 2 weeks * Telephone Encounter - Yuly Eden CMA - 05/21/2023 3:42 PM EST Patient states Dr Broderick called her with these instructions on 05/21/23 documented in this encounterPrem[facility]01-[facility]-2024 Telephone encounter Note* Telephone Encounter - Saima Delacruz CMA - 05/21/2023 3:42 PM EST Patient had questions regarding her A1c that was done yesterday. Please call patient regarding result. [facility]01-19-2024 Telephone encounter Note* Telephone Encounter - Sherri Broderick MD - 05/21/2023 3:42 PM EST D/c aspirin pantoprazole 40 mg 1qd added for heart burn Amaryl 2mg increase to 2 qd Cbc repet in 2 weeks [facility]01-19-2024 Telephone encounter Note* Telephone Encounter - Yuly Eden CMA - 05/21/2023 3:42 PM EST Patient states Dr Broderick called her with these instructions on 05/21/23 [employer]01-10-2024 History of Present illness Narrative* Sherri Broderick MD - 05/12/2023 11:15 AM EST Images from the original note were not included. [id number] [place] [place] [address] SUBJECTIVE: Patient ID: Tessa Syed is a 73 y.o. female. 73 yo WF with swallowing issues and has a swallow study coming up, Pt's glucose `136 Pt had steroid injections and is seeing [facility] for back pain Pt is planning a knee replacement The following portions of the patient's history were reviewed and updated as appropriate: allergies, current medications, past family history, past medical history, past social history, past surgicalhistory and problem list. REVIEW OF SYSTEMS: Review of Systems Constitutional: Negative. Respiratory: Negative. Cardiovascular: Negative. Gastrointestinal: Negative. Genitourinary: Negative. Musculoskeletal: Positive for arthralgias and back pain. Neurological: Negative. Psychiatric/Behavioral: Negative. PHYSICAL EXAMINATION: Vitals: 05/12/23 1110 BP: 130/74 BP Site: Left Arm BP Postition: Sitting BP CUFF SIZE: M (9-13 inches) Pulse: 72 Resp: 16 Weight: 78 kg (172 lb) Height: 142.2 cm (4' 8 ) Physical Exam Vitals and nursing note reviewed. Constitutional: Appearance: Normal appearance. HENT: Head: Normocephalic and atraumatic. Eyes: Extraocular Movements: Extraocular movements intact. Pupils: Pupils are equal, round, and reactive to light. Cardiovascular: Rate and Rhythm: Normal rate and regular rhythm. Pulses: Normal pulses. Heart sounds: Normal heart sounds. Pulmonary: Effort: Pulmonary effort is normal. Breath sounds: Normal breath sounds. Musculoskeletal: Comments: Arthritic changes Skin: General: Skin is warm and dry. Neurological: General: No focal deficit present. Mental Status: She is alert and oriented to person, place, and time. Psychiatric: Mood and Affect: Mood normal. Behavior: Behavior normal. ASSESSMENT/PLAN: Tessa was seen today for routine check up. Diagnoses and all orders for this visit: Diabetes mellitus without complication ([facility]) Primary hypertension Obesity (BMI 35.0-39.9 without comorbidity) Follow-up: Hgb A1C due Pt using walker F/u ortho documented in this [facility]12-14-2023 Miscellaneous Notes* Telephone Encounter - Bernie Benito RN - 04/15/2023 2:26 PM EST Approval received for patient to hold Ozempic 7 days prior to ordered procedure. Chart to machine filler shredder. * Telephone Encounter - Cheryl Velez RN - 04/15/2023 2:26 PM EST Called pt to inform that her last dose of ozempic was last Wednesday 04/25, reminded her not to take this Wednesday, she can take after 05/07/23 procedure. [facility] Tele[facility] Note* Telephone Encounter - Bernie Benito RN - 04/15/2023 2:26 PM EST Approval received for patient to hold Ozempic 7 days prior to ordered procedure. Chart to machine filler shredder. [facility]12-14-2023 Telephone encounter Note* Telephone Encounter - Cheryl Velez RN - 04/15/2023 2:26 PM EST Called pt to inform that her last dose of ozempic was last Wednesday 04/25, reminded her not to take this Wednesday, she can take after 05/07/23 procedure. PVU [facility]12-06-2023 History of Present illness Narrative* Phillip Pennington MD - 04/07/2023 11:30 AM EST Follow-up Visit: Chief Complaint / Reason for Visit : Follow-up for low back pain, MRI follow-up HPI: Tessa Syed is a 72 y.o. female who presents with follow-up for back pain following previous L4-S1 decompression posterior spinal fusion on 08/12/2017. She states that after that surgery she was doing well, until she had a fall in October. She states that since that time she has had low back pain without radiation down her legs. She states that her pain is worse with activity and improved withrest. She states that the pain limits her ability to ambulate comfortably, she is limited to using a walker wheelchair for locomotion. She has tried oral pain medications and aquatherapy. She is not tried an injection since the fall. She was last seen in clinic for this issue on 03/23/2023. It was recommended that she obtain a pelvic MRI, which she has completed. She states that since that visit her symptoms are stable. She denies numbness and tingling in her legs, bowel and bladder incontinence, saddle anesthesia. She does endorse some weakness in hip flexion. Medications: Outpatient Medications Prior to Visit Medication Sig Dispense Refill pregabalin 25 MG capsule Take 1 capsule by mouth Twice daily. Albuterol 108 (90 Base) MCG/ACT Aero Soln inhaler Inhale 1 puff every 6 hours as needed for Shortness of Breath. carveDILOL 12.5 MG tablet Take 1 tablet by mouth 2 times daily with meals. furOSEmide 40 MG tablet Take 1 tablet by mouth daily. gliMEPIride 2 MG tablet Take 1 tablet by mouth daily every morning. metFORMIN 500 MG tablet Take 1 tablet by mouth 2 times daily with meals. Potassium chloride 20 MEQ Tab CR tablet Take 1 tablet by mouth daily. Rosuvastatin 10 MG tablet Take 1 tablet by mouth daily. No facility-administered medications prior to visit. Physical Exam: General: There were no vitals filed for this visit. No acute distress Psych: A+Ox3, Affect is appropriate Gait: wheel chair Tandem gait: difficult to perform Romberg sign: difficult to perform Peripheral Vascular: LE swelling no Cap refill < 2 seconds Skin: Lesions on Skin none Spine: Patient s spine is well aligned with no evidence of tenderness, masses, or muscle spasms. Muscle tone and bulk are normal. Range of motion of the lumbar spine is limited secondary to pain in flexion, extension, lateral bending, and rotation. Dysraphism (neural tube defect) none, Prior surgical scars well healed Neuro: MOTOR: Delt C5 Bic C5,6 WE C6 Triceps C7 Operations Coordinator C8 Intrinsics T1 Reference Right 5 5 5 5 5 5 5=Normal Left 5 5 5 5 5 5 3=against gravity SENSORY C5 C6 C7 C8 T1 Reference Right 2 2 2 2 2 2=Normal Left 2 2 2 2 2 1=Presend but decreased MOTOR: IP L1 Quad L3,4 TA L4 EHL L5 GS S1 Reference Right 3 5 5 5 5 5=Normal Left 3 5 5 5 5 3=against gravity SENSORY L2 L3 L4 L5 S1 Reference Right 2 2 2 2 2 2=Normal Left 2 2 2 2 2 1=Presend but decreased Reflexes Biceps BR Triceps Patella Achilles Reference Right 2 2 2 2 2 3=Increased, 0=Absent Left 2 2 2 2 2 1=Decreased decreased Spinal Cord Eval Gustafson Clonus Balance walking Straight Leg Raise Test Reference Right Neg Absent Normal Normal Normal=Absent Maria Isabel, Clonus Left Neg Absent Normal Normal Imaging Independent review MRI pelvis spine (04/01/2023): Grossly negative for spine pathology, possible glute tendon tear on the right. MRI lumbar spine (12/01/2022): Lumbar spine MRI demonstrates adjacent segment stenosis at L3-4. Clinical impression: Patient is a 72 y.o. female who presents today with follow-up for - Back pain Plan: The natural history and course of the symptomatology of back pain was again discussed in detail with the patient. Diagnostics were reviewed with the patient and the results were discussed .I answeredall questions regarding the mode of onset, pathophysiology, symptoms, imaging findings, treatment options (both non- operative and operative) regarding her diagnosis. - Recommend continuation of physical therapy. Recommended follow-up with her highway painter to discuss steroid versus local anesthetic epidural steroid injection at L3-4, and instructed patient take no and see if this improves her symptoms. She should discuss continued steroid injectionwith her technical publications manager given her poorly-controlled diabetes Plan of care discussed. All questions answered. The patient verbalized understanding of the diseaseprocess and agreed to the treatment plan formulated for this visit. The total [id number] time spent on this visit was greater than 20 minutes, with the majority (>50%) of the time spent in counseling, discussing pathology and management options, and coordinationof care. Patient Counseling: Again,I discussed with the patient about the spinal mechanics and the importance of staying as active as possible. We discussed about preferred and ideal BMI range as well as weight loss including diet and lifestyle modifications, and it's role in overall spine-related pain and health issues. We discussed that building a core muscle group and strengthening is crucial for sustained improvement. Wediscussed at length the signs and symptoms of myelopathy to include but not limited to: difficulty with dexterity, frequent falling, dropping objects, difficulty negotiating stairs, Urine or bowels control problems. Such findings indicate spinal cord compression and myelopathy and the downward stepwise fashion deterioration and patient was advised to follow up closely with us. I also recommended a home based exercise program. Follow-up: Follow-up after epidural injection The total time spent on this visit was greater than 30 minutes, with the majority of the time was on face to face interaction and at least >50% time was spent in counseling, discussing pathology and management options, and coordination of care. Phillip Pennington MD Orthopaedic Spine Fellow [employer]/entire of this note was dictated via M*Modal using a microphone/Phone and there may be some remaining typographical/spelling/grammatical errors, in spite of my extensive editing. Please feel free to reach me back for any clarifications. I saw and independently examined the patient on 04/07/23. I agree with the history, examination, andmedical decision making as outlined. Suman Tineo MD [facility] History of Present illness Narrative* Berny Joseph, - 03/23/2023 1:15 PM EST [facility] Ortho Spine Department Referring Provider: Sandra Kauffman Chief Complaint / Reason for Visit : Low back pain HPI: Tessa Syed is a 72 y.o. who presents with Low back pain. She previously underwent L4-S1 decompression and posterior spinal fusion on 08/12/17. Pain radiates to the right knee. It is moderate. Worse during the day. Worse with standing and walking and bending. She reports bilateral lower extremity weakness. She has tried Tylenol Mobic Motrin. She tried aqua therapy and physical therapy in October of 2021 however it caused worsening pain. She is also tried a TENS unit which has not helped. She states that she had a fall on December 01, 2022 and had increased low back pain. She reports that she has low back pain that is very painful since that time. She denies any numbness or tingling. Shedenies any radiculopathy. She reports it is 100% back pain and is excruciating. It is much worse inthe morning. It is better throughout the day. It does not bother her currently too much right now she is sitting. She notes that she does use a wheelchair due to right knee osteoarthritis as well as her back. She states it is mostly because of her back and it is much easier to sit down then stand. Review of Systems: Pertinent ROS reviewed per HPI Past Medical History: No past medical history on file. Past Surgical History: No past surgical history on file. Social History: Social History Occupational History Not on file Tobacco Use Smoking status: Not on file Smokeless tobacco: Not on file Substance and Sexual Activity Alcohol use: Not on file Drug use: Not on file Sexual activity: Not on file Family History: No family history on file. Medications: No outpatient medications prior to visit. No facility-administered medications prior to visit. Allergies: has no allergies on file. Physical Exam: General: There were no vitals filed for this visit. No acute distress Lumbar Spine: Tenderness to palpation: TTP to low back just about her fusion Posture: slightly flexed Gait: Unable to assess Able to perform tandem gait: unable to assess Able to walk on heels and toes: unalbe to assess LE swelling No Fingers/toes warm, well perfused Scar: well healed Strength Hip Flexor Hip Abductors Quads Tib Ant EHL Gastroc/Soleus Left 5/5 5/5 5/5 5/5 5/5 5/5 Right 5/5 5/5 5/5 5/5 5/5 5/5 Sensation: intact Reflex: Biceps: 2+ Patellar: 2+ Achilles: 2+ Hoffmans: - Straight leg raise: - Imaging Reports reviewed. These are an independent review of images. My findings are below. XR lumbar: There is evidence of L 4 to S1 posterior spinal fusion. There does appear to be global spondylosis. There does appear to be some ankylosis in the thoracic spine. MRI lumbar: Patient does appear to have lumbar stenosis most pronounced at L3- L4. There does appearto be foraminal stenosis throughout the lumbar spine. MRI Thoracic: There does not appear to be any significant foraminal or central stenosis present. CT Lumbar and throacic: There is some ankylosis in the thoracic spine. There does not appear to be any fractures. There does appear to be healing of her fusion. Clinical impression: Patient is a 72 y.o. who presents with severe low back pain status post L4-S1 posterior spinal fusion. There is evidence of stenosis at L3-L4. Plan: We discussed symptoms, physical exam findings, and imaging findings at length. We will obtain a MRIof the pelvis. Plan of care discussed. All questions answered. The patient verbalized understandingof the disease process and agreed to the treatment plan formulated for this visit. Berny Joseph, This dictation was created using voice recognition software. While attempts have been made to review the dictation as it is transcribed, on occasion the spoken word may be misinterpreted by the technology, leading to omissions or inappropriate words or phrases. I saw and independently examined the patient on 03/23/23. I agree with the history, examination, and medical decision making as outlined. Patient did note great relief of pain with ablation prior to fall. This seems to have been at L2- 3 and L3-4. After the fall, however, the pain is significantly worse. Will order MRI of pelvis to rule out fracture given her fall and persistent pain. She may havenondisplaced sacral insufficiency fracture. We also discussed trying lidocaine only injection at L2-3 and L3-4 for diagnostic purposes. She will see me back in a few weeks. Suman Tineo MD [facility]2023 NoteProcedure: CT of the bony pelvis without contrast. Reconstructed images: 3 mm axial, 2 mm coronal and 2 mm sagittal. Clinical information: 72-year-old female with fall December 2022. Severe left lower back pain. Comparison: Thoracolumbar spine CT and Thoracic and lumbar spine MRI 12/01/2022. Findings: Bones: Redemonstrated posterior fusion at L4-5-S1 without evidence for hardware failure or loosening. Prior discectomy and interbody fusion at L4-5. No visualized acute or subacute fracture or aggressive osseous lesion. Joints: Severe sacroiliac (SI) degenerative joint disease (DJD) and partial ankylosis on the right. Moderate pubic symphysis degenerative changes. Muscles/tendons: Mild to moderate atrophy and fatty replacement. No evidence for strain or hematoma. Pelvic wall: No gross mass. Intrapelvic structures: Mild colonic diverticulosis. IMPRESSION: No visualized acute or subacute abnormality of the pelvis. Consider MRI for more specific evaluation in the setting of persistent clinical symptoms. Final Dictated by: Bhavin Guan MD Dictated DT/TM: 02.16.2023 3:56 pm Signed by: Bhavin Guan MD Signed (Electronic Signature): 02.16.2023 4:02 pm (If Report Is Signed, Electronically Signed in Other Vendor System)[facility] HospitalComment on above:Order Comment: good elect orderpmanns 02/14/[id number] NoteAdmission Information Patient: Tessa Syed : 1950 Date of Admission: 12/01/2022 11:21:22 Date of Discharge: 12/04/2022 13:42:00 Code Status: Full Resuscitation PCP: Sherri Broderick MD Consult: Follow Up with Provider: With: Address: When: Sherri Broderick MD [address] [place] [address] [phone] Within 1 to 2 weeks Brief Hospital Course Summary: This is a 72 Year old Female, pmh asthma, diabetes, hypertension and obesity who presented to the emergency department after experiencing a fall at home landing on her back with subsequent back pain interfering with her ability to ambulate/care for herself safely. Patient states that she was ambulating from her bed when she became extremely dizzy and disoriented to her location, ultimately falling backwards with her walker. Patient was admitted for further evaluation. Discussed patient with neurosurgery, spinal MRI was reviewed, no intervention necessary at this time. Patient does follow withpain management with recent ablations, continue current management. Echocardiogram completed on 05/28/2022 at [facility] in [place], showed EF of 55-60%, systolic function is normal, Grade 1 diastolic dysfunction, no s/s of worsening heart failure. Bilateral carotid Doppler exam negative for stenosis greater than 50%. Patient is on aspirin and statin. Did have positive orthostatic hypotension. Completed course of antibiotics recurrent UTI. Patient has a A1c of 9.7, states her pcp has no plans for starting insulin now that she is done with steroid injections. Did require basal insulin during hospital stay as she had glucose as high as 432. Patient requiring further rehab due to back pain, per physical therapy recommendation, is discharged to [facility] in stable condition. Assessment: Intractable back pain s/p fall at home Chronic back pain with history of lumbar fusion, 2018 Syncope CKD IIIb Urinary tract infection, recurrent Asthma Diabetes mellitus type 2 without long-term use of insulin Hypertension Obesity, BMI 31.2 kg/m? Discharge plan: -Discharged to [facility] for continued physical therapy -Continue current medication regimen, add insulin as needed. Medications New Medications Printed Prescriptions hydrocodone-acetaminophen (hydrocodone-acetaminophen 5 mg-325 mg oral tablet) 1 Tabs Oral (given bymouth) every 4 hours as needed moderate pain [4-6 on pain scale] for 3 Days. 1-2 tabs for moderate to severe pain. Refills: 0. Last Dose: Other Medications insulin aspart see comments Subcutaneous (under the skin) four times a day (before meals and at bedtime). Last Dose: insulin detemir (Levemir) 10 Units Subcutaneous (under the skin) once a day (at bedtime). Last Dose: Medications That Were Updated - Follow Current Instructions Other Medications Current: furosemide (furosemide 20 mg oral tablet) 2 Tabs Oral (given by mouth) 2 times a day. Last Dose: Medications That Have Not Changed Other Medications albuterol (albuterol 90 mcg/inh inhalation aerosol) 2 Puffs Inhale (breathe in) every 6 hours as needed as needed for wheezing. Last Dose: ascorbic acid (Vitamin C 500 mg oral tablet, chewable) 500 Milligram Oral (given by mouth) every 8 hours. Refills: 1. Last Dose: aspirin (aspirin 81 mg oral delayed release tablet) 1 Tabs Oral (given by mouth) every day. Last Dose: calcium carbonate (calcium (as carbonate) 600 mg oral tablet) 1 Tabs Oral (given by mouth) 2 times a day. scheduled. Last Dose: carvedilol (carvedilol 25 mg oral tablet) 1 Tabs Oral (given by mouth) 2 times a day. Last Dose: DME Refills: 0. Last Dose: docusate (Colace 100 mg oral capsule) 1 Capsules Oral (given by mouth) every day as needed for constipation. Last Dose: dorzolamide ophthalmic (dorzolamide 2% ophthalmic solution) 1 Drops Both eyes every day. mid-day. Last Dose: dorzolamide-timolol ophthalmic (dorzolamide-timolol 2.23%-0.68% ophthalmic solution) 1 Drops Both eyes 2 times a day. Last Dose: fluticasone-salmeterol (Advair Diskus 250 mcg-50 mcg inhalation powder) 1 Puffs Inhale (breathe in)2 times a day. Last Dose: glimepiride (glimepiride 4 mg oral tablet) 2 Tabs Oral (given by mouth) every day. Last Dose: metFORMIN (metFORMIN 500 mg oral tablet) 1 Tabs Oral (given by mouth) 2 times a day. Last Dose: multivitamin with minerals (MultiVitamin Plus Zinc) 1 Tabs Oral (given by mouth) every day. Last Dose: potassium chloride (Potassium Chloride (Vok-Deei-Pxo M20) 20 mEq oral tablet, extended release) 1 Tabs Oral (given by mouth) every day. Last Dose: rosuva (more content not included)...[facility]08-02-2023 NoteOT evaluation attempted. OT attempted with patient up eating lunch then off floor for testing. OT to see when able. Electronically signed by Anabel Lorenzana 12/02/22 14:49 [facility]08-01-2023 Note Chief Complaint fall at 0600 this morning; patient landed on back and is having 10/10 pain Assessment/Plan Brief Hospital Course Summary: This is a 72 Years old Female who presented to the emergency department after experiencing a fall at home landing on her back with subsequent back pain interfering with her ability to ambulate/care for herself safely. Patient states that she was ambulating from her bed when she became extremely dizzy and disoriented to her location, ultimately falling backwards with her walker. Pertinent medical history includes asthma, diabetes, hypertension and obesity. Patient is admitted for intractable back pain status post fall at home on 12/01/2022. Assessment: _ Intractable back pain status post fall at home ->Chronic back pain with history of lumbar fusion Acute kidney injury, creatinine 1.41 Urinary tract infection, recurrent Asthma Diabetes mellitus type 2 without long-term use of insulin Hypertension Obesity, BMI 31.2 kg/m? Plan: _ Admit to surgical floor Monitor vitals closely including pulse oximetry Oxygen as needed via nasal cannula to maintain SpO2 > 90% Cardiac/ADA CT spine, MRI spine and x-ray of bilateral hips completed in ER. See reports CBC, BMP and Mag daily Rocephin 1 g IV daily for empirical coverage Leonard 1 tab every 4 hours as needed for pain control Insulin sliding scale for glycemic control Resume other home medications as indicated SCDs and subcutaneous heparin for DVT prophylaxis PT/OT evaluation for discharge recommendations Social work consult for discharge planning Discussion: I discussed with the patient, family, patient's nurse, and care transition about the patient's plan of care. I reviewed other provider notes. DVT prophylaxis: Heparin prophylactic dose Garcia catheter/Nasogastric tube/Central lines/Drain: No Follow up plan after Discharge: Needs outpatient follow up for routine follow up with the Primary Care and or Consulting provider within two to four weeks. Medical Decision Making: Number of Problems Addressed: 3 acute and or chronic stable illnesses. Data Reviewed/Analyzed: high >3 I reviewed results of the laboratory tests, did my independent review of the films on imaging and or EKG which was reported by another physician. I agreed with the findings. I did have prior medical records to review for comparison. Complication: ongoing monitoring for worsening symptoms, prescription drug therapy monitoring for interactions, toxicity. Medical necessity for ongoing hospitalization: ongoing workup for active diagnosis Total Time Spent in patient care: approximately 55 minutes. Code Status: Full Resuscitation History of Present Illness Ms. Tessa Syed is a 72-year-old female who presented to the emergency department after experiencing a fall at home landing on her back with subsequent back pain interfering with her ability to ambulate/care for herself safely. Patient states that she was ambulating from her bed when she became extremely dizzy and disoriented to her location, ultimately falling backwards with her walker. Pertinent medical history includes asthma, diabetes, hypertension and obesity. She denies tobacco, alcohol and illicit drug use. Family history reviewed as documented in medical record. Patient seen and examined upon arrival to nursing unit with no signs or symptoms of acute cardiopulmonary distress noted on room air. She continues to complain of significant back pain which has been unrelieved with pain medication. Patient did experience an allergic reaction following Dilaudid in the ER. Her neck and chest remain splotchy/erythematous. She reports some improvement in symptoms following the administration of Benadryl. She denies chest pain, shortness of breath at rest and nausea/vomiting at this time. Plan of care discussed at length questions answered. She is agreeable to admission for further evaluation and treatment. (12/01/2022 12:[address] Spine Thoracic Lumbar w/o Contrast) IMPRESSION: No definite acute fracture is seen. Fusion changes seen in the lower lumbar spine. Multilevel degenerative disc disease. Marked demineralization. Degenerative disc disease noted in the upper lumbar spine overall similar. No definite thoracic spine fracture. If there is persistent severe pain, consider further evaluation with MRI to evaluate for subtle marrow edema given limitations due to osteopenia [1] (12/01/2022 17:19 EDT MRI Spine Thoracic w/o Contrast) IMPRESSION: No acute fracture in the thoracic spine. Mild edema in the posterior paraspinal muscles in the upper thoracic spine is likely sequela of recent injury. [2] (12/01/2022 17:19 EDT MRI Spine Lumbar w/o Contrast) IMPRESSION: No acute process in the lumbar spine. Laminectomies and lumbar fusion at L4-L5 and L5-S1. At the adjacent L3-L4, severe central spinal stenosis secondary to posterior discovertebral complex, severe bilateral facet hypertrophy and ligamentum flavum thickening is unch (more content not included)...[facility]05-08-2023 Miscellaneous Notes* Op Note - Duyen Lubin MD - 09/07/2022 12:11 PM EDT PROCEDURE DETAILS Preoperative Diagnosis: Melanoma left upper arm Postoperative Diagnosis: Melanoma left upper arm Surgeon: Duyen Lubin Resident/Fellow/Other Director Of Teaching And Learning: Palmer Coelho Procedure: 1. WIDE LOCAL EXCISION LEFT UPPER ARM, SENTINEL NODE INJECTION Anesthesia: No anesthesiologist associated with this case Estimated Blood Loss: 5 Findings: 4 lymph nodes Specimens(s) Collected: yes, Operative Report: Indications for surgery: The patient was recently diagnosed with a 1.5 mm melanoma of the posteriorleft upper arm with a positive deep margin. After discussing the risks and benefits of wide local excision with sentinel lymph node biopsy the patient elected to proceed. Details of procedure: The patient arrived at [place] [facility] for the aforementioned procedure. Consent was obtained, history and physical performed, and questions were answered. The patient was moved into the operating room and induced under anesthesia. A timeout was performed prior to surgery. For the wide local excision, the left arm was prepped and draped in the usual sterile fashion. A 1 cm margin was drawn about the lesion and this was extended into a 3:1 elliptical incision along natural body lines to facilitate a tension- free closure. Local anesthetic was injected and an incision was made along this ellipse. Electrocautery was used to dissected down to the muscular fascia and thespecimen was then removed and marked with a short stitch superior and a long stitch lateral with a final dimension of 3 x 8 cm. This was sent for permanent pathology. Circumferential soft tissue flaps were created to facilitate closure. The wound was irrigated and hemostasis was achieved. The woundwas then closed in a complex multilayer fashion using deep 2-0 Vicryl [id number], interrupted3-0 Vicryl deep dermals, and a running subcuticular 4-0 Monocryl suture. The skin was dressed with Dermabond. For the sentinel lymph node biopsy, the left axilla was prepped and draped in the usual sterile fashion after verifying radiotracer presence in this basin with the neoprobe. A 3 cm incision was made over the radioactivity and dissection was carried out with electrocautery to identify the sentinel node. This was removed using clips and suture as needed to control blood vessels and lymphatics. A total of 4 lymph nodes (2 were clearly sentinel nodes, 1 had tracer, and one was enlarged but cold) was obtained and sent for permanent pathology. The wound was then irrigated and hemostasis achieved. This was closed in a multilayer fashion using interrupted deep 3-0 Vicryl in a running subcuticular 4-0 Monocryl. The skin was dressed with Dermabond. The patient was awoken and returned to the PACU in anticipation of discharge home. I was present scrubbed and directed all operative decision-making. Note Recipients: Dorian Cary Synoptic Op Report: Primary Cutaneous Melanoma Operation performed with curative intent: yes 1.5 mm Clinical margin width: 1 cm Depth of excision: full-thickness skin/subcutaneous tissue down to fascia (melanoma) Attestation: Note Completion: Attending Attestation I performed the procedure without a resident Electronic Signatures: Duyen Lubin) (Signed 07-Sep-2022 12:14) Authored: Post-Operative Note, Chart Review, Note Completion Last Updated: 07-Sep-2022 12:14 by Duyen Lubin) documented in this [facility] Work Phone: [phone]) 264-197605-08-2023 Note* Op Note - Duyen Lubin MD - 09/07/2022 12:11 PM EDT PROCEDURE DETAILS Preoperative Diagnosis: Melanoma left upper arm Postoperative Diagnosis: Melanoma left upper arm Surgeon: Duyen Lubin Resident/Fellow/Other Director Of Teaching And Learning: Palmer Coelho Procedure: 1. WIDE LOCAL EXCISION LEFT UPPER ARM, SENTINEL NODE INJECTION Anesthesia: No anesthesiologist associated with this case Estimated Blood Loss: 5 Findings: 4 lymph nodes Specimens(s) Collected: yes, Operative Report: Indications for surgery: The patient was recently diagnosed with a 1.5 mm melanoma of the posteriorleft upper arm with a positive deep margin. After discussing the risks and benefits of wide local excision with sentinel lymph node biopsy the patient elected to proceed. Details of procedure: The patient arrived at [facility] on 09/07/2022 for the aforementioned procedure. Consent was obtained, history and physical performed, and questions were answered. The patient was moved into the operating room and induced under anesthesia. A timeout was performed prior to surgery. For the wide local excision, the left arm was prepped and draped in the usual sterile fashion. A 1 cm margin was drawn about the lesion and this was extended into a 3:1 elliptical incision along natural body lines to facilitate a tension- free closure. Local anesthetic was injected and an incision was made along this ellipse. Electrocautery was used to dissected down to the muscular fascia and thespecimen was then removed and marked with a short stitch superior and a long stitch lateral with a final dimension of 3 x 8 cm. This was sent for permanent pathology. Circumferential soft tissue flaps were created to facilitate closure. The wound was irrigated and hemostasis was achieved. The woundwas then closed in a complex multilayer fashion using deep 2-0 Vicryl [id number], interrupted3-0 Vicryl deep dermals, and a running subcuticular 4-0 Monocryl suture. The skin was dressed with Dermabond. For the sentinel lymph node biopsy, the left axilla was prepped and draped in the usual sterile fashion after verifying radiotracer presence in this basin with the neoprobe. A 3 cm incision was made over the radioactivity and dissection was carried out with electrocautery to identify the sentinel node. This was removed using clips and suture as needed to control blood vessels and lymphatics. A total of 4 lymph nodes (2 were clearly sentinel nodes, 1 had tracer, and one was enlarged but cold) was obtained and sent for permanent pathology. The wound was then irrigated and hemostasis achieved. This was closed in a multilayer fashion using interrupted deep 3-0 Vicryl in a running subcuticular 4-0 Monocryl. The skin was dressed with Dermabond. The patient was awoken and returned to the PACU in anticipation of discharge home. I was present scrubbed and directed all operative decision-making. Note Recipients: Dorian Cary Synoptic Op Report: Primary Cutaneous Melanoma Operation performed with curative intent: yes 1.5 mm Clinical margin width: 1 cm Depth of excision: full-thickness skin/subcutaneous tissue down to fascia (melanoma) Attestation: Note Completion: Attending Attestation I performed the procedure without a resident Electronic Signatures: Duyen Lubin) (Signed 07-Sep-2022 12:14) Authored: Post-Operative Note, Chart Review, Note Completion Last Updated: 07-Sep-2022 12:14 by Duyen Lubin) [facility] Work Phone: Evaluation noteN/ADept. 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 drugs documented in this encounter [facility] Work Phone: Evaluation note* Diagnosis Closed nondisplaced fracture of pelvis, unspecified part of pelvis, initial encounter- Primary S/P lumbar fusion Arthrodesis status [facility] Diagnosis Lumbar back pain Lumbago [facility] Diagnosis Spinal stenosis of lumbar region with neurogenic claudication- Primary Spinal stenosis, lumbar region, with neurogenic claudication H/O lumbosacral spine surgery Personal history of surgery to other organs [facility] Diagnosis Diabetes mellitus without complication ([facility])- Primary Type II or unspecified type diabetes mellitus without mention of complication, not stated as uncontrolled Primary hypertension Unspecified essential hypertension Obesity (BMI 35.0-39.9 without comorbidity) [facility] Diagnosis Anemia, unspecified type- Primary Type 2 diabetes mellitus with stage 3 chronic kidney disease, without long-term current use of insulin, unspecified whether stage 3a or 3b CKD ([facility]) [facility] Diagnosis Spinal stenosis of lumbar region with neurogenic claudication Lumbosacral spondylosis without myelopathy Stage 3a chronic kidney disease (CKD) ([facility])- Primary [facility]* Diagnosis Type 2 diabetes mellitus with stage 3 chronic kidney disease, without long-term current use of insulin, unspecified whether stage 3a or 3b CKD (CMS-HCC)- Primary Stage 3a chronic kidney disease (CKD) (CMS-HCC)- Primary [facility]* Diagnosis Other specified diabetes mellitus with other specified complication ([facility]) [facility]* Diagnosis Coronary artery disease involving inupiat coronary artery of inupiat heart without angina pectoris- Primary SOB (shortness of breath) Shortness of breath Acute on chronic diastolic congestive heart failure ([facility]) Obesity (BMI 35.0-39.9 without comorbidity) Primary hypertension Unspecified essential hypertension Stage 3b chronic kidney disease ([facility]) [facility] Diagnosis Primary osteoarthritis of right knee- Primary Other specified diabetes mellitus with other specified complication, unspecified whether intermediate teacher insulin use ([facility]) documented in this encounter [facility]* Diagnosis Type 2 diabetes mellitus with stage 3 chronic kidney disease, without long-term current use of insulin, unspecified whether stage 3a or 3b CKD ([facility])- Primary [facility] this encounter [facility] Diagnosis Anemia, unspecified type- Primary Gastroesophageal reflux disease, unspecified whether esophagitis present [facility] Diagnosis Spinal stenosis of lumbar region with neurogenic claudication- Primary Disorder of sacrum Disorders of sacrum Lumbosacral spondylosis without myelopathy [facility] N[facility]* Tessa is a 72 yoF who presents to our [facility] today with her , referred by Dorian Stearns for melanoma. * The patient had a lesion she noted on her posterior left upper arm and sought a biopsy that came back as 1.5mm melanoma without ulceration with a focally positive deep margin. * All other systems have been reviewed and are negative except as noted in the HPI. * PMH is significant for DM not on insulin, asthma, HLD, HTN. * PSH is significant for spine surgeries, knee issues. * I personally reviewed all necessary laboratory results, pathology reports, and radiologic images for this patient. -[place] [id number] Work Phone: InstructionsNot on filedocumented in this encounter [facility]* Attachments The following attachments cannot be sent through Care Everywhere. * Diabetes in Older Adults (Salvadorean) documented in this encounterPro[facility] SystemInstructionsNot on file documented in this encounterProOhiohealth Sout[facility] Medical CenterWeeks Communications Health SystemInstructionsNot on file documented in this encounterProMediWeeks Communications Health SystemInstructionsNot on file documented in this encounterProOhiohealth [facility] Medical CenterWeeks Communications Health SystemInstructionsNot on file documented in this encounterProSelect Specialty Hospital Health SystemInstructionsNot on file documented in this encounterProSelect Specialty Hospital Health SystemInstructionsNot on file documented in this encounterProSelect Specialty Hospital Health SystemInstructionsNot on file documented in this encounterProSelect Specialty Hospital Health SystemInstructionsNot on file documented in this encounterProSelect Specialty Hospital [facility] Vent[employer] SystemInstructionsNot on file documented in this encounterPremier Health [facility] NorthReason for referral (narrative)* Name Reason for referral NA NA Dept. of Dermatology Reason for referral (narrative)* Consultation (Routine) - Pending Review Specialty Diagnoses / Procedures Referred By Anmol t Referred To Contact Behavioral Health Diagnoses Spinal stenosis of lumbar region with neurogenic claudication Katt Michael PA-C [address] [facility] [place] [address] [facility] [address] [place] [address] Referral ID Status Reason Start Date Expiration Date Visits Requested Visits Authorized [id number] Pending Review Specialty Services Required 07/19/2023 07/18/2024 1 1 [facility] Summary Purpose Family History No Family History Records FoundNo Family History Records FoundNo Family History Records FoundNo Family History Records FoundNo Family History Records FoundNo Family History Records FoundNo Family History Records FoundNo Family History Records FoundNo Family History Records Found Advance Directives No Advanced Directives Records FoundLatest Code Status on File Code Status Date Activated Date Inactivated Comments Full Code 09/09/2020 8:50 AM 09/12/2020 6:12 PM Latest Code Status on File Code Status Date Activated Date Inactivated Comments Full Code 09/09/2020 8:50 AM 09/12/2020 6:12 PM Chief Complaint melanoma Reason for Referral Specialty Diagnoses / Procedures Referred By Contac t Referred To Contact Diagnoses Closed nondisplaced fracture of pelvis, unspecified part of pelvis, initial encounter Procedures MRI PELVIS WITHOUT CONTRAST CT MRI, PELVIS, W/O CONTRAST Suman Tineo MD [address] [place] [phone] Referral ID Status Reason Start Date Expiration Date V isits Requested Visits Authorized [id number] New Request 03/23/2023 04/16/2024 1 1 Specialty Diagnoses / Procedures Referred By Contac t Referred To Contact Diagnoses Type 2 diabetes mellitus with stage 3 chronic kidney disease, without long-term current use of insulin, unspecified whether stage 3a or 3b CKD (CMS-HCC) Sherri Broderick MD [address] [place] [address] Referral ID Status Reason Start Date Expiration Date Visits Re quested Visits Authorized [id number] Closed 1 1 Additional Source Comments INFORMATION SOURCE (unrecogn ized section and content) DATE CREATED AUTHOR 12/17/2017 [facility] DATE CREATED AUTHOR AUTHOR'S ORGANIZ ATION 09/10/2020 [facility] DATE CREATED AUTHOR AUTHOR'S ORGANIZ ATION 08/27/2022 [employer] DATE CREATED AUTHOR AUTHOR'S ORGANIZ ATION 10/21/2022 [facility] DATE CREATED AUTHOR AUTHOR'S ORGANIZ ATION 04/11/2023 [facility] DATE CREATED AUTHOR AUTHOR'S ORGANIZ ATION 07/11/2023 [facility] DATE CREATED AUTHOR AUTHOR'S ORGANIZ ATION 12/21/2023 [facility] EPIC DATE CREATED AUTHOR AUTHOR'S ORGANIZ ATION 12/24/2023 [facility] DATE CREATED AUTHOR AUTHOR'S ORGANIZ ATION 01/02/2024 [facility] Reason for Visit (unrecogniz ed section and content) Reason Comments Other WIDE LOCAL EXCISION LEFT UPPER ARM; SENTINEL LYMPH NODE BIOPSY Reason Comments Pain Dr. Cruz in [facility] performed L4-S1 spinal fusion in 2018. NKI, insidious onset 5 years after sx. Tried PT, CSI. Dr. Price [place] did ablation Bilateral L2-4 4 mo ago had 3 days of pain relief- Pt fell and re injured back. 02/09 pain when walking, standing. No N/T, radiating. Specialty Diagnoses / Procedures Referred By Anmol sanders Referred To Contact Orthopaedic Surgery Diagnoses Ankylosis of spine Low back pain, unspecified back pain laterality, unspecified chronicity, unspecified whether sciatica present DDD (degenerative disc disease), lumbar Kandace Kauffman PA-C [address] [place] [address] [facility] [address] [place] [address] Referral ID Status Reason Start Date Expiration Date V isits Requested Visits Authorized [id number] New Request 02/23/2023 03/19/2024 1 1 Reason Comments MRI Results Pt reports for pelvi s MRI results. Reason Comments Routine Check up Reason Comments Back Pain Reason Comments MTM Follow-up Visit Reason Comments Follow-up EST PT 6 MO FU L/S M BE Med Refill All cardiac meds 90 days Reason Comments Pain Reason Comments Colonoscopy 5 YEAR RECALL, LAST COLON, 01/16/19, by Dr Rodriguez Reason Comments Med Refill Reason Onset Date Comments Med Refill 07/06/2023 Reason Comments Diabetes Mellitus MTM Follow-up Visit Reason Comments Back Pain Care Teams (unrecognized sec tion and content) Winter Intern Relationship Specialty Start Date End Date Sherri Broderick MD [address] [facility] [place] [address] PCP - General 09/07/22 Winter Intern Relationship Specialty Start Date End Date Sherri Broderick MD [address] [place] [address] PCP - General Family Medicine 09/23/16 Winter Intern Relationship Specialty Start Date End Date Sherri Broderick MD [address] [place] [address] PCP - General Family Medicine 09/23/16 Winter Intern Relationship Specialty Start Date End Date Sherri Broderick MD [address] [place] [address] PCP - General [facility] Medicine 09/23/16 Winter Intern Relationship Specialty Start Date End Date Sherri Broderick MD [address] [place] [address] PCP - General Family Medicine 09/23/16 Winter Intern Relationship Specialty Start Date End Date Sherri Broderick MD [address] [place] [address] PCP - General Family Medicine 09/23/16 Winter Intern Relationship Specialty Start Date End Date Sherri Broderick MD [address] [place] [address] PCP - General Family Medicine 09/23/16 Winter Intern Relationship Specialty Start Date End Date Sherri Broderick MD [address] [place] [address] PCP - General Family Medicine 09/23/16 Winter Intern Relationship Specialty Start Date End Date Sherri Broderick MD [address] [place] [address] PCP - General Family Medicine 09/23/16 Winter Intern Relationship Specialty Start Date End Date Sherri Broderick MD [address] [place] [address] PCP - General Family Medicine 10/06/22 Winter Intern Relationship Specialty Start Date End Date Sherri Broderick MD [address] [place] [address] PCP - General Family Medicine 09/23/16 Winter Intern Relationship Specialty Start Date End Date Sherri Broderick MD [address] [place] [address] PCP - General Family Medicine 09/23/16 Winter Intern Relationship Specialty Start Date End Date Sherri Broderick MD [address] [place] [address] PCP - [facility] 09/23/16 Winter Intern Relationship Specialty Start Date End Date Sherri Broderick MD [address] [place] [address] PCP - [facility] 09/23/16 Winter Intern Relationship Specialty Start Date End Date Sherri Broderick MD [address] [place], [place] [id number] PCP - [facility] 09/23/16 Winter Intern Relationship Specialty Start Date End Date Sherri Broderick MD [address] [place], [place] [id number] PCP - [facility] 09/23/16 FOR RECORDS PERTAINING TO PATIENTS WHO ARE OR HAVE BEEN ENROLLED IN A CHEMICAL DEPENDENCY/SUBSTANCEABUSE PROGRAM, SOME INFORMATION MAY BE OMITTED. This clinical summary was aggregated from multiple sources. Caution should be exercised in using it in the provision of clinical care. This summary normalizes information from multiple sources, and as a consequence, information in this document may materially change the coding, format and clinical context of patient data. In addition, data may be omitted in some cases. CLINICAL DECISIONS SHOULD BE BASED ON THE PRIMARY CLINICAL RECORDS. [facility] [employer] [facility]. provides no warranty or guarantee of the accuracy or completeness of information in this document.
[2024-01-05 18:09] LABS: Basophils Percent Auto 0.4 % (0.2-2.0); Eosinophils Absolute Auto 0.2 10^3/uL (0.0-0.7); Eosinophils Percent Auto 2.1 % (0.9-7.0); Hematocrit 30.4 % (36.0-48.0); Hemoglobin 9.3 g/dL (12.0-16.0); Immature Granulocytes Abs Auto 0.06 10^3/uL (0.00-0.03); Immature Granulocytes Pct Auto 0.6 % (0.0-0.5); Lymphocytes Absolute Auto 1.7 10^3/uL (1.2-3.8); Lymphocytes Percent Auto 17.3 % (20.5-60.0); Mean Corpuscular HGB Conc 30.6 g/dL (29.9-35.2); Mean Corpuscular Hemoglobin 25.2 pg (26.7-34.0); Mean Platelet Volume 9.9 fL (9.5-13.5); Neutrophils Absolute Auto 6.9 10^3/uL (1.4-6.5); Neutrophils Percent Auto 69.6 % (43.0-75.0); Platelet Count 359 10^3/uL (150-450); Red Blood Count 3.69 10^6/uL (4.20-5.40); Red Cell Distribution Width 23.2 % (11.0-15.0); White Blood Count 9.9 10^3/uL (4.0-11.0)
[2024-01-05 18:26] LABS: Mean Corpuscular Volume 82.4 fL (81.0-99.0)
== END 2024-01-05 17:31 | disposition home or self-care (01) ==
LOC: LAB 17:30
PROVIDERS: PCP Family Medicine
DX: D64.9 Anemia, unspecified (principal)
CPT/HCPCS: 36415; 85025